=== PATIENT | male | born 1980 | race Caucasian/White ===

== ENCOUNTER 2021-03-09 10:32 | Inpatient (IN) | payer OTHER ==
[~2021-03-09] VITALS: Ht 182.9 cm; Wt 85.7 kg
[~2021-03-09 10:32] MED LIST changes: -ACET-2267 PO; -ACHD5005 PO; -AMOX-358 PO; -AMOXICILLIN PO; -ASPI-1238 PO; -ATOR40TA70 PO; -CEFT2VIA12 IV; -CHOLESTEROL PO; -DOXY100C5 PO; -DOXYCYCLINE PO; -LIRA0.6P3 SQ; -LISI10TA25 PO; -METF-478 PO; -METFORMIN ER PO; -METR-145 PO; -OMG1KC PO; -SENN1TAB76 PO
[2021-03-09] MEDS ORDERED: CHOLESTEROL PO (10:47)
[2021-03-09] MEDS ORDERED: LIRA0.6P3 SQ ×2 (10:47→14:51)
[2021-03-09] MEDS ORDERED: AMOXICILLIN PO (10:47)
[2021-03-09] MEDS ORDERED: METFORMIN ER PO (10:47)
[2021-03-09] MEDS ORDERED: DOXYCYCLINE PO (10:47)
--- NOTE | 2021-03-09 11:10 | ED Integumentary General ---
General Chief Complaint: Skin/Wound Problems Stated Complaint: R FOOT INFECTION Nursing Triage Note: PT REPORTS HE HAS HAD WOUND ON BOTTOM OF RIGHT FOOT FOR A FEW MONTHS. WAS SEEN AT WOUND CARE TODAY. DR ORNELAS SENT PT TO ER FOR ADMISSION. Source: patient Exam Limitations: no limitations (SHILA LENNON APRN) History of Present Illness Date Seen by Provider: Mar 09, 2021 Time Seen by Provider: 11:06 Initial Comments To ER from wound care where he presented for his first visit today he has had an ongoing wound to the plantar surface of the right foot for several months. He is a poorly controlled diabetic with a last hemoglobin A1c of about 14. He is on Metformin and Victoza. He was sent to ER by Dr. Ornelas to be admitted for IV antibiotics and surgical debridement of this wound. He states that he has had cellulitis that required admission to the hospital once before here and once before in [place]. He had an x-ray done at [facility] 2 days ago and MRI done at [facility] yesterday. He is currently on amoxicillin and doxycycline x4 days for this wound. Timing/Duration: constant Severity: moderate Possible Cause: no cause identified Associated Symptoms: denies symptoms (SHILA LENNON APRN) Allergies and Home Medications Allergies Coded Allergies: [place] Known Allergies (Verified Allergy, Unknown, 09/25/05) Patient Home Medication List Home Medication List Reviewed: Yes (SHILA LENNON APRN) Acetaminophen (Tylenol Extra Strength) 500 Mg Tablet, 1,000 MG PO Q8H PRN for PAIN-MILD (1-4), (Reported) Entered as Reported by: ABIDA BRUMFIELD on 03/09/211450 Last Action: Continued Amoxicillin/Potassium Clav (Augmentin 875-125 Tablet) 1 Each Tablet, 1 EACH PO BID, (Reported) Entered as Reported by: ABIDA BRUMFIELD on 03/09/211450 Last Action: Held Atorvastatin Calcium (Atorvastatin Calcium) 40 Mg Tablet, 40 MG PO HS, (Reported) Entered as Reported by: ABIDA BRUMFIELD on 03/09/211450 Last Action: Continued Doxycycline Hyclate (Doxycycline Hyclate) 100 Mg Capsule, 100 MG PO BID, (Reported) Entered as Reported by: ABIDA BRUMFIELD on 03/09/211450 Last Action: Held Liraglutide (Victoza 3-Yan) 0.6 Mg/0.1 Ml Pen.injctr, 0.6 MG SQ 1800, (Reported) Entered as Reported by: ABIDA BRUMFIELD on 03/09/211450 Last Action: Converted Metformin HCl (Metformin HCl ER) 500 Mg Tab.er.24, 500 MG PO 1800 W/ DINNER, (Reported) Entered as Reported by: ABIDA BRUMFIELD on 03/09/211450 Last Action: Continued Discontinued Medications Hydrocodone Bit/Acetaminophen (Hydrocodone-Apap 10-325 Tablet) 1 Each Tablet, 0.5-1 EACH PO Q 4 - 6 HRS PRN Discontinued Reason: No Longer Taking Prescribed by: AMPARO WHITMAN on 01/21/13 1210 Last Action: Discontinued Liraglutide (Victoza 3-Yan) 0.6 Mg/0.1 Ml Pen.injctr, 0.6 MG SQ DAILY, (Reported) Discontinued Reason: Duplicate Order Entered as Reported by: CHERIE PRADO on 03/09/211046 Last Action: Discontinued Metformin Hcl (Metformin 1000 Mg) 1,000 Mg Tablet, 1 EACH PO BID WITH MEALS, (Reported) Discontinued Reason: No Longer Taking Entered as Reported by: GERALD HARRIS on 01/21/13 115 Last Action: Discontinued Ranitidine Hcl (Zantac 150 Mg) 150 Mg Tablet, 1 TAB PO BID, (Reported) Discontinued Reason: No Longer Taking Entered as Reported by: GERALD HARRIS on 01/21/13 115 Last Action: Discontinued [Amoxicillin] , 1 TAB PO BID, (Reported) Discontinued Reason: Duplicate Order Entered as Reported by: CHERIE PRADO on 03/09/211046 Last Action: Discontinued [Cholesterol] , 1 TAB PO DAILY, (Reported) Discontinued Reason: Duplicate Order Entered as Reported by: CHERIE PRADO on 03/09/211046 Last Action: Discontinued [Doxycycline] , 1 TAB PO BID, (Reported) Discontinued Reason: Duplicate Order Entered as Reported by: CHERIE PRADO on 03/09/211046 Last Action: Discontinued [Metformin Er] , 1 TAB PO DINNER, (Reported) Discontinued Reason: Duplicate Order Entered as Reported by: CHERIE PRADO on 03/09/211046 Last Action: Discontinued Review of Systems Review of Systems Constitutional: see HPI, chills; No fever EENTM: see HPI Respiratory: no symptoms reported Cardiovascular: no symptoms reported Genitourinary: no symptoms reported Musculoskeletal: no symptoms reported Skin: no symptoms reported Psychiatric/Neurological: No Symptoms Reported Endocrine: No Symptoms Reported Hematologic/Lymphatic: No Symptoms Reported (SHILA LENNON APRN) Past Jnevbgg-Yaddow-Cfgpay Hx Past Medical History Diabetes, Non-Insulin dep Anxiety (SHILA LENNON APRN) Physical Exam Vital Signs Vital Signs - First Documented 03/09/21 10:38 Temp 37.0 Pulse 108 Resp 18 B/P (MAP) 134/83 (100) Pulse Ox 97 O2 Delivery Room Air (UCHE ALVARES MD) Vital Signs Capillary Refill : Less Than 3 Seconds (SHILA LENNON APRN) General Appearance: WD/WN, no apparent distress Neck: non-tender, full range of motion Respiratory: normal breath sounds, no respiratory distress, no accessory muscle use Gastrointestinal: normal bowel sounds, non tender Extremities: normal range of motion, non-tender Neurologic/Psychiatric: alert, normal mood/affect, oriented x 3 Skin: normal color, warm/dry Skin Problem Location: lower extremities Skin Problem Character: abscess, erythema, other (To the plantar surface of the right foot are 2 separate ulcers. One is surrounded by callus and the wound bed cannot be well visualized. The more posterior wound is surrounded by erythema, the ulcerative center has whitish-yellow necrotic material and there are some surrounding cellulitic changes of erythema and induration.) (SHILA LENNON APRN) Progress/Results/Core Measures Results/Orders Lab Results Laboratory Tests Test 03/09/21 11:00 03/09/21 11:09 Range/Units White Blood Count 14.9 H 4.3-11.0 10^3/uL Red Blood Count 4.60 4.30-5.52 10^6/uL Hemoglobin 13.1 L 13.3-17.7 g/dL Hematocrit 39 L 40-54 % Mean Corpuscular Volume 84 80-99 fL Mean Corpuscular Hemoglobin 29 25-34 pg Mean Corpuscular Hemoglobin Concent 34 32-36 g/dL Red Cell Distribution Width 11.1 10.0-14.5 % Platelet Count 373 130-400 10^3/uL Mean Platelet Volume 10.4 9.0-12.2 fL Immature Granulocyte % (Auto) 1 % Neutrophils (%) (Auto) 73 42-75 % Lymphocytes (%) (Auto) 18 12-44 % Monocytes (%) (Auto) 6 0-12 % Eosinophils (%) (Auto) 2 0-10 % Basophils (%) (Auto) 1 0-10 % Neutrophils # (Auto) 10.9 H 1.8-7.8 10^3/uL Lymphocytes # (Auto) 2.6 1.0-4.0 10^3/uL Monocytes # (Auto) 0.9 0.0-1.0 10^3/uL Eosinophils # (Auto) 0.2 0.0-0.3 10^3/uL Basophils # (Auto) 0.1 0.0-0.1 10^3/uL Immature Granulocyte # (Auto) 0.1 0.0-0.1 10^3/uL Neutrophils % (Manual) 70 % Lymphocytes % (Manual) 24 % Monocytes % (Manual) 4 % Eosinophils % (Manual) 1 % Basophils % (Manual) 1 % Band Neutrophils 0 % Blood Morphology Comment NORMAL Prothrombin Time 15.1 H 12.2-14.7 SEC INR Comment 1.1 0.8-1.4 Activated Partial Thromboplast Time 36 H 24-35 SEC Sodium Level 133 L 135-145 MMOL/L Potassium Level 3.8 3.6-5.0 MMOL/L Chloride Level 97 L 98-107 MMOL/L Carbon Dioxide Level 25 21-32 MMOL/L Anion Gap 11 5-14 MMOL/L Blood Urea Nitrogen 11 7-18 MG/DL Creatinine 1.01 0.60-1.30 MG/DL Estimat Glomerular Filtration Rate 81 BUN/Creatinine Ratio 11 Glucose Level 175 H 70-105 MG/DL Lactic Acid Level 1.12 0.50-2.00 MMOL/L Calcium Level 10.1 8.5-10.1 MG/DL Corrected Calcium 10.4 H 8.5-10.1 MG/DL Total Bilirubin 0.7 0.1-1.0 MG/DL Aspartate Amino Transf (AST/SGOT) 15 5-34 U/L Alanine Aminotransferase (ALT/SGPT) 12 0-55 U/L Alkaline Phosphatase 95 40-136 U/L Total Protein 7.5 6.4-8.2 GM/DL Albumin 3.6 3.2-4.5 GM/DL Urine Color YELLOW Urine Clarity CLEAR Urine pH 7.5 5-9 Urine Specific [place] 1.010 L 1.016-1.022 Urine Protein NEGATIVE NEGATIVE Urine Glucose (UA) NEGATIVE NEGATIVE Urine Ketones NEGATIVE NEGATIVE Urine Nitrite NEGATIVE NEGATIVE Urine Bilirubin NEGATIVE NEGATIVE Urine Urobilinogen 1.0 < = 1.0 MG/DL Urine Leukocyte Esterase NEGATIVE NEGATIVE Urine RBC (Auto) TRACE-I H NEGATIVE Urine RBC NONE /HPF Urine WBC NONE /HPF Urine Crystals NONE /LPF Urine Bacteria NEGATIVE /HPF Urine Casts NONE /LPF Urine Mucus NEGATIVE /LPF Urine Culture Indicated CULTURE PENDING (UCHE ALVARES MD) Micro Results Microbiology 03/09/21 Urine Culture - Final, Complete NO GROWTH 03/09/21 Gram Stain - Final, Resulted 03/09/21 Wound Culture, Resulted Pending 03/09/21 Blood Culture - Preliminary, Resulted No growth (UCHE ALVARES MD) Vital Signs/I&O 03/09/21 10:38 Temp 37.0 Pulse 108 Resp 18 B/P (MAP) 134/83 (100) Pulse Ox 97 O2 Delivery Room Air (UCHE ALVARES MD) Blood Pressure Mean: 100 Diagnostic Imaging Diagonstic Imaging: Xray Comments NAME: KELLIE MG MED REC#: [id number] PT STATUS: REG ER : 1980 PHYSICIAN: SHILA LENNON APRN ADMIT DATE: 03/09/21/ER Draft Date of Exam:03/09/21 CHEST 1 VIEW, AP/PA ONLY CLINICAL INDICATION: Patient with sepsis. EXAM: Portable chest x-ray upright view. COMPARISONS: None. FINDINGS: Lungs/pleura: Suspected bony prominence of the anterior aspects of both 1st ribs causing the increased density involving the medial bilateral upper lobes. Otherwise, lungs are clear. There is no pneumothorax. There is no pleural effusion. Mediastinum: Unremarkable. Pulmonary vasculature: Unremarkable. Heart: Unremarkable. Bones/extrathoracic soft tissue: Unremarkable. IMPRESSION: 1: Suspected bony prominence of the anterior aspects of both 1st ribs causing the increased density involving the medial bilateral upper lobes. Chest x-ray PA and lateral views is suggested to exclude underlying lung nodule. 2: Otherwise, there is no radiographic evidence of acute cardiopulmonary process. Dictated on workstation # [id number] Dict: 03/09/21 1205 Trans: 03/09/21 1216 [facility] [id number] Interpreted by: RADHA PERALTA MD Electronically signed by: (SHILA LENNON APRN) Departure Communication (Admissions) NAME: KELLIE MG [facility] REC#: [id number] PT STATUS: REG ER : 1980 PHYSICIAN: SHILA LENNON APRN ADMIT DATE: 03/09/21/ER Draft Date of Exam:03/09/21 FOOT, RIGHT, 3 VIEW CLINICAL INDICATION: Patient with a wound on bottom of right foot for a few months. EXAM: X-ray of the right foot, three views. COMPARISON: None. FINDINGS AND IMPRESSION: 1: There is a soft tissue defect involving the plantar aspect of the soft tissue near the MTP joint region, seen on lateral view, which likely correlates to patient's history of a foot wound. 2: There is appearance of air overlying the fourth MTP joint region on the AP view. The bony cortical margins involving the distal head of the fourth metatarsal bone are not well visualized. Osteomyelitis should be excluded. MRI of the right foot would better evaluate. 3: There is no acute fracture or dislocation. 4: There are degenerative spurs involving the mid foot and calcaneus. Dictated on workstation # [id number] Dict: 03/09/21 1237 Trans: 03/09/21 1243 [id number] Interpreted by: RADHA PERALTA MD Electronically signed by: I spoke with Dr. Biggs and Dr. Goldstein. Will admit on Zosyn and vancomycin he does meet sepsis protocol given the leukocytosis of 15,000 here in the tachycardia rate of 108. The official radiology report of the right foot x-ray is pending though to me it does look like there is erosion of the distal fourth metatarsal. Alternatively I suppose this could just be severe osteopenia but the official report is pending. Either way admitted for IV antibiotics and surgical consult. I did call [facility] to get the report for the MRI that was done there yesterday outpatient and it has not yet been transcribed so it is unavailable. (SHILA LENNON APRN) Impression Primary Impression: Diabetic ulcer of right foot Additional Impression: Sepsis Disposition: 09 ADMITTED INPATIENT Condition: Stable Admissions Decision to Admit Reason: Admit from ER (General) Decision to Admit/Date: Mar 09, 2021 Time/Decision to Admit Time: 12:45 (SHILA LENNON APRN) Departure-Patient Inst. Referrals: [facility] [place] (PCP/Family) Primary Care Physician ATTENDING PHYSICIAN NOTE: I was physically present as attending physician in the emergency department during the care of this patient, but I was not directly involved in the decision making or delivery of care for this patient. (UCHE ALVARES MD) SHILA LENNON APRN Mar 09, 2021 11:10 UCHE ALVARES MD Mar 11, 2021 06:25
[2021-03-09 11:13] LABS: BASOPHILS # (AUTO) 0.1 10^3/uL (0.0-0.1); BASOPHILS % (AUTO) 1 % (0-10); EOSINOPHILS # (AUTO) 0.2 10^3/uL (0.0-0.3); EOSINOPHILS % (AUTO) 2 % (0-10); HEMATOCRIT 39 % (40-54); HEMOGLOBIN 13.1 g/dL (13.3-17.7); LYMPHOCYTES # (AUTO) 2.6 10^3/uL (1.0-4.0); LYMPHOCYTES % (AUTO) 18 % (12-44); MEAN CORPUSCULAR HEMOGLOBIN 29 pg (25-34); MEAN CORPUSCULAR HGB CONC 34 g/dL (32-36); MEAN CORPUSCULAR VOLUME 84 fL (80-99); MEAN PLATELET VOLUME 10.4 fL (9.0-12.2); MONOCYTES # (AUTO) 0.9 10^3/uL (0.0-1.0); MONOCYTES % (AUTO) 6 % (0-12); NEUTROPHILS # (AUTO) 10.9 10^3/uL (1.8-7.8); NEUTROPHILS % (AUTO) 73 % (42-75); PLATELET COUNT 373 10^3/uL (130-400); WHITE BLOOD COUNT 14.9 10^3/uL (4.3-11.0)
[2021-03-09 11:14] LABS: BILIRUBIN,URINE NEGATIVE (NEGATIVE); CLARITY,URINE CLEAR; COLOR,URINE YELLOW; GLUCOSE, URINE (UA) NEGATIVE (NEGATIVE); KETONES,URINE NEGATIVE (NEGATIVE); LEUKOCYTE ESTERASE ,URINE NEGATIVE (NEGATIVE); NITRITE,URINE NEGATIVE (NEGATIVE); PH,URINE 7.5 (5-9); PROTEIN,URINE NEGATIVE (NEGATIVE)
[2021-03-09 11:24] LABS: BACTERIA,URINE NEGATIVE /HPF
[2021-03-09 11:25] LABS: ALBUMIN 3.6 GM/DL (3.2-4.5); POTASSIUM 3.8 MMOL/L (3.6-5.0)
[2021-03-09 11:26] LABS: CALCIUM 10.1 MG/DL (8.5-10.1)
[2021-03-09 11:27] LABS: TOTAL PROTEIN 7.5 GM/DL (6.4-8.2)
[2021-03-09 11:29] LABS: BILIRUBIN,TOTAL 0.7 MG/DL (0.1-1.0)
[2021-03-09 11:31] LABS: CREATININE SERUM 1.01 MG/DL (0.60-1.30)
[2021-03-09 11:32] LABS: BAND NEUTROPHILS 0 %; BASOPHILS % (MANUAL) 1 %; EOSINOPHILS % (MANUAL) 1 %; INR 1.1 (0.8-1.4); LYMPHOCYTES % (MANUAL) 24 %; MONOCYTES % (MANUAL) 4 %; NEUTROPHILS % (MANUAL) 70 %; PROTHROMBIN TIME PATIENT 15.1 SEC (12.2-14.7); RBC MORPH NORMAL
[2021-03-09] MEDS ORDERED: ONDANSETRON 4 MG/2 ML (SDV) Z0FRAN ONE (11:35)
[2021-03-09] MEDS ORDERED: ONDANSETRON 4 MG/2 ML (SDV) Z0FRAN IVP ONE (11:45)
--- NOTE | 2021-03-09 12:17 | Diagnostic Imaging Report ---
CLINICAL INDICATION: Patient with sepsis. EXAM: Portable chest x-ray upright view. COMPARISONS: None. FINDINGS: Lungs/pleura: Suspected bony prominence of the anterior aspects of both 1st ribs causing the increased density involving the medial bilateral upper lobes. Otherwise, lungs are clear. There is no pneumothorax. There is no pleural effusion. Mediastinum: Unremarkable. Pulmonary vasculature: Unremarkable. Heart: Unremarkable. Bones/extrathoracic soft tissue: Unremarkable. IMPRESSION: 1: Suspected bony prominence of the anterior aspects of both 1st ribs causing the increased density involving the medial bilateral upper lobes. Chest x-ray PA and lateral views is suggested to exclude underlying lung nodule. 2: Otherwise, there is no radiographic evidence of acute cardiopulmonary process. Dictated by: Dictated on workstation # [id number]
--- NOTE | 2021-03-09 12:43 | Diagnostic Imaging Report ---
CLINICAL INDICATION: Patient with a wound on bottom of right foot for a few months. EXAM: X-ray of the right foot, three views. COMPARISON: None. FINDINGS AND IMPRESSION: 1: There is a soft tissue defect involving the plantar aspect of the soft tissue near the MTP joint region, seen on lateral view, which likely correlates to patient's history of a foot wound. 2: There is appearance of air overlying the fourth MTP joint region on the AP view. The bony cortical margins involving the distal head of the fourth metatarsal bone are not well visualized. Osteomyelitis should be excluded. MRI of the right foot would better evaluate. 3: There is no acute fracture or dislocation. 4: There are degenerative spurs involving the mid foot and calcaneus. Dictated by: Dictated on workstation # [id number]
[2021-03-09 13:53] VITALS: BP 145/91
[2021-03-09] MEDS ORDERED: PIPERACILLIN/TAZO 4.5 GM/NS 100 ML IV NR ×2 (14:15)
[2021-03-09] MEDS ORDERED: ONDANSETRON 4 MG/2 ML (SDV) Z0FRAN IV PRN (14:15)
[2021-03-09] MEDS ORDERED: CATHETER FLUSH 10 ML SYR IV PRN (14:15)
--- NOTE | 2021-03-09 14:24 | Consultation - Surgery ---
BIRDIE KELLEY 03/09/21 1424: History of Present Illness History of Present Illness Patient Consulted On(edwin/time) 03/09/21 14:09 Date Seen by Provider: Mar 09, 2021 Time Seen by Provider: 13:36 Reason for Visit: Wound on foot History of Present Illness Previous HPI from ED - To ER from wound care where he presented for his first visit today he has had an ongoing wound to the plantar surface of the right foot for several months. He is a poorly controlled diabetic with a last hemoglobin A1c of about 14. He is on Metformin and Victoza. He was sent to ER by Dr. Ornelas to be admitted for IV antibiotics and surgical debridement of this wound. He states that he has had cellulitis that required admission to the hospital once before here and once before in [place]. He had an x-ray done at [facility] 2 days ago and MRI done at [place] yesterday. He is curr ently on amoxicillin and doxycycline x4 days for this wound. Surgery consulted for foot wound management. Pt was resting in bed when entering and does not appear to be in distress at this time. Pt reports 2 month hx of wound to the plantar surface of his right foot which he had been managing by keeping it clean. Last Saturday when driving his right foot began to hurt which prompted him to visit the [facility] clinic on Saturday where he received abx and a referral for MRI of the foot in [place]. The wound opened further upon cleaning which prompted the Pt to seek additional care from Dr. Ornelas at wound care who referred him to the ED. He has a painless, open purulent wound with 3 openings on the plantar surface of his right foot. There is surrounding erythema of 4X5cm. Diffusely swollen and warm to the touch. Sensation to touch intact and with good distal sensation to touch and good motor control. Dorsal pulse on right foot is present but difficult to palate due to swelling. Resting the foot makes the wound better and driving makes it worse, he has no pain but is concerned for to worsening nature of the wound. He states that he would prefer to keep his foot intact, but will consent to amputation if necessary. He is tachycardic with elevated WBCs and afebrile but also complains of chills since Saturday. Allergies and Home Medications Allergies Coded Allergies: [place] Known Allergies (Verified Allergy, Unknown, 09/25/05) Patient Home Medication List Acetaminophen (Tylenol Extra Strength) 500 Mg Tablet, 1,000 MG PO Q8H PRN for PAIN-MILD (1-4), (Reported) Entered as Reported by: ABIDA BRUMFIELD on 03/09/211450 Last Action: Reviewed Amoxicillin/Potassium Clav (Augmentin 875-125 Tablet) 1 Each Tablet, 1 EACH PO BID, (Reported) Entered as Reported by: ABIDA BRUMFIELD on 03/09/211450 Last Action: Reviewed Atorvastatin Calcium (Atorvastatin Calcium) 40 Mg Tablet, 40 MG PO HS, (Reported) Entered as Reported by: ABIDA BRUMFIELD on 03/09/211450 Last Action: Reviewed Doxycycline Hyclate (Doxycycline Hyclate) 100 Mg Capsule, 100 MG PO BID, (Reported) Entered as Reported by: ABIDA BRUMFIELD on 03/09/211450 Last Action: Reviewed Liraglutide (Victoza 3-Yan) 0.6 Mg/0.1 Ml Pen.injctr, 0.6 MG SQ 1800, (Reported) Entered as Reported by: ABIDA BRUMFIELD on 03/09/211450 Last Action: Reviewed Metformin HCl (Metformin HCl ER) 500 Mg Tab.er.24, 500 MG PO 1800 W/ DINNER, (Reported) Entered as Reported by: ABIDA BRUMFIELD on 03/09/211450 Last Action: Reviewed Discontinued Medications Hydrocodone Bit/Acetaminophen (Hydrocodone-Apap 10-325 Tablet) 1 Each Tablet, 0.5-1 EACH PO Q 4 - 6 HRS PRN Discontinued Reason: No Longer Taking Prescribed by: AMPARO WHITMAN on 01/21/13 1210 Last Action: Discontinued Liraglutide (Victoza 3-Yan) 0.6 Mg/0.1 Ml Pen.injctr, 0.6 MG SQ DAILY, (Reported) Discontinued Reason: Duplicate Order Entered as Reported by: CHERIE PRADO on 03/09/21 1047 Last Action: Discontinued Metformin Hcl (Metformin 1000 Mg) 1,000 Mg Tablet, 1 EACH PO BID WITH MEALS, (Reported) Discontinued Reason: No Longer Taking Entered as Reported by: GERALD HARRIS on 01/21/13 1153 Last Action: Discontinued Ranitidine Hcl (Zantac 150 Mg) 150 Mg Tablet, 1 TAB PO BID, (Reported) Discontinued Reason: No Longer Taking Entered as Reported by: GERALD HARRIS on 01/21/13 1153 Last Action: Discontinued [Amoxicillin] , 1 TAB PO BID, (Reported) Discontinued Reason: Duplicate Order Entered as Reported by: CHERIE PRADO on 03/09/211046 Last Action: Discontinued [Cholesterol] , 1 TAB PO DAILY, (Reported) Discontinued Reason: Duplicate Order Entered as Reported by: CHERIE PRADO on 03/09/211046 Last Action: Discontinued [Doxycycline] , 1 TAB PO BID, (Reported) Discontinued Reason: Duplicate Order Entered as Reported by: CHERIE PRADO on 03/09/211046 Last Action: Discontinued [Metformin Er] , 1 TAB PO DINNER, (Reported) Discontinued Reason: Duplicate Order Entered as Reported by: CHERIE PRADO on 03/09/211046 Last Action: Discontinued Past Blnnikw-Ybxhtg-Kbqnka Hx Patient Social History Smoking Status: Former Smoker Cigarettes Per Day: 20 Type Used: Cigarettes Alcohol Use?: Yes Have you traveled recently?: No Immunizations Up To Date Date of Influenza Vaccine: Mar 05, 2021 Seasonal Allergies Seasonal Allergies: No Surgeries History of Surgeries: Yes Respiratory History of Respiratory Disorde: No Cardiovascular History of Cardiac Disorders: No Neurological History of Neurological Disord: No Genitourinary History of Genitourinary Disor: No Gastrointestinal History of Gastrointestinal Di: No Musculoskeletal History of Musculoskeletal Dis: No Endocrine History of Endocrine Disorders: Yes Endocrine Disorders: Diabetes, Non-Insulin dep HEENT History of HEENT Disorders: No Loss of Vision: Denies Hearing Impairment: Denies Cancer History of Cancer: No Psychosocial History of Psychiatric Problem: Yes Behavioral Health Disorders: Anxiety Integumentary History of Skin or Integumenta: No Family Medical History Significant Family History: Cancer Other Mom had ovarian CA Review of Systems-General Constitutional: chills; No diaphoresis, No dizziness, No malaise, No weakness EENTM: No hearing loss, No ear pain, No blurred vision, No double vision, No vision loss, No hoarseness, No mouth pain, No nose pain, No throat pain Respiratory: No cough, No dyspnea on exertion, No hemoptysis, No orthopnea, No phlegm, No short of breath Cardiovascular: No chest pain, No edema, No Hx of Intervention, No palpitations Gastrointestinal: No abdominal pain, No constipation, No diarrhea, No hematemesis; nausea, vomiting Genitourinary: No dysuria, No frequency, No hematuria, No hesitancy Musculoskeletal: No back pain, No gout, No joint pain, No joint swelling, No muscle pain, No muscle stiffness, No muscle cramps, No muscle twitching, No muscle weakness Skin: No change in hair/nails, No dryness, No hx of skin cancer; other Psychiatric/Neurological: Anxiety; Denies Numbness, Denies Paresthesia, Denies Tingling, Denies Tremors Other Purulent open wound on plantar surface of foot Physical Exam-General Problems Physical Exam Vital Signs Vital Signs - First Documented 03/09/21 10:38 Temp 37.0 Pulse 108 Resp 18 B/P (MAP) 134/83 (100) Pulse Ox 97 O2 Delivery Room Air Capillary Refill : Less Than 3 Seconds General Appearance: WD/WN, no apparent distress Eyes: Bilateral Eye EOMI, Bilateral Eye Abnormal Pupil (Fixed pupils) HEENT: pharynx normal; No scleral icterus (R), No scleral icterus (L); other (copius cerumen covering both TMs) Neck: full range of motion, supple Respiratory: lungs clear, normal breath sounds, no respiratory distress, no accessory muscle use Cardiovascular: normal peripheral pulses, no edema, no gallop, no murmur, tachycardia Peripheral Pulses: 1+ Dorsalis Pedis (R); 2+ Left Dors-Pedis (L), 2+ Radial Pulses (R), 2+ Radial Pulses (L) Gastrointestinal: normal bowel sounds, non tender, soft, no organomegaly, no pulsatile mass Rectal: deferred Back: no CVA tenderness, no vertebral tenderness Extremities: non-tender, no pedal edema, no calf tenderness, normal capillary refill, other (right foot open purulent wound with 3 openings and surrounding errythema of 4X5cm. Diffusely swollen and warm to the touch. Non-painful and with good distal sensation to touch and good motor control.) Neurologic/Psychiatric: alert, normal mood/affect, oriented x 3 Reflexes: 1+ Bicep (R); 0 Bicep (L), 0 Knee (R); 1+ Knee (L) Skin: normal color, warm/dry, other (open purulent wounds on plantar surface of Rt foot) Lymphatic: no adenopathy (cervically and axillary) Data Review Labs Laboratory Tests 03/09/21 11:00: White Blood Count 14.9H, Red Blood Count 4.60, Hemoglobin 13.1L, Hematocrit 39L, Mean Corpuscular Volume 84, Mean Corpuscular Hemoglobin 29, Mean Corpuscular Hemoglobin Concent 34, Red Cell Distribution Width 11.1, Platelet Count 373, Mean Platelet Volume 10.4, Immature Granulocyte % (Auto) 1, Neutrophils (%) (Auto) 73, Lymphocytes (%) (Auto) 18, Monocytes (%) (Auto) 6, Eosinophils (%) (Auto) 2, Basophils (%) (Auto) 1, Neutrophils # (Auto) 10.9H, Lymphocytes # (Auto) 2.6, Monocytes # (Auto) 0.9, Eosinophils # (Auto) 0.2, Basophils # (Auto) 0.1, Immature Granulocyte # (Auto) 0.1, Neutrophils % (Manual) 70, Lymphocytes % (Manual) 24, Monocytes % (Manual) 4, Eosinophils % (Manual) 1, Basophils % (Manual) 1, Band Neutrophils 0, Blood Morphology Comment NORMAL, Prothrombin Time 15.1H, INR Comment 1.1, Activated Partial Thromboplast Time 36H, Sodium Level 133L, Potassium Level 3.8, Chloride Level 97L, Carbon Dioxide Level 25, Anion Gap 11, Blood Urea Nitrogen 11, Creatinine 1.01, Estimat Glomerular Filtration Rate 81, BUN/Creatinine Ratio 11, Glucose Level 175H, Lactic Acid Level 1.12, Calcium Level 10.1, Corrected Calcium 10.4H, Total Bilirubin 0.7, Aspartate Amino Transf (AST/SGOT) 15, Alanine Aminotransferase (ALT/SGPT) 12, Alkaline Phosphatase 95, Total Protein 7.5, Albumin 3.6 03/09/21 11:09: Urine Color YELLOW, Urine Clarity CLEAR, Urine pH 7.5, Urine Specific [place] 1.010L, Urine Protein NEGATIVE, Urine Glucose (UA) NEGATIVE, Urine Ketones NEGATIVE, Urine Nitrite NEGATIVE, Urine Bilirubin NEGATIVE, Urine Urobilinogen 1.0, Urine Leukocyte Esterase NEGATIVE, Urine RBC (Auto) TRACE-IH, Urine RBC NONE, Urine WBC NONE, Urine Crystals NONE, Urine Bacteria NEGATIVE, Urine Casts NONE, Urine Mucus NEGATIVE, Urine Culture Indicated CULTURE PENDING Assessment/Plan Assessment/Plan Assessment/Plan T2DM Dabetic foot ulcer Plan - Will review imaging for possible osteomyelitis. I&D with removal of necrotic tissue and possible BKA. Consult Medicine for possible medication change and management of his DM (A1C of 14). OLYA STRICKLAND DO 03/09/21 1843: History of Present Illness History of Present Illness Time Seen by Provider: 17:58 History of Present Illness Surgery asked to consult regarding right foot abscess. HPI: Pt states he has had this wound on the bottom of his foot for about 2 months, "it is not getting better". He has tried outpt ABX and was sent to wound care; wound care sent him straight to the ER today for debridement. Had an MRI done at [place]. Allergies and Home Medications Allergies Coded Allergies: Galileo Known Allergies (Verified Allergy, Unknown, 09/25/05) Patient Home Medication List Home Medication List Reviewed: Yes Acetaminophen (Tylenol Extra Strength) 500 Mg Tablet, 1,000 MG PO Q8H PRN for PAIN-MILD (1-4), (Reported) Entered as Reported by: ABIDA BRUMFIELD on 03/09/211450 Last Action: Reviewed Amoxicillin/Potassium Clav (Augmentin 875-125 Tablet) 1 Each Tablet, 1 EACH PO BID, (Reported) Entered as Reported by: ABIDA BRUMFIELD on 03/09/211450 Last Action: Reviewed Atorvastatin Calcium (Atorvastatin Calcium) 40 Mg Tablet, 40 MG PO HS, (Re ported) Entered as Reported by: ABIDA BRUMFIELD on 03/09/211450 Last Action: Reviewed Doxycycline Hyclate (Doxycycline Hyclate) 100 Mg Capsule, 100 MG PO BID, (Reported) Entered as Reported by: ABIDA BRUMFIELD on 03/09/211450 Last Action: Reviewed Liraglutide (Victoza 3-Yan) 0.6 Mg/0.1 Ml Pen.injctr, 0.6 MG SQ 1800, (Reported) Entered as Reported by: ABIDA BRUMFIELD on 03/09/211450 Last Action: Reviewed Metformin HCl (Metformin HCl ER) 500 Mg Tab.er.24, 500 MG PO 1800 W/ DINNER, (Reported) Entered as Reported by: ABIDA BRUMFIELD on 03/09/211450 Last Action: Reviewed Discontinued Medications Hydrocodone Bit/Acetaminophen (Hydrocodone-Apap 10-325 Tablet) 1 Each Tablet, 0.5-1 EACH PO Q 4 - 6 HRS PRN Discontinued Reason: No Longer Taking Prescribed by: AMPARO WHITMAN on 01/21/13 1210 Last Action: Discontinued Liraglutide (Victoza 3-Yan) 0.6 Mg/0.1 Ml Pen.injctr, 0.6 MG SQ DAILY, (Reported) Discontinued Reason: Duplicate Order Entered as Reported by: CHERIE PRADO on 03/09/211046 Last Action: Discontinued Metformin Hcl (Metformin 1000 Mg) 1,000 Mg Tablet, 1 EACH PO BID WITH MEALS, (Reported) Discontinued Reason: No Longer Taking Entered as Reported by: GERALD HARRIS on 01/21/13 115 Last Action: Discontinued Ranitidine Hcl (Zantac 150 Mg) 150 Mg Tablet, 1 TAB PO BID, (Reported) Discontinued Reason: No Longer Taking Entered as Reported by: GERALD HARRIS on 01/21/13 115 Last Action: Discontinued [Amoxicillin] , 1 TAB PO BID, (Reported) Discontinued Reason: Duplicate Order Entered as Reported by: CHERIE PRADO on 03/09/211046 Last Action: Discontinued [Cholesterol] , 1 TAB PO DAILY, (Reported) Discontinued Reason: Duplicate Order Entered as Reported by: CHERIE PRADO on 03/09/211046 Last Action: Discontinued [Doxycycline] , 1 TAB PO BID, (Reported) Discontinued Reason: Duplicate Order Entered as Reported by: CHERIE PRADO on 03/09/211046 Last Action: Discontinued [Metformin Er] , 1 TAB PO DINNER, (Reported) Discontinued Reason: Duplicate Order Entered as Reported by: CHERIE PRADO on 03/09/211046 Last Action: Discontinued Past Pnueucp-Dqpcng-Pmowkn Hx Patient Social History Smoking Status: Former Smoker Type Used: Cigarettes Seasonal Allergies Seasonal Allergies: No Surgeries History of Surgeries: Yes (wisdom teeth removal, urethral surgery) Respiratory History of Respiratory Disorde: No Cardiovascular History of Cardiac Disorders: No Neurological History of Neurological Disord: No Genitourinary History of Genitourinary Disor: Yes Genitourinary Disorders: Epi/Hypospadias Gastrointestinal History of Gastrointestinal Di: No Musculoskeletal History of Musculoskeletal Dis: No Endocrine History of Endocrine Disorders: Yes Endocrine Disorders: Diabetes, Non-Insulin dep HEENT History of HEENT Disorders: No Loss of Vision: Bilateral (wears glasses and thinks vision is getting worse) Hearing Impairment: Denies Cancer History of Cancer: No Integumentary History of Skin or Integumenta: No Family Medical History Significant Family History: Cancer (Mother had Ovarian Cancer) Review of Systems-General Constitutional: chills; No diaphoresis, No dizziness, No malaise, No weakness EENTM: blurred vision, vision loss; No hearing loss, No ear pain, No double vision, No hoarseness, No mouth pain, No nose pain, No throat pain Respiratory: No cough, No dyspnea on exertion, No hemoptysis, No orthopnea, No phlegm, No short of breath Cardiovascular: No chest pain, No edema, No Hx of Intervention, No palpitations Gastrointestinal: No abdominal pain, No constipation, No diarrhea, No hematemesis; nausea, vomiting Genitourinary: No dysuria, No frequency, No hematuria, No hesitancy Musculoskeletal: No back pain, No gout, No joint pain, No joint swelling, No muscle pain, No muscle stiffness, No muscle cramps, No muscle twitching, No muscle weakness Skin: No change in hair/nails, No dryness, No hx of skin cancer Psychiatric/Neurological: Anxiety, Numbness (neuropathy), Paresthesia; Denies Tingling, Denies Tremors Physical Exam-General Problems Physical Exam General Appearance: WD/WN, no apparent distress Eyes: Bilateral Eye PERRL (pupils are small and barely move with light), Bilateral Eye EOMI HEENT: pharynx normal; No scleral icterus (R), No scleral icterus (L); other (copius cerumen covering both TMs) Neck: full range of motion, supple Respiratory: lungs clear, normal breath sounds, no respiratory distress, no accessory muscle use Cardiovascular: normal peripheral pulses, no murmur, tachycardia Gastrointestinal: normal bowel sounds, non tender, soft, no organomegaly, no pulsatile mass Rectal: deferred Back: no CVA tenderness, no vertebral tenderness Extremities: non-tender, no pedal edema, no calf tenderness, normal capillary refill, other (right foot open purulent wound with 3 openings and surrounding errythema of 4X5cm. Diffusely swollen and warm to the touch. 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 EXAM: X-ray of the right foot, three views. COMPARISON: None. FINDINGS AND IMPRESSION: 1: There is a soft tissue defect involving the plantar aspect of the soft tissue near the MTP joint region, seen on lateral view, which likely correlates to patient's history of a foot wound. 2: There is appearance of air overlying the fourth MTP joint region on the AP view. The bony cortical margins involving the distal head of the fourth metatarsal bone are not well visualized. Osteomyelitis should be excluded. MRI of the right foot would better evaluate. 3: There is no acute fracture or dislocation. 4: There are degenerative spurs involving the mid foot and calcaneus. Dictated on workstation # [id number] Dict: 03/09/21 1237 Trans: 03/09/21 1243 [id number] Interpreted by: RADHA PERALTA MD Assessment/Plan Assessment/Plan Assessment/Plan Abscess/Cellulitis Right foot Osteomyelitis 4th Metatarsal head DM type II - uncontrolled I was able to review the MRI myself at [place] and also viewed the foot X-ray here. Radiology reading of MRI is positive for osteomyelitis. Pt will need I&D with possible debridement of right foot. I discussed pt's options, he has osteomyelitis and the first thing we have to do is get rid of the abscess so the ABX can work. Next he would like to try IV ABX for 6-8 weeks to see if that will treat the osteomyelitis. Because, if it doesn't he will need either a trans-metarsal (forefoot) amputatioin or he may need a BKA. He would like to avoid that if possible; we will have to monitor to make sure it is not getting worse. He will need a PICC line and then set up for IV ABX. Supervisory-Addendum Brief Verification & Attestation Participated in pt care: history, MDM, physical Personally performed: exam, history, MDM, supervision of care Care discussed with: Medical Student Procedures: n/a Verification and Attestation of Medical Student E/M Service A medical student performed and documented this service. I then reviewed and verified all information documented by the medical student and made modifications to such information, when appropriate. I personally performed a physical exam, medical decision making and then discussed any differences between the notes and made revisions as necessary to create one note. Olya Strickland , 03/09/21 , 18:58 BIRDIE KELLEY Mar 09, 2021 14:24 OLYA STRICKLAND DO Mar 09, 2021 18:43
[2021-03-09] MEDS: LACTATED RINGERS 1,000 ML IV SCH ×2 (14:26→22:00)
[2021-03-09] MEDS: ENOXAPARIN 40 MG/0.4 ML (LOVENOX) SYR SC SCH (14:26)
[2021-03-09] MEDS ORDERED: DOXY100C5 PO (14:51)
[2021-03-09] MEDS ORDERED: METF-478 PO (14:51)
[2021-03-09] MEDS ORDERED: ACET-2267 PO (14:51)
[2021-03-09] MEDS ORDERED: AMOX-358 PO (14:51)
[2021-03-09] MEDS ORDERED: ATOR40TA70 PO (14:51)
[2021-03-09] MEDS ORDERED: VANCOMYCIN 1,750 MG/NS 500 ML IVPB IV NR ×2 (15:00)
[2021-03-09 15:40] VITALS: BP 144/85
[2021-03-09] MEDS: inSUlin ASPART (NovoLOG) 1 UNIT/0.01 ML (CHARGE PER UNIT) SC SCH ×2 (15:47→20:38)
--- NOTE | 2021-03-09 16:57 | Diagnostic Imaging Report ---
INDICATION: Right foot wound. TECHNIQUE: Grayscale and color-flow imaging of the right lower extremity arteries is performed with spectral analysis. FINDINGS: There is diffuse atherosclerotic plaque present with normal arterial flow at the right common femoral artery. There is mild increased velocity in the proximal right superficial femoral artery reaching 2 m/s. There is also significant elevated flow velocity reaching 3.3 m/s at the right popliteal artery. There is also increased flow velocity within the proximal posterior tibial artery with collateralization seen distally at the anterior tibial artery. IMPRESSION: Atherosclerosis with probable significant stenoses of the right popliteal artery and posterior tibial artery. CTA or arteriography may be of value for characterization. Dictated by: Dictated on workstation # [id number]
[2021-03-09 20:12] VITALS: BP 157/81
[2021-03-09] MEDS: PIPERACILLIN/TAZO 4.5 GM/NS 100 ML IV SCH ×2 (20:39)
[2021-03-09 23:06] VITALS: BP 172/90
[2021-03-09] MEDS: fentaNYL INJ 100 MCG/2 ML AMP IV PRN (23:09)
[2021-03-10] VITALS (11 sets, daily range): BP systolic 102–163; BP diastolic 60–95
[2021-03-10] MEDS: VANCOMYCIN 1250 MG/NS 250 ML IVPB IV SCH ×4 (03:50→14:50)
[2021-03-10] MEDS: LACTATED RINGERS 1,000 ML IV SCH ×4 (04:04→21:25)
[2021-03-10 04:29] LABS: BASOPHILS # (AUTO) 0.1 10^3/uL (0.0-0.1); BASOPHILS % (AUTO) 1 % (0-10); EOSINOPHILS # (AUTO) 0.3 10^3/uL (0.0-0.3); EOSINOPHILS % (AUTO) 3 % (0-10); HEMATOCRIT 35 % (40-54); HEMOGLOBIN 11.7 g/dL (13.3-17.7); LYMPHOCYTES # (AUTO) 3.2 10^3/uL (1.0-4.0); LYMPHOCYTES % (AUTO) 27 % (12-44); MEAN CORPUSCULAR HEMOGLOBIN 28 pg (25-34); MEAN CORPUSCULAR HGB CONC 33 g/dL (32-36); MEAN CORPUSCULAR VOLUME 84 fL (80-99); MEAN PLATELET VOLUME 10.1 fL (9.0-12.2); MONOCYTES # (AUTO) 0.9 10^3/uL (0.0-1.0); MONOCYTES % (AUTO) 8 % (0-12); NEUTROPHILS # (AUTO) 7.6 10^3/uL (1.8-7.8); NEUTROPHILS % (AUTO) 62 % (42-75); PLATELET COUNT 324 10^3/uL (130-400); WHITE BLOOD COUNT 12.2 10^3/uL (4.3-11.0)
[2021-03-10 04:53] LABS: CALCIUM 9.7 MG/DL (8.5-10.1); CREATININE SERUM 1.01 MG/DL (0.60-1.30)
[2021-03-10] MEDS: inSUlin ASPART (NovoLOG) 1 UNIT/0.01 ML (CHARGE PER UNIT) SC SCH ×5 (05:08→21:24)
[2021-03-10] MEDS: PIPERACILLIN/TAZO 4.5 GM/NS 100 ML IV SCH ×6 (05:12→21:25)
[2021-03-10] MEDS: fentaNYL INJ 100 MCG/2 ML AMP IV PRN ×4 (05:30→21:31)
--- NOTE | 2021-03-10 08:23 | Progress Note - Surgery ---
BIRDIE KELLEY 03/10/21 0823: Subjective Date Seen by a Provider: Mar 10, 2021 Time Seen by a Provider: 07:16 Subjective/Events-last exam Pt was sleeping bed when I arrived. He reports no knew concerns from yesterday. He is NPO and expecting I&D of his right foot wound today. He is receiving IV ABX and fluids. He reports no issues or changes with urination or bowl habits. He reports no headache, nausea or vomiting over night. Review of Systems General: No Chills, No Night Sweats, No Fatigue, No Malaise HEENT: No Head Aches, No Eye Pain, No Ear Pain, No Dysphasia, No Sinus Congestion, No Post Nasal Drip, No Sore Throat Pulmonary: No Dyspnea, No Cough, No Pleuritic Chest Pain Cardiovascular: No: Chest Pain, Palpitations, Orthopnea, Paroxysmal Noc. Dyspnea, Edema, Lt Headedness Gastrointestinal: No: Nausea, Vomiting, Abdominal Pain, Diarrhea, Constipation, Melena, Hematochezia Genitourinary: No Dysuria, No Frequency, No Incontinence, No Hematuria, No Retention Musculoskeletal: No: neck pain, shoulder pain, arm pain, back pain, hand pain, leg pain, foot pain Neurological: No: Weakness, Numbness, Incoordination, Change in speech, Confusion, Seizures Focused Exam Lactate Level 03/09/21 11:00: Lactic Acid Level 1.12 03/09/21 14:28: Lactic Acid Level 0.87 Objective Exam Vital Signs Date Time Temp Pulse Resp B/P (MAP) Pulse Ox O2 Delivery O2 Flow Rate FiO2 03/10/21 03:51 36.8 80 18 158/86 (110) 95 Room Air 03/09/21 23:06 36.9 90 18 172/90 (117) 98 Room Air 03/09/21 20:12 36.8 90 18 157/81 (106) 96 Room Air 03/09/21 20:00 Room Air 03/09/21 15:40 36.2 96 16 144/85 (104) 97 Room Air 03/09/21 13:53 37.1 101 14 145/91 (109) 98 Room Air 03/09/21 13:50 Room Air 03/09/21 13:34 101 20 131/77 97 Room Air 03/09/21 10:38 37.0 108 18 134/83 (100) 97 Room Air I & O 03/10/21 07:00 Intake Total 837.5 ml Balance 837.5 ml Capillary Refill : Less Than 3 Seconds General Appearance: No Apparent Distress, WD/WN HEENT: PERRL/EOMI, Pharynx Normal, Moist Mucous Membranes Neck: Full Range of Motion, Normal Inspection, Non Tender, Supple Respiratory: Chest Non Tender, Lungs Clear, Normal Breath Sounds, No Accessory Muscle Use, No Respiratory Distress Cardiovascular: Regular Rate, Rhythm, No Edema, No Gallop, No Murmur, Normal Peripheral Pulses Peripheral Pulses: 1+ Dorsalis Pedis (R); 2+ Left Dors-Pedis (L), 2+ Radial Pulses (R), 2+ Radial Pulses (L) Gastrointestinal: normal bowel sounds, non tender, soft, no organomegaly, no pulsatile mass Extremity: Normal Capillary Refill, Normal Range of Motion, Non Tender, No Calf Tenderness, No Pedal Edema Neurologic/Psychiatric: Alert, Oriented x3, No Motor/Sensory Deficits, Normal Mood/Affect, 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 as Tested Skin: Normal Color, Warm/Dry Lymphatic: No Adenopathy (cervical and axillary) Results Lab Laboratory Tests 03/09/21 11:00: White Blood Count 14.9H, Red Blood Count 4.60, Hemoglobin 13.1L, Hematocrit 39L, Mean Corpuscular Volume 84, Mean Corpuscular Hemoglobin 29, Mean Corpuscular Hemoglobin Concent 34, Red Cell Distribution Width 11.1, Platelet Count 373, Mean Platelet Volume 10.4, Immature Granulocyte % (Auto) 1, Neutrophils (%) (Auto) 73, Lymphocytes (%) (Auto) 18, Monocytes (%) (Auto) 6, Eosinophils (%) (Auto) 2, Basophils (%) (Auto) 1, Neutrophils # (Auto) 10.9H, Lymphocytes # (Au to) 2.6, Monocytes # (Auto) 0.9, Eosinophils # (Auto) 0.2, Basophils # (Auto) 0.1, Immature Granulocyte # (Auto) 0.1, Neutrophils % (Manual) 70, Lymphocytes % (Manual) 24, Monocytes % (Manual) 4, Eosinophils % (Manual) 1, Basophils % (Manual) 1, Band Neutrophils 0, Blood Morphology Comment NORMAL, Prothrombin Time 15.1H, INR Comment 1.1, Activated Partial Thromboplast Time 36H, Sodium Level 133L, Potassium Level 3.8, Chloride Level 97L, Carbon Dioxide Level 25, Anion Gap 11, Blood Urea Nitrogen 11, Creatinine 1.01, Estimat Glomerular Filtration Rate 81, BUN/Creatinine Ratio 11, Glucose Level 175H, Lactic Acid Level 1.12, Calcium Level 10.1, Corrected Calcium 10.4H, Total Bilirubin 0.7, Aspartate Amino Transf (AST/SGOT) 15, Alanine Aminotransferase (ALT/SGPT) 12, Alkaline Phosphatase 95, Total Protein 7.5, Albumin 3.6 03/09/21 11:09: Urine Color YELLOW, Urine Clarity CLEAR, Urine pH 7.5, Urine Specific [place] 1.010L, Urine Protein NEGATIVE, Urine Glucose (UA) NEGATIVE, Urine Ketones NEGATIVE, Urine Nitrite NEGATIVE, Urine Bilirubin NEGATIVE, Urine Urobilinogen 1.0, Urine Leukocyte Esterase NEGATIVE, Urine RBC (Auto) TRACE-IH, Urine RBC NONE, Urine WBC NONE, Urine Crystals NONE, Urine Bacteria NEGATIVE, Urine Casts NONE, Urine Mucus NEGATIVE, Urine Culture Indicated CULTURE PENDING 03/09/21 14:28: Lactic Acid Level 0.87 03/09/21 15:43: Glucometer 199H 03/09/21 20:36: Glucometer 218H 03/10/21 04:20: White Blood Count 12.2H, Red Blood Count 4.19L, Hemoglobin 11.7L, Hematocrit 35L , Mean Corpuscular Volume 84, Mean Corpuscular Hemoglobin 28, Mean Corpuscular Hemoglobin Concent 33, Red Cell Distribution Width 11.1, Platelet Count 324, Mean Platelet Volume 10.1, Immature Granulocyte % (Auto) 0, Neutrophils (%) (Auto) 62, Lymphocytes (%) (Auto) 27, Monocytes (%) (Auto) 8, Eosinophils (%) (Auto) 3, Basophils (%) (Auto) 1, Neutrophils # (Auto) 7.6, Lymphocytes # (Auto) 3.2, Monocytes # (Auto) 0.9, Eosinophils # (Auto) 0.3, Basophils # (Auto) 0.1, Immature Granulocyte # (Auto) 0.1, Sodium Level 137, Potassium Level 4.0, Chloride Level 102, Carbon Dioxide Level 24, Anion Gap 11, Blood Urea Nitrogen 12, Creatinine 1.01, Estimat Glomerular Filtration Rate 81, BUN/Creatinine Ratio 12, Glucose Level 126H, Calcium Level 9.7 Assessment/Plan Assessment/Plan Assessment/Plan Abscess/Cellulitis Right foot Osteomyelitis 4th Metatarsal head DM type II - uncontrolled I&D with possible debridement of right foot, followed by wound care and IV ABX for 6-8 weeks to see if that will treat the osteomyelitis. If it doesn't he will need either a trans-metarsal (forefoot) amputatioin or he may need a BKA. He will need a PICC line and then set up for IV ABX. FAIZAN GOLDSTEIN DO 03/10/21 1001: Subjective Time Seen by a Provider: 09:54 Subjective/Events-last exam Pt seen and examined, npo for surgery today. No new complaints. Review of Systems General: No Chills, No Night Sweats Pulmonary: No Dyspnea, No Cough Cardiovascular: No: Chest Pain, Palpitations Gastrointestinal: No: Nausea, Vomiting, Abdominal Pain Objective Exam General Appearance: No Apparent Distress, WD/WN Respiratory: Chest Non Tender, Lungs Clear, Normal Breath Sounds, No Accessory Muscle Use, No Respiratory Distress Cardiovascular: Regular Rate, Rhythm, No Murmur Gastrointestinal: non tender, soft, no organomegaly Extremity: Other (abscess right foot, about same as yesterday) Assessment/Plan Assessment/Plan Assessment/Plan Abscess/Cellulitis Right foot Osteomyelitis 4th Metatarsal head DM type II - uncontrolled I&D with possible debridement of right foot, followed by wound care and IV ABX for 6-8 weeks to see if that will treat the osteomyelitis. If it doesn't he will need either a trans-metarsal (forefoot) amputatioin or he may need a BKA. He will need a PICC line and then set up for IV ABX. Supervisory-Addendum Brief Verification & Attestation Participated in pt care: history, MDM, physical Personally performed: exam, history, MDM, supervision of care Care discussed with: Medical Student Procedures: n/a Verification and Attestation of Medical Student E/M Service A medical student performed and documented this service. I then reviewed and verified all information documented by the medical student and made modifications to such information, when appropriate. I personally performed a physical exam, medical decision making and then discussed any differences between the notes and made revisions as necessary to create one note. Faizan Goldstein 03/10/21 , 10:01 BIRDIE KELLEY Mar 10, 2021 08:23 FAIZAN GOLDSTEIN DO Mar 10, 2021 10:01
--- NOTE | 2021-03-10 09:07 | History & Physical ---
ALLISON NOLASCO 03/10/21 0907: HPI History of Present Illness: Paulo is a 40 year old male who presents with a right foot wound. Months ago he picked at something on his right foot and a wound has slowly been progressing into the lesion he presents with today. The lesion is on the plantar surface of his foot proximal to his third and fourth toes. Throughout the past several months he has tried to keep the spot clean. He denies pain throughout its progression. Last Saturday he was driving approximately 2 hours round-trip and noticed worsening of the lesion; he thinks the pressure from driving caused this. He also reports he thinks a second wound developed near the initial lesion last Saturday due to the pressure of driving/his foot rubbing against the bottom of his shoe. He came to the hospital yesterday morning. He has been experiencing chills, and yesterday morning he was nauseated and vomited at 10:00. He has not had emesis since. He reports chills but denies fevers or aches. His right foot and ankle are not in pain at rest, but he states that it is painful when touching the site of the wound and palpating his foot and distal ankle. He reports he has cellulitis in his right foot about a year ago. Surgery has been following the patient and plans debridement of the wound later today. Source: patient Exam Limitations: no limitations Date seen by provider: Mar 10, 2021 Attending Physician Calvin Biggs MD PCP Center/[facility] Consult Date of Admission Mar 09, 2021 at 12:38 Home Medications Home Medications Reviewed patient Home Medication Reconciliation performed by pharmacy medication reconciliations radar technician and/or nursing. Patients Allergies have been reviewed. 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 GERD with esophagitis GERD without esophagitis Mood disorder Anxiety DM T2 with foot ulcer 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 Uncontrolled diabetes mellitis Osteomyelitis of right foot, unspecified type Cellulitis of right foot Family Medical History Significant Family History: Cancer (Mother had Ovarian Cancer) Review of Systems ([facility]) Constitutional: chills EENTM: No hearing loss, No vision loss Respiratory: no symptoms reported; No short of breath Cardiovascular: no symptoms reported; No chest pain, No palpitations Gastrointestinal: No abdominal pain, No diarrhea, No nausea (Last felt nauseated yesterday morning 03/09), No vomiting (Last vomited 03/09 in the morning) Genitourinary: no symptoms reported Musculoskeletal: other (Right foot pain) Skin: no symptoms reported, other (Wound of right foot ) Psychiatric/Neurological: No Symptoms Reported, Other (Patient has past medical history of anxiety ) All Other Systems Reviewed Negative Unless Noted: Yes Reviewed Test Results Reviewed Test Results Radiology Date of Exam:03/09/21 FOOT, RIGHT, 3 VIEW CLINICAL INDICATION: Patient with a wound on bottom of right foot for a few months. EXAM: X-ray of the right foot, three views. COMPARISON: None. FINDINGS AND IMPRESSION: 1: There is a soft tissue defect involving the plantar aspect of the soft tissue near the MTP joint region, seen on lateral view, which likely correlates to patient's history of a foot wound. 2: There is appearance of air overlying the fourth MTP joint region on the AP view. The bony cortical margins involving the distal head of the fourth metatarsal bone are not well visualized. Osteomyelitis should be excluded. MRI of the right foot would better evaluate. 3: There is no acute fracture or dislocation. 4: There are degenerative spurs involving the mid foot and calcaneus. Dictated on workstation # [id number] Dict: 03/09/21 1237 Trans: 03/09/21 1243 [id number] Interpreted by: RADHA PERALTA MD Physical Exam-([facility]) Physical Exam Vital Signs VS - Last 72 Hours, by Label 03/09/21 03/09/21 03/09/21 03/09/21 10:38 13:34 13:50 13:53 Temp 37.0 37.1 Pulse 108 101 101 Resp 18 20 14 B/P (MAP) 134/83 (100) 131/77 145/91 (109) Pulse Ox 97 97 98 O2 Delivery Room Air Room Air Room Air Room Air 03/09/21 03/09/21 03/09/21 03/09/21 15:40 20:00 20:12 23:06 Temp 36.2 36.8 36.9 Pulse 96 90 90 Resp 16 18 18 B/P (MAP) 144/85 (104) 157/81 (106) 172/90 (117) Pulse Ox 97 96 98 O2 Delivery Room Air Room Air Room Air Room Air 03/10/21 03/10/21 03/10/21 03/10/21 03:51 08:00 08:00 11:20 Temp 36.8 36.8 36.3 Pulse 80 81 Resp 18 16 12 B/P (MAP) 158/86 (110) 163/95 (117) 106/62 (77) Pulse Ox 95 97 97 O2 Delivery Room Air Room Air Room Air OxyMask O2 Flow Rate 6 03/10/21 03/10/21 03/10/21 03/10/21 11:20 11:30 11:30 11:40 Resp 18 18 B/P (MAP) 102/60 (74) 108/70 (83) Pulse Ox 97 99 O2 Delivery OxyMask OxyMask OxyMask OxyMask O2 Flow Rate 6 6 6 6 03/10/21 03/10/21 03/10/21 03/10/21 11:41 11:45 11:49 11:50 Resp 18 B/P (MAP) 128/82 (97) Pulse Ox 99 O2 Delivery OxyMask OxyMask OxyMask OxyMask O2 Flow Rate 6 6 3 3 03/10/21 03/10/21 03/10/21 03/10/21 11:53 12:00 12:01 12:10 Temp 36.4 Resp 18 18 B/P (MAP) 143/94 (110) 132/80 (97) Pulse Ox 95 94 O2 Delivery Room Air Room Air Room Air Room Air 03/10/21 03/10/21 12:10 12:20 Temp 36.4 Pulse 80 Resp 18 B/P (MAP) 140/89 (106) Pulse Ox 94 O2 Delivery Room Air Room Air Capillary Refill : Less Than 3 Seconds General Appearance: WD/WN, no apparent distress Respiratory: lungs clear, normal breath sounds, no respiratory distress, no accessory muscle use Cardiovascular: regular rate, rhythm, no edema, no gallop, no murmur Peripheral Pulses: 2+ Left Dors-Pedis (L) Gastrointestinal: normal bowel sounds, non tender, soft, no organomegaly, no pulsatile mass Extremities: no pedal edema (of left foot. Right foot was bandaged and unable to be examined), other (tenderness when palpating right ankle and dorsal surface of foot. Did not palpate plantar surface. ) Neurologic/Psychiatric: no motor/sensory deficits, alert, normal mood/affect Skin: normal color, warm/dry Assessment/Plan Assessment/Plan Admission Dx Infected wound of right foot Admission Status: Inpatient Order (span 2 midnights) Reason for Inpatient Admission: Infected wound of right foot (1) Hypertension Assessment & Plan: Begin lisinopril 10mg for blood pressure control. Monitor blood pressure. Follow-up with PCP in out-patient. (2) Diabetic ulcer of right foot Status: Acute Assessment & Plan: Surgical debridement of wound. Continue vancomycin and piperacillin/tazobactam for infection control. Monitor WBC counts. Monitor vital signs for fever, changes in heart rate and respiratory rate. Lortab 5mg and fentanyl for pain control, enoxaparin 40mg for DVT prophylaxis. (3) Diabetes mellitus, type 2 Status: Chronic Assessment & Plan: Continue insulin aspart, metformin 500mg at 1800 daily, and lisinopril 10mg. Follow-up with PCP in out-patient setting. (4) Osteomyelitis Status: Acute Assessment & Plan: Continue vancomycin and piperacillin/tazobactam for infection control. Monitor WBC counts. Monitor vital signs for fever, changes in heart rate and respiratory rate. Lortab 5mg and fentanyl for pain control, enoxaparin 40mg for DVT prophylaxis. (5) Hyperlipidemia Status: Chronic Assessment & Plan: Continue atorvastatin 40mg. Follow-up with PCP in out- patient setting. CALVIN BIGGS MD 03/10/21 1611: HPI History of Present Illness: Time Seen by Provider: 14:00 Home Medications Allergies Coded Allergies: NKANo Known Allergies (Verified Allergy, Unknown, 09/25/05) Physical Exam-([facility]) Physical Exam General Appearance: WD/WN, no apparent distress Respiratory: lungs clear, normal breath sounds Cardiovascular: regular rate, rhythm, no murmur Gastrointestinal: normal bowel sounds, non tender, soft Extremities: other (right foot in dressing with no drainage noted) Neurologic/Psychiatric: alert, normal mood/affect Supervisory-Addendum Brief Verification & Attestation Participated in pt care: history, MDM, physical Personally performed: exam, history, MDM Care discussed with: Medical Student Procedures: n/a Verification and Attestation of Medical Student E/M Service I saw patient this afternoon at about 1400, after surgery. He notes he had not been taking medication for diabetes for quite some time due to life stressors and just not taking care of things. He just resumed medications about a week ago, and notes labs were drawn to help differentiate whether he has type I or type II DM. He was diagnosed around age 22 and has been on insulin in past, but reports no history of DKA. Will start insulin given his recent A1c > 14. I reviewed and verified all information documented by the medical student and made modifications to such information, when appropriate. I personally performed the physical exam and medical decision making. Calvin Biggs, Mar 10, 2021,16:09 ALLISON NOLASCO Mar 10, 2021 09:07 CALVIN BIGGS MD Mar 10, 2021 16:11
[2021-03-10] MEDS ORDERED: LIDOCAINE PF 2% 5 ML (XYLOCAINE) VIAL ONE (09:30)
[2021-03-10] MEDS ORDERED: proPOfol 200 MG/20 ML (DIPRIVAN) VIAL IV ONE (09:30)
[2021-03-10] MEDS ORDERED: fentaNYL INJ 100 MCG/2 ML AMP ONE (09:30)
[2021-03-10] MEDS ORDERED: MIDAZOLAM 2 MG/2 ML (VERSED) VIAL ONE (09:31)
[2021-03-10] MEDS: LACTATED RINGERS 1,000 ML IV PRN ×2 (09:46→10:50)
[2021-03-10] MEDS ORDERED: SEVOFLURANE (ULTANE) 15 ML INHAL SOLN ONE (11:15)
[2021-03-10] MEDS ORDERED: ONDANSETRON 4 MG/2 ML (SDV) Z0FRAN ONE (11:19)
--- NOTE | 2021-03-10 11:20 | Progress Note-Post Operative ---
Post-Operative Progess Note Surgeon (s)/Radiology Orderly (s) Surgeon OLYA STRICKLAND DO Radiology Orderly: NEVIN Valdivia Pre-Operative Diagnosis Right foot abscess/cellulitis Post-Operative Diagnosis same Procedure & Operative Findings Date of Procedure 03/10/21 Procedure Performed/Findings I&D with debridement (MS, Fascia and skin) and washout Anesthesia Type LMA Estimated Blood Loss Estimated blood loss (mL): scant Specimens/Packing Specimens Removed wound culture portion of skin, fascia and muscle Packin OLYA STRICKLAND DO Mar 10, 2021 11:20
[2021-03-10] MEDS ORDERED: LACTATED RINGERS 1,000 ML IV PRN (12:15)
--- NOTE | 2021-03-10 13:06 | Anesthesia-General Post-Op ---
General Patient Condition Mental Status/LOC: Same as Preop Cardiovascular: Satisfactory Nausea/Vomiting: Absent Respiratory: Satisfactory Pain: Controlled Complications: Absent Post Op Complications Complications None Follow Up Care/Instructions Patient Instructions None needed. Anesthesia/Patient Condition Patient Condition Patient is doing well, no complaints, stable vital signs, no apparent adverse anesthesia problems. No complications reported per nursing. ATTILA HAYES CRNA Mar 10, 2021 13:06
[2021-03-10] MEDS: ENOXAPARIN 40 MG/0.4 ML (LOVENOX) SYR SC SCH (14:50)
[2021-03-10] MEDS: HYDROcodone/APAP 5 MG/325 MG (LORTAB) TAB PO PRN ×2 (14:50→18:28)
--- NOTE | 2021-03-10 15:09 | OPERATIVE REPORT ---
DATE OF SERVICE: 03/10/2021 PREOPERATIVE DIAGNOSES: Right foot abscess, cellulitis. POSTOPERATIVE DIAGNOSES: Right foot abscess, cellulitis. PROCEDURE: Incision and drainage with debridement of muscle, fascia, skin and washout. SURGEON: Faizan Goldstein DO FINISHING AREA OPERATOR: Tyrel Birtton, MS3. ANESTHESIA: LMA. SPECIMEN: Wound culture and portion of skin, fascia and muscle. BLOOD LOSS: Scant. FLUIDS: Per anesthesia. POSTOPERATIVE CONDITION: Stable. INDICATION FOR PROCEDURE: The patient is a 40-year-old male who had an abscess on the plantar aspect of his foot. He had 2 small openings. He had an MRI, which showed osteomyelitis, need to get this drained, some antibiotics worked. FINDINGS: The patient had purulent fluid as well as some necrotic tissue area. Debridement was done, washout performed. Culture was obtained. PROCEDURE NOTE: After informed consent was obtained, the patient was brought to the operating room. Site had been marked previously to going to the OR. Everyone agreed on this. This was the right foot. This was then sterilely prepped and draped in normal fashion. There was an opening that measured about a centimeter half and the middle portion of the plantar aspect and then another one closer to the toe, which measured about just over a centimeter. The one that there was some purulent fluid coming out of the lower one, cultured this and then cut off skin with a Bovie electrocautery, going down into this area, cut off some necrotic fascia as well as some muscle Less than 20 square cm in total of debridement was performed, opened the incision towards other smaller opening and then elected to power wash with 3 liters of normal saline to wash this out. I could see the bone, unable to get a good biopsy of it and so left this alone. Once this was washed out and packed by iodoform, placed an ABD and then wrapped with Kerlix and then Coban. The patient tolerated the procedure. Sponge, instrument and needle count correct at the end of the case. Job ID: [id number] DocumentID: [id number] Dictated Date: 03/10/2021 11:20:13 Pest Control Supervisor Date: 03/10/2021 15:08:41 Dictated By: FAIZAN GOLDSTEIN DO
[2021-03-10] MEDS: metFORMIN XR 500 MG (GLUCOPHAGE XR) TAB PO SCH (16:41)
[2021-03-10] MEDS ORDERED: NON-FORMULARY MEDICATION 1 EA EA (Liraglutide (Victoza 3-Pak) 0.6 MG) SQ SCH (18:00)
[2021-03-11] VITALS (7 sets, daily range): BP systolic 108–143; BP diastolic 60–88
[2021-03-11] MEDS: VANCOMYCIN 1250 MG/NS 250 ML IVPB IV SCH ×4 (02:35→15:09)
[2021-03-11] MEDS: HYDROcodone/APAP 5 MG/325 MG (LORTAB) TAB PO PRN ×2 (02:39→20:14)
[2021-03-11] MEDS: PIPERACILLIN/TAZO 4.5 GM/NS 100 ML IV SCH ×6 (04:55→20:07)
[2021-03-11] MEDS: LACTATED RINGERS 1,000 ML IV SCH ×3 (04:55→20:08)
[2021-03-11 05:14] LABS: BASOPHILS # (AUTO) 0.1 10^3/uL (0.0-0.1); BASOPHILS % (AUTO) 1 % (0-10); EOSINOPHILS # (AUTO) 0.3 10^3/uL (0.0-0.3); EOSINOPHILS % (AUTO) 3 % (0-10); HEMATOCRIT 35 % (40-54); HEMOGLOBIN 11.7 g/dL (13.3-17.7); LYMPHOCYTES # (AUTO) 2.5 10^3/uL (1.0-4.0); LYMPHOCYTES % (AUTO) 21 % (12-44); MEAN CORPUSCULAR HEMOGLOBIN 28 pg (25-34); MEAN CORPUSCULAR HGB CONC 33 g/dL (32-36); MEAN CORPUSCULAR VOLUME 85 fL (80-99); MEAN PLATELET VOLUME 10.2 fL (9.0-12.2); MONOCYTES # (AUTO) 0.8 10^3/uL (0.0-1.0); MONOCYTES % (AUTO) 7 % (0-12); NEUTROPHILS # (AUTO) 7.9 10^3/uL (1.8-7.8); NEUTROPHILS % (AUTO) 68 % (42-75); PLATELET COUNT 332 10^3/uL (130-400); WHITE BLOOD COUNT 11.7 10^3/uL (4.3-11.0)
[2021-03-11] MEDS: inSUlin ASPART (NovoLOG) 1 UNIT/0.01 ML (CHARGE PER UNIT) SC SCH ×7 (05:25→20:23)
[2021-03-11 05:30] LABS: POTASSIUM 3.7 MMOL/L (3.6-5.0)
[2021-03-11 05:31] LABS: CALCIUM 9.6 MG/DL (8.5-10.1)
[2021-03-11 05:32] LABS: TOTAL PROTEIN 6.3 GM/DL (6.4-8.2)
[2021-03-11 05:34] LABS: BILIRUBIN,TOTAL 0.5 MG/DL (0.1-1.0)
[2021-03-11 05:36] LABS: CREATININE SERUM 0.82 MG/DL (0.60-1.30)
[2021-03-11] MEDS: ACETAMINOPHEN 500 MG TAB (TYLENOL) PO PRN (08:33)
[2021-03-11] MEDS: lisINopril 10 MG (PRINIVIL) TABLET PO SCH (08:33)
--- NOTE | 2021-03-11 10:28 | Progress Note - Hospitalist ---
Subjective HPI/CC On Admission Date Seen by Provider: Mar 11, 2021 Time Seen by Provider: 12:30 Subjective/Events-last exam Patient sleeping No pain is reported Nurse has no concerns Review of Systems General: Fatigue Focused Exam Lactate Level 03/09/21 11:00: Lactic Acid Level 1.12 03/09/21 14:28: Lactic Acid Level 0.87 Objective Exam Vital Signs Vital Signs Date Time Temp Pulse Resp B/P (MAP) Pulse Ox O2 Delivery O2 Flow Rate FiO2 03/12/21 05:38 36.3 03/12/21 04:31 82 16 138/87 (104) 92 Room Air 03/10/21 11:50 3 Capillary Refill : Less Than 3 Seconds General Appearance: No Apparent Distress, WD/WN, Chronically ill Respiratory: Lungs Clear, Normal Breath Sounds Cardiovascular: Regular Rate, Rhythm Neurologic/Psychiatric: Alert, Oriented x3 Results/Procedures Lab Laboratory Tests 03/12/21 04:40 Patient resulted labs reviewed. Assessment/Plan Assessment and Plan Assess & Plan/Chief Complaint Assessment: (1) Hypertension Assessment & Plan: Begin lisinopril 10mg for blood pressure control. Monitor blood pressure. Follow-up with PCP in out-patient. (2) Diabetic ulcer of right foot Status: Acute Assessment & Plan: Surgical debridement of wound. Continue vancomycin and piperacillin/tazobactam for infection control. Monitor WBC counts. Monitor vital signs for fever, changes in heart rate and respiratory rate. Lortab 5mg and fentanyl for pain control, enoxaparin 40mg for DVT prophylaxis. (3) Diabetes mellitus, type 2 Status: Chronic Assessment & Plan: Continue insulin aspart, metformin 500mg at 1800 daily, and lisinopril 10mg. Follow-up with PCP in out-patient setting. (4) Osteomyelitis Status: Acute Assessment & Plan: Continue vancomycin and piperacillin/tazobactam for infection control. Monitor WBC counts. Monitor vital signs for fever, changes in heart rate and respiratory rate. Lortab 5mg and fentanyl for pain control, enoxaparin 40mg for DVT prophylaxis. (5) Hyperlipidemia Status: Chronic Assessment & Plan: Continue atorvastatin 40mg. Follow-up with PCP in out- patient setting. LOC AUGUST DO Mar 11, 2021 10:28
--- NOTE | 2021-03-11 11:06 | Progress Note ---
Subjective Date Seen by a Provider: Mar 11, 2021 Time Seen by a Provider: 10:20 Subjective/Events-last exam Patient seen with Dr. Arredondo. Patient reports doing ok. Denies any significant pain. No fever/chills. Tolerating diet. Focused Exam Lactate Level 03/09/21 11:00: Lactic Acid Level 1.12 03/09/21 14:28: Lactic Acid Level 0.87 Objective Exam Vital Signs Date Time Temp Pulse Resp B/P (MAP) Pulse Ox O2 Delivery O2 Flow Rate FiO2 03/11/21 08:36 Room Air 03/11/21 07:39 36.4 108 22 143/88 (106) 94 Room Air 03/11/21 04:00 36.5 88 18 138/80 (99) 97 Room Air 03/11/21 00:36 36.8 78 18 125/74 (91) 97 Room Air 03/10/21 20:59 Room Air 03/10/21 20:10 36.4 92 16 129/78 (95) 96 Room Air 03/10/21 15:33 36.8 86 20 162/82 (108) 97 Room Air 03/10/21 12:20 36.4 80 18 140/89 (106) 94 Room Air 03/10/21 12:10 Room Air 03/10/21 12:10 36.4 18 132/80 (97) 94 Room Air 03/10/21 12:01 Room Air 03/10/21 12:00 18 143/94 (110) 95 Room Air 03/10/21 11:53 Room Air 03/10/21 11:50 18 128/82 (97) 99 OxyMask 3 03/10/21 11:49 OxyMask 3 03/10/21 11:45 OxyMask 6 03/10/21 11:41 OxyMask 6 03/10/21 11:40 18 108/70 (83) 99 OxyMask 6 03/10/21 11:30 18 102/60 (74) 97 OxyMask 6 03/10/21 11:30 OxyMask 6 03/10/21 11:20 OxyMask 6 03/10/21 11:20 36.3 12 106/62 (77) 97 OxyMask 6 I & O 03/11/21 07:00 Intake Total 4562.5 ml Balance 4562.5 ml Capillary Refill : Less Than 3 Seconds General Appearance: No Apparent Distress, WD/WN Neck: Normal Inspection, Supple Respiratory: No Accessory Muscle Use, No Respiratory Distress Cardiovascular: Regular Rate, Rhythm, No Edema Gastrointestinal: normal bowel sounds, non tender, soft Extremity: Other (Right foot dressing in place, C/D/I No visible swelling of lower extremity or toes, no redness) Neurologic/Psychiatric: Alert, Oriented x3 Skin: Normal Color, Warm/Dry Results Lab Laboratory Tests 03/10/21 15:35: Glucometer 215H 03/10/21 20:28: Glucometer 247H 03/11/21 05:00: White Blood Count 11.7H, Red Blood Count 4.17L, Hemoglobin 11.7L, Hematocrit 35L , Mean Corpuscular Volume 85, Mean Corpuscular Hemoglobin 28, Mean Corpuscular Hemoglobin Concent 33, Red Cell Distribution Width 11.1, Platelet Count 332, Mean Platelet Volume 10.2, Immature Granulocyte % (Auto) 1, Neutrophils (%) (Auto) 68, Lymphocytes (%) (Auto) 21, Monocytes (%) (Auto) 7, Eosinophils (%) ( Auto) 3, Basophils (%) (Auto) 1, Neutrophils # (Auto) 7.9H, Lymphocytes # (Auto) 2.5, Monocytes # (Auto) 0.8, Eosinophils # (Auto) 0.3, Basophils # (Auto) 0.1, Immature Granulocyte # (Auto) 0.1, Sodium Level 137, Potassium Level 3.7, C hloride Level 101, Carbon Dioxide Level 25, Anion Gap 11, Blood Urea Nitrogen 11, Creatinine 0.82, Estimat Glomerular Filtration Rate 104, BUN/Creatinine Ratio 13, Glucose Level 155H, Calcium Level 9.6, Corrected Calcium 10.4H, Total Bilirubin 0.5, Aspartate Amino Transf (AST/SGOT) 16, Alanine Aminotransferase (ALT/SGPT) 18, Alkaline Phosphatase 81, Total Protein 6.3L, Albumin 3.0L 03/11/21 05:04: Glucometer 151H Microbiology 03/10/21 Gram Stain - Final, Resulted 03/10/21 Anaerobic Culture, Resulted Pending 03/10/21 Surgical Culture, Resulted Pending 03/09/21 Blood Culture - Preliminary, Resulted No growth 03/09/21 Urine Culture - Final, Complete NO GROWTH 03/09/21 MRSA Screen - Final, Complete MRSA not isolated Assessment/Plan Assessment/Plan Assess & Plan/Chief Complaint A 40 year old male with Abscess/Cellulitis Right foot Osteomyelitis 4th Metatarsal head DM type II - uncontrolled VSS WBC 11.7 Continue IV fluids, abx, pain and nausea meds Will wait until saturday before doing dressing change CBC & CMP in AM GABRIELA LANGFORD APRN Mar 11, 2021 11:06
[2021-03-11] MEDS: ENOXAPARIN 40 MG/0.4 ML (LOVENOX) SYR SC SCH (13:56)
[2021-03-11] MEDS: metFORMIN XR 500 MG (GLUCOPHAGE XR) TAB PO SCH (17:33)
[2021-03-12] MEDS: LACTATED RINGERS 1,000 ML IV SCH ×2 (02:28→06:36)
[2021-03-12] MEDS: VANCOMYCIN 1250 MG/NS 250 ML IVPB IV SCH ×2 (03:23)
[2021-03-12 04:31] VITALS: BP 138/87
[2021-03-12] MEDS: PIPERACILLIN/TAZO 4.5 GM/NS 100 ML IV SCH ×6 (04:39→19:32)
[2021-03-12 04:46] LABS: HEMATOCRIT 33 % (40-54); HEMOGLOBIN 10.8 g/dL (13.3-17.7); MEAN CORPUSCULAR HEMOGLOBIN 28 pg (25-34); MEAN CORPUSCULAR HGB CONC 33 g/dL (32-36); MEAN CORPUSCULAR VOLUME 86 fL (80-99); MEAN PLATELET VOLUME 10.2 fL (9.0-12.2); PLATELET COUNT 306 10^3/uL (130-400); WHITE BLOOD COUNT 11.2 10^3/uL (4.3-11.0)
[2021-03-12 05:01] LABS: ALBUMIN 2.9 GM/DL (3.2-4.5); POTASSIUM 4.1 MMOL/L (3.6-5.0)
[2021-03-12 05:02] LABS: CALCIUM 9.5 MG/DL (8.5-10.1)
[2021-03-12 05:03] LABS: TOTAL PROTEIN 5.9 GM/DL (6.4-8.2)
[2021-03-12 05:05] LABS: BILIRUBIN,TOTAL 0.4 MG/DL (0.1-1.0)
[2021-03-12 05:07] LABS: CREATININE SERUM 0.9 MG/DL (0.60-1.30)
[2021-03-12] MEDS: HYDROcodone/APAP 5 MG/325 MG (LORTAB) TAB PO PRN ×2 (05:10→23:05)
--- NOTE | 2021-03-12 06:34 | Progress Note - Hospitalist ---
Subjective HPI/CC On Admission Date Seen by Provider: Mar 12, 2021 Time Seen by Provider: 11:30 Subjective/Events-last exam Patient in a good mood Cousin and his are visiting We will consult cardiology for peripheral vascular procedure tomorrow Hep locking IV fluid Check meds and labs Review of Systems General: Fatigue, Malaise Musculoskeletal: leg pain Focused Exam Lactate Level Objective Exam Vital Signs Vital Signs Date Time Temp Pulse Resp B/P (MAP) Pulse Ox O2 Delivery O2 Flow Rate FiO2 03/13/21 00:11 36.8 80 18 173/83 (113) 97 Room Air 03/10/21 11:50 3 Capillary Refill : Less Than 3 Seconds General Appearance: No Apparent Distress, WD/WN, Chronically ill Respiratory: Chest Non Tender, Lungs Clear, Normal Breath Sounds, No Accessory Muscle Use, No Respiratory Distress Cardiovascular: Regular Rate, Rhythm, No Edema, No Gallop, No JVD, No Murmur, Normal Peripheral Pulses Neurologic/Psychiatric: Alert, Oriented x3, No Motor/Sensory Deficits, Normal Mood/Affect Results/Procedures Lab Patient resulted labs reviewed. Assessment/Plan Assessment and Plan Assess & Plan/Chief Complaint Assessment: (1) Hypertension Assessment & Plan: Begin lisinopril 10mg for blood pressure control. Monitor blood pressure. Follow-up with PCP in out-patient. (2) Diabetic ulcer of right foot Status: Acute Assessment & Plan: Surgical debridement of wound. Continue vancomycin and piperacillin/tazobactam for infection control. Monitor WBC counts. Monitor vital signs for fever, changes in heart rate and respiratory rate. Lortab 5mg and fentanyl for pain control, enoxaparin 40mg for DVT prophylaxis. (3) Diabetes mellitus, type 2 Status: Chronic Assessment & Plan: Continue insulin aspart, metformin 500mg at 1800 daily, and lisinopril 10mg. Follow-up with PCP in out-patient setting. (4) Osteomyelitis Status: Acute Assessment & Plan: Continue vancomycin and piperacillin/tazobactam for infection control. Monitor WBC counts. Monitor vital signs for fever, changes in heart rate and respiratory rate. Lortab 5mg and fentanyl for pain control, enoxaparin 40mg for DVT prophylaxis. (5) Hyperlipidemia Status: Chronic Assessment & Plan: Continue atorvastatin 40mg. Follow-up with PCP in out- patient setting. 7. PVD- consulting cardiology tomorrow LOC AUGUST DO Mar 12, 2021 06:34
[2021-03-12] MEDS: inSUlin ASPART (NovoLOG) 1 UNIT/0.01 ML (CHARGE PER UNIT) SC SCH ×7 (06:36→20:44)
[2021-03-12 07:30] VITALS: BP 138/87
[2021-03-12] MEDS: lisINopril 10 MG (PRINIVIL) TABLET PO SCH (08:23)
[2021-03-12 11:03] VITALS: BP 148/90
[2021-03-12] MEDS: ENOXAPARIN 40 MG/0.4 ML (LOVENOX) SYR SC SCH (15:12)
[2021-03-12 15:30] VITALS: BP 164/96
[2021-03-12] MEDS: metFORMIN XR 500 MG (GLUCOPHAGE XR) TAB PO SCH (17:01)
[2021-03-13 00:11] VITALS: BP 173/83
[2021-03-13] MEDS: PIPERACILLIN/TAZO 4.5 GM/NS 100 ML IV SCH ×2 (05:20)
[2021-03-13 05:32] LABS: BASOPHILS # (AUTO) 0.1 10^3/uL (0.0-0.1); BASOPHILS % (AUTO) 1 % (0-10); EOSINOPHILS # (AUTO) 0.3 10^3/uL (0.0-0.3); EOSINOPHILS % (AUTO) 3 % (0-10); HEMATOCRIT 34 % (40-54); HEMOGLOBIN 11.5 g/dL (13.3-17.7); LYMPHOCYTES # (AUTO) 3.3 10^3/uL (1.0-4.0); LYMPHOCYTES % (AUTO) 26 % (12-44); MEAN CORPUSCULAR HEMOGLOBIN 28 pg (25-34); MEAN CORPUSCULAR HGB CONC 33 g/dL (32-36); MEAN CORPUSCULAR VOLUME 85 fL (80-99); MEAN PLATELET VOLUME 10.3 fL (9.0-12.2); MONOCYTES # (AUTO) 0.9 10^3/uL (0.0-1.0); MONOCYTES % (AUTO) 7 % (0-12); NEUTROPHILS # (AUTO) 7.7 10^3/uL (1.8-7.8); NEUTROPHILS % (AUTO) 63 % (42-75); PLATELET COUNT 338 10^3/uL (130-400); WHITE BLOOD COUNT 12.3 10^3/uL (4.3-11.0)
[2021-03-13 05:44] LABS: ALBUMIN 3.2 GM/DL (3.2-4.5); POTASSIUM 4.1 MMOL/L (3.6-5.0)
[2021-03-13 05:45] LABS: CALCIUM 9.7 MG/DL (8.5-10.1)
[2021-03-13 05:47] LABS: TOTAL PROTEIN 6.7 GM/DL (6.4-8.2)
[2021-03-13 05:48] LABS: BILIRUBIN,TOTAL 0.4 MG/DL (0.1-1.0)
[2021-03-13 05:50] LABS: CREATININE SERUM 0.86 MG/DL (0.60-1.30)
[2021-03-13] MEDS: inSUlin ASPART (NovoLOG) 1 UNIT/0.01 ML (CHARGE PER UNIT) SC SCH ×7 (06:18→21:08)
--- NOTE | 2021-03-13 06:48 | Progress Note - Surgery ---
JOHNY BETTS 03/13/21 0648: Subjective Date Seen by a Provider: Mar 13, 2021 Time Seen by a Provider: 07:10 Subjective/Events-last exam PT is status post I&D with debridement (MS, Fascia and skin) and washout on 03/10. Patient reports "a little bit" of foot pain on the right foot and rates it as a 3/10. His last bowel movement was the day before yesterday. He does not have abdominal pain. No complaints with urination. Review of Systems General: Chills, Night Sweats HEENT: No Head Aches, No Visual Changes Pulmonary: No Dyspnea, No Cough Cardiovascular: No: Chest Pain, Palpitations Gastrointestinal: No: Nausea, Vomiting Genitourinary: No Dysuria, No Frequency, No Hematuria Musculoskeletal: No: neck pain, shoulder pain Neurological: No: Change in speech, Confusion Objective Exam Vital Signs Date Time Temp Pulse Resp B/P (MAP) Pulse Ox O2 Delivery O2 Flow Rate FiO2 03/13/21 00:11 36.8 80 18 173/83 (113) 97 Room Air 03/12/21 19:30 Room Air 03/12/21 15:30 36.6 78 16 164/96 (118) 97 Room Air 03/12/21 11:03 36.8 76 20 148/90 (109) 95 Room Air 03/12/21 08:30 Room Air 03/12/21 07:30 36.6 78 16 138/87 (104) 94 Room Air I & O 03/13/21 07:00 Intake Total 2534 ml Balance 2534 ml Capillary Refill : Less Than 3 Seconds General Appearance: No Apparent Distress, WD/WN, Chronically ill HEENT: PERRL/EOMI, Pharynx Normal, Moist Mucous Membranes Neck: Normal Inspection, Supple Respiratory: Chest Non Tender, Lungs Clear, Normal Breath Sounds, No Accessory Muscle Use, No Respiratory Distress Cardiovascular: Regular Rate, Rhythm, No Edema, Normal Peripheral Pulses Peripheral Pulses: 2+ Radial Pulses (R), 2+ Radial Pulses (L) Gastrointestinal: non tender, soft, no organomegaly, no pulsatile mass Extremity: Normal Capillary Refill, Normal Range of Motion, Calf Tenderness (right side ), Other (Right foot dressing in place, C/D/I No visible swelling of lower extremity or toes, no redness. So ascending erythema. ) Neurologic/Psychiatric: Alert, Oriented x3, No Motor/Sensory Deficits, Normal Mood/Affect Skin: Normal Color, Warm/Dry Lymphatic: No Adenopathy (cervical) Results Lab Laboratory Tests 03/12/21 11:02: Glucometer 183H 03/12/21 20:40: Glucometer 189H 03/13/21 05:26: White Blood Count 12.3H, Red Blood Count 4.06L, Hemoglobin 11.5L, Hematocrit 34L , Mean Corpuscular Volume 85, Mean Corpuscular Hemoglobin 28, Mean Corpuscular Hemoglobin Concent 33, Red Cell Distribution Width 11.0, Platelet Count 338, Mean Platelet Volume 10.3, Immature Granulocyte % (Auto) 1, Neutrophils (%) (Auto) 63, Lymphocytes (%) (Auto) 26, Monocytes (%) (Auto) 7, Eosinophils (%) (Auto) 3, Basophils (%) (Auto) 1, Neutrophils # (Auto) 7.7, Lymphocytes # (Auto) 3.3, Monocytes # (Auto) 0.9, Eosinophils # (Auto) 0.3, Basophils # (Auto) 0.1, Immature Granulocyte # (Auto) 0.1, Sodium Level 134L, Potassium Level 4.1, Chloride Level 99, Carbon Dioxide Level 24, Anion Gap 11, Blood Urea Nitrogen 11, Creatinine 0.86, Estimat Glomerular Filtration Rate 98, BUN/Creatinine Ratio 13, Glucose Level 182H, Calcium Level 9.7, Corrected Calcium 10.3H, Total Bilirubin 0.4, Aspartate Amino Transf (AST/SGOT) 23, Alanine Aminotransferase (ALT/SGPT) 27, Alkaline Phosphatase 88, Total Protein 6.7, Albumin 3.2 03/13/21 05:34: Glucometer 187H Microbiology 03/10/21 Gram Stain - Final, Resulted 03/10/21 Anaerobic Culture, Resulted Pending 03/10/21 Surgical Culture - Preliminary, Resulted Proteus vulgaris 03/09/21 Blood Culture - Preliminary, Resulted No growth 03/09/21 Urine Culture - Final, Complete NO GROWTH 03/09/21 MRSA Screen - Final, Complete MRSA not isolated Assessment/Plan Assessment/Plan Assessment/Plan A 40 year old male with Abscess/Cellulitis Right foot Osteomyelitis 4th Metatarsal head DM type II - uncontrolled VSS WBC 11.7 Continue IV fluids, abx, pain and nausea meds Dressing change today. All questions answered. FAIZAN GOLDSTEIN DO 03/13/21 1104: Subjective Time Seen by a Provider: 09:42 Subjective/Events-last exam Pt seen and examined, no new complaints. Review of Systems General: Chills, Night Sweats HEENT: No Head Aches, No Visual Changes Pulmonary: No Dyspnea, No Cough Cardiovascular: No: Chest Pain, Palpitations Gastrointestinal: No: Nausea, Vomiting Objective Exam General Appearance: No Apparent Distress, Chronically ill HEENT: Moist Mucous Membranes Respiratory: Lungs Clear, Normal Breath Sounds, No Accessory Muscle Use, No Respiratory Distress Cardiovascular: Regular Rate, Rhythm, Normal Peripheral Pulses Gastrointestinal: non tender, soft, no organomegaly Extremity: Calf Tenderness (right side ), Other (Right foot dressing removed, no necrotic areas seen, bottom of foot has some changes from foot being wet) Assessment/Plan Assessment/Plan Assessment/Plan Abscess/Cellulitis Right foot with Osteomyelitis 4th Metatarsal head DM type II - uncontrolled Continue IV fluids, abx, pain and nausea meds; Dressing change today. Will need IV ABX for 6-8 weeks, medicine planning on asking Cardiology to check arterial flow in leg. Supervisory-Addendum Brief Verification & Attestation Participated in pt care: history, MDM, physical Personally performed: exam, history, MDM, supervision of care Care discussed with: Medical Student Procedures: n/a Verification and Attestation of Medical Student E/M Service A medical student performed and documented this service. I then reviewed and verified all information documented by the medical student and made modifications to such information, when appropriate. I personally performed a physical exam, medical decision making and then discussed any differences between the notes and made revisions as necessary to create one note. Faizan Goldstein , 03/13/21 , 11:04 JOHNY BETTS Mar 13, 2021 06:48 FAIZAN GOLDSTEIN DO Mar 13, 2021 11:04
[2021-03-13 08:00] VITALS: BP 147/91
--- NOTE | 2021-03-13 08:20 | Physician Query Clarification ---
PQ-Uncertain Diagnosis Admission/Discharge Admission Date: Mar 09, 2021 at 12:38 Discharge Date: Dr. Gates, The medical record reflects the following clinical scenario: History/Risk Factors: 2 ulcers plantar Rt foot, DM OOC, Cellulits Rt foot, Osteomyelitis 4th metatarsal head Rt foot Clinical Findings: T 36.2, P 101, R 20, WBC 14.9, Lactic acid 1.12 Treatment: IV Piperacillin Question: Is sepsis a clinically valid diagnosis? Sepsis was documented in the ER record with no further documentation in the medical record. Please document a response in Progress Note or Discharge Summary. 1. Yes, clinically valid, condition resolved. 2. No, condition ruled out. 3. Other, with explanation of clinical findings. 4. Undetermined, no explanation for clinical findings. PHYSICIAN RESPONSE Diagnosis clinically valid: No, conditon ruled out Please remember a lack of response to the above will prompt a phone page by CDI/Coding staff. In responding to this query, please exercise your independent professional judgment. The purpose of this communication is to more accurately reflect the complexity of your patients condition. The fact that a question is asked does not imply that any particular answer is desired or expected. Thank you for your timely response to this clarification. Requestors name: Romina THIS PHYSICIAN QUERY FORM IS A PERMANENT PART OF THE MEDICAL RECORD ROMINA BURDICK Mar 13, 2021 08:20 LOC GATES DO Mar 13, 2021 09:03
[2021-03-13] MEDS: lisINopril 10 MG (PRINIVIL) TABLET PO SCH (08:36)
[2021-03-13] MEDS: SENNA W/DOCUSATE (SENOKOT S) TABLET PO SCH ×2 (10:21→21:07)
[2021-03-13] MEDS: DOCUSATE SODIUM 100 MG (COLACE) CAP PO SCH ×2 (10:21→21:08)
[2021-03-13] MEDS: cefTRIAXone 2,000 MG/SWFI 20 ML IV PUSH IV SCH ×2 (10:21)
[2021-03-13] MEDS: fentaNYL INJ 100 MCG/2 ML AMP IV PRN ×2 (10:22→21:18)
[2021-03-13 11:41] LABS: CHOLESTEROL 107 MG/DL (< 200); HDL CHOLESTEROL 21 MG/DL (40-60); TRIGLYCERIDES 244 MG/DL (<150); VLDL CHOLESTEROL 49 MG/DL (5-40)
[2021-03-13] MEDS ORDERED: ASPIRIN E.C. 81 MG (ECOTRIN) TAB PO NR (11:44)
--- NOTE | 2021-03-13 13:03 | Progress Note - Hospitalist ---
SLICKWILY 03/13/21 1303: Subjective HPI/CC On Admission Date Seen by Provider: Mar 13, 2021 Time Seen by Provider: 08:50 R diabetic foot wound, sepsis Subjective/Events-last exam Today, Kellie appears withdrawn and lethargic Still cooperative and conversational Admits to pain in right leg Has appetite Has not had a bowel movement today Colace and Senna BID started Wound is healing well on R foot s/p I&D on 03/10 Culture of foot wound is positive for proteus and strep anginosus Continue on pip/tazo Lovenox 40 mg for stroke prophylaxis X-ray of R foot did not visualize structures very well Osteomyelitis of 4th metatarsal head suspected => continue antibiotics for 6-8 weeks via PICC per surgery Significant stenosis of R popliteal and posterior tibial artery To be consulted by cardiology for vascular procedure Review of Systems General: Fatigue, Malaise Musculoskeletal: leg pain Focused Exam Sepsis Stage: Sepsis (WBC > 05699, Documented infection) Respiratory: Chest Non Tender, Lungs Clear, Normal Breath Sounds, No Accessory Muscle Use, No Respiratory Distress Cardiovascular: Regular Rate, Rhythm Skin: normal color, warm/dry, rash, ulcerations Objective Exam Vital Signs Vital Signs Date Time Temp Pulse Resp B/P (MAP) Pulse Ox O2 Delivery O2 Flow Rate FiO2 03/13/21 08:08 Room Air 03/13/21 08:00 36.8 77 18 147/91 (109) 94 03/10/21 11:50 3 Capillary Refill : Less Than 3 Seconds General Appearance: WD/WN, Chronically ill, Mild Distress HEENT: PERRL/EOMI Respiratory: Chest Non Tender, Lungs Clear, Normal Breath Sounds, No Accessory Muscle Use, No Respiratory Distress Cardiovascular: Regular Rate, Rhythm Gastrointestinal: Normal Bowel Sounds Results/Procedures Lab Laboratory Tests 03/13/21 05:26 Patient resulted labs reviewed. Laboratory Tests 03/13/21 05:26: White Blood Count 12.3H, Red Blood Count 4.06L, Hemoglobin 11.5L, Hematocrit 34L , Mean Corpuscular Volume 85, Mean Corpuscular Hemoglobin 28, Mean Corpuscular Hemoglobin Concent 33, Red Cell Distribution Width 11.0, Platelet Count 338, Mean Platelet Volume 10.3, Immature Granulocyte % (Auto) 1, Neutrophils (%) (Auto) 63, Lymphocytes (%) (Auto) 26, Monocytes (%) (Auto) 7, Eosinophils (%) (Auto) 3, Basophils (%) (Auto) 1, Neutrophils # (Auto) 7.7, Lymphocytes # (Auto) 3.3, Monocytes # (Auto) 0.9, Eosinophils # (Auto) 0.3, Basophils # (Auto) 0.1, Immature Granulocyte # (Auto) 0.1, Sodium Level 134L, Potassium Level 4.1, Chloride Level 99, Carbon Dioxide Level 24, Anion Gap 11, Blood Urea Nitrogen 11, Creatinine 0.86, Estimat Glomerular Filtration Rate 98, BUN/Creatinine Ratio 13, Glucose Level 182H, Calcium Level 9.7, Corrected Calcium 10.3H, Total Bhaskar irubin 0.4, Aspartate Amino Transf (AST/SGOT) 23, Alanine Aminotransferase (ALT/SGPT) 27, Alkaline Phosphatase 88, Total Protein 6.7, Albumin 3.2 03/13/21 05:34: Glucometer 187H 03/13/21 05:36: Triglycerides Level 244H, Cholesterol Level 107, LDL Cholesterol Direct 47, VLDL Cholesterol 49H, HDL Cholesterol 21L 03/13/21 11:00: Glucometer 215H Imaging: Reviewed Imaging Films Radiology NAME: KELLIE MG [facility] REC#: [id number] PT STATUS: ADM IN : 1980 PHYSICIAN: CALVIN ACOSTA MD ADMIT DATE: 03/09/21/[facility] Signed Date of Exam:03/09/21 RIGHT LOW EXT [id number] INDICATION: Right foot wound. TECHNIQUE: Grayscale and color-flow imaging of the right lower extremity arteries is performed with spectral analysis. FINDINGS: There is diffuse atherosclerotic plaque present with normal arterial flow at the right common femoral artery. There is mild increased velocity in the proximal right superficial femoral artery reaching 2 m/s. There is also significant elevated flow velocity reaching 3.3 m/s at the right popliteal artery. There is also increased flow velocity within the proximal posterior tibial artery with collateralization seen distally at the anterior tibial artery. IMPRESSION: Atherosclerosis with probable significant stenoses of the right popliteal artery and posterior tibial artery. CTA or arteriography may be of value for characterization. Dictated by: Dictated on workstation # [id number] Dict: 03/09/21 1643 Trans: 03/09/211699 [id number] Interpreted by: BOLA GREWAL MD Electronically signed by: BOLA GREWAL MD 03/09/211699 [facility], [place] NAME: KELLIE MG [facility] REC#: [id number] PT STATUS: ADM IN : 1980 PHYSICIAN: SHILA LENNON APRN ADMIT DATE: 03/09/21/ Signed Date of Exam:03/09/21 FOOT, RIGHT, 3 VIEW CLINICAL INDICATION: Patient with a wound on bottom of right foot for a few months. EXAM: X-ray of the right foot, three views. COMPARISON: None. FINDINGS AND IMPRESSION: 1: There is a soft tissue defect involving the plantar aspect of the soft tissue near the MTP joint region, seen on lateral view, which likely correlates to patient's history of a foot wound. 2: There is appearance of air overlying the fourth MTP joint region on the AP view. The bony cortical margins involving the distal head of the fourth metatarsal bone are not well visualized. Osteomyelitis should be excluded. MRI of the right foot would better evaluate. 3: There is no acute fracture or dislocation. 4: There are degenerative spurs involving the mid foot and calcaneus. Dictated by: Dictated on workstation # [id number] Dict: 03/09/21 1237 Trans: 03/09/212337 [id number] Interpreted by: RADHA PERALTA MD Electronically signed by: RADHA PERALTA MD 03/09/212337 [facility], [place] NAME: KELLIE MG [facility] REC#: [id number] PT STATUS: ADM IN : 1980 PHYSICIAN: SHILA LENNON APRN ADMIT DATE: 03/09/21CSD Signed Date of Exam:03/09/21 CHEST 1 VIEW, AP/PA ONLY CLINICAL INDICATION: Patient with sepsis. EXAM: Portable chest x-ray upright view. COMPARISONS: None. FINDINGS: Lungs/pleura: Suspected bony prominence of the anterior aspects of both 1st ribs causing the increased density involving the medial bilateral upper lobes. Otherwise, lungs are clear. There is no pneumothorax. There is no pleural effusion. Mediastinum: Unremarkable. Pulmonary vasculature: Unremarkable. Heart: Unremarkable. Bones/extrathoracic soft tissue: Unremarkable. IMPRESSION: 1: Suspected bony prominence of the anterior aspects of both 1st ribs causing the increased density involving the medial bilateral upper lobes. Chest x-ray PA and lateral views is suggested to exclude underlying lung nodule. 2: Otherwise, there is no radiographic evidence of acute cardiopulmonary process. Dictated by: Dictated on workstation # [id number] Dict: 03/09/21 1205 Trans: 03/09/21 2332 [facility] [id number] Interpreted by: RADHA PERALTA MD Electronically signed by: RADHA PERALTA MD 03/09/21 2332 Meds Item Value Date Time Aspirin 81 mg 03/14/21 0900 (Ecotrin Tablet) DAILY/PO Aspirin 81 mg 03/13/21 1144 (Ecotrin Tablet) 1144/PO 03/13/21 1232 Ceftriaxone 20 ml @ 240 mls/hr 03/13/21 1100 Sodium 2000 mg/ Q24H/IV 03/13/21 1021 Sterile Water Senna 1 ea 03/13/21 0945 (Senokot S BID/PO 03/13/21 1021 Tablet) Docusate Sodium 100 mg 03/13/21 0945 (Colace Capsule) BID/PO 03/13/21 1021 Lisinopril 10 mg 03/11/21 0900 (Zestril Tablet) DAILY/PO 03/13/21 0836 Insulin Detemir 10 unit 03/10/21 2100 (LeveMIR (PER HS/SQ 03/12/21 2044 UNIT)) Atorvastatin 40 mg 03/10/21 2100 Calcium HS/PO 03/12/21 1932 (Lipitor Tablet) Metformin HCl 500 mg 03/10/21 1800 (Glucophage Xr DAILY@1800/PO 03/12/21 1701 Tablet) Insulin Aspart 5 unit 03/10/21 1700 (NovoLOG (CHARGE AC/SC 03/13/21 1119 PER UNIT)) Acetaminophen/ 1 ea 03/10/21 1400 Hydrocodone Bitart Q4H PRN/PO 03/12/21 2305 (Lortab 5 Mg Tablet) Acetaminophen 1,000 mg 03/10/21 1400 (Tylenol Tablet) Q8H PRN/PO 03/11/21 0833 Lactated Ringer's 1,000 ml @ 0 mls/hr 03/10/21 1215 Piperacillin Sod/ 120 ml @ 30 mls/hr 03/09/21 2100 Tazobactam Sod Q8H/IV 03/13/21 0520 4.5 gm/Sodium Chloride Lactated Ringer's 1,000 ml @ 0 mls/hr 03/10/21 0945 Insulin Aspart SLIDING SCALE B BLOO... 03/09/21 1600 (NovoLOG (CHARGE ACHS/SC 03/13/21 1118 PER UNIT)) Enoxaparin Sodium 40 mg 03/09/21 1430 (Lovenox Q24H/SC 03/12/21 1512 Injection) Sodium Chloride 10-40 ML 03/09/21 1415 (Catheter Flush NEEDED PRN/IV Syringe) Fentanyl Citrate 50 mcg 03/09/21 1415 (Sublimaze Q2H PRN/IV 03/13/21 1022 Injection) Ondansetron HCl 8 mg 03/09/21 1415 (Zofran Q6H PRN/IV Injection (Sdv)) Assessment/Plan Assessment and Plan Assess & Plan/Chief Complaint 1. Diabetic ulcer of right foot 2. Osteomyelitis of R 4th metatarsal head Incision and drainage and debridement of R foot wound on 03/10/21 Per surgery, patient is to remain on antibiotics for 6-8 weeks to control infection =>If unresponsive to IV antiobiotics, consider forefoot amputation or BKA Continue vancomycin and pip/tazo for infection control Monitor WBC counts Monitor for development of fever Monitor changes in HR and RR Lortab 5mg and fentanyl to manage pain Lovenox 40 mg for DVT prophylaxis 3. Peripheral vascular disease, with significant stenosis of R popliteal artery and R posterior tibial artery Consult with cardiology today (03/13) 4. Hypertension Continue lisinopril 10mg for blood pressure control. Monitor blood pressure. Follow-up with PCP in out-patient. 5. Type 2 diabetes mellitus, poorly controlled Continue insulin aspart, metformin 500mg (1800 mg daily) Follow up with PCP in out-patient setting 6. Hyperlipidemia Continue Atorvastatin 40 mg Follow-up with PCP Critical Care: Critically Ill Patient JAZZY UAGUST DO 03/14/21 0551: Subjective Subjective/Events-last exam Patient doing well Cardiology will evaluate the vascular supply of the right leg DC planned Review of Systems Gastrointestinal: Constipation Musculoskeletal: leg pain Objective Exam General Appearance: No Apparent Distress, WD/WN Respiratory: Lungs Clear Cardiovascular: Regular Rate, Rhythm Neurologic/Psychiatric: Alert, Oriented x3, No Motor/Sensory Deficits, Normal Mood/Affect Assessment/Plan Assessment and Plan Assess & Plan/Chief Complaint DC planning Cardiology to evaluate the abnl arterial usg Supervisory-Addendum Brief Verification & Attestation Participated in pt care: history, MDM, physical Personally performed: exam, history, MDM, supervision of care Care discussed with: Medical Student Procedures: n/a Results interpretation: Verified all documentation Verification and Attestation of Medical Student E/M Service A medical student performed and documented this service in my presence. I re viewed and verified all information documented by the medical student and made modifications to such information, when appropriate. I personally performed the physical exam and medical decision making. Jazzy August, Mar 14, 2021,05:50 WILY KRUGER Mar 13, 2021 13:03 JAZZY AUGUST DO Mar 14, 2021 05:51
[2021-03-13] MEDS ORDERED: CEFT2VIA12 IV (14:13)
[2021-03-13 15:49] VITALS: BP 139/85
[2021-03-13] MEDS: ENOXAPARIN 40 MG/0.4 ML (LOVENOX) SYR SC SCH (16:41)
[2021-03-13] MEDS: HYDROcodone/APAP 5 MG/325 MG (LORTAB) TAB PO PRN ×2 (16:41→22:25)
[2021-03-13] MEDS: metFORMIN XR 500 MG (GLUCOPHAGE XR) TAB PO SCH (18:36)
--- NOTE | 2021-03-13 18:44 | Consultation-Cardiology ---
HPI-Cardiology Cardiology Consultation: Date of Consultation 03/13/2021 Date of Admission 03/09/2021 Attending Physician Jazzy August DO Admitting Physician [place] Consulting Physician BIRDIE MCCALL JR, MD HPI: Time Seen by a Provider: 18:39 Chief Complaint: Reason for consultation: Peripheral arterial disease. I had the pleasure of seeing Paulo in the medical/surgical unit at [facility] in [place], [place] this evening. He developed a wound on his right foot. He is not exactly sure how this happened. The wound would not heal and then he started having chills. He became concerned and came to the hospital for further evaluation. Earlier today he underwent debridement of the wound on his foot. He also underwent an ultrasound of the right lower extremity during his evaluation which shows severe peripheral vascular disease below the knee. Because of the peripheral vascular disease, a cardiology consultation was requested. He denies any chest discomfort, dyspnea, paroxysmal nocturnal dyspnea, orthopnea, or palpitations. He does get some occasional lightheaded spells but denies any syncope. He denies any lower extremity edema. He has not ever had this sort of problem in the past. He does not smoke cigarettes. He works in the [employer] industry. Certain portions of this document may have been dictated utilizing voice recognition technology. Inherent to this technology, typographical and grammatical errors may exist. As much as I am diligent to identify and correct these mistakes, some errors may remain in the document. Review of Systems-Cardiology Review of Systems Other comments Review of 10 organ systems is as per the history of present illness, otherwise negative. All Other Systems Reviewed Negative Unless Noted: Yes WST-Surpsr-Idyxku Hx Patient Social History Employed/Student: employed Smoking Status: Former Smoker Cigaretts per day: 20 Have you traveled recently?: No Alcohol Use?: Yes (1-2 drinks per week) Pt feels they are or have been: Yes Tobacco type used: Cigarettes Immunizations Up To Date Date of Influenza Vaccine: Mar 05, 2021 Past Medical History PMH As described under Assessment. Family Medical History Family Medical History: The patient does not know of any family history of premature coronary artery disease in first-degree relatives. He does have an aunt on his mother side who had 4 heart attacks. Allergies and Home Medications Allergies Coded Allergies: NKANo Known Allergies (Verified Allergy, Unknown, 09/25/05) Patient Home Medication List Home Medication List Reviewed: Yes Acetaminophen (Tylenol Extra Strength) 500 Mg Tablet, 1,000 MG PO Q8H PRN for PAIN-MILD (1-4), (Reported) Entered as Reported by: ABIDA BRUMFIELD on 03/09/211450 Last Action: Continued Amoxicillin/Potassium Clav (Augmentin 875-125 Tablet) 1 Each Tablet, 1 EACH PO BID, (Reported) Entered as Reported by: ABIDA BRUMFIELD on 03/09/211450 Last Action: Held Atorvastatin Calcium (Atorvastatin Calcium) 40 Mg Tablet, 40 MG PO HS, (Reported) Entered as Reported by: ABIDA BRUMFIELD on 03/09/211450 Last Action: Continued Ceftriaxone Sodium (Ceftriaxone) 2 Gm/Vial Soln, 2 GM IV DAILY Prescribed by: JAZZY AUGUST on 03/13/21 1413 Doxycycline Hyclate (Doxycycline Hyclate) 100 Mg Capsule, 100 MG PO BID, (Reported) Entered as Reported by: ABIDA BRUMFIELD on 03/09/211450 Last Action: Held Liraglutide (Victoza 3-Yan) 0.6 Mg/0.1 Ml Pen.injctr, 0.6 MG SQ 1800, (Reported) Entered as Reported by: ABIDA BRUMFIELD on 03/09/211450 Last Action: Converted Metformin HCl (Metformin HCl ER) 500 Mg Tab.er.24, 500 MG PO 1800 W/ DINNER, (Re ported) Entered as Reported by: ABIDA BRUMFIELD on 03/09/211450 Last Action: Continued Discontinued Medications Hydrocodone Bit/Acetaminophen (Hydrocodone-Apap 10-325 Tablet) 1 Each Tablet, 0.5-1 EACH PO Q 4 - 6 HRS PRN Discontinued Reason: No Longer Taking Prescribed by: AMPARO WHITMAN on 01/21/13 1210 Last Action: Discontinued Liraglutide (Victoza 3-Yan) 0.6 Mg/0.1 Ml Pen.injctr, 0.6 MG SQ DAILY, (Reported) Discontinued Reason: Duplicate Order Entered as Reported by: CHERIE PRADO on 03/09/21 1047 Last Action: Discontinued Metformin Hcl (Metformin 1000 Mg) 1,000 Mg Tablet, 1 EACH PO BID WITH MEALS, (Reported) Discontinued Reason: No Longer Taking Entered as Reported by: GERALD HARRIS on 01/21/131152 Last Action: Discontinued Ranitidine Hcl (Zantac 150 Mg) 150 Mg Tablet, 1 TAB PO BID, (Reported) Discontinued Reason: No Longer Taking Entered as Reported by: GERALD HERMOSILLORE on 01/21/131152 Last Action: Discontinued [Amoxicillin] , 1 TAB PO BID, (Reported) Discontinued Reason: Duplicate Order Entered as Reported by: CHERIE PRADO on 03/09/211046 Last Action: Discontinued [Cholesterol] , 1 TAB PO DAILY, (Reported) Discontinued Reason: Duplicate Order Entered as Reported by: CHERIE PRADO on 03/09/211046 Last Action: Discontinued [Doxycycline] , 1 TAB PO BID, (Reported) Discontinued Reason: Duplicate Order Entered as Reported by: CHERIE PRADO on 03/09/211046 Last Action: Discontinued [Metformin Er] , 1 TAB PO DINNER, (Reported) Discontinued Reason: Duplicate Order Entered as Reported by: CHERIE PRADO on 03/09/211046 Last Action: Discontinued Exam Vital Signs Vital Signs Date Time Temp Pulse Resp B/P (MAP) Pulse Ox O2 Delivery O2 Flow Rate FiO2 03/13/21 15:49 36.4 76 18 139/85 (103) 97 Room Air 03/10/21 11:50 3 Physical Exam General: Alert. No acute distress. Well nourished and appears stated age. Eye: Extraocular movements are intact. Conjunctivae are clear. There are no xanthelasma. HENT: Normocephalic. Atraumatic. Carotid pulsations 2/2 without bruits. Neck: Jugular venous pressure does not appear elevated. No thyromegaly appreciated. Respiratory: Lungs are clear to auscultation. Respirations are non-labored. Breath sounds are equal. Symmetrical chest wall expansion. Cardiovascular: Normal rate. Regular rhythm. No murmur. No gallop. Point of maximal impulse is not appear displaced. Both feet are warm but with diminished pulses. No edema. Gastrointestinal: Soft. Normal bowel sounds. Skin: Skin turgor is normal. There is no pallor. Musculoskeletal: No kyphosis or scoliosis appreciated. Neurologic: Alert and oriented to person, place, time. Cranial nerves 3-12 appear grossly intact. The patient has good motor tone strength in the upper and lower extremities bilaterally. Psychiatric: Cooperative. Appropriate mood & affect. Labs Laboratory Tests Test 03/12/21 20:40 03/13/21 05:26 03/13/21 05:34 03/13/21 05:36 Range/Units Glucometer 189 H 187 H 70-110 MG/DL White Blood Count 12.3 H 4.3-11.0 10^3/uL Red Blood Count 4.06 L 4.30-5.52 10^6/uL Hemoglobin 11.5 L 13.3-17.7 g/dL Hematocrit 34 L 40-54 % Mean Corpuscular Volume 85 80-99 fL Mean Corpuscular Hemoglobin 28 25-34 pg Mean Corpuscular Hemoglobin Concent 33 32-36 g/dL Red Cell Distribution Width 11.0 10.0-14.5 % Platelet Count 338 130-400 10^3/uL Mean Platelet Volume 10.3 9.0-12.2 fL Immature Granulocyte % (Auto) 1 % Neutrophils (%) (Auto) 63 42-75 % Lymphocytes (%) (Auto) 26 12-44 % Monocytes (%) (Auto) 7 0-12 % Eosinophils (%) (Auto) 3 0-10 % Basophils (%) (Auto) 1 0-10 % Neutrophils # (Auto) 7.7 1.8-7.8 10^3/uL Lymphocytes # (Auto) 3.3 1.0-4.0 10^3/uL Monocytes # (Auto) 0.9 0.0-1.0 10^3/uL Eosinophils # (Auto) 0.3 0.0-0.3 10^3/uL Basophils # (Auto) 0.1 0.0-0.1 10^3/uL Immature Granulocyte # (Auto) 0.1 0.0-0.1 10^3/uL Sodium Level 134 L 135-145 MMOL/L Potassium Level 4.1 3.6-5.0 MMOL/L Chloride Level 99 98-107 MMOL/L Carbon Dioxide Level 24 21-32 MMOL/L Anion Gap 11 5-14 MMOL/L Blood Urea Nitrogen 11 7-18 MG/DL Creatinine 0.86 0.60-1.30 MG/DL Estimat Glomerular Filtration Rate 98 BUN/Creatinine Ratio 13 Glucose Level 182 H 70-105 MG/DL Calcium Level 9.7 8.5-10.1 MG/DL Corrected Calcium 10.3 H 8.5-10.1 MG/DL Total Bilirubin 0.4 0.1-1.0 MG/DL Aspartate Amino Transf (AST/SGOT) 23 5-34 U/L Alanine Aminotransferase (ALT/SGPT) 27 0-55 U/L Alkaline Phosphatase 88 40-136 U/L Total Protein 6.7 6.4-8.2 GM/DL Albumin 3.2 3.2-4.5 GM/DL Triglycerides Level 244 H <150 MG/DL Cholesterol Level 107 < 200 MG/DL LDL Cholesterol Direct 47 1-129 MG/DL VLDL Cholesterol 49 H 5-40 MG/DL HDL Cholesterol 21 L 40-60 MG/DL Test 03/13/21 11:00 03/13/21 15:39 Range/Units Glucometer 215 H 225 H 70-110 MG/DL ECG Impression ECG Comment Electrocardiogram obtained this evening shows sinus rhythm and is a normal tracing Diagnosis/Problems Diagnosis/Problems (1) Peripheral arterial disease Assessment & Plan: His right lower extremity ultrasound shows evidence of potentially severe distal disease. He did not have an ultrasound of the left lower extremity but does not have any wounds on that leg. He will ultimately need a peripheral angiogram. He underwent successful debridement of the wound on his right foot. His foot is warm and does not appear to be a threatened limb at this time. He may be discharged home tomorrow. I can check with one of my partners who will return to the hospital on Saturday and see if he would have time and is scheduled to do an angiogram Saturday. If not, the patient could be discharged home tomorrow and we can arrange for an outpatient peripheral angiogram. I have started him on aspirin. He should continue on statin medication. (2) Primary hypertension Assessment & Plan: Blood pressures had been elevated earlier in the admission but are starting to improve. If his blood pressures continue to be elevated after discharge, he may need additional adjustment to his medication. (3) Mixed hyperlipidemia Assessment & Plan: He is on atorvastatin at home. His LDL level is well controlled. However, his triglycerides are elevated. I will start him on fish oil. (4) Type 2 diabetes mellitus with complication Assessment & Plan: He needs to keep his diabetes under good control to help prevent further progression of his peripheral arterial disease. BIRDIE MCCALL JR, MD Mar 13, 2021 18:44
[2021-03-13 23:55] VITALS: BP 155/91
[2021-03-14 03:25] LABS: BASOPHILS # (AUTO) 0.1 10^3/uL (0.0-0.1); BASOPHILS % (AUTO) 1 % (0-10); EOSINOPHILS # (AUTO) 0.3 10^3/uL (0.0-0.3); EOSINOPHILS % (AUTO) 3 % (0-10); HEMATOCRIT 37 % (40-54); LYMPHOCYTES # (AUTO) 3.9 10^3/uL (1.0-4.0); LYMPHOCYTES % (AUTO) 33 % (12-44); MEAN CORPUSCULAR HEMOGLOBIN 28 pg (25-34); MEAN CORPUSCULAR HGB CONC 33 g/dL (32-36); MEAN CORPUSCULAR VOLUME 85 fL (80-99); MEAN PLATELET VOLUME 10.1 fL (9.0-12.2); MONOCYTES # (AUTO) 0.8 10^3/uL (0.0-1.0); MONOCYTES % (AUTO) 7 % (0-12); NEUTROPHILS # (AUTO) 6.7 10^3/uL (1.8-7.8); NEUTROPHILS % (AUTO) 56 % (42-75); PLATELET COUNT 349 10^3/uL (130-400); WHITE BLOOD COUNT 11.9 10^3/uL (4.3-11.0)
[2021-03-14 03:35] LABS: ALBUMIN 3.4 GM/DL (3.2-4.5); POTASSIUM 4.3 MMOL/L (3.6-5.0)
[2021-03-14 03:39] LABS: BILIRUBIN,TOTAL 0.4 MG/DL (0.1-1.0)
[2021-03-14 03:41] LABS: CREATININE SERUM 0.91 MG/DL (0.60-1.30)
[2021-03-14] MEDS: inSUlin ASPART (NovoLOG) 1 UNIT/0.01 ML (CHARGE PER UNIT) SC SCH ×7 (03:46→20:05)
--- NOTE | 2021-03-14 07:59 | Progress Note - Surgery ---
JOHNY BETTS 03/14/21 0759: Subjective Date Seen by a Provider: Mar 14, 2021 Time Seen by a Provider: 07:45 Subjective/Events-last exam PT is status post I&D with debridement (MS, Fascia and skin) and washout on 03/10. Patient reports pain in the left foot at 5/10 on a pain scale. He reports that his last BM was yesterday. He has no complaints with urination. Review of Systems General: No Chills, No Night Sweats HEENT: No Head Aches, No Visual Changes Pulmonary: No Dyspnea, No Cough Cardiovascular: No: Chest Pain, Palpitations Gastrointestinal: No: Nausea, Vomiting Genitourinary: No Dysuria, No Hematuria Musculoskeletal: No: neck pain, leg pain Neurological: Weakness ("no more than usual" ), Numbness ("no more than usual" ) Objective Exam Vital Signs Date Time Temp Pulse Resp B/P (MAP) Pulse Ox O2 Delivery O2 Flow Rate FiO2 03/13/21 23:55 37.0 72 18 155/91 (112) 93 Room Air 03/13/21 20:00 Room Air 03/13/21 15:49 36.4 76 18 139/85 (103) 97 Room Air 03/13/21 08:08 Room Air 03/13/21 08:00 36.8 77 18 147/91 (109) 94 Room Air I & O 03/14/21 07:00 Intake Total 4769 ml Balance 4769 ml Capillary Refill : Less Than 3 Seconds General Appearance: No Apparent Distress, WD/WN HEENT: PERRL/EOMI, Moist Mucous Membranes Neck: Full Range of Motion, Normal Inspection, Non Tender, Supple Respiratory: Chest Non Tender, Lungs Clear, Normal Breath Sounds, No Accessory Muscle Use, No Respiratory Distress, Wheezing (minor wheeze heard on left lower, all other posts normal) Cardiovascular: Regular Rate, Rhythm, Normal Peripheral Pulses Peripheral Pulses: 2+ Radial Pulses (R), 2+ Radial Pulses (L) Gastrointestinal: non tender, soft, no organomegaly Extremity: Normal Inspection, Normal Range of Motion, Non Tender, No Calf Tenderness, Other (Right foot dressing in place, no erythema seen surrounding the dressing) Neurologic/Psychiatric: Alert, Oriented x3, No Motor/Sensory Deficits, Normal Mood/Affect Skin: Normal Color, Warm/Dry Lymphatic: No Adenopathy (cervical) Results Lab Laboratory Tests 03/13/21 11:00: Glucometer 215H 03/13/21 15:39: Glucometer 225H 03/13/21 19:59: Glucometer 248H 03/14/21 03:22: White Blood Count 11.9H, Red Blood Count 4.30, Hemoglobin 12.0L, Hematocrit 37L, Mean Corpuscular Volume 85, Mean Corpuscular Hemoglobin 28, Mean Corpuscular Hemoglobin Concent 33, Red Cell Distribution Width 11.1, Platelet Count 349, Mean Platelet Volume 10.1, Immature Granulocyte % (Auto) 1, Neutrophils (%) (Auto) 56, Lymphocytes (%) (Auto) 33, Monocytes (%) (Auto) 7, Eosinophils (%) (Auto) 3, Basophils (%) (Auto) 1, Neutrophils # (Auto) 6.7, Lymphocytes # (Auto) 3.9, Monocytes # (Auto) 0.8, Eosinophils # (Auto) 0.3, Basophils # (Auto) 0.1, Immature Granulocyte # (Auto) 0.1, Sodium Level 136, Potassium Level 4.3, Chloride Level 100, Carbon Dioxide Level 24, Anion Gap 12, Blood Urea Nitrogen 12, Creatinine 0.91, Estimat Glomerular Filtration Rate 92, BUN/Creatinine Ratio 13, Glucose Level 145H, Calcium Level 10.0, Corrected Calcium 10.5H, Total Bilirubin 0.4, Aspartate Amino Transf (AST/SGOT) 33, Alanine Aminotransferase (ALT/SGPT) 38, Alkaline Phosphatase 93, Total Protein 7.0, Albumin 3.4 03/14/21 05:11: Glucometer 139H Microbiology 03/10/21 Gram Stain - Final, Resulted 03/10/21 Anaerobic Culture, Resulted Pending 03/10/21 Surgical Culture - Preliminary, Resulted Proteus vulgaris 03/09/21 Blood Culture - Preliminary, Resulted No growth 03/09/21 Urine Culture - Final, Complete NO GROWTH 03/09/21 MRSA Screen - Final, Complete MRSA not isolated Assessment/Plan Assessment/Plan Assessment/Plan Abscess/Cellulitis Right foot with Osteomyelitis 4th Metatarsal head DM type II - uncontrolled The patient will continue IV fluids, pain meds and nausea meds. He will be on IV ceftriaxone for 6-8 weeks for ABX therapy dt his osteomyelitis. Last dressing change on 03/13/21. FAIZAN GOLDSTEIN DO 03/14/21 0943: Subjective Time Seen by a Provider: 08:49 Subjective/Events-last exam Pt seen and examined, no new complaints. Review of Systems General: No Chills, No Night Sweats Pulmonary: No Dyspnea, No Cough Cardiovascular: No: Chest Pain, Palpitations Gastrointestinal: No: Nausea, Vomiting Musculoskeletal: foot pain (very minimal) Objective Exam General Appearance: No Apparent Distress, WD/WN Respiratory: Lungs Clear, Normal Breath Sounds, No Accessory Muscle Use, No Respiratory Distress Cardiovascular: Regular Rate, Rhythm, Normal Peripheral Pulses Gastrointestinal: non tender, soft, no organomegaly Extremity: Other (Right foot dressing in place, no erythema seen surrounding the dressing. Nurse changed it twice yesterday stated it looks good) Assessment/Plan Assessment/Plan Assessment/Plan S/P I&D with debridement of Abscess/Cellulitis Right foot with Osteomyelitis 4th Metatarsal head DM type II - uncontrolled The patient will continue dressing changed, IV fluids, pain meds and nausea meds. He will be on IV ceftriaxone for 6-8 weeks for ABX therapy dt his osteomyelitis. He is scheduled to have an angiogram tomorrow. Supervisory-Addendum Brief Verification & Attestation Participated in pt care: history, MDM, physical Personally performed: exam, history, MDM, supervision of care Care discussed with: Medical Student Procedures: n/a Verification and Attestation of Medical Student E/M Service A medical student performed and documented this service. I then reviewed and verified all information documented by the medical student and made modifications to such information, when appropriate. I personally performed a physical exam, medical decision making and then discussed any differences between the notes and made revisions as necessary to create one note. Faizan Goldstein , 03/14/21 , 09:42 JOHNY BETTS Mar 14, 2021 07:59 FAIZAN GOLDSTEIN DO Mar 14, 2021 09:43
[2021-03-14 08:21] VITALS: BP 134/78
[2021-03-14] MEDS: DOCUSATE SODIUM 100 MG (COLACE) CAP PO SCH ×2 (08:22→20:26)
[2021-03-14] MEDS: SENNA W/DOCUSATE (SENOKOT S) TABLET PO SCH ×2 (08:22→20:25)
[2021-03-14] MEDS: lisINopril 10 MG (PRINIVIL) TABLET PO SCH (08:22)
[2021-03-14] MEDS: ASPIRIN E.C. 81 MG (ECOTRIN) TAB PO SCH (08:22)
[2021-03-14] MEDS: OMEGA 3 (FISH OIL) 1000 MG CAP PO SCH ×2 (08:22→17:37)
--- NOTE | 2021-03-14 09:05 | Cardiology Progress Note ---
Progress Note-Cardiology Events since last exam Date Seen by Provider: Mar 14, 2021 Time Seen by Provider: 09:03 Events since last exam I am seeing him for peripheral arterial disease. He has a fair amount of pain in the right foot from the debridement. He denies chest pain, dyspnea, palpitations, syncope, or ankle edema. He would prefer to stay in the hospital and have an angiogram tomorrow as opposed to going home and scheduling this as an outpatient. Certain portions of this document may have been dictated utilizing voice recognition technology. Inherent to this technology, typographical and grammati sohail errors may exist. As much as I am diligent to identify and correct these mistakes, some errors may remain in the document. Vitals Last set of Vitals Signs Vital Signs 03/10/21 03/14/21 11:50 08: Temp 36.1 Pulse 81 Resp 18 B/P (MAP) 134/78 (96) Pulse Ox 96 O2 Delivery Room Air O2 Flow Rate 3 Labs Labs Laboratory Tests 03/14/21 03:22 Exam Vital Signs Vital Signs Date Time Temp Pulse Resp B/P (MAP) Pulse Ox O2 Delivery O2 Flow Rate FiO2 03/14/21 08:21 36.1 81 18 134/78 (96) 96 Room Air 03/10/21 11:50 3 Physical Exam General: Alert. No acute distress. Eye: No xanthelasma. HENT: Normocephalic. Neck: Jugular venous pressure does not appear elevated. Respiratory: Lungs are clear to auscultation. Respirations are non-labored. Breath sounds are equal. Symmetrical chest wall expansion. Cardiovascular: Normal rate. Regular rhythm. No murmur. No gallop. No edema. Gastrointestinal: Soft. Normal bowel sounds. Skin: Warm. Dry. Right foot is bandaged. The foot is warm. Neurologic: Alert and oriented to person, place, time. Cranial nerves 3-11 grossly intact. Psychiatric: Cooperative. Appropriate mood & affect. Labs Laboratory Tests Test 03/13/21 11:00 03/13/21 15:39 03/13/21 19:59 03/14/21 03:22 Range/Units Glucometer 215 H 225 H 248 H 70-110 MG/DL White Blood Count 11.9 H 4.3-11.0 10^3/uL Red Blood Count 4.30 4.30-5.52 10^6/uL Hemoglobin 12.0 L 13.3-17.7 g/dL Hematocrit 37 L 40-54 % Mean Corpuscular Volume 85 80-99 fL Mean Corpuscular Hemoglobin 28 25-34 pg Mean Corpuscular Hemoglobin Concent 33 32-36 g/dL Red Cell Distribution Width 11.1 10.0-14.5 % Platelet Count 349 130-400 10^3/uL Mean Platelet Volume 10.1 9.0-12.2 fL Immature Granulocyte % (Auto) 1 % Neutrophils (%) (Auto) 56 42-75 % Lymphocytes (%) (Auto) 33 12-44 % Monocytes (%) (Auto) 7 0-12 % Eosinophils (%) (Auto) 3 0-10 % Basophils (%) (Auto) 1 0-10 % Neutrophils # (Auto) 6.7 1.8-7.8 10^3/uL Lymphocytes # (Auto) 3.9 1.0-4.0 10^3/uL Monocytes # (Auto) 0.8 0.0-1.0 10^3/uL Eosinophils # (Auto) 0.3 0.0-0.3 10^3/uL Basophils # (Auto) 0.1 0.0-0.1 10^3/uL Immature Granulocyte # (Auto) 0.1 0.0-0.1 10^3/uL Sodium Level 136 135-145 MMOL/L Potassium Level 4.3 3.6-5.0 MMOL/L Chloride Level 100 98-107 MMOL/L Carbon Dioxide Level 24 21-32 MMOL/L Anion Gap 12 5-14 MMOL/L Blood Urea Nitrogen 12 7-18 MG/DL Creatinine 0.91 0.60-1.30 MG/DL Estimat Glomerular Filtration Rate 92 BUN/Creatinine Ratio 13 Glucose Level 145 H 70-105 MG/DL Calcium Level 10.0 8.5-10.1 MG/DL Corrected Calcium 10.5 H 8.5-10.1 MG/DL Total Bilirubin 0.4 0.1-1.0 MG/DL Aspartate Amino Transf (AST/SGOT) 33 5-34 U/L Alanine Aminotransferase (ALT/SGPT) 38 0-55 U/L Alkaline Phosphatase 93 40-136 U/L Total Protein 7.0 6.4-8.2 GM/DL Albumin 3.4 3.2-4.5 GM/DL Test 10/19/21 05:11 Range/Units Glucometer 139 H 70-110 MG/DL Diagnosis/Problems Diagnosis/Problems (1) Peripheral arterial disease Assessment & Plan: His right lower extremity ultrasound shows evidence of potentially severe distal disease. He did not have an ultrasound of the left lower extremity but does not have any wounds on that leg. He underwent successful debridement of the wound on his right foot on 03/13. His foot is warm and does not appear to be a threatened limb at this time. I will get him scheduled for peripheral angiogram tomorrow with Dr. Bolaños. I have started him on aspirin. He should continue on statin medication. (2) Primary hypertension Assessment & Plan: Blood pressures had been elevated earlier in the admission but are starting to improve. Continue present medication. (3) Mixed hyperlipidemia Assessment & Plan: He is on atorvastatin at home. His LDL level is well controlled. However, his triglycerides are elevated. I started him on fish oil. (4) Type 2 diabetes mellitus with complication Assessment & Plan: He needs to keep his diabetes under good control to help prevent further progression of his peripheral arterial disease. BIRDIE MCCALL JR, MD Mar 14, 2021 09:05
[2021-03-14] MEDS: HYDROcodone/APAP 5 MG/325 MG (LORTAB) TAB PO PRN ×2 (09:54→20:28)
[2021-03-14] MEDS: fentaNYL INJ 100 MCG/2 ML AMP IV PRN (09:55)
[2021-03-14] MEDS: cefTRIAXone 2,000 MG/SWFI 20 ML IV PUSH IV SCH ×2 (11:11)
--- NOTE | 2021-03-14 12:26 | Progress Note - Hospitalist ---
SLICKWILY 03/14/21 1225: Subjective HPI/CC On Admission Date Seen by Provider: Mar 14, 2021 Time Seen by Provider: 08:51 R diabetic foot wound, sepsis Subjective/Events-last exam Today, Kellie is similarly despondent and withdrawn, possibly due to sedation from pain medication Has some pain, unchanged from yesterday (03/13/2021) Has an appetite Had a bowel movement yesterday (03/13/2021) EKG on 03/13/2021 showed sinus rhythm Wound on L foot is is healing well Peripheral angiogram is planned for tomorrow with Dr. Bolaños Started on Aspirin 81 mg, 1po qd Review of Systems Musculoskeletal: leg pain, foot pain Focused Exam Sepsis Stage: Ruled Out Reason for ruling out sepsis: No SIRS criteria met Respiratory: Chest Non Tender, Lungs Clear, Normal Breath Sounds Cardiovascular: Regular Rate, Rhythm, No Edema, No Gallop Skin: normal color, warm/dry, rash, ulcerations Objective Exam Vital Signs Vital Signs Date Time Temp Pulse Resp B/P (MAP) Pulse Ox O2 Delivery O2 Flow Rate FiO2 03/14/21 08:21 36.1 81 18 134/78 (96) 96 Room Air 03/10/21 11:50 3 Capillary Refill : Less Than 3 Seconds General Appearance: No Apparent Distress HEENT: PERRL/EOMI Respiratory: Chest Non Tender, Lungs Clear, Normal Breath Sounds, No Accessory Muscle Use, No Respiratory Distress Cardiovascular: Regular Rate, Rhythm, No Edema, No Gallop, No JVD Rectal: Deferred Skin: Normal Color, Warm/Dry, Rash Results/Procedures Lab Laboratory Tests 03/14/21 03:22 Patient resulted labs reviewed. Laboratory Tests 03/13/21 15:39: Glucometer 225H 03/13/21 19:59: Glucometer 248H 03/14/21 03:22: White Blood Count 11.9H, Red Blood Count 4.30, Hemoglobin 12.0L, Hematocrit 37L, Mean Corpuscular Volume 85, Mean Corpuscular Hemoglobin 28, Mean Corpuscular Hemoglobin Concent 33, Red Cell Distribution Width 11.1, Platelet Count 349, Mean Platelet Volume 10.1, Immature Granulocyte % (Auto) 1, Neutrophils (%) (Auto) 56, Lymphocytes (%) (Auto) 33, Monocytes (%) (Auto) 7, Eosinophils (%) (Auto) 3, Basophils (%) (Auto) 1, Neutrophils # (Auto) 6.7, Lymphocytes # (Auto) 3.9, Monocytes # (Auto) 0.8, Eosinophils # (Auto) 0.3, Basophils # (Auto) 0.1, Immature Granulocyte # (Auto) 0.1, Sodium Level 136, Potassium Level 4.3, Chloride Level 100, Carbon Dioxide Level 24, Anion Gap 12, Blood Urea Nitrogen 12, Creatinine 0.91, Estimat Glomerular Filtration Rate 92, BUN/Creatinine Ratio 13, Glucose Level 145H, Calcium Level 10.0, Corrected Calcium 10.5H, Total Bilirubin 0.4, Aspartate Amino Transf (AST/SGOT) 33, Alanine Aminotransferase (ALT/SGPT) 38, Alkaline Phosphatase 93, Total Protein 7.0, Albumin 3.4 03/14/21 05:11: Glucometer 139H 03/14/21 10:18: Glucometer 228H Microbiology 03/10/21 Gram Stain - Final, Resulted 03/10/21 Anaerobic Culture - Final, Resulted Bacteroides fragilis See Comments 03/10/21 Surgical Culture - Preliminary, Resulted Proteus vulgaris 03/09/21 Blood Culture - Preliminary, Resulted No growth 03/09/21 Urine Culture - Final, Complete NO GROWTH 03/09/21 MRSA Screen - Final, Complete MRSA not isolated Imaging: Reviewed Imaging Films Radiology NAME: KELLIE MG [facility] REC#: [id number] PT STATUS: ADM IN : 1980 PHYSICIAN: CALVIN ACOSTA MD ADMIT DATE: 03/09/21/[facility] Signed Date of Exam:03/09/21 RIGHT LOW EXT [id number] INDICATION: Right foot wound. TECHNIQUE: Grayscale and color-flow imaging of the right lower extremity arteries is performed with spectral analysis. FINDINGS: There is diffuse atherosclerotic plaque present with normal arterial flow at the right common femoral artery. There is mild increased velocity in the proximal right superficial femoral artery reaching 2 m/s. There is also significant elevated flow velocity reaching 3.3 m/s at the right popliteal artery. There is also increased flow velocity within the proximal posterior tibial artery with collateralization seen distally at the anterior tibial artery. IMPRESSION: Atherosclerosis with probable significant stenoses of the right popliteal artery and posterior tibial artery. CTA or arteriography may be of value for characterization. Dictated by: Dictated on workstation # [id number] Dict: 03/09/21 1643 Trans: 03/09/21 170 [id number] Interpreted by: BOLA GREWAL MD Electronically signed by: BOLA GREWAL MD 03/09/211699 [facility] [place] NAME: KELLIE MG [facility] REC#: [id number] PT STATUS: ADM IN : 1980 PHYSICIAN: SHILA LENNON APRN ADMIT DATE: 03/09/21/[facility] Signed Date of Exam:03/09/21 FOOT, RIGHT, 3 VIEW CLINICAL INDICATION: Patient with a wound on bottom of right foot for a few months. EXAM: X-ray of the right foot, three views. COMPARISON: None. FINDINGS AND IMPRESSION: 1: There is a soft tissue defect involving the plantar aspect of the soft tissue near the MTP joint region, seen on lateral view, which likely correlates to patient's history of a foot wound. 2: There is appearance of air overlying the fourth MTP joint region on the AP view. The bony cortical margins involving the distal head of the fourth metatarsal bone are not well visualized. Osteomyelitis should be excluded. MRI of the right foot would better evaluate. 3: There is no acute fracture or dislocation. 4: There are degenerative spurs involving the mid foot and calcaneus. Dictated by: Dictated on workstation # [id number] Dict: 03/09/21 1237 Trans: 03/09/212337 [id number] Interpreted by: RADHA PERALTA MD Electronically signed by: RADHA PERALTA MD 03/09/21 2338 [facility] [place] NAME: KELLIE MG [facility] REC#: [id number] PT STATUS: ADM IN : 1980 PHYSICIAN: SHILA LENNON APRN ADMIT DATE: 03/09/21/[facility] Signed Date of Exam:03/09/21 CHEST 1 VIEW, AP/PA ONLY CLINICAL INDICATION: Patient with sepsis. EXAM: Portable chest x-ray upright view. COMPARISONS: None. FINDINGS: Lungs/pleura: Suspected bony prominence of the anterior aspects of both 1st ribs causing the increased density involving the medial bilateral upper lobes. Otherwise, lungs are clear. There is no pneumothorax. There is no pleural effusion. Mediastinum: Unremarkable. Pulmonary vasculature: Unremarkable. Heart: Unremarkable. Bones/extrathoracic soft tissue: Unremarkable. IMPRESSION: 1: Suspected bony prominence of the anterior aspects of both 1st ribs causing the increased density involving the medial bilateral upper lobes. Chest x-ray PA and lateral views is suggested to exclude underlying lung nodule. 2: Otherwise, there is no radiographic evidence of acute cardiopulmonary process. Dictated by: Dictated on workstation # [id number] Dict: 03/09/21 1205 Trans: 03/09/21 2332 [facility] [id number] Interpreted by: RADHA PERALTA MD Electronically signed by: RADHA PERALTA MD 03/09/21 2333 Meds Item Value Date Time Aspirin 81 mg 03/14/21 0900 (Ecotrin Tablet) DAILY/PO 03/14/21 0822 Fish Oil 1,000 mg 03/14/21 0800 (Fish Oil BID WITH MEALS/PO 03/14/21 0822 Capsule) Ceftriaxone 20 ml @ 240 mls/hr 03/13/21 1100 Sodium 2000 mg/ Q24H/IV 03/14/21 1111 Sterile Water Senna 1 ea 03/13/21 0945 (Senokot S BID/PO 03/14/21 0822 Tablet) Docusate Sodium 100 mg 03/13/21 0945 (Colace Capsule) BID/PO 03/14/21 0822 Lisinopril 10 mg 03/11/21 0900 (Zestril Tablet) DAILY/PO 03/14/21 0822 Insulin Detemir 10 unit 03/10/21 2100 (LeveMIR (PER HS/SQ 03/13/21 2109 UNIT)) Atorvastatin 40 mg 03/10/21 2100 Calcium HS/PO 03/13/21 2107 (Lipitor Tablet) Metformin HCl 500 mg 03/10/21 1800 (Glucophage Xr DAILY@1800/PO 03/13/21 1836 Tablet) Insulin Aspart 5 unit 03/10/21 1700 (NovoLOG (CHARGE AC/SC 03/14/21 1111 PER UNIT)) Acetaminophen/ 1 ea 03/10/21 1400 Hydrocodone Bitart Q4H PRN/PO 03/14/21 0954 (Lortab 5 Mg Tablet) Acetaminophen 1,000 mg 03/10/21 1400 (Tylenol Tablet) Q8H PRN/PO 03/11/21 0833 Lactated Ringer's 1,000 ml @ 0 mls/hr 03/10/21 1215 Lactated Ringer's 1,000 ml @ 0 mls/hr 03/10/21 0945 Insulin Aspart SLIDING SCALE B BLOO... 03/09/21 1600 (NovoLOG (CHARGE ACHS/SC 03/14/21 1111 PER UNIT)) Enoxaparin Sodium 40 mg 03/09/21 1430 (Lovenox Q24H/SC 03/13/21 1641 Injection) Sodium Chloride 10-40 ML 03/09/21 1415 (Catheter Flush NEEDED PRN/IV Syringe) Fentanyl Citrate 50 mcg 03/09/21 1415 (Sublimaze Q2H PRN/IV 03/14/21 0955 Injection) Ondansetron HCl 8 mg 03/09/21 1415 (Zofran Q6H PRN/IV Injection (Sdv)) Assessment/Plan Assessment and Plan Assess & Plan/Chief Complaint 1. Diabetic ulcer of right foot 2. Osteomyelitis of R 4th metatarsal head Incision and drainage and debridement of R foot wound on 03/10/21 Per surgery, patient is to remain on antibiotics for 6-8 weeks to control infection =>If unresponsive to IV antiobiotics, consider forefoot amputation or BKA Continue IV Ceftriaxone 2 grams for infection control Monitor WBC counts Monitor for development of fever Monitor changes in HR and RR Lortab 5mg and fentanyl to manage pain Lovenox 40 mg for DVT prophylaxis 3. Peripheral vascular disease, with significant stenosis of R popliteal artery and R posterior tibial artery Consult with cardiology today (03/13) Peripheral Angiogram is scheduled for 03/15/[address] Bolaños 4. Hypertension Continue lisinopril 10mg for blood pressure control. Monitor blood pressure. Follow-up with PCP in out-patient. 5. Type 2 diabetes mellitus, poorly controlled Continue insulin aspart, metformin 500mg (1800 mg daily) Follow up with PCP in out-patient setting 6. Hyperlipidemia Continue Atorvastatin 40 mg Follow-up with PCP JAZZY AUGUST DO 03/15/21 0552: Subjective Subjective/Events-last exam No pain reported Dressing changed while I was at bedside Wound down to tendons Review of Systems Musculoskeletal: leg pain, foot pain Objective Exam General Appearance: No Apparent Distress, WD/WN, Chronically ill Respiratory: Lungs Clear Cardiovascular: Regular Rate, Rhythm Assessment/Plan Assessment and Plan Assess & Plan/Chief Complaint Angiogram tomorrow Supervisory-Addendum Brief Verification & Attestation Participated in pt care: history, MDM, physical Personally performed: exam, history, MDM, supervision of care Care discussed with: Medical Student Procedures: n/a Results interpretation: Verified all documentation Verification and Attestation of Medical Student E/M Service A medical student performed and documented this service in my presence. I reviewed and verified all information documented by the medical student and made modifications to such information, when appropriate. I personally performed the physical exam and medical decision making. Jazzy August Mar 15, 2021,05:51 WILY KRUGER Mar 14, 2021 12:25 JAZZY AUGUST DO Mar 15, 2021 05:52
[2021-03-14 16:01] VITALS: BP 145/80
[2021-03-14] MEDS: ENOXAPARIN 40 MG/0.4 ML (LOVENOX) SYR SC SCH (16:17)
[2021-03-14] MEDS: ACETAMINOPHEN 500 MG TAB (TYLENOL) PO PRN (16:18)
[2021-03-14] MEDS: metFORMIN XR 500 MG (GLUCOPHAGE XR) TAB PO SCH (17:37)
[2021-03-14 23:30] VITALS: BP 150/89
[2021-03-15] MEDS: fentaNYL INJ 100 MCG/2 ML AMP IV PRN ×2 (05:35→15:25)
[2021-03-15] MEDS: inSUlin ASPART (NovoLOG) 1 UNIT/0.01 ML (CHARGE PER UNIT) SC SCH ×7 (05:53→20:51)
[2021-03-15] MEDS: HYDROcodone/APAP 5 MG/325 MG (LORTAB) TAB PO PRN ×4 (05:54→21:07)
[2021-03-15 06:03] LABS: BASOPHILS # (AUTO) 0.1 10^3/uL (0.0-0.1); BASOPHILS % (AUTO) 1 % (0-10); EOSINOPHILS # (AUTO) 0.4 10^3/uL (0.0-0.3); EOSINOPHILS % (AUTO) 3 % (0-10); HEMATOCRIT 41 % (40-54); HEMOGLOBIN 13.4 g/dL (13.3-17.7); LYMPHOCYTES # (AUTO) 4.1 10^3/uL (1.0-4.0); LYMPHOCYTES % (AUTO) 32 % (12-44); MEAN CORPUSCULAR HEMOGLOBIN 28 pg (25-34); MEAN CORPUSCULAR HGB CONC 33 g/dL (32-36); MEAN CORPUSCULAR VOLUME 86 fL (80-99); MEAN PLATELET VOLUME 10.3 fL (9.0-12.2); MONOCYTES # (AUTO) 0.9 10^3/uL (0.0-1.0); MONOCYTES % (AUTO) 7 % (0-12); NEUTROPHILS # (AUTO) 7.4 10^3/uL (1.8-7.8); NEUTROPHILS % (AUTO) 57 % (42-75); PLATELET COUNT 385 10^3/uL (130-400)
[2021-03-15 06:14] LABS: ALBUMIN 3.8 GM/DL (3.2-4.5)
[2021-03-15 06:15] LABS: POTASSIUM 4.7 MMOL/L (3.6-5.0)
[2021-03-15 06:16] LABS: CALCIUM 10.7 MG/DL (8.5-10.1)
[2021-03-15 06:17] LABS: TOTAL PROTEIN 7.7 GM/DL (6.4-8.2)
[2021-03-15 06:19] LABS: BILIRUBIN,TOTAL 0.4 MG/DL (0.1-1.0)
[2021-03-15 06:21] LABS: CREATININE SERUM 1.11 MG/DL (0.60-1.30)
--- NOTE | 2021-03-15 06:29 | Progress Note - Surgery ---
JOHNY BETTS 03/15/21 0629: Subjective Date Seen by a Provider: Mar 15, 2021 Time Seen by a Provider: 07:00 Subjective/Events-last exam PT is status post I&D with debridement (MS, Fascia and skin) and washout on 03/10. Patient reports pain in the right foot at 4/10 on a pain scale. Dressing remains in place. Last dressing change at 0600 this morning per nursing. He reports that his last BM was yesterday. He has no complaints with urination. Review of Systems General: Chills (had some chills this morning around mid night ), Night Sweats (last night ) HEENT: Head Aches, Visual Changes (reports some vision changes while watching TV, specifically that he notices flickering) Pulmonary: No Dyspnea, No Cough Cardiovascular: No: Chest Pain, Palpitations Gastrointestinal: No: Nausea, Vomiting Genitourinary: No Dysuria, No Frequency Musculoskeletal: leg pain (mild on right side ), foot pain (4/10 on R side); No: neck pain Neurological: Weakness (no more than usual ), Numbness (no more than usual) Objective Exam Vital Signs Date Time Temp Pulse Resp B/P (MAP) Pulse Ox O2 Delivery O2 Flow Rate FiO2 03/14/21 23:30 36.0 80 18 150/89 (109) 98 Room Air 03/14/21 20:14 Room Air 03/14/21 16:01 36.3 73 18 145/80 (101) 93 Room Air 03/14/21 08:21 36.1 81 18 134/78 (96) 96 Room Air 03/14/21 08:00 Room Air I & O 03/15/21 07:00 Intake Total 3040 ml Balance 3040 ml Capillary Refill : Less Than 3 Seconds General Appearance: No Apparent Distress, Chronically ill HEENT: PERRL/EOMI, Moist Mucous Membranes Neck: Full Range of Motion, Normal Inspection, Non Tender, Supple Respiratory: Chest Non Tender, Lungs Clear, Normal Breath Sounds, No Accessory Muscle Use, No Respiratory Distress Cardiovascular: Regular Rate, Rhythm, No Edema, Normal Peripheral Pulses Peripheral Pulses: 2+ Radial Pulses (R), 2+ Radial Pulses (L) Gastrointestinal: non tender, soft, no organomegaly, no pulsatile mass Extremity: Normal Capillary Refill, Normal Range of Motion, Calf Tenderness (minimal on R side ), Other (Right foot dressing in place, no erythema seen surrounding the dressing. ) Neurologic/Psychiatric: Alert, Oriented x3, No Motor/Sensory Deficits, Normal Mood/Affect Skin: Normal Color, Warm/Dry, Rash Lymphatic: No Adenopathy (cervical) Results Lab Laboratory Tests 03/14/21 10:18: Glucometer 228H 03/14/21 15:33: Glucometer 185H 03/14/21 20:01: Glucometer 178H 03/15/21 05:30: Glucometer 169H 03/15/21 06:00: White Blood Count 13.0H, Red Blood Count 4.73, Hemoglobin 13.4, Hematocrit 41, Mean Corpuscular Volume 86, Mean Corpuscular Hemoglobin 28, Mean Corpuscular Hemoglobin Concent 33, Red Cell Distribution Width 11.1, Platelet Count 385, Mean Platelet Volume 10.3, Immature Granulocyte % (Auto) 1, Neutrophils (%) (Auto) 57, Lymphocytes (%) (Auto) 32, Monocytes (%) (Auto) 7, Eosinophils (%) (Auto) 3, Basophils (%) (Auto) 1, Neutrophils # (Auto) 7.4, Lymphocytes # (Auto) 4.1H, Monocytes # (Auto) 0.9, Eosinophils # (Auto) 0.4H, Basophils # (Auto) 0.1, Immature Granulocyte # (Auto) 0.2H, Sodium Level 136, Potassium Level 4.7, Chloride Level 99, Carbon Dioxide Level 25, Anion Gap 12, Blood Urea Nitrogen 17, Creatinine 1.11, Estimat Glomerular Filtration Rate 73, BUN/Creatinine Ratio 15, Glucose Level 175H, Calcium Level 10.7H, Corrected Calcium 10.9H, Total Bilirubin 0.4, Aspartate Amino Transf (AST/SGOT) 32, Alanine Aminotransferase (ALT/SGPT) 44, Alkaline Phosphatase 108, Total Protein 7.7, Albumin 3.8 Microbiology 03/10/21 Gram Stain - Final, Complete 03/10/21 Anaerobic Culture - Final, Complete Bacteroides fragilis See Comments 03/10/21 Surgical Culture - Final, Complete Proteus vulgaris Mixed Bacterial Azucena 03/09/21 Blood Culture - Preliminary, Resulted No growth 03/09/21 Urine Culture - Final, Complete NO GROWTH 03/09/21 MRSA Screen - Final, Complete MRSA not isolated Assessment/Plan Assessment/Plan Assessment/Plan S/P I&D with debridement of Abscess/Cellulitis Right foot with Osteomyelitis 4th Metatarsal head DM type II - uncontrolled The patient will continue having his dressing changed, IV fluids, pain meds and nausea meds. The patient will be on IV ceftriaxone for 6-8 weeks for ABX therapy dt his osteomyelitis. He is scheduled to have an angiogram today. FAIZAN GOLDSTEIN DO 03/15/21 1553: Subjective Time Seen by a Provider: 11:22 Subjective/Events-last exam Pt seen and examined, no new complaints. States he is not having Angiogram until Saturday....because he took Metformin last night, could cause renal failure. Review of Systems General: Chills (had some chills this morning around mid night ), Night Sweats (last night ) HEENT: Head Aches Pulmonary: No Dyspnea, No Cough Cardiovascular: No: Chest Pain, Palpitations Gastrointestinal: No: Nausea, Vomiting Musculoskeletal: leg pain (mild on right side ), foot pain (4/10 on R side) Objective Exam General Appearance: No Apparent Distress, Thin HEENT: PERRL/EOMI Respiratory: Lungs Clear, Normal Breath Sounds, No Accessory Muscle Use Cardiovascular: Regular Rate, Rhythm, Normal Peripheral Pulses Gastrointestinal: non tender, soft Extremity: Calf Tenderness (minimal on R side ), Other (Right foot dressing in place, no erythema seen surrounding the dressing. ) Assessment/Plan Assessment/Plan Assessment/Plan S/P I&D with debridement of Abscess/Cellulitis Right foot with Osteomyelitis 4th Metatarsal head DM type II - uncontrolled The patient will continue having his dressing changed, IV fluids, pain meds and nausea meds. The patient will be on IV ceftriaxone for 6-8 weeks for ABX therapy due to his osteomyelitis. He is scheduled to have an angiogram Saturday. Supervisory-Addendum Brief Verification & Attestation Participated in pt care: history, MDM, physical Personally performed: exam, history, MDM, supervision of care Care discussed with: Medical Student Procedures: n/a Verification and Attestation of Medical Student E/M Service A medical student performed and documented this service. I then reviewed and verified all information documented by the medical student and made modifications to such information, when appropriate. I personally performed a physical exam, medical decision making and then discussed any differences between the notes and made revisions as necessary to create one note. Faizan Goldstein , 03/15/21 , 15:53 JOHNY BETTS Mar 15, 2021 06:29 FAIZAN GOLDSTEIN DO Mar 15, 2021 15:53
[2021-03-15 08:00] VITALS: BP 119/81
[2021-03-15] MEDS: OMEGA 3 (FISH OIL) 1000 MG CAP PO SCH ×3 (08:35→17:10)
[2021-03-15] MEDS: DOCUSATE SODIUM 100 MG (COLACE) CAP PO SCH ×3 (08:36→21:00)
[2021-03-15] MEDS: SENNA W/DOCUSATE (SENOKOT S) TABLET PO SCH ×3 (08:36→21:00)
[2021-03-15] MEDS: lisINopril 10 MG (PRINIVIL) TABLET PO SCH ×2 (08:42→09:13)
[2021-03-15] MEDS: ASPIRIN E.C. 81 MG (ECOTRIN) TAB PO SCH ×2 (08:42→09:12)
[2021-03-15] MEDS: metroNIDAZOLE 500 MG (FLAGYL) TAB PO SCH ×4 (08:43→21:00)
--- NOTE | 2021-03-15 08:45 | Cardiology Progress Note ---
Subjective Date Seen by Provider: Mar 15, 2021 Time Seen by Provider: 08:20 Subjective/Events-last exam Patient in bed, no new complaints. Denies any chest pain or dyspnea. Review of Systems General: No Chills, No Night Sweats, No Fatigue, No Malaise, No Appetite, No Other HEENT: No Head Aches, No Visual Changes, No Eye Pain, No Ear Pain, No Dysphasia, No Sinus Congestion, No Post Nasal Drip, No Sore Throat, No Other Pulmonary: No Dyspnea, No Cough, No Pleuritic Chest Pain, No Other Cardiovascular: No: Chest Pain, Palpitations, Orthopnea, Paroxysmal Noc. Dyspnea, Edema, Lt Headedness, Other Objective-Cardiology Exam Last Set of Vital Signs Vital Signs 03/10/21 03/15/21 11:50 15:28 Temp 36.4 Pulse 74 Resp 18 B/P (MAP) 120/78 (92) Pulse Ox 93 O2 Delivery Room Air O2 Flow Rate 3 I&O Intake and Output 03/15/21 00:00 Intake Total 3999 ml Balance 3999 ml Intake Oral 3999 ml # Voids 7 General: Alert, Oriented X3, Cooperative HEENT: Atraumatic, PERRLA Neck: Supple, No JVD, No Thyromegaly Lungs: Clear to Auscultation, Normal Air Movement Heart: Regular Rate, Normal S1 Abdomen: Normal Bowel Sounds, Soft Extremities: No Edema, Other (C/D/I dressing) Skin: No Rashes, No Significant Lesion Neuro: Normal Speech Psych/Mental Status: Mental Status NL, Mood NL Results Lab Laboratory Tests 03/15/21 06:00 A/P-Cardiology Admission Diagnosis PAD HTN HLP DM Assessment/Plan Peripheral arterial disease, right lower extremity ultrasound shows evidence of potentially severe distal disease. He did not have an ultrasound of the left lower extremity but does not have any wounds on that leg. He underwent successful debridement of the wound on his right foot on 03/13. His foot is warm and does not appear to be a threatened limb at this time. Planning for peripheral angiogram, will need to hold Metformin for 48 hours prior to procedure. Will plan for angiogram on Saturday, can be done as outpatient. HTN, controlled, continue to monitor Mixed hyperlipidemia, He is on atorvastatin at home. His LDL level is well controlled. However, his triglycerides are elevated, started on fish oil DM, mangagement per PCP. He needs to keep his diabetes under good control to help prevent further progression of his peripheral arterial disease. Supervisory-Addendum Brief Supervisory Addendum Participated in pt care: history, MDM, physical Personally performed: exam, history, MDM Care discussed with: ANNEMARIE Results interpretation: Verified all documentation Notes: Patient was seen and evaluated with Chantal, examination performed, management plan was discussed, agree with the current scribed note, I made few changes to the note using Italic font Patient was seen at bedside laying down comfortably, the right foot is wrapped. He has some scratches on his left foot Reporting mild cramps in his legs with exertion usually after walking relieving by rest. Discussed the management plan and recommended peripheral angiogram, we will start IV fluid, continue to monitor closely, planning to proceed with the angiogram after holding Metformin for 48 hours I discussed the management plan with Dr. Bennett who agreed on the current plan I discussed the management plan with Dr. Gates and she agrees with the current plan CHANTAL ENGLISH Mar 15, 2021 08:44 NICOLASA RESENDEZ MD Mar 15, 2021 16:06
[2021-03-15] MEDS: cefTRIAXone 2,000 MG/SWFI 20 ML IV PUSH IV SCH ×2 (13:02)
--- NOTE | 2021-03-15 14:25 | Progress Note - Hospitalist ---
SLICKWILY 03/15/21 1425: Subjective HPI/CC On Admission Date Seen by Provider: Mar 15, 2021 Time Seen by Provider: 09:00 R diabetic foot wound, sepsis Subjective/Events-last exam Today, Paulo continues to experience pain in his LE, unchanged from yesterday Has not had any bowel movements today, but appetite remains okay Angiogram was initially planned for today, however, these plans were put on hold d/t Paulo receiving Metformin the night before Dr. Bolaños will perform angiogram on 03/17/2021, Metformin will be held until this is complete Paulo is to stay inpatient until the procedure on Saturday, as his wound necessitates frequent and involved dressing changes Bacteroides was isolated on wound culture => Metronidazole 500mg TID was initiated, as well as cefepime Paulo appears despondent upon finding out he will not be discharged today, but is understanding. Review of Systems General: Fatigue, Malaise Musculoskeletal: leg pain, foot pain Focused Exam Sepsis Stage: Ruled Out Reason for ruling out sepsis: No SIRS criteria Respiratory: Chest Non Tender, Lungs Clear, Normal Breath Sounds, No Accessory Muscle Use, No Respiratory Distress Cardiovascular: Regular Rate, Rhythm, No Edema, No Gallop, No JVD, No Murmur, Normal Peripheral Pulses Skin: normal color, warm/dry, rash, ulcerations Objective Exam Vital Signs Vital Signs Date Time Temp Pulse Resp B/P (MAP) Pulse Ox O2 Delivery O2 Flow Rate FiO2 03/15/21 08:00 36.0 76 16 119/81 (94) 96 Room Air 03/10/21 11:50 3 Capillary Refill : Less Than 3 Seconds General Appearance: No Apparent Distress, WD/WN, Chronically ill HEENT: PERRL/EOMI Respiratory: Chest Non Tender, Lungs Clear, Normal Breath Sounds, No Accessory Muscle Use, No Respiratory Distress Cardiovascular: Regular Rate, Rhythm, No Edema, No Gallop, No JVD, No Murmur Gastrointestinal: Normal Bowel Sounds Extremity: Normal Capillary Refill Neurologic/Psychiatric: Alert, Oriented x3, No Motor/Sensory Deficits, 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 Laboratory Tests 03/14/21 15:33: Glucometer 185H 03/14/21 20:01: Glucometer 178H 03/15/21 05:30: Glucometer 169H 03/15/21 06:00: White Blood Count 13.0H, Red Blood Count 4.73, Hemoglobin 13.4, Hematocrit 41, Mean Corpuscular Volume 86, Mean Corpuscular Hemoglobin 28, Mean Corpuscular Hem oglobin Concent 33, Red Cell Distribution Width 11.1, Platelet Count 385, Mean Platelet Volume 10.3, Immature Granulocyte % (Auto) 1, Neutrophils (%) (Auto) 57, Lymphocytes (%) (Auto) 32, Monocytes (%) (Auto) 7, Eosinophils (%) (Auto) 3, Basophils (%) (Auto) 1, Neutrophils # (Auto) 7.4, Lymphocytes # (Auto) 4.1H, Monocytes # (Auto) 0.9, Eosinophils # (Auto) 0.4H, Basophils # (Auto) 0.1, Immature Granulocyte # (Auto) 0.2H, Sodium Level 136, Potassium Level 4.7, Chloride Level 99, Carbon Dioxide Level 25, Anion Gap 12, Blood Urea Nitrogen 17, Creatinine 1.11, Estimat Glomerular Filtration Rate 73, BUN/Creatinine Ratio 15, Glucose Level 175H, Calcium Level 10.7H, Corrected Calcium 10.9H, Total Bilirubin 0.4, Aspartate Amino Transf (AST/SGOT) 32, Alanine Aminotransferase (ALT/SGPT) 44, Alkaline Phosphatase 108, Total Protein 7.7, Albumin 3.8 03/15/21 11:33: Glucometer 198H Microbiology 03/10/21 Gram Stain - Final, Complete 03/10/21 Anaerobic Culture - Final, Complete Bacteroides fragilis See Comments 03/10/21 Surgical Culture - Final, Complete Proteus vulgaris Mixed Bacterial Azucena 03/09/21 Blood Culture - Final, Complete No growth 03/09/21 Urine Culture - Final, Complete NO GROWTH 03/09/21 MRSA Screen - Final, Complete MRSA not isolated Imaging: Reviewed Imaging Films Meds Item Value Date Time Metronidazole 500 mg 03/15/21 0900 (Flagyl Tablet) TID/PO 03/15/21 1302 Aspirin 81 mg 03/14/21 0900 (Ecotrin Tablet) DAILY/PO 03/15/21 0912 Fish Oil 1,000 mg 03/14/21 0800 (Fish Oil BID WITH MEALS/PO 03/15/21 0912 Capsule) Ceftriaxone 20 ml @ 240 mls/hr 03/13/21 1100 Sodium 2000 mg/ Q24H/IV 03/15/21 1302 Sterile Water Senna 1 ea 03/13/21 0945 (Senokot S BID/PO 03/15/21 0913 Tablet) Docusate Sodium 100 mg 03/13/21 0945 (Colace Capsule) BID/PO 03/15/21 0912 Lisinopril 10 mg 03/11/21 0900 (Zestril Tablet) DAILY/PO 03/15/21 0913 Insulin Detemir 10 unit 03/10/21 2100 (LeveMIR (PER HS/SQ 03/14/212025 UNIT)) Atorvastatin 40 mg 03/10/21 2100 Calcium HS/PO 03/14/212024 (Lipitor Tablet) Insulin Aspart 5 unit 03/10/21 1700 (NovoLOG (CHARGE AC/SC 03/15/21 1149 PER UNIT)) Acetaminophen/ 1 ea 03/10/21 1400 Hydrocodone Bitart Q4H PRN/PO 03/15/21 1148 (Lortab 5 Mg Tablet) Acetaminophen 1,000 mg 03/10/21 1400 (Tylenol Tablet) Q8H PRN/PO 03/14/21 1618 Lactated Ringer's 1,000 ml @ 0 mls/hr 03/10/21 1215 Lactated Ringer's 1,000 ml @ 0 mls/hr 03/10/21 0945 Insulin Aspart SLIDING SCALE B BLOO... 03/09/21 1600 (NovoLOG (CHARGE ACHS/SC 03/15/21 1148 PER UNIT)) Enoxaparin Sodium 40 mg 03/09/21 1430 (Lovenox Q24H/SC 03/14/21 1617 Injection) Sodium Chloride 10-40 ML 03/09/21 1415 (Catheter Flush NEEDED PRN/IV Syringe) Fentanyl Citrate 50 mcg 03/09/21 1415 (Sublimaze Q2H PRN/IV 03/15/21 0535 Injection) Ondansetron HCl 8 mg 03/09/21 1415 (Zofran Q6H PRN/IV Injection (Sdv)) Assessment/Plan Assessment and Plan Assess & Plan/Chief Complaint 1. Diabetic ulcer of right foot 2. Osteomyelitis of R 4th metatarsal head Incision and drainage and debridement of R foot wound on 03/10/21 Per surgery, patient is to remain on antibiotics for 6-8 weeks to control infection =>If unresponsive to IV antiobiotics, consider forefoot amputation or BKA Continue IV Ceftriaxone 2 grams for infection control Monitor WBC counts Monitor for development of fever Monitor changes in HR and RR Lortab 5mg and fentanyl to manage pain Lovenox 40 mg for DVT prophylaxis 3. Peripheral vascular disease, with significant stenosis of R popliteal artery and R posterior tibial artery Consult with cardiology today (03/13) Peripheral Angiogram is scheduled for 03/17/[address] Bolaños =>Metformin is on hold 4. Hypertension Continue lisinopril 10mg for blood pressure control. Monitor blood pressure. Follow-up with PCP in out-patient. 5. Type 2 diabetes mellitus, poorly controlled Continue insulin aspart, metformin 500mg (1800 mg daily) Follow up with PCP in out-patient setting 6. Hyperlipidemia Continue Atorvastatin 40 mg Follow-up with PCP Critical Care: Critically Ill Patient JAZZY AUGUST DO 03/16/21 0541: Subjective Subjective/Events-last exam Angiogram to be completed Saturday Supportive care Dressing changes IV antibiotics Review of Systems Musculoskeletal: leg pain, foot pain Objective Exam General Appearance: No Apparent Distress, WD/WN, Chronically ill Respiratory: Lungs Clear Cardiovascular: Regular Rate, Rhythm Assessment/Plan Assessment and Plan Assess & Plan/Chief Complaint Dressing changes IV antibiotics Supervisory-Addendum Brief Verification & Attestation Participated in pt care: history, MDM, physical Personally performed: exam, history, MDM, supervision of care Care discussed with: Medical Student Procedures: n/a Results interpretation: Verified all documentation Verification and Attestation of Medical Student E/M Service A medical student performed and documented this service in my presence. I reviewed and verified all information documented by the medical student and made modifications to such information, when appropriate. I personally performed the physical exam and medical decision making. Jazzy August, Mar 16, 2021,05:41 WILY KRUGER Mar 15, 2021 14:25 JAZZY AUGUST DO Mar 16, 2021 05:41
[2021-03-15 15:28] VITALS: BP 120/78
[2021-03-15] MEDS: ENOXAPARIN 40 MG/0.4 ML (LOVENOX) SYR SC SCH (15:38)
[2021-03-15] MEDS: NS IV 1000 ML 1,000 ML IV SCH (17:10)
[2021-03-15 23:32] VITALS: BP 152/93
[2021-03-16] MEDS: NS IV 1000 ML 1,000 ML IV SCH ×3 (02:50→22:20)
[2021-03-16] MEDS: inSUlin ASPART (NovoLOG) 1 UNIT/0.01 ML (CHARGE PER UNIT) SC SCH ×7 (05:34→22:19)
[2021-03-16 05:54] LABS: BASOPHILS # (AUTO) 0.1 10^3/uL (0.0-0.1); BASOPHILS % (AUTO) 1 % (0-10); EOSINOPHILS # (AUTO) 0.3 10^3/uL (0.0-0.3); EOSINOPHILS % (AUTO) 3 % (0-10); HEMATOCRIT 40 % (40-54); LYMPHOCYTES # (AUTO) 3.7 10^3/uL (1.0-4.0); LYMPHOCYTES % (AUTO) 28 % (12-44); MEAN CORPUSCULAR HEMOGLOBIN 28 pg (25-34); MEAN CORPUSCULAR HGB CONC 33 g/dL (32-36); MEAN CORPUSCULAR VOLUME 85 fL (80-99); MEAN PLATELET VOLUME 10.5 fL (9.0-12.2); MONOCYTES # (AUTO) 0.8 10^3/uL (0.0-1.0); MONOCYTES % (AUTO) 6 % (0-12); NEUTROPHILS % (AUTO) 62 % (42-75); PLATELET COUNT 368 10^3/uL (130-400); WHITE BLOOD COUNT 13.1 10^3/uL (4.3-11.0)
[2021-03-16 06:14] LABS: ALBUMIN 3.6 GM/DL (3.2-4.5); POTASSIUM 4.8 MMOL/L (3.6-5.0)
[2021-03-16 06:16] LABS: CALCIUM 9.9 MG/DL (8.5-10.1)
[2021-03-16 06:17] LABS: TOTAL PROTEIN 7.2 GM/DL (6.4-8.2)
[2021-03-16 06:19] LABS: BILIRUBIN,TOTAL 0.4 MG/DL (0.1-1.0)
[2021-03-16 06:20] LABS: CREATININE SERUM 0.95 MG/DL (0.60-1.30)
--- NOTE | 2021-03-16 07:11 | Progress Note - Surgery ---
JOHNY BETTS 03/16/21 0711: Subjective Date Seen by a Provider: Mar 16, 2021 Time Seen by a Provider: 06:55 Subjective/Events-last exam PT is status post I&D with debridement (MS, Fascia and skin) and washout on 03/10. The patient reports some increase in his right foot pain around [id number] yesterday morning, and describes the pain as burning and sometimes stabbing. His current right foot pain was reported at 4/10 this morning. He reports it has been up to 7/10 since the increase in pain yesterday morning. Dressing on R foot remains in place. He reports pain felt into the calves, which is worse on the right side. His last BM was yesterday. He has no complaints with urination. Review of Systems General: No Chills, No Night Sweats HEENT: No Head Aches, No Visual Changes Pulmonary: No Dyspnea, No Cough Cardiovascular: No: Chest Pain, Palpitations Gastrointestinal: No: Nausea, Vomiting Genitourinary: No Dysuria, No Hematuria Musculoskeletal: leg pain (Right calf pain, some left calve pain. Worse on R. ), foot pain (R foot ); No: neck pain, arm pain Neurological: Weakness (no more than his normal), Numbness (no more than his normal) Objective Exam Vital Signs Date Time Temp Pulse Resp B/P (MAP) Pulse Ox O2 Delivery O2 Flow Rate FiO2 03/15/21 23:32 36.4 76 18 152/93 (112) 93 Room Air 03/15/21 21:37 36.4 03/15/21 20:00 Room Air 03/15/21 15:28 36.4 74 18 120/78 (92) 93 Room Air 03/15/21 08:00 36.0 76 16 119/81 (94) 96 Room Air 03/15/21 08:00 Room Air I & O 03/16/21 07:00 Intake Total 2105 ml Balance 2105 ml Capillary Refill : Less Than 3 Seconds General Appearance: No Apparent Distress, Chronically ill HEENT: PERRL/EOMI, Moist Mucous Membranes Neck: Full Range of Motion, Normal Inspection, Non Tender, Supple Respiratory: Chest Non Tender, Lungs Clear, Normal Breath Sounds, No Accessory Muscle Use, No Respiratory Distress Cardiovascular: Regular Rate, Rhythm, No Edema, Normal Peripheral Pulses Peripheral Pulses: 2+ Radial Pulses (R), 2+ Radial Pulses (L) Gastrointestinal: non tender, soft, no organomegaly, no pulsatile mass Extremity: Calf Tenderness (minimal on R side and L side, worse on R. ), Other (Right foot dressing in place, no erythema seen surrounding the dressing. Sensation intact of R toes and R heel) Neurologic/Psychiatric: Alert, Oriented x3, No Motor/Sensory Deficits, Normal Mood/Affect Skin: Normal Color, Warm/Dry Lymphatic: No Adenopathy (cervical) Results Lab Laboratory Tests 03/15/21 11:33: Glucometer 198H 03/15/21 15:19: Glucometer 181H 03/15/21 20:05: Glucometer 158H 03/16/21 05:22: Glucometer 200H 03/16/21 05:42: White Blood Count 13.1H, Red Blood Count 4.65, Hemoglobin 13.0L, Hematocrit 40, Mean Corpuscular Volume 85, Mean Corpuscular Hemoglobin 28, Mean Corpuscular Hemoglobin Concent 33, Red Cell Distribution Width 11.1, Platelet Count 368, Mean Platelet Volume 10.5, Immature Granulocyte % (Auto) 1, Neutrophils (%) (Auto) 62, Lymphocytes (%) (Auto) 28, Monocytes (%) (Auto) 6, Eosinophils (%) (Auto) 3, Basophils (%) (Auto) 1, Neutrophils # (Auto) 8.0H, Lymphocytes # (Auto) 3.7, Monocytes # (Auto) 0.8, Eosinophils # (Auto) 0.3, Basophils # (Auto) 0.1, Immature Granulocyte # (Auto) 0.2H, Sodium Level 135, Potassium Level 4.8, Chloride Level 101, Carbon Dioxide Level 22, Anion Gap 12, Blood Urea Nitrogen 19H, Creatinine 0.95, Estimat Glomerular Filtration Rate 87, BUN/Creatinine Ratio 20, Glucose Level 204H, Calcium Level 9.9, Corrected Calcium 10.2H, Total Bilirubin 0.4, Aspartate Amino Transf (AST/SGOT) 29, Alanine Aminotransferase (ALT/SGPT) 43, Alkaline Phosphatase 91, Total Protein 7.2, Albumin 3.6 Microbiology 03/10/21 Gram Stain - Final, Complete 03/10/21 Anaerobic Culture - Final, Complete Bacteroides fragilis See Comments 03/10/21 Surgical Culture - Final, Complete Proteus vulgaris Mixed Bacterial Azucena 03/09/21 Blood Culture - Final, Complete No growth 03/09/21 Urine Culture - Final, Complete NO GROWTH 03/09/21 MRSA Screen - Final, Complete MRSA not isolated Assessment/Plan Assessment/Plan Assessment/Plan S/P I&D with debridement of Abscess/Cellulitis Right foot with Osteomyelitis 4th Metatarsal head DM type II - uncontrolled PT will continue having dressing regularly changed, IV fluids, pain meds and nausea meds. The patient will be on IV ceftriaxone for 6-8 weeks for ABX therapy due to his osteomyelitis. He is scheduled to have an angiogram Saturday. All questions answered at this time. FAIZAN GOLDSTEIN DO 03/16/21 1153: Subjective Time Seen by a Provider: : Subjective/Events-last exam Pt seen and examined, he had just gotten pain meds and was so "out of it"; he could barely answer questions. Review of Systems General: No Chills, No Night Sweats HEENT: No Head Aches, No Visual Changes Pulmonary: No Dyspnea, No Cough Cardiovascular: No: Chest Pain, Palpitations Gastrointestinal: No: Nausea, Vomiting Musculoskeletal: leg pain (Right calf pain, some left calve pain. Worse on R. ), foot pain (R foot ) Objective Exam General Appearance: No Apparent Distress Respiratory: Lungs Clear, Normal Breath Sounds, No Accessory Muscle Use, No Respiratory Distress Cardiovascular: Regular Rate, Rhythm, No Murmur Gastrointestinal: non tender, soft Extremity: Other (Right foot dressing in place, no erythema seen surrounding the dressing. Sensation intact of R toes and R heel. Nurse who changed dressing stated good pink granulation) Assessment/Plan Assessment/Plan Assessment/Plan S/P I&D with debridement of Abscess/Cellulitis Right foot with Osteomyelitis 4th Metatarsal head DM type II - uncontrolled PT will continue having dressing regularly changed, IV fluids, pain meds and nausea meds. The patient will be on IV ceftriaxone for 6-8 weeks for ABX therapy due to his osteomyelitis. He is scheduled to have an angiogram Saturday. Supervisory-Addendum Brief Verification & Attestation Participated in pt care: history, MDM, physical Personally performed: exam, history, MDM, supervision of care Care discussed with: Medical Student Procedures: n/a Verification and Attestation of Medical Student E/M Service A medical student performed and documented this service. I then reviewed and verified all information documented by the medical student and made modifications to such information, when appropriate. I personally performed a physical exam, medical decision making and then discussed any differences between the notes and made revisions as necessary to create one note. Faizan Goldstein , 03/16/21 , 11:53 JOHNY BETTS Mar 16, 2021 07:11 FAIZAN GOLDSTEIN DO Mar 16, 2021 11:53
[2021-03-16] MEDS: OMEGA 3 (FISH OIL) 1000 MG CAP PO SCH ×2 (07:31→17:03)
[2021-03-16 07:37] VITALS: BP 126/79
[2021-03-16] MEDS: ASPIRIN E.C. 81 MG (ECOTRIN) TAB PO SCH (08:18)
[2021-03-16] MEDS: SENNA W/DOCUSATE (SENOKOT S) TABLET PO SCH ×2 (08:18→22:19)
[2021-03-16] MEDS: metroNIDAZOLE 500 MG (FLAGYL) TAB PO SCH ×3 (08:19→22:20)
[2021-03-16] MEDS: DOCUSATE SODIUM 100 MG (COLACE) CAP PO SCH ×2 (08:19→22:20)
[2021-03-16] MEDS: HYDROcodone/APAP 5 MG/325 MG (LORTAB) TAB PO PRN ×3 (08:19→22:20)
[2021-03-16] MEDS: lisINopril 10 MG (PRINIVIL) TABLET PO SCH (08:19)
[2021-03-16] MEDS: fentaNYL INJ 100 MCG/2 ML AMP IV PRN (09:45)
[2021-03-16] MEDS ORDERED: ACHD5005 PO (11:42)
[2021-03-16] MEDS ORDERED: LISI10TA25 PO (11:42)
[2021-03-16] MEDS ORDERED: METR-145 PO (11:42)
[2021-03-16] MEDS ORDERED: OMG1KC PO (11:42)
[2021-03-16] MEDS ORDERED: SENN1TAB76 PO (11:42)
[2021-03-16] MEDS ORDERED: ASPI-1238 PO (11:42)
--- NOTE | 2021-03-16 11:47 | Cardiology Progress Note ---
Progress Note-Cardiology Events since last exam Date Seen by Provider: Mar 16, 2021 Time Seen by Provider: 11:46 Events since last exam We are following him for peripheral arterial disease. He has decided to stay in the hospital to have a peripheral angiogram tomorrow. There was a delay because the patient received Metformin on 03/14. This is now on hold. He denies chest pain, dyspnea at rest, palpitations, syncope, or ankle edema. Certain portions of this document may have been dictated utilizing voice recognition technology. Inherent to this technology, typographical and grammatical errors may exist. As much as I am diligent to identify and correct these mistakes, some errors may remain in the document. Vitals Last set of Vitals Signs Vital Signs 03/10/21 03/16/21 03/16/21 11:50 07:37 08:00 Temp 36.1 Pulse 85 Resp 14 B/P (MAP) 126/79 (95) Pulse Ox 97 O2 Delivery Room Air O2 Flow Rate 3 Labs Labs Laboratory Tests 03/16/21 05:42 Exam Vital Signs Vital Signs Date Time Temp Pulse Resp B/P (MAP) Pulse Ox O2 Delivery O2 Flow Rate FiO2 03/16/21 08:00 Room Air 03/16/21 07:37 36.1 85 14 126/79 (95) 97 03/10/21 11:50 3 Physical Exam General: Alert. No acute distress. Eye: No xanthelasma. HENT: Normocephalic. Neck: Jugular venous pressure does not appear elevated. Respiratory: Lungs are clear to auscultation. Respirations are non-labored. Breath sounds are equal. Symmetrical chest wall expansion. Cardiovascular: Normal rate. Regular rhythm. No murmur. No gallop. No edema. Right foot is warm. Gastrointestinal: Soft. Normal bowel sounds. Skin: Warm. Dry. Right foot is bandaged which is clean and dry. Neurologic: Alert and oriented to person, place, time. Cranial nerves 3-11 grossly intact. Psychiatric: Cooperative. Appropriate mood & affect. Labs Laboratory Tests Test 03/15/21 15:19 03/15/21 20:05 03/16/21 05:22 03/16/21 05:42 Range/Units Glucometer 181 H 158 H 200 H 70-110 MG/DL White Blood Count 13.1 H 4.3-11.0 10^3/uL Red Blood Count 4.65 4.30-5.52 10^6/uL Hemoglobin 13.0 L 13.3-17.7 g/dL Hematocrit 40 40-54 % Mean Corpuscular Volume 85 80-99 fL Mean Corpuscular Hemoglobin 28 25-34 pg Mean Corpuscular Hemoglobin Concent 33 32-36 g/dL Red Cell Distribution Width 11.1 10.0-14.5 % Platelet Count 368 130-400 10^3/uL Mean Platelet Volume 10.5 9.0-12.2 fL Immature Granulocyte % (Auto) 1 % Neutrophils (%) (Auto) 62 42-75 % Lymphocytes (%) (Auto) 28 12-44 % Monocytes (%) (Auto) 6 0-12 % Eosinophils (%) (Auto) 3 0-10 % Basophils (%) (Auto) 1 0-10 % Neutrophils # (Auto) 8.0 H 1.8-7.8 10^3/uL Lymphocytes # (Auto) 3.7 1.0-4.0 10^3/uL Monocytes # (Auto) 0.8 0.0-1.0 10^3/uL Eosinophils # (Auto) 0.3 0.0-0.3 10^3/uL Basophils # (Auto) 0.1 0.0-0.1 10^3/uL Immature Granulocyte # (Auto) 0.2 H 0.0-0.1 10^3/uL Sodium Level 135 135-145 MMOL/L Potassium Level 4.8 3.6-5.0 MMOL/L Chloride Level 101 98-107 MMOL/L Carbon Dioxide Level 22 21-32 MMOL/L Anion Gap 12 5-14 MMOL/L Blood Urea Nitrogen 19 H 7-18 MG/DL Creatinine 0.95 0.60-1.30 MG/DL Estimat Glomerular Filtration Rate 87 BUN/Creatinine Ratio 20 Glucose Level 204 H 70-105 MG/DL Calcium Level 9.9 8.5-10.1 MG/DL Corrected Calcium 10.2 H 8.5-10.1 MG/DL Total Bilirubin 0.4 0.1-1.0 MG/DL Aspartate Amino Transf (AST/SGOT) 29 5-34 U/L Alanine Aminotransferase (ALT/SGPT) 43 0-55 U/L Alkaline Phosphatase 91 40-136 U/L Total Protein 7.2 6.4-8.2 GM/DL Albumin 3.6 3.2-4.5 GM/DL Test 03/16/21 12:06 Range/Units Glucometer 213 H 70-110 MG/DL Diagnosis/Problems Diagnosis/Problems (1) Peripheral arterial disease Assessment & Plan: His right lower extremity ultrasound shows evidence of potentially severe distal disease. He did not have an ultrasound of the left lower extremity but does not have any wounds on that leg. He underwent successful debridement of the wound on his right foot on 03/13. His foot is warm and does not appear to be a threatened limb at this time. I will get him scheduled for peripheral angiogram tomorrow with Dr. Bolaños. They were planning to do this yesterday but he received his Metformin and we had to reschedule the procedure. His Metformin is now on hold. I have started him on aspirin. He should continue on statin medication. (2) Primary hypertension Assessment & Plan: Blood pressures had been elevated earlier in the admission but for the most part have improved on the present medication. (3) Mixed hyperlipidemia Assessment & Plan: He is on atorvastatin at home. His LDL level is well controlled. However, his triglycerides are elevated. I started him on fish oil. (4) Type 2 diabetes mellitus with complication Assessment & Plan: He needs to keep his diabetes under good control to help prevent further progression of his peripheral arterial disease. As above, Metformin is on hold for the peripheral angiogram. This can be resumed 48 hours following the procedure. BIRDIE MCCALL JR, MD Mar 16, 2021 11:47
[2021-03-16] MEDS: cefTRIAXone 2,000 MG/SWFI 20 ML IV PUSH IV SCH ×2 (12:30)
--- NOTE | 2021-03-16 13:35 | Progress Note - Hospitalist ---
SLICKWILY 03/16/21 1335: Subjective HPI/CC On Admission Date Seen by Provider: Mar 16, 2021 Time Seen by Provider: 09:00 R diabetic foot wound, sepsis Subjective/Events-last exam Paulo states his past day has been "rough" => pain is worse in his foot (4-5/10 pain scale) States his wound dressing was not complete the night before (03/15/2021) Appears more despondent and withdrawn, possibly due to pain medication Had a bowel movement last night (03/15/21) COntinues to have an appetite Dr. Bolaños will perform an angiogram tomorrow after 48hrs off of metformin EKG demonstrated sinus rhythm (03/16/21) Review of Systems General: Malaise Musculoskeletal: leg pain, foot pain Focused Exam Sepsis Stage: Ruled Out Reason for ruling out sepsis: WBC >12k, with documented infection, but no other SIRS criteria met Respiratory: Chest Non Tender, Lungs Clear, Normal Breath Sounds, No Accessory Muscle Use, No Respiratory Distress Cardiovascular: Regular Rate, Rhythm, No Edema, No Gallop, No JVD, No Murmur Skin: normal color, warm/dry, rash, tattoos/piercings, ulcerations Objective Exam Vital Signs Vital Signs Date Time Temp Pulse Resp B/P (MAP) Pulse Ox O2 Delivery O2 Flow Rate FiO2 03/16/21 08:00 Room Air 03/16/21 07:37 36.1 85 14 126/79 (95) 97 03/10/21 11:50 3 Capillary Refill : Less Than 3 Seconds General Appearance: WD/WN, Chronically ill, Mild Distress HEENT: PERRL/EOMI Respiratory: Chest Non Tender, Lungs Clear, Normal Breath Sounds, No Accessory Muscle Use, No Respiratory Distress Cardiovascular: Regular Rate, Rhythm, No Edema, No Gallop, No JVD, No Murmur Gastrointestinal: Normal Bowel Sounds Extremity: Slow Capillary Refill Neurologic/Psychiatric: Alert, Oriented x3, Depressed Affect Skin: Normal Color, Warm/Dry, Tattoos/Piercings Results/Procedures Lab Laboratory Tests 03/16/21 05:42 Patient resulted labs reviewed. Laboratory Tests 03/16/21 05:22: Glucometer 200H 03/16/21 05:42: White Blood Count 13.1H, Red Blood Count 4.65, Hemoglobin 13.0L, Hematocrit 40, Mean Corpuscular Volume 85, Mean Corpuscular Hemoglobin 28, Mean Corpuscular Hemoglobin Concent 33, Red Cell Distribution Width 11.1, Platelet Count 368, Mean Platelet Volume 10.5, Immature Granulocyte % (Auto) 1, Neutrophils (%) (Auto) 62, Lymphocytes (%) (Auto) 28, Monocytes (%) (Auto) 6, Eosinophils (%) (Auto) 3, Basophils (%) (Auto) 1, Neutrophils # (Auto) 8.0H, Lymphocytes # (Auto) 3.7, Monocytes # (Auto) 0.8, Eosinophils # (Auto) 0.3, Basophils # (Auto) 0.1, Immature Granulocyte # (Auto) 0.2H, Sodium Level 135, Potassium Level 4.8, Chloride Level 101, Carbon Dioxide Level 22, Anion Gap 12, Blood Urea Nitrogen 19H, Creatinine 0.95, Estimat Glomerular Filtration Rate 87, BUN/Creatinine Ratio 20, Glucose Level 204H, Calcium Level 9.9, Corrected Calcium 10.2H, Total Bilirubin 0.4, Aspartate Amino Transf (AST/SGOT) 29, Alanine Aminotransferase (ALT/SGPT) 43, Alkaline Phosphatase 91, Total Protein 7.2, Albumin 3.6 03/16/21 12:06: Glucometer 213H Imaging: Reviewed Imaging Films Meds Item Value Date Time Sodium Chloride 1,000 ml @ 100 mls/hr 03/15/21 1615 Metronidazole 500 mg 03/15/21 0900 (Flagyl Tablet) TID/PO 03/16/21 1228 Aspirin 81 mg 03/14/21 0900 (Ecotrin Tablet) DAILY/PO 03/16/21 0818 Fish Oil 1,000 mg 03/14/21 0800 (Fish Oil BID WITH MEALS/PO 03/16/21 0731 Capsule) Ceftriaxone 20 ml @ 240 mls/hr 03/13/21 1100 Sodium 2000 mg/ Q24H/IV 03/16/21 1230 Sterile Water Senna 1 ea 03/13/21 0945 (Senokot S BID/PO 03/16/21 0818 Tablet) Docusate Sodium 100 mg 03/13/21 0945 (Colace Capsule) BID/PO 03/16/21 0819 Lisinopril 10 mg 03/11/21 0900 (Zestril Tablet) DAILY/PO 03/16/21 0819 Insulin Detemir 10 unit 03/10/21 2100 (LeveMIR (PER HS/SQ 03/15/21 2100 UNIT)) Atorvastatin 40 mg 03/10/21 2100 Calcium HS/PO 03/15/21 2100 (Lipitor Tablet) Insulin Aspart 5 unit 03/10/21 1700 (NovoLOG (CHARGE AC/SC 03/16/21 1228 PER UNIT)) Acetaminophen/ 1 ea 03/10/21 1400 Hydrocodone Bitart Q4H PRN/PO 03/16/21 0819 (Lortab 5 Mg Tablet) Acetaminophen 1,000 mg 03/10/21 1400 (Tylenol Tablet) Q8H PRN/PO 03/14/21 1618 Lactated Ringer's 1,000 ml @ 0 mls/hr 03/10/21 1215 Lactated Ringer's 1,000 ml @ 0 mls/hr 03/10/21 0945 Insulin Aspart SLIDING SCALE B BLOO... 03/09/21 1600 (NovoLOG (CHARGE ACHS/SC 03/16/21 1227 PER UNIT)) Enoxaparin Sodium 40 mg 03/09/21 1430 (Lovenox Q24H/SC 03/15/21 1538 Injection) Sodium Chloride 10-40 ML 03/09/21 1415 (Catheter Flush NEEDED PRN/IV Syringe) Fentanyl Citrate 50 mcg 03/09/21 1415 (Sublimaze Q2H PRN/IV 03/16/21 0945 Injection) Ondansetron HCl 8 mg 03/09/21 1415 (Zofran Q6H PRN/IV Injection (Sdv)) Assessment/Plan Assessment and Plan Assess & Plan/Chief Complaint 1. Diabetic ulcer of right foot 2. Osteomyelitis of R 4th metatarsal head Incision and drainage and debridement of R foot wound on 03/10/21 Per surgery, patient is to remain on antibiotics for 6-8 weeks to control infection =>If unresponsive to IV antiobiotics, consider forefoot amputation or BKA Continue IV Ceftriaxone 2 grams for infection control Monitor WBC counts Monitor for development of fever Monitor changes in HR and RR Lortab 5mg and fentanyl to manage pain Lovenox 40 mg for DVT prophylaxis 3. Peripheral vascular disease, with significant stenosis of R popliteal artery and R posterior tibial artery Consult with cardiology today (03/13) Peripheral Angiogram is scheduled for 03/17/[address] Bolaños =>Metformin is on hold 4. Hypertension Continue lisinopril 10mg for blood pressure control. Monitor blood pressure. Follow-up with PCP in out-patient. 5. Type 2 diabetes mellitus, poorly controlled Continue insulin aspart, metformin 500mg (1800 mg daily) Follow up with PCP in out-patient setting 6. Hyperlipidemia Continue Atorvastatin 40 mg Follow-up with PCP Critical Care: Critically Ill Patient JAZZY AUGUST DO 03/16/212027: Subjective Subjective/Events-last exam Patient about the same Took pain medication Discharge planning for tomorrow after angiogram Review of Systems Musculoskeletal: leg pain, foot pain Objective Exam General Appearance: No Apparent Distress, WD/WN Respiratory: Lungs Clear Cardiovascular: Regular Rate, Rhythm Assessment/Plan Assessment and Plan Assess & Plan/Chief Complaint Discharge planned after angiogram tomorrow Monitor closely Supervisory-Addendum Brief Verification & Attestation Participated in pt care: history, MDM, physical Personally performed: exam, history, MDM, supervision of care Care discussed with: Medical Student Procedures: n/a Results interpretation: Verified all documentation Verification and Attestation of Medical Student E/M Service A medical student performed and documented this service in my presence. I reviewed and verified all information documented by the medical student and made modifications to such information, when appropriate. I personally performed the physical exam and medical decision making. Jazzy August, Mar 16, 2021,20:27 WILY KRUGER Mar 16, 2021 13:35 JAZZY AUGUST DO Mar 16, 2021 20:28
--- NOTE | 2021-03-16 14:14 | D/C HH Face to Face Order ---
D/C Face to Face Orders Reconcile Patient Problems Problems Reviewed?: Yes Instructions for Patient Via [facility], Patient Instructions/FollowUp: PCP [facility] 1 week Physician to follow Patient: [facility] Discharge Diet for Home: No Restrictions Patient Problems: Right foot ulcer Patient Data-Allergies,Ht & Wt Patient Allergies: Coded Allergies: NKANo Known Allergies (Verified Allergy, Unknown, 09/25/05) Weight (Pounds): 208 Home Health Need/Face to Face Date of Face to Face: Mar 16, 2021 Clinical Findings: Generalized weakness and fatigue, Instability, Muscle weakness, Unsteady gait I have seen Pt [id number]: Yes Discharged To: Home Diagnosis/Conditions: Right foot ulcer Patient is Homebound due to: Ana Cristina fall risk due to instabilty, Shortness of breath/distress Homebound Status Due to the above stated illness, injury or surgical procedure (medical condition or diagnosis) and associated clinical findings, the patient is homebound because of his/her inability to leave home except with aid of a supportive device and/or person AND leaving the home requires a considerable and taxing effort or is medically contraindicated. Pt req the following assistanc: [facility] Nursing Orders Home Health Services Order: Nursing Services (dressing changes) Home Health Infusion Therapy Line Start Date: Mar 10, 2021 Certify Stmt I certify that this patient is under my care and that I, a nurse practitioner or a physician; a assistant brand manager working with me, had a face to face encounter that - meets the physician face to face encounter requirements with this patient as dated. LOC AUGUST DO Mar 16, 2021 14:14
[2021-03-16] MEDS: ENOXAPARIN 40 MG/0.4 ML (LOVENOX) SYR SC SCH (14:40)
[2021-03-16 15:22] VITALS: BP 123/59
[2021-03-16 23:30] VITALS: BP 150/82
[2021-03-17 05:05] LABS: BASOPHILS # (AUTO) 0.1 10^3/uL (0.0-0.1); BASOPHILS % (AUTO) 0 % (0-10); EOSINOPHILS # (AUTO) 0.3 10^3/uL (0.0-0.3); EOSINOPHILS % (AUTO) 2 % (0-10); HEMATOCRIT 39 % (40-54); HEMOGLOBIN 12.9 g/dL (13.3-17.7); LYMPHOCYTES # (AUTO) 3.6 10^3/uL (1.0-4.0); LYMPHOCYTES % (AUTO) 27 % (12-44); MEAN CORPUSCULAR HEMOGLOBIN 28 pg (25-34); MEAN CORPUSCULAR HGB CONC 33 g/dL (32-36); MEAN CORPUSCULAR VOLUME 85 fL (80-99); MEAN PLATELET VOLUME 10.3 fL (9.0-12.2); MONOCYTES # (AUTO) 0.7 10^3/uL (0.0-1.0); MONOCYTES % (AUTO) 5 % (0-12); NEUTROPHILS # (AUTO) 8.6 10^3/uL (1.8-7.8); NEUTROPHILS % (AUTO) 64 % (42-75); PLATELET COUNT 360 10^3/uL (130-400); WHITE BLOOD COUNT 13.4 10^3/uL (4.3-11.0)
[2021-03-17 05:19] LABS: ALBUMIN 3.6 GM/DL (3.2-4.5); POTASSIUM 4.3 MMOL/L (3.6-5.0)
[2021-03-17 05:20] LABS: CALCIUM 9.7 MG/DL (8.5-10.1)
[2021-03-17 05:22] LABS: TOTAL PROTEIN 7.2 GM/DL (6.4-8.2)
[2021-03-17 05:23] LABS: BILIRUBIN,TOTAL 0.4 MG/DL (0.1-1.0)
[2021-03-17 05:25] LABS: CREATININE SERUM 0.98 MG/DL (0.60-1.30)
[2021-03-17] MEDS: inSUlin ASPART (NovoLOG) 1 UNIT/0.01 ML (CHARGE PER UNIT) SC SCH ×7 (05:50→21:15)
--- NOTE | 2021-03-17 05:57 | Discharge Summary ---
Discharge Summary Hospital Course Was the Problem List Reviewed?: Yes Problems/Dx: (1) Peripheral arterial disease (2) Primary hypertension (3) Mixed hyperlipidemia (4) Type 2 diabetes mellitus with complication Hospital Course Date of Admission: Mar 09, 2021 at 12:38 Admission Diagnosis : [facility] Date of Discharge: 03/17/21 Discharge Diagnosis: foot ulcer, PVD Hospital Course: Hospital course: Pt had a lengthy hospital course for nine days after admitted fro right plantar foot wound- s/p incision and drainage by Dr. Goldstein. Arterial ultrasound of the leg showed and obstruction arterially so he was brought to mechanical laboratory technician by Dr. Bolaños and performed procedure with included intervention. Pt was deemed stable for discharge on IV antibiotics of Rocephin 2g IV through his picc line with home health along with dressing changes. Labs and Pending Lab Test: Laboratory Tests 03/16/21 12:06: Glucometer 213H 03/16/21 15:08: Glucometer 237H 03/16/21 20:01: Glucometer 222H 03/17/21 04:52: White Blood Count 13.4H, Red Blood Count 4.57, Hemoglobin 12.9L, Hematocrit 39L, Mean Corpuscular Volume 85, Mean Corpuscular Hemoglobin 28, Mean Corpuscular Hemoglobin Concent 33, Red Cell Distribution Width 11.1, Platelet Count 360, Mean Platelet Volume 10.3, Immature Granulocyte % (Auto) 1, Neutrophils (%) (Auto) 64, Lymphocytes (%) (Auto) 27, Monocytes (%) (Auto) 5, Eosinophils (%) (Auto) 2, Basophils (%) (Auto) 0, Neutrophils # (Auto) 8.6H, Lymphocytes # (Auto) 3.6, Monocytes # (Auto) 0.7, Eosinophils # (Auto) 0.3, Basophils # (Auto) 0.1, Immature Granulocyte # (Auto) 0.1, Sodium Level 136, Potassium Level 4.3, Chloride Level 102, Carbon Dioxide Level 23, Anion Gap 11, Blood Urea Nitrogen 16, Creatinine 0.98, Estimat Glomerular Filtration Rate 84, BUN/Creatinine Ratio 16, Glucose Level 204H, Calcium Level 9.7, Corrected Calcium 10.0, Total Bilirubin 0.4, Aspartate Amino Transf (AST/SGOT) 27, Alanine Aminotransferase (ALT/SGPT) 43, Alkaline Phosphatase 107, Total Protein 7.2, Albumin 3.6 Microbiology 03/14/21 MRSA Screen - Final, Complete MRSA not isolated 03/10/21 Gram Stain - Final, Complete 03/10/21 Anaerobic Culture - Final, Complete Bacteroides fragilis See Comments 03/10/21 Surgical Culture - Final, Complete Proteus vulgaris Mixed Bacterial Azucena 03/09/21 Blood Culture - Final, Complete No growth 03/09/21 Urine Culture - Final, Complete NO GROWTH Home Meds Active Stool Softener-Laxative Tablet (Sennosides/Docusate Sodium) 1 Each Tablet 1 Ea P O BID HYDROcodone/APAP 5 MG/325 MG TAB (Acetaminophen/Hydrocodone Bitart) 1 Tab Tab 1 Ea PO Q4H PRN Aspirin EC (Aspirin) 81 Mg Tablet.dr 81 Mg PO DAILY Lisinopril 10 Mg Tablet 10 Mg PO DAILY Fish Oil 1,000 mg Capsule ([place] 3 Polyunsat Fatty Acids) 1,000 Mg Cap 1,000 Mg PO BID WITH MEALS Metronidazole 500 Mg Tablet 500 Mg PO TID Ceftriaxone (Ceftriaxone Sodium) 2 Gm/Vial Soln 2 Gm IV DAILY 42 Days Reported Tylenol Extra Strength (Acetaminophen) 500 Mg Tablet 1,000 Mg PO Q8H PRN Victoza 3-Yan (Liraglutide) 0.6 Mg/0.1 Ml Pen.injctr 0.6 Mg SQ 1800 Metformin HCl ER (Metformin HCl) 500 Mg Tab.er.24 500 Mg PO 1800 W/ DINNER Atorvastatin Calcium 40 Mg Tablet 40 Mg PO HS Doxycycline Hyclate 100 Mg Capsule 100 Mg PO BID FILLED 03-05-2021 #20/10 DAY SUPPLY Augmentin 875-125 Tablet (Amoxicillin/Potassium Clav) 1 Each Tablet 1 Each PO BID FILLED 03-05-2021 #20/10 DAY SUPPLY Assessment/Pt Instructions PCP 1 week Discharge Planning: <30 minutes discharge planning Discharge Instructions Discharge Diet: No Restrictions Discharge Physical Examination Vital Signs Vital Signs Date Time Temp Pulse Resp B/P (MAP) Pulse Ox O2 Delivery O2 Flow Rate FiO2 03/16/21 23:30 36.5 82 18 150/82 (104) 95 Room Air General Appearance: No Apparent Distress, WD/WN Allergies: Coded Allergies: NKANo Known Allergies (Verified Allergy, Unknown, 09/25/05) Discharge Summary Date of Admission Mar 09, 2021 at 12:38 Date of Discharge Discharge Date: Mar 17, 2021 Discharge Diagnosis Discharge planned after angiogram tomorrow Monitor closely (1) Peripheral arterial disease Assessment & Plan: His right lower extremity ultrasound shows evidence of potentially severe distal disease. He did not have an ultrasound of the left lower extremity but does not have any wounds on that leg. He underwent successful debridement of the wound on his right foot on 03/13. His foot is warm and does not appear to be a threatened limb at this time. I will get him scheduled for peripheral angiogram tomorrow with Dr. Bolaños. They were planning to do this yesterday but he received his Metformin and we had to reschedule the procedure. His Metformin is now on hold. I have started him on aspirin. He should continue on statin medication. (2) Primary hypertension Assessment & Plan: Blood pressures had been elevated earlier in the admission but for the most part have improved on the present medication. (3) Mixed hyperlipidemia Assessment & Plan: He is on atorvastatin at home. His LDL level is well controlled. However, his triglycerides are elevated. I started him on fish oil. (4) Type 2 diabetes mellitus with complication Assessment & Plan: He needs to keep his diabetes under good control to help prevent further progression of his peripheral arterial disease. As above, Metformin is on hold for the peripheral angiogram. This can be resumed 48 hours following the procedure. LOC AUGUST DO Mar 17, 2021 05:57
[2021-03-17] MEDS: HYDROcodone/APAP 5 MG/325 MG (LORTAB) TAB PO PRN ×2 (06:45→19:27)
[2021-03-17] MEDS: fentaNYL INJ 100 MCG/2 ML AMP IV PRN ×3 (06:46→21:58)
[2021-03-17 08:00] VITALS: BP 146/79
--- NOTE | 2021-03-17 08:16 | Progress Note - Surgery ---
JOHNY BETTS 03/17/21 0816: Subjective Date Seen by a Provider: Mar 17, 2021 Time Seen by a Provider: 07:45 Subjective/Events-last exam PT is status post I&D with debridement (MS, Fascia and skin) and washout on 03/10. His current right foot pain was reported at 5/10 this morning. He mentioned feeling pain in his 3rd and 4th toes. Dressing on R foot remains in place. He reports his last BM was the day before yesterday. He has no complaints with urination. Review of Systems General: No Chills, No Night Sweats HEENT: Head Aches; No Visual Changes Pulmonary: No Dyspnea, No Cough Cardiovascular: No: Chest Pain, Palpitations Gastrointestinal: No: Nausea, Vomiting Genitourinary: No Dysuria, No Hematuria Musculoskeletal: leg pain (R calf ); No: neck pain, arm pain Neurological: Weakness (no more than usual ), Numbness (no more than usual ) Objective Exam Vital Signs Date Time Temp Pulse Resp B/P (MAP) Pulse Ox O2 Delivery O2 Flow Rate FiO2 03/16/21 23:30 36.5 82 18 150/82 (104) 95 Room Air 03/16/21 20:00 Room Air 03/16/21 15:22 36.2 76 18 123/59 (80) 96 Room Air I & O 03/17/21 07:00 Intake Total 1050 ml Balance 1050 ml Capillary Refill : Less Than 3 Seconds General Appearance: No Apparent Distress, Chronically ill HEENT: PERRL/EOMI, Moist Mucous Membranes Neck: Full Range of Motion, Normal Inspection, Non Tender, Supple Respiratory: Chest Non Tender, Lungs Clear, Normal Breath Sounds, No Accessory Muscle Use, No Respiratory Distress Cardiovascular: Regular Rate, Rhythm, No Edema, Normal Peripheral Pulses Peripheral Pulses: 2+ Radial Pulses (R), 2+ Radial Pulses (L) Gastrointestinal: non tender, soft, no organomegaly, no pulsatile mass Extremity: Normal Range of Motion, No Pedal Edema, Calf Tenderness (some calf tenderness on R side ) Neurologic/Psychiatric: Alert, Oriented x3, No Motor/Sensory Deficits, Depressed Affect (patient was in some emotional distress when entering the room, because he felt like he " does not know what is going on" with his care and his dressing was not changed recently (last change before this morning was yesterday) ) Skin: Normal Color, Warm/Dry, Tattoos/Piercings Lymphatic: No Adenopathy (cervical) Results Lab Laboratory Tests 03/16/21 12:06: Glucometer 213H 03/16/21 15:08: Glucometer 237H 03/16/21 20:01: Glucometer 222H 03/17/21 04:52: White Blood Count 13.4H, Red Blood Count 4.57, Hemoglobin 12.9L, Hematocrit 39L, Mean Corpuscular Volume 85, Mean Corpuscular Hemoglobin 28, Mean Corpuscular Hemoglobin Concent 33, Red Cell Distribution Width 11.1, Platelet Count 360, Mean Platelet Volume 10.3, Immature Granulocyte % (Auto) 1, Neutrophils (%) (Auto) 64, Lymphocytes (%) (Auto) 27, Monocytes (%) (Auto) 5, Eosinophils (%) (Auto) 2, Basophils (%) (Auto) 0, Neutrophils # (Auto) 8.6H, Lymphocytes # (Auto) 3.6, Monocytes # (Auto) 0.7, Eosinophils # (Auto) 0.3, Basophils # (Auto) 0.1, Immature Granulocyte # (Auto) 0.1, Sodium Level 136, Potassium Level 4.3, Chloride Level 102, Carbon Dioxide Level 23, Anion Gap 11, Blood Urea Nitrogen 16, Creatinine 0.98, Estimat Glomerular Filtration Rate 84, BUN/Creatinine Ratio 16, Glucose Level 204H, Calcium Level 9.7, Corrected Calcium 10.0, Total Bilirubin 0.4, Aspartate Amino Transf (AST/SGOT) 27, Alanine Aminotransferase (ALT/SGPT) 43, Alkaline Phosphatase 107, Total Protein 7.2, Albumin 3.6 Microbiology 03/14/21 MRSA Screen - Final, Complete MRSA not isolated 03/10/21 Gram Stain - Final, Complete 03/10/21 Anaerobic Culture - Final, Complete Bacteroides fragilis See Comments 03/10/21 Surgical Culture - Final, Complete Proteus vulgaris Mixed Bacterial Azucena 03/09/21 Blood Culture - Final, Complete No growth 03/09/21 Urine Culture - Final, Complete NO GROWTH Assessment/Plan Assessment/Plan Assessment/Plan S/P I&D with debridement of Abscess/Cellulitis Right foot with Osteomyelitis 4th Metatarsal head DM type II - uncontrolled PT is scheduled for angiongram today. He will be DC today. The patient will continue on IV ceftriaxone for 6-8 weeks for ABX therapy due to his osteomyelitis. FAIZAN GOLDSTEIN DO 03/17/21 1019: Subjective Time Seen by a Provider: 09:51 Subjective/Events-last exam Pt seen and examined, no new changes. States foot is slightly better than yesterday, he complained that "they aren't changing my dressing like they are supposed to..." Review of Systems General: No Chills, No Night Sweats Pulmonary: No Dyspnea, No Cough Cardiovascular: No: Chest Pain, Palpitations Musculoskeletal: leg pain (R calf ), foot pain Objective Exam General Appearance: No Apparent Distress, Thin HEENT: PERRL/EOMI, Moist Mucous Membranes Respiratory: Lungs Clear, Normal Breath Sounds, No Accessory Muscle Use, No Respiratory Distress Cardiovascular: Regular Rate, Rhythm, No Murmur Gastrointestinal: non tender, soft, no organomegaly Extremity: Calf Tenderness (some calf tenderness on R side ), Other (foot appears the same, no expanding erythema, no foul odor) Assessment/Plan Assessment/Plan Assessment/Plan S/P I&D with debridement of Abscess/Cellulitis Right foot with Osteomyelitis 4th Metatarsal head DM type II - uncontrolled PT is scheduled for angiongram today. The patient will continue on IV ceftriaxone for 6-8 weeks for ABX therapy due to his osteomyelitis. Supervisory-Addendum Brief Verification & Attestation Participated in pt care: history, MDM, physical Personally performed: exam, history, MDM, supervision of care Care discussed with: Medical Student Procedures: n/a Verification and Attestation of Medical Student E/M Service A medical student performed and documented this service. I then reviewed and verified all information documented by the medical student and made modifications to such information, when appropriate. I personally performed a physical exam, medical decision making and then discussed any differences between the notes and made revisions as necessary to create one note. Faizan Goldstein , 03/17/21 , 10:19 JOHNY BETTS Mar 17, 2021 08:16 FAIZAN GOLDSTEIN DO Mar 17, 2021 10:19
[2021-03-17] MEDS: ASPIRIN E.C. 81 MG (ECOTRIN) TAB PO SCH (08:59)
[2021-03-17] MEDS: OMEGA 3 (FISH OIL) 1000 MG CAP PO SCH ×2 (08:59→18:31)
[2021-03-17] MEDS: DOCUSATE SODIUM 100 MG (COLACE) CAP PO SCH ×2 (08:59→21:57)
[2021-03-17] MEDS: SENNA W/DOCUSATE (SENOKOT S) TABLET PO SCH ×2 (09:00→21:57)
[2021-03-17] MEDS: lisINopril 10 MG (PRINIVIL) TABLET PO SCH (09:00)
[2021-03-17] MEDS: metroNIDAZOLE 500 MG (FLAGYL) TAB PO SCH ×3 (09:00→21:57)
[2021-03-17] MEDS: NS IV 1000 ML 1,000 ML IV SCH ×3 (09:14→18:31)
--- NOTE | 2021-03-17 10:55 | Progress Note - Hospitalist ---
SHANNONWILY VIDAL 03/17/21 1055: Subjective HPI/CC On Admission Date Seen by Provider: Mar 17, 2021 Time Seen by Provider: 09:00 R diabetic foot wound, sepsis Subjective/Events-last exam Paulo continues to appear fatigued and withdrawn, however, I suspect this is d/t depression I asked him about how he feels about everything, and states he has been dealing with a lot of personal issues and is saddened at the prospect of losing his foot if it is unable to heal He accepts the possible outcomes for his foot He states it's his girlfriend's birthday today, and that he was able to buy her a gift and cake He further states that he misses being home with his cats and partner He noticeably perked up after initiating conversation Very pleasant to speak with Continues to have significant pain, which is worsened in his toes He states that he is supposed to have his wound dressings changed morning and at night, but that the past two nights it has not been changed Continues to have an appetite, and had a bowel movement last night Paulo is to have peripheral angiogram today with Dr. Mami Salazar note, hospital course Paulo Ybarra is a 40 yo male with a history of T2DM (poorly controlled), PAD, depression, HLD, HTN, who presented on 03/09/21 for evaluation and management of worsening diabetic wound on the plantar surface of the right foot. The wound had been developing over the course of several months 2/2 poor adherence to medication. Paulo attempted outpatient wound care and antibiotics; however, the wound failed to heal. Upon subsequent presentation to wound care, Dr. Ornelas sent him to the ER for evaluation and debridement. On initial presentation, he was septic, 2/2 to cellulitis, and necessitated urgent surgical intervention. Dr. Goldstein performed a successful I&D; PICC was placed, and IV antibiotics were initiated. Wound cultures additionally isolated bacteroides fragilis on 03/10/21, which prompted initiation of metronidazole 500mg TID. X- ray of right foot noted osteomyelitis in the 4th metatarsal head. Additionally, US studies revealed significant stenoses of the right popliteal artery and posterior tibial artery. These results prompt the need for peripheral angiogram. This was originally scheduled for 03/15/21; however, the appointment was delayed 48hrs to03/17 due to Paulo receiving a dose of metformin the night prior. He is to continue on antibiotics outpatient via PICC for 6-8 weeks along with continued, regular wound cleaning after angiogram is complete. Paulo is to resume metformin 48hours after his procedure today (03/17/21). These interventions will give his foot the best chance to heal on its own, though depending on the outcome, a forefoot amputation or BKA may be required; Paulo verbalized understanding of this. Laboratory Tests 03/14/21 15:33: Glucometer 185H 03/14/21 20:01: Glucometer 178H 03/15/21 05:30: Glucometer 169H 03/15/21 06:00: White Blood Count 13.0H, Red Blood Count 4.73, Hemoglobin 13.4, Hematocrit 41, Mean Corpuscular Volume 86, Mean Corpuscular Hemoglobin 28, Mean Corpuscular Hemoglobin Concent 33, Red Cell Distribution Width 11.1, Platelet Count 385, Mean Platelet Volume 10.3, Immature Granulocyte % (Auto) 1, Neutrophils (%) (Auto) 57, Lymphocytes (%) (Auto) 32, Monocytes (%) (Auto) 7, Eosinophils (%) (Auto) 3, Basophils (%) (Auto) 1, Neutrophils # (Auto) 7.4, Lymphocytes # (Auto) 4.1H, Monocytes # (Auto) 0.9, Eosinophils # (Auto) 0.4H, Basophils # (Auto) 0.1, Immature Granulocyte # (Auto) 0.2H, Sodium Level 136, Potassium Level 4.7, Chloride Level 99, Carbon Dioxide Level 25, Anion Gap 12, Blood Urea Nitrogen 17, Creatinine 1.11, Estimat Glomerular Filtration Rate 73, BUN/Creatinine Ratio 15, Glucose Level 175H, Calcium Level 10.7H, Corrected Calcium 10.9H, Total Bi lirubin 0.4, Aspartate Amino Transf (AST/SGOT) 32, Alanine Aminotransferase (ALT/SGPT) 44, Alkaline Phosphatase 108, Total Protein 7.7, Albumin 3.8 03/15/21 11:33: Glucometer 198H 03/15/21 15:19: Glucometer 181H 03/15/21 20:05: Glucometer 158H 03/16/21 05:22: Glucometer 200H 03/16/21 05:42: White Blood Count 13.1H, Red Blood Count 4.65, Hemoglobin 13.0L, Hematocrit 40, Mean Corpuscular Volume 85, Mean Corpuscular Hemoglobin 28, Mean Corpuscular Hemoglobin Concent 33, Red Cell Distribution Width 11.1, Platelet Count 368, Mean Platelet Volume 10.5, Immature Granulocyte % (Auto) 1, Neutrophils (%) (Auto) 62, Lymphocytes (%) (Auto) 28, Monocytes (%) (Auto) 6, Eosinophils (%) (Auto) 3, Basophils (%) (Auto) 1, Neutrophils # (Auto) 8.0H, Lymphocytes # (Auto) 3.7, Monocytes # (Auto) 0.8, Eosinophils # (Auto) 0.3, Basophils # (Auto) 0.1, Immature Granulocyte # (Auto) 0.2H, Sodium Level 135, Potassium Level 4.8, Chloride Level 101, Carbon Dioxide Level 22, Anion Gap 12, Blood Urea Nitrogen 19H, Creatinine 0.95, Estimat Glomerular Filtration Rate 87, BUN/Creatinine Ratio 20, Glucose Level 204H, Calcium Level 9.9, Corrected Calcium 10.2H, Total Bilirubin 0.4, Aspartate Amino Transf (AST/SGOT) 29, Alanine Aminotransferase (ALT/SGPT) 43, Alkaline Phosphatase 91, Total Protein 7.2, Albumin 3.6 03/16/21 12:06: Glucometer 213H 03/16/21 15:08: Glucometer 237H 03/16/21 20:01: Glucometer 222H 03/17/21 04:52: White Blood Count 13.4H, Red Blood Count 4.57, Hemoglobin 12.9L, Hematocrit 39L, Mean Corpuscular Volume 85, Mean Corpuscular Hemoglobin 28, Mean Corpuscular Hemoglobin Concent 33, Red Cell Distribution Width 11.1, Platelet Count 360, Mean Platelet Volume 10.3, Immature Granulocyte % (Auto) 1, Neutrophils (%) (Auto) 64, Lymphocytes (%) (Auto) 27, Monocytes (%) (Auto) 5, Eosinophils (%) (Auto) 2, Basophils (%) (Auto) 0, Neutrophils # (Auto) 8.6H, Lymphocytes # (Auto) 3.6, Monocytes # (Auto) 0.7, Eosinophils # (Auto) 0.3, Basophils # (Auto) 0.1, Immature Granulocyte # (Auto) 0.1, Sodium Level 136, Potassium Level 4.3, Chloride Level 102, Carbon Dioxide Level 23, Anion Gap 11, Blood Urea Nitrogen 16, Creatinine 0.98, Estimat Glomerular Filtration Rate 84, BUN/Creatinine Ratio 16, Glucose Level 204H, Calcium Level 9.7, Corrected Calcium 10.0, Total Bilirubin 0.4, Aspartate Amino Transf (AST/SGOT) 27, Alanine Aminotransferase (ALT/SGPT) 43, Alkaline Phosphatase 107, Total Protein 7.2, Albumin 3.6 03/17/21 11:24: Glucometer 122H Microbiology 03/14/21 MRSA Screen - Final, Complete MRSA not isolated 03/10/21 Gram Stain - Final, Complete 03/10/21 Anaerobic Culture - Final, Complete Bacteroides fragilis See Comments 03/10/21 Surgical Culture - Final, Complete Proteus vulgaris Mixed Bacterial Azucena 03/09/21 Blood Culture - Final, Complete No growth 03/09/21 Urine Culture - Final, Complete NO GROWTH Home Meds Active Stool Softener-Laxative Tablet (Sennosides/Docusate Sodium) 1 Each Tablet 1 Ea PO BID HYDROcodone/APAP 5 MG/325 MG TAB (Acetaminophen/Hydrocodone Bitart) 1 Tab Tab 1 Ea PO Q4H PRN Aspirin EC (Aspirin) 81 Mg Tablet.dr 81 Mg PO DAILY Lisinopril 10 Mg Tablet 10 Mg PO DAILY Fish Oil 1,000 mg Capsule ([place] 3 Polyunsat Fatty Acids) 1,000 Mg Cap 1,000 Mg PO BID WITH MEALS Metronidazole 500 Mg Tablet 500 Mg PO TID Ceftriaxone (Ceftriaxone Sodium) 2 Gm/Vial Soln 2 Gm IV DAILY 42 Days Reported Tylenol Extra Strength (Acetaminophen) 500 Mg Tablet 1,000 Mg PO Q8H PRN Victoza 3-Yan (Liraglutide) 0.6 Mg/0.1 Ml Pen.injctr 0.6 Mg SQ 1800 Metformin HCl ER (Metformin HCl) 500 Mg Tab.er.24 500 Mg PO 1800 W/ DINNER Atorvastatin Calcium 40 Mg Tablet 40 Mg PO HS Doxycycline Hyclate 100 Mg Capsule 100 Mg PO BID FILLED 03-05-2021 #20/10 DAY SUPPLY Augmentin 875-125 Tablet (Amoxicillin/Potassium Clav) 1 Each Tablet 1 Each PO BID FILLED 03-05-2021 #20/ DAY SUPPLY Review of Systems General: Fatigue, Malaise Musculoskeletal: foot pain Focused Exam Sepsis Stage: Sepsis Possible Source: Bone/Joint Respiratory: Chest Non Tender, Lungs Clear, Normal Breath Sounds, No Accessory Muscle Use, No Respiratory Distress Cardiovascular: Regular Rate, Rhythm, No Gallop, No JVD, No Murmur Skin: normal color, warm/dry, rash, ulcerations Objective Exam Vital Signs Vital Signs Date Time Temp Pulse Resp B/P (MAP) Pulse Ox O2 Delivery O2 Flow Rate FiO2 03/17/21 08:00 Room Air 03/17/21 08:00 36.7 100 18 146/79 (101) 97 Capillary Refill : Less Than 3 Seconds General Appearance: WD/WN, Chronically ill, Mild Distress HEENT: PERRL/EOMI Respiratory: Chest Non Tender, Lungs Clear, Normal Breath Sounds, No Accessory Muscle Use, No Respiratory Distress Cardiovascular: Regular Rate, Rhythm, No Gallop, No JVD, No Murmur Neurologic/Psychiatric: Alert, Oriented x3, surety bond agent II-XII Norm as Tested, Depressed Affect Skin: Normal Color, Warm/Dry, Tattoos/Piercings Results/Procedures Lab Laboratory Tests 03/17/21 04:52 Patient resulted labs reviewed. Laboratory Tests 03/17/21 04:52: White Blood Count 13.4H, Red Blood Count 4.57, Hemoglobin 12.9L, Hematocrit 39L, Mean Corpuscular Volume 85, Mean Corpuscular Hemoglobin 28, Mean Corpuscular Hemoglobin Concent 33, Red Cell Distribution Width 11.1, Platelet Count 360, Mean Platelet Volume 10.3, Immature Granulocyte % (Auto) 1, Neutrophils (%) (Auto) 64, Lymphocytes (%) (Auto) 27, Monocytes (%) (Auto) 5, Eosinophils (%) (Auto) 2, Basophils (%) (Auto) 0, Neutrophils # (Auto) 8.6H, Lymphocytes # (Auto) 3.6, Monocytes # (Auto) 0.7, Eosinophils # (Auto) 0.3, Basophils # (Auto) 0.1, Immature Granulocyte # (Auto) 0.1, Sodium Level 136, Potassium Level 4.3, Chloride Level 102, Carbon Dioxide Level 23, Anion Gap 11, Blood Urea Nitrogen 16, Creatinine 0.98, Estimat Glomerular Filtration Rate 84, BUN/Creatinine Ratio 16, Glucose Level 204H, Calcium Level 9.7, Corrected Calcium 10.0, Total Bilirubin 0.4, Aspartate Amino Transf (AST/SGOT) 27, Alanine Aminotransferase (ALT/SGPT) 43, Alkaline Phosphatase 107, Total Protein 7.2, Albumin 3.6 03/17/21 11:24: Glucometer 122H Imaging: Reviewed Imaging Films Meds Item Value Date Time Sodium Chloride 1,000 ml @ 100 mls/hr 03/15/21 1615 Metronidazole 500 mg 03/15/21 0900 (Flagyl Tablet) TID/PO Aspirin 81 mg 03/14/21 0900 (Ecotrin Tablet) DAILY/PO Fish Oil 1,000 mg 03/14/21 0800 (Fish Oil BID WITH MEALS/PO Capsule) Ceftriaxone 20 ml @ 240 mls/hr 03/13/21 1100 Sodium 2000 mg/ Q24H/IV 03/17/21 1217 Sterile Water Senna 1 ea 03/13/21 0945 (Senokot S BID/PO Tablet) Docusate Sodium 100 mg 03/13/21 0945 (Colace Capsule) BID/PO Lisinopril 10 mg 03/11/21 0900 (Zestril Tablet) DAILY/PO Insulin Detemir 10 unit 03/10/21 2100 (LeveMIR (PER HS/SQ 03/16/21 2219 UNIT)) Atorvastatin 40 mg 03/10/21 2100 Calcium HS/PO 03/16/21 2219 (Lipitor Tablet) Insulin Aspart 5 unit 03/10/21 1700 (NovoLOG (CHARGE AC/SC PER UNIT)) Acetaminophen/ 1 ea 03/10/21 1400 Hydrocodone Bitart Q4H PRN/PO 03/17/21 0645 (Lortab 5 Mg Tablet) Acetaminophen 1,000 mg 03/10/21 1400 (Tylenol Tablet) Q8H PRN/PO 03/14/21 1618 Lactated Ringer's 1,000 ml @ 0 mls/hr 03/10/21 1215 Lactated Ringer's 1,000 ml @ 0 mls/hr 03/10/21 0945 Insulin Aspart SLIDING SCALE B BLOO... 03/09/21 1600 (NovoLOG (CHARGE ACHS/SC PER UNIT)) Enoxaparin Sodium 40 mg 03/09/21 1430 (Lovenox Q24H/SC 03/16/21 1440 Injection) Sodium Chloride 10-40 ML 03/09/21 1415 (Catheter Flush NEEDED PRN/IV Syringe) Fentanyl Citrate 50 mcg 10/14/21 1415 (Sublimaze Q2H PRN/IV 03/17/21 0857 Injection) Ondansetron HCl 8 mg 03/09/21 1415 (Zofran Q6H PRN/IV Injection (Sdv)) Assessment/Plan Assessment and Plan Assess & Plan/Chief Complaint 1. Diabetic ulcer of right foot 2. Osteomyelitis of R 4th metatarsal head Incision and drainage and debridement of R foot wound on 03/10/21 Per surgery, patient is to remain on antibiotics for 6-8 weeks to control infection =>If unresponsive to IV antiobiotics, consider forefoot amputation or BKA Continue IV Ceftriaxone 2 grams for infection control Monitor WBC counts Monitor for development of fever Monitor changes in HR and RR Tylenol and Lortab 5mg to manage mild-moderate pain Lovenox 40 mg for DVT prophylaxis 3. Peripheral vascular disease, with significant stenosis of R popliteal artery and R posterior tibial artery Consult with cardiology today (03/13) Peripheral Angiogram is scheduled for 03/17/[address] Bolaños =>Metformin is on hold Possible discharge today (03/17/21) after angiogram 4. Hypertension Continue lisinopril 10mg for blood pressure control. Monitor blood pressure. Follow-up with PCP in out-patient. 5. Type 2 diabetes mellitus, poorly controlled Continue insulin aspart, metformin 500mg (1800 mg daily) Follow up with PCP in out-patient setting 6. Hyperlipidemia Continue Atorvastatin 40 mg Follow-up with PCP Critical Care: Critically Ill Patient JAZZY AUGUST DO 03/17/212119: Subjective Subjective/Events-last exam Hospital course: Pt had a lengthy hospital course for nine days after admitted fro right plantar foot wound- s/p incision and drainage by Dr. Goldstein. Arterial ultrasound of the leg showed and obstruction arterially so he was brought to cardiac cath lab technologist by Dr. Bolaños and performed procedure. Pt was deemed stable for discharge on IV antibiotics of Rocephin 2g IV through his picc line with home health along with dressing changes. Supervisory-Addendum Brief Verification & Attestation Participated in pt care: history, MDM, physical Personally performed: exam, history, MDM, supervision of care Care discussed with: Medical Student Procedures: n/a Results interpretation: Verified all documentation Verification and Attestation of Medical Student E/M Service A medical student performed and documented this service in my presence. I reviewed and verified all information documented by the medical student and made modifications to such information, when appropriate. I personally performed the physical exam and medical decision making. Jzazy August, Mar 17, 2021,21:20 WILY KRUGER Mar 17, 2021 10:55 JAZZY AUGUST DO Mar 17, 2021 21:20
[2021-03-17] MEDS ORDERED: LIDOCAINE 1% INJ 20 ML 20 ML VIAL ONE (12:08)
[2021-03-17] MEDS ORDERED: HEParin (CATH LAB) 2,000 ML IV ONE (12:08)
[2021-03-17] MEDS: cefTRIAXone 2,000 MG/SWFI 20 ML IV PUSH IV SCH ×2 (12:17)
[2021-03-17] MEDS ORDERED: MIDAZOLAM 5 MG/5 ML (VERSED) VIAL ONE (13:24)
[2021-03-17] MEDS ORDERED: fentaNYL INJ 100 MCG/2 ML AMP ONE (13:24)
[2021-03-17] MEDS ORDERED: HEParin 1000 UNIT/ML (10ML VIAL) FOR BOLUS ONE (14:26)
[2021-03-17] MEDS ORDERED: NITRO DRIP 25000 MCG/D5W 250 ML IV ONE (14:27)
[2021-03-17] MEDS ORDERED: ASPIRIN 325 MG (5 GR) TABLET ONE (15:13)
[2021-03-17] MEDS ORDERED: CLOPIDOGREL 300 MG (PLAVIX) TABLET PO ONE (15:13)
--- NOTE | 2021-03-17 15:21 | Conscious Sedation/ASA ---
Conscious Sedation Pre-Proced Time 12:00 ASA Score 3 For ASA 3 and 4: Consider anesthesia and medical clearance. Also, for patients with a history of failed moderate sedation consider anesthesia. Airway Lungs Heart ASA score ASA 1: a normal healthy patient ASA 2: a patient with a mild systemic disease (mid diabetes, controlled hypertension, obesity x ASA 3: a patient with a severe systemic disease that limits activity (angina, COPD, prior Myocardial infarction) ASA 4: a patient with an incapacitating disease that is a constant threat to life (CHF, renal failure) ASA 5: a moribund patient not expected to survive 24 hrs. (ruptured aneurysm) ASA 6: a declared brain- patient whose organs are being harvested. For emergent operations, add the letter E after the classification Mallampati Classification Grade 3 Sedation Plan Analgesia, Amnesia, Plan communicated to team members, Discussed options with patient/fam, Discussed risks with patient/fam The patient is an appropriate candidate to undergo the planned procedure, sedation, and anesthesia. The patient immediately re-assessed prior to indication. NICOLASA RESENDEZ MD Mar 17, 2021 15:21
--- NOTE | 2021-03-17 15:28 | Peripheral Report ---
Peripheral Report Physician (s)/Final Dressing Cutter (s) Physician NICOLASA RESENDEZ MD Pre-Procedure Diagnosis Pre-Procedure Diagnosis: Foot ulcer, peripheral arterial disease Post-Procedure Note Procedure Start Date: Mar 17, 2021 Name of Procedure: Bilateral lower extremity runoff Additional imaging Third order Balloon angioplasty to the anterior tibial artery on the right Findings/Procedure Note PROCEDURE NOTE: 40-year-old gentleman with nonhealing ulcer in his right leg. Referred for peripheral angiogram After explaining the procedure to the patient, all pros and cons were explained, all questions were answered. The patient signed the consent and then he was placed on the cardiac catheterization laboratory. The patient was placed on the cardiac catheterization laboratory. Groin was prepped SL fashion local anesthesia was used. Sheath placed in the left femoral artery, runoff to the left leg was done, additional DSA imaging was done below the knee to evaluate the trifurcation. Using a rim catheter I crossed over and advanced a straight catheter and did runoff to the right leg then advanced a straight catheter down to the trifurcation and did additional imaging with DSA imaging. At that point I decided to proceed with percutaneous intervention. 6000 units of heparin were given then sheath was exchanged using long 6 [place] sheath then command 14 wire was advanced over straight catheter down in the anterior tibial artery that was totally occluded down to the foot and balloon angioplasty using [place] 2 x [address] down to the ankle and repeat balloon angioplasty at the proximal anterior tibial artery and mid anterior tibial artery was done using [place] 3 x 120, angiogram was done post intervention showing excellent results then another runoff was done from the common femoral artery then the sheath exchange to a short 6 [place] sheath then closure device deployed FINDINGS: Left lower extremity, runoff showed moderate disease in the left SFA, good flow below the trifurcation. Nonobstructive disease Right lower extremity, moderate stenosis in the mid right SFA, mild disease in the posterior tibial artery and peroneal artery, severe stenosis/subtotal occlusion in the anterior tibial artery successful balloon angioplasty using [place] 2 x 200 then 3 x 120 with excellent results. No complication noted CONCLUSIONS: 1. Severe stenosis/subtotal occlusion in the right anterior tibial artery, balloon angioplasty to the whole artery down to the foot with excellent results and reestablishment of good flow 2. Moderate disease in the mid right SFA 3. Mild to moderate disease in the left SFA DISCUSSION AND RECOMMENDATIONS: Continue to maximize medical therapy. Anesthesia Type: Conscious Sedation Estimated blood loss (mL): 25 ml Contrast Amount: 50 ml Total Radiation Dose: 76 mGy Post-Procedure Diagnosis Post-operative diagnosis: Nonhealing foot ulcer Peripheral arterial disease Hypertension Hyperlipidemia NICOLASA RESENDEZ MD Mar 17, 2021 15:28
[2021-03-17] MEDS ORDERED: PATIENT MAY USE OWN MEDS, ALL PO SCH (15:30)
[2021-03-17 16:59] VITALS: BP 93/70
[2021-03-17 19:48] VITALS: BP 138/86
[2021-03-18] VITALS: BP 131/87
[2021-03-18] MEDS: HYDROcodone/APAP 5 MG/325 MG (LORTAB) TAB PO PRN ×2 (03:36→06:47)
[2021-03-18 04:00] VITALS: BP 147/83
[2021-03-18] MEDS: NS IV 1000 ML 1,000 ML IV SCH ×3 (05:04→11:50)
[2021-03-18 05:26] LABS: HEMATOCRIT 34 % (40-54); HEMOGLOBIN 11.3 g/dL (13.3-17.7); MEAN CORPUSCULAR HEMOGLOBIN 28 pg (25-34); MEAN CORPUSCULAR HGB CONC 33 g/dL (32-36); MEAN CORPUSCULAR VOLUME 86 fL (80-99); MEAN PLATELET VOLUME 10.6 fL (9.0-12.2); PLATELET COUNT 329 10^3/uL (130-400); WHITE BLOOD COUNT 11.2 10^3/uL (4.3-11.0)
[2021-03-18 05:37] LABS: POTASSIUM 4.2 MMOL/L (3.6-5.0)
[2021-03-18 05:39] LABS: CALCIUM 9.1 MG/DL (8.5-10.1)
[2021-03-18 05:43] LABS: CREATININE SERUM 0.9 MG/DL (0.60-1.30)
[2021-03-18] MEDS: inSUlin ASPART (NovoLOG) 1 UNIT/0.01 ML (CHARGE PER UNIT) SC SCH ×4 (06:47→11:50)
[2021-03-18 08:04] VITALS: BP 159/92
--- NOTE | 2021-03-18 08:09 | Progress Note - Surgery ---
WARRENBIRDIE 03/18/21 0809: Subjective Date Seen by a Provider: Mar 18, 2021 Time Seen by a Provider: 07:46 Subjective/Events-last exam PT is S/P I&D and washout to plantar surface of Rt foot on 03/10. S/P RT anterior tibial artery angioplasty 03/17 His states his right foot pain is improved. Dressing on R foot remains in place with good skin color at extremities and good sensation and movement. No issues with BM or urination. Review of Systems General: No Chills, No Night Sweats, No Fatigue, No Malaise; Appetite HEENT: Head Aches; No Visual Changes, No Eye Pain, No Ear Pain, No Dysphasia Pulmonary: Dyspnea; No Cough, No Pleuritic Chest Pain Cardiovascular: No: Chest Pain, Palpitations, Orthopnea, Paroxysmal Noc. Dyspnea Gastrointestinal: No: Nausea, Vomiting, Abdominal Pain, Diarrhea, Constipation Genitourinary: No Dysuria, No Frequency, No Incontinence, No Hematuria Musculoskeletal: foot pain; No: neck pain, shoulder pain, arm pain, back pain, hand pain Neurological: No: Weakness, Numbness, Incoordination, Change in speech right foot pain Objective Exam Vital Signs Date Time Temp Pulse Resp B/P (MAP) Pulse Ox O2 Delivery O2 Flow Rate FiO2 03/18/21 07:00 76 03/18/21 04:00 81 147/83 (104) 98 Room Air 03/18/21 01:00 81 03/18/21 00:00 80 131/87 (102) 96 Room Air 03/17/21 20:00 Room Air 03/17/21 19:48 36.3 81 14 138/86 (103) 98 Room Air 03/17/21 19:00 82 03/17/21 16:59 36.5 75 13 93/70 (78) 94 Room Air 03/17/21 15:51 79 I & O 03/18/21 07:00 Intake Total 900 ml Balance 900 ml Capillary Refill : Less Than 3 Seconds General Appearance: No Apparent Distress, WD/WN HEENT: PERRL/EOMI, Pharynx Normal, Moist Mucous Membranes Neck: Full Range of Motion, Normal Inspection, Non Tender, Supple Respiratory: Chest Non Tender, Lungs Clear, Normal Breath Sounds, No Accessory Muscle Use, No Respiratory Distress Cardiovascular: Regular Rate, Rhythm, No Gallop, No Murmur, Normal Peripheral Pulses Peripheral Pulses: 2+ Radial Pulses (R), 2+ Radial Pulses (L) Gastrointestinal: non tender, soft, no organomegaly Extremity: Normal Capillary Refill, Normal Range of Motion, No Calf Tenderness, Other (Rt foot in clean bandage, no expanding erythema, no foul odor) Neurologic/Psychiatric: Alert, Oriented x3, rackman II-XII Norm as Tested, Depressed Affect Skin: Normal Color, Warm/Dry Lymphatic: No Adenopathy (cervical) Results Lab Laboratory Tests 03/17/21 11:24: Glucometer 122H 03/17/21 16:57: Glucometer 145H 03/17/21 21:07: Glucometer 177H 03/18/21 05:16: White Blood Count 11.2H, Red Blood Count 4.02L, Hemoglobin 11.3L, Hematocrit 34L , Mean Corpuscular Volume 86, Mean Corpuscular Hemoglobin 28, Mean Corpuscular Hemoglobin Concent 33, Red Cell Distribution Width 11.2, Platelet Count 329, Mean Platelet Volume 10.6, Sodium Level 134L, Potassium Level 4.2, Chloride Level 103, Carbon Dioxide Level 22, Anion Gap 9, Blood Urea Nitrogen 15, Creatinine 0.90, Estimat Glomerular Filtration Rate 93, BUN/Creatinine Ratio 17, Glucose Level 273H, Calcium Level 9.1 Microbiology 03/14/21 MRSA Screen - Final, Complete MRSA not isolated 03/10/21 Gram Stain - Final, Complete 03/10/21 Anaerobic Culture - Final, Complete Bacteroides fragilis See Comments 03/10/21 Surgical Culture - Final, Complete Proteus vulgaris Mixed Bacterial Azucena 03/09/21 Blood Culture - Final, Complete No growth 03/09/21 Urine Culture - Final, Complete NO GROWTH Assessment/Plan Assessment/Plan Assessment/Plan S/P I&D with debridement of Abscess/Cellulitis Right foot with Osteomyelitis 4th Metatarsal head DM type II - uncontrolled s/p Rt anterior tibial angioplasty The patient will continue on IV ceftriaxone for 6-8 weeks for ABX therapy due to his osteomyelitis. TREVA SIMS DO 03/18/21 6196: Subjective Subjective/Events-last exam Patient right foot patient states is looking better. Has better color. He states before was very dusky. He has no significant pain or discomfort. Patient with no complaints at this time. Denies any nausea vomiting fever sweats chills shortness of breath or chest pain. Objective Exam General Appearance: No Apparent Distress, WD/WN HEENT: PERRL/EOMI, Normal ENT Inspection, Moist Mucous Membranes Neck: Non Tender, Supple Respiratory: Chest Non Tender, No Accessory Muscle Use, No Respiratory Distress Cardiovascular: Regular Rate, Rhythm, No JVD Gastrointestinal: non tender, soft Extremity: Normal Capillary Refill, Normal Range of Motion, Other (Open wound right plantar surface of foot no signs of necrotic tissue, no signs of infection) Neurologic/Psychiatric: Alert, Oriented x3, Normal Mood/Affect Skin: Normal Color, Warm/Dry Lymphatic: No Adenopathy (cervical) Assessment/Plan Assessment/Plan Assessment/Plan S/P I&D with debridement of Abscess/Cellulitis Right foot with Osteomyelitis 4th Metatarsal head DM type II - uncontrolled s/p Rt anterior tibial angioplasty The patient will continue on IV ceftriaxone for 6-8 weeks for ABX therapy due to his osteomyelitis. Dressing changed to right foot. Supervisory-Addendum Brief Verification & Attestation Participated in pt care: history, MDM, physical Personally performed: exam, history, MDM, supervision of care Care discussed with: Medical Student Procedures: n/a Results interpretation: Verified all documentation Verification and Attestation of Medical Student E/M Service A medical student performed and documented this service in my presence. I reviewed and verified all information documented by the medical student and made modifications to such information, when appropriate. I personally performed the physical exam and medical decision making. Treva Sims, Mar 18, 2021,11:36 BIRDIE KELLEY Mar 18, 2021 08:09 TREVA SIMS DO Mar 18, 2021 16:37
[2021-03-18 08:25] VITALS: BP 159/92
[2021-03-18] MEDS ORDERED: CLOPIDOGREL 75 MG (PLAVIX) TABLET PO SCH (09:00)
[2021-03-18] MEDS ORDERED: ASPIRIN E.C. 81 MG (ECOTRIN) TAB PO SCH (09:00)
[2021-03-18] MEDS ORDERED: polyethylene glycoL POWDER 17 GM (MIRALAX) PACK PO ONE (09:15)
[2021-03-18] MEDS: lisINopril 10 MG (PRINIVIL) TABLET PO SCH (09:26)
[2021-03-18] MEDS: ASPIRIN E.C. 81 MG (ECOTRIN) TAB PO SCH (09:26)
[2021-03-18] MEDS: SENNA W/DOCUSATE (SENOKOT S) TABLET PO SCH (09:26)
[2021-03-18] MEDS: metroNIDAZOLE 500 MG (FLAGYL) TAB PO SCH ×2 (09:26→13:00)
[2021-03-18] MEDS: OMEGA 3 (FISH OIL) 1000 MG CAP PO SCH (09:26)
[2021-03-18] MEDS: DOCUSATE SODIUM 100 MG (COLACE) CAP PO SCH (09:26)
--- NOTE | 2021-03-18 09:44 | Cardiology Progress Note ---
Subjective Date Seen by Provider: Mar 18, 2021 Time Seen by Provider: 09:41 Subjective/Events-last exam Patient is laying down in bed, complaining of constipation, procedure site is healing well Review of Systems General: No Chills, No Night Sweats, No Fatigue, No Malaise, No Appetite, No Other HEENT: No Head Aches, No Visual Changes, No Eye Pain, No Ear Pain, No Dy sphasia, No Sinus Congestion, No Post Nasal Drip, No Sore Throat, No Other Pulmonary: No Dyspnea, No Cough, No Pleuritic Chest Pain, No Other Cardiovascular: No: Chest Pain, Palpitations, Orthopnea, Paroxysmal Noc. Dyspnea, Edema, Lt Headedness, Other Objective-Cardiology Exam Last Set of Vital Signs Vital Signs 03/18/21 08:25 Temp 36.6 Pulse 85 Resp 14 B/P (MAP) 159/92 (114) Pulse Ox 97 O2 Delivery Room Air I&O Intake and Output 03/18/21 00:00 Intake Total 700 ml Balance 700 ml Intake Oral 700 ml # Voids 5 # Bowel Movements 1 General: Alert, Oriented X3, Cooperative HEENT: Atraumatic, PERRLA Neck: Supple, No JVD, No Thyromegaly Lungs: Clear to Auscultation, Normal Air Movement Heart: Regular Rate, Normal S1 Abdomen: Normal Bowel Sounds, Soft Extremities: No Edema, Other (C/D/I dressing) Skin: No Rashes, No Significant Lesion Neuro: Normal Speech Psych/Mental Status: Mental Status NL, Mood NL Results Lab Laboratory Tests 03/18/21 05:16 A/P-Cardiology Admission Diagnosis PAD HTN HLP DM Assessment/Plan Peripheral arterial disease, He underwent successful debridement of the wound on his right foot on 03/13. His foot is warm and does not appear to be a threatened limb at this time. Underwent peripheral angiogram with balloon angioplasty of the anterior tibial artery with excellent results. We will continue on aspirin and Plavix. Procedure report: 1. Severe stenosis/subtotal occlusion in the right anterior tibial artery, balloon angioplasty to the whole artery down to the foot with excellent results and reestablishment of good flow 2. Moderate disease in the mid right SFA 3. Mild to moderate disease in the left SFA HTN, controlled, continue to monitor Mixed hyperlipidemia, He is on atorvastatin at home. His LDL level is well controlled. However, his triglycerides are elevated, started on fish oil DM, mangagement per PCP. He needs to keep his diabetes under good control to help prevent further progression of his peripheral arterial disease. Hold Metformin for 48 hours after the procedure Okay for discharge and follow-up with Dr. Bennett as an outpatient NICOLASA RESENDEZ MD Mar 18, 2021 09:44
[2021-03-18] MEDS ORDERED: METF-478 PO (11:06)
[2021-03-18] MEDS: cefTRIAXone 2,000 MG/SWFI 20 ML IV PUSH IV SCH ×2 (11:49)
[2021-03-18 12:27] VITALS: BP 141/96
== END 2021-03-18 13:45 | disposition home health service (06) | DRG 253 ==
LOC: EDUNIT# 10:32 → ER 10:34 → CSD 12:38 → 4TH 03-10 05:21 → CSD 03-17 15:50
PROVIDERS: ADMIT Family Medicine; ATTEND Internal Medicine
PROC: 0KBV0ZZ Excision of Right Foot Muscle, Open Approach (ICD-10-PCS; principal; 2021-03-10 10:45)
PROC: 047P3ZZ Dilation of Right Anterior Tibial Artery, Percutaneous Approach (ICD-10-PCS; 2021-03-17)
DX: E11.51 Type 2 diabetes mellitus with diabetic peripheral angiopathy without gangrene (principal); L97.416 Non-pressure chronic ulcer of right heel and midfoot with bone involvement without evidence of necrosis; L03.115 Cellulitis of right lower limb; M86.171 Other acute osteomyelitis, right ankle and foot; L02.611 Cutaneous abscess of right foot; E11.621 Type 2 diabetes mellitus with foot ulcer; E11.69 Type 2 diabetes mellitus with other specified complication; E11.65 Type 2 diabetes mellitus with hyperglycemia; Z79.84 Long term (current) use of oral hypoglycemic drugs; I70.234 Atherosclerosis of native arteries of right leg with ulceration of heel and midfoot; Z79.899 Other long term (current) drug therapy; Z79.2 Long term (current) use of antibiotics; F41.9 Anxiety disorder, unspecified; Z87.891 Personal history of nicotine dependence; K21.9 Gastro-esophageal reflux disease without esophagitis; I10 Essential (primary) hypertension; E78.2 Mixed hyperlipidemia; F32.9 Major depressive disorder, single episode, unspecified
CPT/HCPCS: 36248; 36415; 36569; 71045; 73630; 75716; 76937; 80048; 80053; 80061; 81000; 82947; 83605; 85007; 85025; 85027; 85610; 85730; 87040; 87070; 87075; 87076; 87077; 87081; 87088; 87185; 87186; 87205; 93005; 93306; 93926; 96374

== ENCOUNTER → 2021-03-09 | Outpatient (CLI) | payer BC, OTHER ==
[~2021-03-09] MED LIST: ACET-2267 PO; ACHD5005 PO; AMOX-358 PO; AMOXICILLIN PO; ASPI-1238 PO; ATOR40TA70 PO; CEFT2VIA12 IV; CHOLESTEROL PO; DOXY100C5 PO; DOXYCYCLINE PO; HYDR-3720 PO; LIRA0.6P3 SQ; LISI10TA25 PO; METF-380 PO; METF-478 PO; METFORMIN ER PO; METR-145 PO; OMG1KC PO; RNT150T PO; SENN1TAB76 PO
== END ==
LOC: WOUNDCARE 08:57
PROVIDERS: ATTEND Surgery
DX: M65.071 Abscess of tendon sheath, right ankle and foot (principal); E11.621 Type 2 diabetes mellitus with foot ulcer; E11.42 Type 2 diabetes mellitus with diabetic polyneuropathy; L97.413 Non-pressure chronic ulcer of right heel and midfoot with necrosis of muscle; E11.65 Type 2 diabetes mellitus with hyperglycemia
CPT/HCPCS: 99214

== ENCOUNTER → 2021-03-23 | Outpatient (CLI) | payer OTHER ==
[~2021-03-23] MED LIST changes: +ACET-2267 PO; +ACHD5005 PO; +AMOX-358 PO; +AMOXICILLIN PO; +ASPI-1238 PO; +ATOR40TA70 PO; +CEFT2VIA12 IV; +CHOLESTEROL PO; +DOXY100C5 PO; +DOXYCYCLINE PO; +LIRA0.6P3 SQ; +LISI10TA25 PO; +METF-478 PO; +METFORMIN ER PO; +METR-145 PO; +OMG1KC PO; +SENN1TAB76 PO
== END ==
LOC: WOUNDCARE 11:00
PROVIDERS: ATTEND Family Medicine
DX: E11.621 Type 2 diabetes mellitus with foot ulcer (principal); E11.42 Type 2 diabetes mellitus with diabetic polyneuropathy; E11.52 Type 2 diabetes mellitus with diabetic peripheral angiopathy with gangrene; L97.412 Non-pressure chronic ulcer of right heel and midfoot with fat layer exposed; E11.65 Type 2 diabetes mellitus with hyperglycemia; M86.071 Acute hematogenous osteomyelitis, right ankle and foot; I70.235 Atherosclerosis of native arteries of right leg with ulceration of other part of foot; M65.071 Abscess of tendon sheath, right ankle and foot
CPT/HCPCS: A6260; G0463; 99213

== ENCOUNTER → 2021-03-28 | Outpatient (CLI) | payer OTHER | LOC: WOUNDCARE 08:30 | PROVIDERS: ATTEND Family Medicine | DX: M65.071 Abscess of tendon sheath, right ankle and foot (principal); E11.621 Type 2 diabetes mellitus with foot ulcer; E11.42 Type 2 diabetes mellitus with diabetic polyneuropathy; E11.52 Type 2 diabetes mellitus with diabetic peripheral angiopathy with gangrene; L97.413 Non-pressure chronic ulcer of right heel and midfoot with necrosis of muscle; E11.65 Type 2 diabetes mellitus with hyperglycemia; M86.071 Acute hematogenous osteomyelitis, right ankle and foot; I70.235 Atherosclerosis of native arteries of right leg with ulceration of other part of foot; R11.11 Vomiting without nausea | CPT/HCPCS: 99213 ==

== ENCOUNTER → 2021-04-05 | Outpatient (CLI) | payer OTHER | LOC: WOUNDCARE 10:21 | PROVIDERS: ATTEND Family Medicine | DX: M65.071 Abscess of tendon sheath, right ankle and foot (principal); E11.621 Type 2 diabetes mellitus with foot ulcer; E11.42 Type 2 diabetes mellitus with diabetic polyneuropathy; E11.52 Type 2 diabetes mellitus with diabetic peripheral angiopathy with gangrene; L97.413 Non-pressure chronic ulcer of right heel and midfoot with necrosis of muscle; E11.65 Type 2 diabetes mellitus with hyperglycemia; M86.071 Acute hematogenous osteomyelitis, right ankle and foot; I70.235 Atherosclerosis of native arteries of right leg with ulceration of other part of foot; R11.11 Vomiting without nausea | CPT/HCPCS: 11043; G0463 ==

== ENCOUNTER → 2021-04-12 | Outpatient (CLI) | payer OTHER | LOC: WOUNDCARE 10:42 | PROVIDERS: ATTEND Family Medicine | DX: M65.071 Abscess of tendon sheath, right ankle and foot (principal); E11.621 Type 2 diabetes mellitus with foot ulcer; E11.42 Type 2 diabetes mellitus with diabetic polyneuropathy; L97.413 Non-pressure chronic ulcer of right heel and midfoot with necrosis of muscle; E11.65 Type 2 diabetes mellitus with hyperglycemia; M86.071 Acute hematogenous osteomyelitis, right ankle and foot; I70.235 Atherosclerosis of native arteries of right leg with ulceration of other part of foot; E11.52 Type 2 diabetes mellitus with diabetic peripheral angiopathy with gangrene; R11.11 Vomiting without nausea | CPT/HCPCS: 11042; G0463 ==

== ENCOUNTER → 2021-04-19 | Outpatient (CLI) | payer OTHER | LOC: WOUNDCARE 09:26 | PROVIDERS: ATTEND Family Medicine | DX: E11.52 Type 2 diabetes mellitus with diabetic peripheral angiopathy with gangrene (principal); E11.621 Type 2 diabetes mellitus with foot ulcer; E11.42 Type 2 diabetes mellitus with diabetic polyneuropathy; E11.65 Type 2 diabetes mellitus with hyperglycemia; I70.262 Atherosclerosis of native arteries of extremities with gangrene, left leg; M86.071 Acute hematogenous osteomyelitis, right ankle and foot; L97.413 Non-pressure chronic ulcer of right heel and midfoot with necrosis of muscle; M65.071 Abscess of tendon sheath, right ankle and foot | CPT/HCPCS: 11043; G0463 ==

== ENCOUNTER → 2021-04-26 | Outpatient (CLI) | payer OTHER | LOC: WOUNDCARE 08:32 | PROVIDERS: ATTEND Family Medicine | DX: M65.071 Abscess of tendon sheath, right ankle and foot (principal); E11.621 Type 2 diabetes mellitus with foot ulcer; E11.42 Type 2 diabetes mellitus with diabetic polyneuropathy; L97.413 Non-pressure chronic ulcer of right heel and midfoot with necrosis of muscle; E11.65 Type 2 diabetes mellitus with hyperglycemia; M86.071 Acute hematogenous osteomyelitis, right ankle and foot; I70.235 Atherosclerosis of native arteries of right leg with ulceration of other part of foot; E11.52 Type 2 diabetes mellitus with diabetic peripheral angiopathy with gangrene | CPT/HCPCS: 11042; G0463 ==

== ENCOUNTER → 2021-05-03 | Outpatient (CLI) | payer OTHER ==
[2021-05-03 10:01] LABS: POTASSIUM 4.4 MMOL/L (3.6-5.0)
[2021-05-03 10:07] LABS: CREATININE SERUM 1.24 MG/DL (0.60-1.30)
== END ==
LOC: LAB 09:22
PROVIDERS: ATTEND Internal Medicine Cardiovascular Disease
DX: I10 Essential (primary) hypertension (principal)
CPT/HCPCS: 36415; 80048

== ENCOUNTER → 2021-05-03 | Outpatient (CLI) | payer OTHER | LOC: WOUNDCARE 08:29 | PROVIDERS: ATTEND Family Medicine | DX: E11.621 Type 2 diabetes mellitus with foot ulcer (principal); E11.42 Type 2 diabetes mellitus with diabetic polyneuropathy; L97.413 Non-pressure chronic ulcer of right heel and midfoot with necrosis of muscle; E11.65 Type 2 diabetes mellitus with hyperglycemia; M86.071 Acute hematogenous osteomyelitis, right ankle and foot; I70.235 Atherosclerosis of native arteries of right leg with ulceration of other part of foot; E11.52 Type 2 diabetes mellitus with diabetic peripheral angiopathy with gangrene | CPT/HCPCS: 11042; G0463 ==

== ENCOUNTER → 2021-05-03 | Outpatient (CLI) | payer OTHER ==
[~2021-05-03] VITALS: Ht 178 cm; Wt 85.7 kg
[2021-05-03 10:20] VITALS: BP 90/65
== END ==
LOC: SDC 10:00
PROVIDERS: ATTEND Pediatrics
DX: Z45.2 Encounter for adjustment and management of vascular access device (principal)

== ENCOUNTER → 2021-05-10 | Outpatient (CLI) | payer OTHER ==
[2021-05-10 10:13] LABS: CALCIUM 9.8 MG/DL (8.5-10.1); CREATININE SERUM 1.14 MG/DL (0.60-1.30); POTASSIUM 4.3 MMOL/L (3.6-5.0)
== END ==
LOC: LAB 09:30
PROVIDERS: ATTEND Internal Medicine Cardiovascular Disease
DX: I10 Essential (primary) hypertension (principal)
CPT/HCPCS: 36415; 80048

== ENCOUNTER → 2021-05-10 | Outpatient (CLI) | payer OTHER | LOC: WOUNDCARE 08:28 | PROVIDERS: ATTEND Family Medicine | DX: E11.621 Type 2 diabetes mellitus with foot ulcer (principal); E11.42 Type 2 diabetes mellitus with diabetic polyneuropathy; L97.413 Non-pressure chronic ulcer of right heel and midfoot with necrosis of muscle; E11.65 Type 2 diabetes mellitus with hyperglycemia; M86.071 Acute hematogenous osteomyelitis, right ankle and foot; I70.235 Atherosclerosis of native arteries of right leg with ulceration of other part of foot; M14.671 Charcot's joint, right ankle and foot; E11.52 Type 2 diabetes mellitus with diabetic peripheral angiopathy with gangrene | CPT/HCPCS: 11042; G0463 ==

== ENCOUNTER → 2021-05-17 | Outpatient (CLI) | payer OTHER | LOC: WOUNDCARE 08:29 | PROVIDERS: ATTEND Family Medicine | DX: E11.621 Type 2 diabetes mellitus with foot ulcer (principal); E11.52 Type 2 diabetes mellitus with diabetic peripheral angiopathy with gangrene; E11.42 Type 2 diabetes mellitus with diabetic polyneuropathy; L97.413 Non-pressure chronic ulcer of right heel and midfoot with necrosis of muscle; E11.65 Type 2 diabetes mellitus with hyperglycemia; M86.071 Acute hematogenous osteomyelitis, right ankle and foot; I70.235 Atherosclerosis of native arteries of right leg with ulceration of other part of foot; M14.671 Charcot's joint, right ankle and foot | CPT/HCPCS: 11042; G0463 ==

== ENCOUNTER → 2021-05-24 | Outpatient (CLI) | payer OTHER | LOC: WOUNDCARE 08:36 | PROVIDERS: ATTEND Family Medicine | DX: E11.621 Type 2 diabetes mellitus with foot ulcer (principal); E11.42 Type 2 diabetes mellitus with diabetic polyneuropathy; E11.52 Type 2 diabetes mellitus with diabetic peripheral angiopathy with gangrene; L97.413 Non-pressure chronic ulcer of right heel and midfoot with necrosis of muscle; E11.65 Type 2 diabetes mellitus with hyperglycemia; M86.071 Acute hematogenous osteomyelitis, right ankle and foot; I70.235 Atherosclerosis of native arteries of right leg with ulceration of other part of foot; M14.671 Charcot's joint, right ankle and foot | CPT/HCPCS: 11042; G0463 ==

== ENCOUNTER → 2021-05-31 | Outpatient (CLI) | payer OTHER | LOC: WOUNDCARE 08:28 | PROVIDERS: ATTEND Family Medicine | DX: E11.621 Type 2 diabetes mellitus with foot ulcer (principal); E11.42 Type 2 diabetes mellitus with diabetic polyneuropathy; L97.413 Non-pressure chronic ulcer of right heel and midfoot with necrosis of muscle; E11.65 Type 2 diabetes mellitus with hyperglycemia; M86.071 Acute hematogenous osteomyelitis, right ankle and foot; I70.235 Atherosclerosis of native arteries of right leg with ulceration of other part of foot; M14.671 Charcot's joint, right ankle and foot; E11.52 Type 2 diabetes mellitus with diabetic peripheral angiopathy with gangrene | CPT/HCPCS: 11042; G0463 ==

== ENCOUNTER → 2021-06-07 | Outpatient (CLI) | payer OTHER | LOC: WOUNDCARE 08:23 | PROVIDERS: ATTEND Family Medicine | DX: E11.621 Type 2 diabetes mellitus with foot ulcer (principal); E11.42 Type 2 diabetes mellitus with diabetic polyneuropathy; L97.413 Non-pressure chronic ulcer of right heel and midfoot with necrosis of muscle; E11.65 Type 2 diabetes mellitus with hyperglycemia; M86.071 Acute hematogenous osteomyelitis, right ankle and foot | CPT/HCPCS: 99212 ==

== ENCOUNTER → 2021-08-11 | Outpatient (CLI) | payer OTHER | LOC: WOUNDCARE 09:39 | PROVIDERS: ATTEND Family Medicine | DX: E11.621 Type 2 diabetes mellitus with foot ulcer (principal); L97.522 Non-pressure chronic ulcer of other part of left foot with fat layer exposed; E11.65 Type 2 diabetes mellitus with hyperglycemia; E11.40 Type 2 diabetes mellitus with diabetic neuropathy, unspecified | CPT/HCPCS: 11042; A6197; G0463 ==

== ENCOUNTER → 2021-08-17 | Outpatient (CLI) | payer OTHER | LOC: WOUNDCARE 08:16 | PROVIDERS: ATTEND Family Medicine | DX: E11.621 Type 2 diabetes mellitus with foot ulcer (principal); L97.522 Non-pressure chronic ulcer of other part of left foot with fat layer exposed; E11.65 Type 2 diabetes mellitus with hyperglycemia; E11.40 Type 2 diabetes mellitus with diabetic neuropathy, unspecified; E11.52 Type 2 diabetes mellitus with diabetic peripheral angiopathy with gangrene | CPT/HCPCS: 11042; G0463 ==

== ENCOUNTER → 2021-08-28 | Outpatient (CLI) | payer OTHER | LOC: WOUNDCARE 08:26 | PROVIDERS: ATTEND Family Medicine | DX: E11.621 Type 2 diabetes mellitus with foot ulcer (principal); L97.522 Non-pressure chronic ulcer of other part of left foot with fat layer exposed; E11.65 Type 2 diabetes mellitus with hyperglycemia; E11.40 Type 2 diabetes mellitus with diabetic neuropathy, unspecified; E11.52 Type 2 diabetes mellitus with diabetic peripheral angiopathy with gangrene | CPT/HCPCS: 11042; G0463 ==

== ENCOUNTER → 2021-09-04 | Outpatient (CLI) | payer OTHER | LOC: WOUNDCARE 08:25 | PROVIDERS: ATTEND Family Medicine | DX: E11.621 Type 2 diabetes mellitus with foot ulcer (principal); L97.522 Non-pressure chronic ulcer of other part of left foot with fat layer exposed; E11.65 Type 2 diabetes mellitus with hyperglycemia; E11.40 Type 2 diabetes mellitus with diabetic neuropathy, unspecified; M14.672 Charcot's joint, left ankle and foot; E11.52 Type 2 diabetes mellitus with diabetic peripheral angiopathy with gangrene | CPT/HCPCS: 11042; G0463 ==

== ENCOUNTER → 2021-09-11 | Outpatient (CLI) | payer OTHER | LOC: WOUNDCARE 08:22 | PROVIDERS: ATTEND Family Medicine | DX: E11.621 Type 2 diabetes mellitus with foot ulcer (principal); L97.522 Non-pressure chronic ulcer of other part of left foot with fat layer exposed; E11.65 Type 2 diabetes mellitus with hyperglycemia; E11.40 Type 2 diabetes mellitus with diabetic neuropathy, unspecified; M14.672 Charcot's joint, left ankle and foot | CPT/HCPCS: 11042; G0463 ==

== ENCOUNTER → 2021-09-18 | Outpatient (CLI) | payer OTHER ==
--- NOTE | 2021-09-18 09:49 | Diagnostic Imaging Report ---
INDICATION: Nonhealing ulcer left foot. FINDINGS: 3 views. There are no fractures or dislocation. No destructive bony changes are seen. There is a gauze wrapped over the toes. IMPRESSION: No radiographic findings are seen to suggest osteomyelitis. Dictated by: Dictated on workstation # [id number]
== END ==
LOC: LAB 08:47
PROVIDERS: ATTEND Family Medicine
DX: E11.621 Type 2 diabetes mellitus with foot ulcer (principal); L97.529 Non-pressure chronic ulcer of other part of left foot with unspecified severity
CPT/HCPCS: 36415; 73630; 85652; 86141

== ENCOUNTER → 2021-09-18 | Outpatient (CLI) | payer OTHER | LOC: WOUNDCARE 08:09 | PROVIDERS: ATTEND Family Medicine | DX: E11.621 Type 2 diabetes mellitus with foot ulcer (principal); L97.522 Non-pressure chronic ulcer of other part of left foot with fat layer exposed; E11.52 Type 2 diabetes mellitus with diabetic peripheral angiopathy with gangrene; E11.610 Type 2 diabetes mellitus with diabetic neuropathic arthropathy | CPT/HCPCS: 11042; G0463 ==

== ENCOUNTER → 2021-10-02 | Outpatient (CLI) | payer OTHER ==
[~2021-10-02] MED LIST changes: +ASPI-999 PO; +ATOR80TA76 PO; +CANA300T PO; +GBPN600T PO; +LISI2.5T13 PO; +POLY17PO6 PO; +SENN-234 PO; +SIME80TA16 PO
== END ==
LOC: WOUNDCARE 08:37
PROVIDERS: ATTEND Family Medicine
DX: E11.621 Type 2 diabetes mellitus with foot ulcer (principal); L97.522 Non-pressure chronic ulcer of other part of left foot with fat layer exposed; E11.65 Type 2 diabetes mellitus with hyperglycemia; E11.40 Type 2 diabetes mellitus with diabetic neuropathy, unspecified; E11.610 Type 2 diabetes mellitus with diabetic neuropathic arthropathy
CPT/HCPCS: 99212

== ENCOUNTER 2021-10-03 16:44 | Observation (INO) | payer OTHER ==
[~2021-10-03] VITALS: Ht 187 cm; Wt 83.3 kg
[~2021-10-03 16:44] MED LIST changes: -ASPI-999 PO; -ATOR80TA76 PO; -CANA300T PO; -GBPN600T PO; -LISI2.5T13 PO; -POLY17PO6 PO; -SENN-234 PO; -SIME80TA16 PO
[2021-10-03] MEDS ORDERED: PANTOPRAZOLE 40 MG (PROTONIX) VIAL IV ONE (17:30)
[2021-10-03] MEDS ORDERED: cefTRIAXone 1 GM PRE-MIX 50 ML IV ONE (17:30)
[2021-10-03] MEDS ORDERED: NS IV 1000 ML 1,000 ML IV SCH ×2 (17:30)
[2021-10-03 17:33] LABS: BASOPHILS # (AUTO) 0.1 10^3/uL (0.0-0.1); BASOPHILS % (AUTO) 1 % (0-10); EOSINOPHILS # (AUTO) 0.1 10^3/uL (0.0-0.3); EOSINOPHILS % (AUTO) 0 % (0-10); HEMATOCRIT 45 % (40-54); LYMPHOCYTES # (AUTO) 3.3 10^3/uL (1.0-4.0); LYMPHOCYTES % (AUTO) 18 % (12-44); MEAN CORPUSCULAR HEMOGLOBIN 29 pg (25-34); MEAN CORPUSCULAR HGB CONC 33 g/dL (32-36); MEAN CORPUSCULAR VOLUME 85 fL (80-99); MEAN PLATELET VOLUME 11.4 fL (9.0-12.2); MONOCYTES # (AUTO) 0.8 10^3/uL (0.0-1.0); MONOCYTES % (AUTO) 4 % (0-12); NEUTROPHILS # (AUTO) 14.4 10^3/uL (1.8-7.8); NEUTROPHILS % (AUTO) 77 % (42-75); PLATELET COUNT 299 10^3/uL (130-400); WHITE BLOOD COUNT 18.8 10^3/uL (4.3-11.0)
[2021-10-03 17:37] LABS: CLARITY,URINE CLEAR; COLOR,URINE YELLOW; GLUCOSE, URINE (UA) 3+ (NEGATIVE); KETONES,URINE 1+ (NEGATIVE); LEUKOCYTE ESTERASE ,URINE NEGATIVE (NEGATIVE); NITRITE,URINE NEGATIVE (NEGATIVE); PROTEIN,URINE 2+ (NEGATIVE)
--- NOTE | 2021-10-03 17:47 | Diagnostic Imaging Report ---
EXAMINATION: Chest radiograph, portable AP view. DATE: 10/03/2021 5:41 PM INDICATION: 41-year-old male, sepsis. COMPARISON: March 09, 2021. FINDINGS: Heart size and mediastinal contours are unchanged. Lung volumes are somewhat low. There is no identified pneumothorax. There is no large pleural effusion. There is no identified focal airspace consolidation. There are right upper quadrant surgical clips. IMPRESSION: 1. Somewhat low lung volumes without identified acute cardiopulmonary abnormality. Dictated by: Dictated on workstation # [id number]
[2021-10-03 17:55] LABS: BACTERIA,URINE TRACE /HPF; BILIRUBIN,URINE 1+ (NEGATIVE); SQUAMOUS EPITHELIAL CELL,UR RARE /HPF
[2021-10-03 17:56] LABS: PROTHROMBIN TIME PATIENT 13.3 SEC (12.2-14.7)
[2021-10-03 17:56] LABS: WHITE BLOOD CELL CASTS, URINE RARE /LPF
--- NOTE | 2021-10-03 17:56 | ED General ---
General Chief Complaint: Abdominal/GI Problems Stated Complaint: VOMITING,HEART BURN, NOT EATING Nursing Triage Note: PT TO ED FOR VOMITING SINCE 09/29/21. PT REPORTS HE HAD GALLBLADDER REMOVED 09/22. PT C/O RECENTELY NOTICING COLD CHILLS WELL. PT AMB. TO TRIAGE WITHOUT DIFFICULTY. Source of Information: Patient Exam Limitations: No Limitations (NELLY HURST) History of Present Illness Date Seen by Provider: October 03, 2021 Time Seen by Provider: 17:00 Initial Comments Patient to the ER by private conveyance chief complaint for the past couple days been some nausea and vomiting. No diarrhea. He had a stool yesterday which was normal. He just had his gallbladder out over [address] Charles at [place], [place]. He has not reached out to him yet but did go see Dr. Hernandez his PCP who recommended he get some labs and come to the ER to be examined. He is having some mild allover abdominal discomfort. He does not have anything at home for nausea. He said no fever but has had some chills. No sick contacts. No other abdominal surgeries. He has a diabetic for the past 20 years and has had right foot forefoot amputation for ulcer and has an ulcer is being treated for on his left forefoot. (NELLY HURST) Initial Comments Agree with H & P. (MARY GUEVARA MD) Allergies and Home Medications Allergies Coded Allergies: NKANo Known Allergies (Verified Allergy, Unknown, 09/25/05) venlafaxine (Verified Adverse Reaction, Unknown, aggrevated gastroparesis, 10/04/21) Patient Home Medication List Home Medication List Reviewed: Yes (NELLY HURST) Home Medication List Reviewed: Yes (MARY GUEVARA MD) Aspirin (Aspirin) 81 Mg Tab.chew, 81 MG PO HS, (Reported) Entered as Reported by: ABIDA BRUMFIELD on 10/04/21 1023 Last Action: Reviewed Atorvastatin Calcium (Atorvastatin Calcium) 80 Mg Tablet, 80 MG PO HS, (Repo rted) Entered as Reported by: ABIDA BRUMFIELD on 10/04/21 1023 Last Action: Reviewed Canagliflozin (Invokana) 300 Mg Tablet, 300 MG PO DAILY, (Reported) Entered as Reported by: ABIDA BRUMFIELD on 5/11/22 1023 Last Action: Reviewed Gabapentin (Gabapentin) 600 Mg Tablet, 600 MG PO TID, (Reported) Entered as Reported by: ABIDA BRUMFIELD on 10/04/211022 Last Action: Reviewed Liraglutide (Victoza 3-Yan) 0.6 Mg/0.1 Ml (18 Mg/3 Ml) Pen.injctr, 3 MG SQ HS, (Reported) Entered as Reported by: ABIDA BRUMFIELD on 10/04/211022 Last Action: Reviewed Lisinopril (Lisinopril) 2.5 Mg Tablet, 2.5 MG PO HS, (Reported) Entered as Reported by: ABIDA BRUMFIELD on 10/04/211022 Last Action: Reviewed Metformin HCl (Metformin HCl ER) 500 Mg Tab.er.24, 500 MG PO HS, (Reported) Entered as Reported by: ABIDA BRUMFIELD on 10/04/211022 Last Action: Reviewed Polyethylene Glycol 3350 (Miralax) 17 Gram Powd.pack, 17 GM PO BID PRN for CONSTIPATION-2ND LINE, (Reported) Entered as Reported by: ABIDA BRUMFIELD on 10/04/211022 Last Action: Reviewed Sennosides (Senna) 8.6 Mg Tablet, 8.6-17.2 MG PO BID PRN for CONSTIPATION-5TH LINE, (Reported) Entered as Reported by: ABIDA BRUMFIELD on 10/04/211022 Last Action: Reviewed Simethicone (Simethicone) 80 Mg Tab.chew, 80 MG PO PCHS PRN for GAS, (Reported) Entered as Reported by: ABIDA BRUMFIELD on 10/04/21 102 Last Action: Reviewed Discontinued Medications Acetaminophen (Tylenol Extra Strength) 500 Mg Tablet, 1,000 MG PO Q8H PRN for PAIN-MILD (1-4), (Reported) Discontinued Reason: No Longer Taking Entered as Reported by: ABIDA BRUMFIELD on 03/09/21 1451 Last Action: Discontinued Aspirin (Aspirin EC) 81 Mg Tablet.dr, 81 MG PO DAILY Discontinued Reason: No Longer Taking Prescribed by: LOC AUGUST on 03/16/21 1142 Last Action: Discontinued Atorvastatin Calcium (Atorvastatin Calcium) 40 Mg Tablet, 40 MG PO HS, (Reported) Discontinued Reason: No Longer Taking Entered as Reported by: ABIDA BRUMFIELD on 03/09/21 1451 Last Action: Discontinued Ceftriaxone Sodium (Ceftriaxone) 2 Gm/Vial Soln, 2 GM IV DAILY Discontinued Reason: No Longer Taking Prescribed by: LOC AUGUST on 03/13/21 1413 Last Action: Discontinued Hydrocodone Bit/Acetaminophen (HYDROcodone/APAP 5 MG/325 MG TAB) 1 Tab Tab, 1 EA PO Q4H PRN for PAIN-MODERATE (5-7) Discontinued Reason: No Longer Taking Prescribed by: LOC AUGUST on 03/16/21 114 Last Action: Discontinued Liraglutide (Victoza 3-Yan) 0.6 Mg/0.1 Ml Pen.injctr, 0.6 MG SQ 1800, (Reported) Discontinued Reason: No Longer Taking Entered as Reported by: ABIDA BRUMFIELD on 03/09/21 145 Last Action: Discontinued Lisinopril (Lisinopril) 10 Mg Tablet, 10 MG PO DAILY Discontinued Reason: No Longer Taking Prescribed by: LOC AUGUST on 03/16/21 114 Last Action: Discontinued Metformin HCl (Metformin HCl ER) 500 Mg Tab.er.24, 500 MG PO 1800 W/ DINNER Discontinued Reason: No Longer Taking Prescribed by: STEPHANIE ALMONTE on 03/18/21 1106 Last Action: Discontinued Metronidazole (Metronidazole) 500 Mg Tablet, 500 MG PO TID Discontinued Reason: No Longer Taking Prescribed by: LOC AUGUST on 03/16/21 114 Last Action: Discontinued [place] 3 Polyunsat Fatty Acids (Fish Oil 1,000 mg Capsule) 1,000 Mg Cap, 1,000 MG PO BID WITH MEALS Discontinued Reason: No Longer Taking Prescribed by: LOC AUGUST on 03/16/21 114 Last Action: Discontinued Sennosides/Docusate Sodium (Stool Softener-Laxative Tablet) 1 Each Tablet, 1 EA PO BID Discontinued Reason: No Longer Taking Prescribed by: LOC AUGUST on 03/16/21 114 Last Action: Discontinued Review of Systems Review of Systems Constitutional: no symptoms reported Gastrointestinal: abdominal pain, loss of appetite, nausea, vomiting (MARY GUEVARA MD) Past Cpprhru-Mjyqzj-Hkxhyn Hx Patient Social History Tobacco Use?: No Substance use?: No Alcohol Use?: No Pt feels they are or have been: No (NELLY HURST) Immunizations Up To Date First/Initial COVID19 Vaccinat: 08/17/20 Second COVID19 Vaccination Solomon: 09/15/20 COVID19 Vaccine First Press Operator: MAITE (NELLY HURST) Seasonal Allergies Seasonal Allergies: No (NELLY HURST) Past Medical History Surgery/Hospitalization HX: PMH;DM 2, GASTROPORISIS. SURGERY;GALLBLADDER REMOVAL 09/22/21. ANGIOPLASTY BEHIND RT KNEE 02/2021. Surgeries: Yes (wisdom teeth removal, urethral surgery) Respiratory: No Cardiac: No Neurological: No Genitourinary: Yes Epi/Hypospadias Gastrointestinal: No Musculoskeletal: No Endocrine: Yes Diabetes, Non-Insulin dep HEENT: No Loss of Vision: Bilateral Hearing Impairment: Denies Cancer: No Psychosocial: Yes Anxiety Integumentary: No (NELLY HURST) Family Medical History Cancer (NELLY HURST) Physical Exam-Suspected Sepsis Physical Exam Vital Signs Vital Signs - First Documented 10/03/21 17:00 Temp 36.2 Pulse 119 Resp 18 B/P (MAP) 86/65 (72) O2 Delivery Room Air (MARY GUEVARA MD) Vital Signs Capillary Refill : Less Than 3 Seconds (NELLY HURST) Blood Pressure Mean: 72 Height, Weight, BMI Height: '" Weight: 208lbs. oz. [id number]; 23.00 BMI Method: (NELLY HURST) General Appearance: Mild Distress HEENT: PERRL/EOMI Neck: Full Range of Motion Respiratory: Chest Non Tender, Lungs Clear, Normal Breath Sounds Cardiovascular: Tachycardia Gastrointestinal: Normal Bowel Sounds, No Organomegaly, Soft, Tenderness Back: Normal Inspection Extremity: Normal Range of Motion, Other (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, and ulcer of left foot) Neurologic/Psychiatric: Alert, Oriented x3, Other (appears a little slow in intellectual ability) Skin: ulcerations on exposed areas (MARY GUEVARA MD) Focused Exam Lactate Level 10/03/21 17:19: Lactic Acid Level 1.88 (MARY GUEVARA MD) Lactic Acid Level Laboratory Tests Test 10/03/21 17:19 Lactic Acid Level 1.88 MMOL/L (0.50-2.00) (MARY GUEVARA MD) Progress/Results/Core Measures Suspected Sepsis SIRS Temperature: Pulse: 119 Respiratory Rate: 18 Laboratory Tests 10/03/21 17:19: White Blood Count 18.8H 10/04/21 05:05: White Blood Count 13.2H Blood Pressure 86 /65 Mean: 72 10/03/21 17:19: Lactic Acid Level 1.88 10/04/21 05:05: Lactic Acid Level 0.67 Laboratory Tests 10/03/21 17:19: Creatinine 1.22, INR Comment 1.0, Platelet Count 299, Total Bilirubin 2.7H 10/04/21 05:05: Creatinine 0.91, Platelet Count 228 (NELLY HURST) Results/Orders Lab Results Laboratory Tests Test 10/03/21 17:19 10/03/21 17:30 Range/Units White Blood Count 18.8 H 4.3-11.0 10^3/uL Red Blood Count 5.27 4.30-5.52 10^6/uL Hemoglobin 15.0 13.3-17.7 g/dL Hematocrit 45 40-54 % Mean Corpuscular Volume 85 80-99 fL Mean Corpuscular Hemoglobin 29 25-34 pg Mean Corpuscular Hemoglobin Concent 33 32-36 g/dL Red Cell Distribution Width 12.0 10.0-14.5 % Platelet Count 299 130-400 10^3/uL Mean Platelet Volume 11.4 9.0-12.2 fL Immature Granulocyte % (Auto) 0 % Neutrophils (%) (Auto) 77 H 42-75 % Lymphocytes (%) (Auto) 18 12-44 % Monocytes (%) (Auto) 4 0-12 % Eosinophils (%) (Auto) 0 0-10 % Basophils (%) (Auto) 1 0-10 % Neutrophils # (Auto) 14.4 H 1.8-7.8 10^3/uL Lymphocytes # (Auto) 3.3 1.0-4.0 10^3/uL Monocytes # (Auto) 0.8 0.0-1.0 10^3/uL Eosinophils # (Auto) 0.1 0.0-0.3 10^3/uL Basophils # (Auto) 0.1 0.0-0.1 10^3/uL Immature Granulocyte # (Auto) 0.1 0.0-0.1 10^3/uL Neutrophils % (Manual) 65 % Lymphocytes % (Manual) 22 % Monocytes % (Manual) 6 % Eosinophils % (Manual) 1 % Basophils % (Manual) 1 % Blood Morphology Comment NORMAL Prothrombin Time 13.3 12.2-14.7 SEC INR Comment 1.0 0.8-1.4 Activated Partial Thromboplast Time 30 24-35 SEC Sodium Level 138 135-145 MMOL/L Potassium Level 4.1 3.6-5.0 MMOL/L Chloride Level 97 L 98-107 MMOL/L Carbon Dioxide Level 27 21-32 MMOL/L Anion Gap 14 5-14 MMOL/L Blood Urea Nitrogen 18 7-18 MG/DL Creatinine 1.22 0.60-1.30 MG/DL Estimat Glomerular Filtration Rate 76 BUN/Creatinine Ratio 15 Glucose Level 149 H 70-105 MG/DL Lactic Acid Level 1.88 0.50-2.00 MMOL/L Calcium Level 10.0 8.5-10.1 MG/DL Corrected Calcium 9.7 8.5-10.1 MG/DL Total Bilirubin 2.7 H 0.1-1.0 MG/DL Aspartate Amino Transf (AST/SGOT) 21 5-34 U/L Alanine Aminotransferase (ALT/SGPT) 33 0-55 U/L Alkaline Phosphatase 127 40-136 U/L Total Protein 7.9 6.4-8.2 GM/DL Albumin 4.4 3.2-4.5 GM/DL Urine Color YELLOW Urine Clarity CLEAR Urine pH 6.0 5-9 Urine Specific [place] 1.020 1.016-1.022 Urine Protein 2+ H NEGATIVE Urine Glucose (UA) 3+ H NEGATIVE Urine Ketones 1+ H NEGATIVE Urine Nitrite NEGATIVE NEGATIVE Urine Bilirubin 1+ H NEGATIVE Urine Urobilinogen 2.0 < = 1.0 MG/DL Urine Leukocyte Esterase NEGATIVE NEGATIVE Urine RBC (Auto) TRACE-I H NEGATIVE Urine RBC NONE /HPF Urine WBC 10-25 H /HPF Urine Squamous Epithelial Cells RARE /HPF Urine Crystals NONE /LPF Urine Bacteria TRACE /HPF Urine Casts PRESENT /LPF Urine Hyaline Casts 10-25 H /LPF Urine White Blood Cell Casts RARE H /LPF Urine Mucus SMALL H /LPF Urine Culture Indicated YES Urine Opiates Screen NEGATIVE NEGATIVE Urine Oxycodone Screen NEGATIVE NEGATIVE Urine Methadone Screen NEGATIVE NEGATIVE Urine Propoxyphene Screen NEGATIVE NEGATIVE Urine Barbiturates Screen NEGATIVE NEGATIVE Ur Tricyclic Antidepressants Screen NEGATIVE NEGATIVE Urine Phencyclidine Screen NEGATIVE NEGATIVE Urine Amphetamines Screen NEGATIVE NEGATIVE Urine Methamphetamines Screen NEGATIVE NEGATIVE Urine Benzodiazepines Screen NEGATIVE NEGATIVE Urine Cocaine Screen NEGATIVE NEGATIVE Urine Cannabinoids Screen NEGATIVE NEGATIVE (MARY GUEVARA MD) My Orders Orders - MARY GUEVARA MD Drug Screen Stat (Urine) (10/03/21 18:18) Ct Abdomen/Pelvis W (10/03/21 18:20) Iohexol Injection (Omnipaque 350 Mg/Ml 1 (10/03/21 18:30) Ns (Ivpb) (Sodium Chloride 0.9% Ivpb Bag (10/03/21 18:30) Famotidine Injection (Pepcid Injection) (10/03/21 20:00) Antacid Suspension (Mylanta Suspension (10/03/21 20:00) (MARY GUEVARA MD) Medications Given in ED Current Medications Medications Dose Ordered Sig/Taya Route Start Time Stop Time Status Last Admin Dose Admin Al Hydrox/Mg Hydrox/Simethicone 30 ml ONCE ONCE PO 10/03/21 20:00 10/03/21 20:01 DC 10/03/21 20:05 30 ML Ceftriaxone Sodium/Dextrose 50 ml @ 100 mls/hr ONCE ONCE IV 10/03/21 17:30 10/03/21 17:59 DC 10/03/21 17:48 100 MLS/HR Famotidine 20 mg ONCE ONCE IVP 10/03/21 20:00 10/03/21 20:01 DC 10/03/21 20:04 20 MG Iohexol 100 ml ONCE ONCE IV 10/03/21 18:30 10/03/21 18:31 DC 10/03/21 18:54 100 ML Pantoprazole 40 mg ONCE ONCE IV 10/03/21 17:30 10/03/21 17:31 DC 10/03/21 17:40 40 MG Sodium Chloride 100 ml ONCE ONCE IV 10/03/21 18:30 10/03/21 18:31 DC 10/03/21 18:54 80 ML (MARY GUEVARA MD) Vital Signs/I&O 10/03/21 17:00 Temp 36.2 Pulse 119 Resp 18 B/P (MAP) 86/65 (72) O2 Delivery Room Air (MARY GUEVARA MD) Vital Signs/I&O Capillary Refill : Less Than 3 Seconds (NELLY HURST) Blood Pressure Mean: 72 Progress Note : Time: 17:55 Progress Note Tachycardic with soft blood pressure in the 80s when he arrived. Patient states he has labile blood pressure and it can go very low or very high and is not unusual for him. He does not have fever but has had chills so we will initiate a septic work-up with 20mL/kg fluid bolus of 2 L. We will start with some Rocephin for the possibility of UTI or got infection. Viral infection of the abdomen is very possible as well. We will get a CT of his abdomen and pelvis given his recent surgery looking for abscess etc. (NELLY HURST) Progress Note : Progress Note 1. POST-OP ( post-cholecysteectomy on September 22) ABDOMINAL PAIN & VOMITING: - CT ABD : shows diverticulosis without diverticulitis, and gastritis and right renal cyst - UDS is negative - UA is negative for LE and nitrites, but has positive ketone, glucose, and protein. serum glucose is 149 2. DIVERTICULOSIS WITHOUT DIVERTICULITIS/ GASTRITIS: - Seen on CT - Zofran, Pepcid, Protonix - Received 2L of IVF in ER - Ceftriaxone 1gm iv STAT -Will admit and get surgery consult in the a.m. 3. Discussed with Dr. Campbell accepted for admission to observation unit and MedSurg. (MARY GUEVARA MD) Diagnostic Imaging Reviewed: Reviewed by Me Diagonstic Imaging: CT Plain Films/CT/US/NM/MRI: abdomen, pelvis Comments [facility] [place] NAME: KELLIE MG [facility] REC#: [id number] PT STATUS: ADM Marta : 1980 PHYSICIAN: MARY GUEVARA MD ADMIT DATE: 10/03/21 Signed Date of Exam:10/03/21 CT ABDOMEN/PELVIS W CLINICAL INDICATIONS: Patient with vomiting x4 days. Recent gallbladder removal on 09/22/2021. EXAM: Axial CT scan of the abdomen and pelvis performed with 100 mL of Omnipaque 350 IV contrast. Sagittal and coronal reformatted images are created. Auto Exposure Controls were utilized during the CT exam to meet ALARA standards for radiation dose reduction. COMPARISON: None. FINDINGS: Visualized lung bases are clear. There are degenerative spurs involving the visualized lower thoracic spine and lumbar spine. There is diffuse wall thickening involving the distal esophagus concerning for esophagitis. There is no measurable mass. There is wall thickening involving the stomach and the stomach is moderately fluid filled. This may be related to gastritis or contraction. There is also wall thickening of the antrum which may be related to antritis or contraction. Remainder of the intestines are unremarkable. Appendix is unremarkable. There is diverticulosis involving the sigmoid colon and descending colon but no CT evidence of diverticulitis. There is no intra-abdominal free air or free fluid. The gallbladder is surgically absent. There is a small amount of fluid in the gallbladder fossa region measuring roughly 1.8 cm x 4.0 cm in greatest axial dimension. There is no definite evidence of abscess. There is small amount of fat stranding adjacent to the gallbladder fossa region, likely from postop changes. There is no intrahepatic or extrahepatic ductal dilation. The liver, spleen, pancreas, and adrenal glands are unremarkable. There are multiple bilateral circumscribed low-density areas involving both kidneys likely representing cysts. The largest one measures 8 mm involving the upper portion of the right kidney. Both kidneys are otherwise unremarkable with no hydronephrosis or stone. There is a small amount of fluid in the bladder. There is diffuse bladder wall thickening with no measurable mass. Prostate gland is unremarkable. There is a small defect involving the midline upper abdominal region which may represent a laparoscopy port. There is also mild fat stranding along the left lower abdominal region and right upper abdominal region, suspected to represent laparoscopy port changes. The extra-abdominal and extrapelvic soft tissue structures are unremarkable. There is no significant lymphadenopathy. IMPRESSION: 1: There is diffuse wall thickening involving the distal esophagus concerning for esophagitis. There is no measurable mass. There is also wall thickening involving the stomach and gastric antrum which may be related to gastritis/antritis or incomplete distention. Nonemergent esophagram with upper gastrointestinal series would better evaluate. 2: There are postop changes consistent with cholecystectomy. There is a small amount of fluid and minimal fat stranding adjacent to the gallbladder fossa region. These are suspected to be postoperative changes. There is no evidence of abscess. There are no dilated ducts. 3: Likely multiple bilateral renal cysts. Dictated by: Dictated on workstation # [id number] Dict: 10/03/21 1856 Trans: 10/03/21 6204 [facility] [id number] Interpreted by: RADHA PERALTA MD Electronically signed by: RADHA PERALTA MD 10/03/212354 Reviewed: Reviewed by Me (NELLY HURST) Diagonstic Imaging: Xray Plain Films/CT/US/NM/MRI: chest Comments [facility] [place] NAME: KELLIE MG [facility] REC#: [id number] PT STATUS: REG ER : 1980 PHYSICIAN: NELLY HURST MD ADMIT DATE: 10/03/21/ER Signed Date of Exam:10/03/21 CHEST 1 VIEW, AP/PA ONLY EXAMINATION: Chest radiograph, portable AP view. DATE: 10/03/2021 5:41 PM INDICATION: 41-year-old male, sepsis. COMPARISON: March 09, 2021. FINDINGS: Heart size and mediastinal contours are unchanged. Lung volumes are somewhat low. There is no identified pneumothorax. There is no large pleural effusion. There is no identified focal airspace consolidation. There are right upper quadrant surgical clips. IMPRESSION: 1. Somewhat low lung volumes without identified acute cardiopulmonary abnormality. Dictated by: Dictated on workstation # [id number] Dict: 10/03/21 1741 Trans: 10/03/211807 [facility] [id number] Interpreted by: NAOMY FRANCO MD Electronically signed by: NAOMY FRANCO MD 10/03/211807 (MARY GUEVARA MD) Departure Communication (Admissions) Time/Spoke to Admitting Phy: 20:[address] Ortiz and accepted to observation/MedSurg. (MARY GUEVARA MD) Impression Primary Impression: Post-op pain Additional Impressions: Gastritis Qualified Codes: K29.70 - Gastritis, unspecified, without bleeding Diverticulosis of colon without diverticulitis Post-operative nausea and vomiting UTI (urinary tract infection) Qualified Codes: N30.00 - Acute cystitis without hematuria Disposition: ADMITTED INPATIENT Condition: Stable Admissions Decision to Admit Reason: Admit from ER (General) Decision to Admit/Date: October 03, 2021 Time/Decision to Admit Time: 19:25 (MARY GUEVARA MD) Departure-Patient Inst. Referrals: [facility] (PCP/Family) Primary Care Physician NELLY HURST October 03, 2021 17:56 MARY GUEVARA MD October 03, 2021 18:19
[2021-10-03 18:07] LABS: ALBUMIN 4.4 GM/DL (3.2-4.5); POTASSIUM 4.1 MMOL/L (3.6-5.0)
[2021-10-03 18:09] LABS: TOTAL PROTEIN 7.9 GM/DL (6.4-8.2)
[2021-10-03 18:11] LABS: BILIRUBIN,TOTAL 2.7 MG/DL (0.1-1.0)
[2021-10-03 18:13] LABS: CREATININE SERUM 1.22 MG/DL (0.60-1.30)
[2021-10-03] MEDS ORDERED: IOHEXOL 350 MG/ML 100 ML (OMNIPAQUE 350) VIAL IV ONE (18:30)
[2021-10-03] MEDS ORDERED: NS 100 ML (IVPB) BAG IV ONE (18:30)
[2021-10-03 18:33] LABS: BASOPHILS % (MANUAL) 1 %; EOSINOPHILS % (MANUAL) 1 %; LYMPHOCYTES % (MANUAL) 22 %; MONOCYTES % (MANUAL) 6 %; NEUTROPHILS % (MANUAL) 65 %; RBC MORPH NORMAL
[2021-10-03 18:34] LABS: AMPHETAMINE SCREEN, URINE NEGATIVE (NEGATIVE); BARBITURATE SCREEN URINE NEGATIVE (NEGATIVE); BENZODIAZEPINES SCREEN URINE NEGATIVE (NEGATIVE); CANNABINOID SCREEN, URINE NEGATIVE (NEGATIVE); COCAINE SCREEN URINE NEGATIVE (NEGATIVE); METHADONE STAT NEGATIVE (NEGATIVE); OPIATE SCREEN URINE NEGATIVE (NEGATIVE); OXYCODONE STAT NEGATIVE (NEGATIVE); PROPOXYPHENE STAT NEGATIVE (NEGATIVE); TRICYCLIC ANTIDEPRESSANTS SCRE NEGATIVE (NEGATIVE)
--- NOTE | 2021-10-03 19:13 | Diagnostic Imaging Report ---
CLINICAL INDICATIONS: Patient with vomiting x4 days. Recent gallbladder removal on 09/22/2021. EXAM: Axial CT scan of the abdomen and pelvis performed with 100 mL of Omnipaque 350 IV contrast. Sagittal and coronal reformatted images are created. Auto Exposure Controls were utilized during the CT exam to meet ALARA standards for radiation dose reduction. COMPARISON: None. FINDINGS: Visualized lung bases are clear. There are degenerative spurs involving the visualized lower thoracic spine and lumbar spine. There is diffuse wall thickening involving the distal esophagus concerning for esophagitis. There is no measurable mass. There is wall thickening involving the stomach and the stomach is moderately fluid filled. This may be related to gastritis or contraction. There is also wall thickening of the antrum which may be related to antritis or contraction. Remainder of the intestines are unremarkable. Appendix is unremarkable. There is diverticulosis involving the sigmoid colon and descending colon but no CT evidence of diverticulitis. There is no intra-abdominal free air or free fluid. The gallbladder is surgically absent. There is a small amount of fluid in the gallbladder fossa region measuring roughly 1.8 cm x 4.0 cm in greatest axial dimension. There is no definite evidence of abscess. There is small amount of fat stranding adjacent to the gallbladder fossa region, likely from postop changes. There is no intrahepatic or extrahepatic ductal dilation. The liver, spleen, pancreas, and adrenal glands are unremarkable. There are multiple bilateral circumscribed low-density areas involving both kidneys likely representing cysts. The largest one measures 8 mm involving the upper portion of the right kidney. Both kidneys are otherwise unremarkable with no hydronephrosis or stone. There is a small amount of fluid in the bladder. There is diffuse bladder wall thickening with no measurable mass. Prostate gland is unremarkable. There is a small defect involving the midline upper abdominal region which may represent a laparoscopy port. There is also mild fat stranding along the left lower abdominal region and right upper abdominal region, suspected to represent laparoscopy port changes. The extra-abdominal and extrapelvic soft tissue structures are unremarkable. There is no significant lymphadenopathy. IMPRESSION: 1: There is diffuse wall thickening involving the distal esophagus concerning for esophagitis. There is no measurable mass. There is also wall thickening involving the stomach and gastric antrum which may be related to gastritis/antritis or incomplete distention. Nonemergent esophagram with upper gastrointestinal series would better evaluate. 2: There are postop changes consistent with cholecystectomy. There is a small amount of fluid and minimal fat stranding adjacent to the gallbladder fossa region. These are suspected to be postoperative changes. There is no evidence of abscess. There are no dilated ducts. 3: Likely multiple bilateral renal cysts. Dictated by: Dictated on workstation # [id number]
[2021-10-03] MEDS ORDERED: FAMOTIDINE 20MG/2ML IV (PEPCID) IVP ONE (20:00)
[2021-10-03] MEDS ORDERED: ANTACID SUSP 30 ML UDC (MYLANTA) PO ONE (20:00)
[2021-10-03 21:20] VITALS: BP 136/81
[2021-10-03] MEDS ORDERED: NS IV 1000 ML 1,000 ML ONE (21:37)
[2021-10-03] MEDS: metroNIDAZOLE 500 MG/100 ML IVPB (PRE-MIX) IV SCH (23:34)
[2021-10-03] MEDS: ONDANSETRON 4 MG/2 ML (SDV) Z0FRAN IV PRN (23:34)
[2021-10-03] MEDS: NS IV 1000 ML 1,000 ML IV SCH (23:35)
[2021-10-03 23:39] VITALS: BP 141/85
[2021-10-03 23:50] VITALS: BP 141/85
[2021-10-04] MEDS ORDERED: RT-ALBUTEROL/IPRATROPIUM 3 ML (DUONEB) VIAL INH PRN
[2021-10-04 04:17] VITALS: BP 156/95
[2021-10-04 05:12] LABS: BASOPHILS # (AUTO) 0.1 10^3/uL (0.0-0.1); BASOPHILS % (AUTO) 1 % (0-10); EOSINOPHILS # (AUTO) 0.2 10^3/uL (0.0-0.3); EOSINOPHILS % (AUTO) 1 % (0-10); HEMATOCRIT 37 % (40-54); HEMOGLOBIN 12.2 g/dL (13.3-17.7); LYMPHOCYTES # (AUTO) 2.5 10^3/uL (1.0-4.0); LYMPHOCYTES % (AUTO) 19 % (12-44); MEAN CORPUSCULAR HEMOGLOBIN 28 pg (25-34); MEAN CORPUSCULAR HGB CONC 33 g/dL (32-36); MEAN CORPUSCULAR VOLUME 85 fL (80-99); MEAN PLATELET VOLUME 10.8 fL (9.0-12.2); MONOCYTES # (AUTO) 0.8 10^3/uL (0.0-1.0); MONOCYTES % (AUTO) 6 % (0-12); NEUTROPHILS # (AUTO) 9.6 10^3/uL (1.8-7.8); NEUTROPHILS % (AUTO) 73 % (42-75); PLATELET COUNT 228 10^3/uL (130-400); WHITE BLOOD COUNT 13.2 10^3/uL (4.3-11.0)
[2021-10-04 05:23] LABS: POTASSIUM 3.9 MMOL/L (3.6-5.0)
[2021-10-04 05:24] LABS: CALCIUM 8.3 MG/DL (8.5-10.1)
[2021-10-04 05:28] LABS: CREATININE SERUM 0.91 MG/DL (0.60-1.30)
[2021-10-04] MEDS: ONDANSETRON 4 MG/2 ML (SDV) Z0FRAN IV PRN (05:51)
[2021-10-04] MEDS: NS IV 1000 ML 1,000 ML IV SCH ×3 (05:52→19:46)
[2021-10-04] MEDS: metroNIDAZOLE 500 MG/100 ML IVPB (PRE-MIX) IV SCH ×3 (05:54→22:56)
[2021-10-04 07:35] VITALS: BP 148/91
[2021-10-04] MEDS: FAMOTIDINE 20MG/2ML IV (PEPCID) IVP SCH ×2 (08:49→21:01)
--- NOTE | 2021-10-04 10:09 | Consultation - Surgery ---
History of Present Illness History of Present Illness Patient Consulted On(edwin/time) 10/04/21 10:06 Date Seen by Provider: October 04, 2021 Time Seen by Provider: 08:50 History of Present Illness Consult requested by Dr. Ortiz for postoperative nausea and vomiting. Patient is a 41-year-old male who underwent laparoscopic cholecystectomy on September [address] Lancaster at [facility]. Patient states that since about September 29 he had been having nausea and vomiting symptoms. He continues to have some slight abdominal pain more on the right side he states but also sometimes generalized. Patient states nothing really seems to make things better. Nothing was seems to make things worse that he knows of. He denies any fever. He has had some chills he feels. He was found to have an elevated bilirubin and had a CT scan that demonstrates a fluid in the gallbladder fossa with some inflammation around this area also some thickening of the distal esophagus. Allergies and Home Medications Allergies Coded Allergies: [place] Known Allergies (Verified Allergy, Unknown, 09/25/05) Patient Home Medication List Home Medication List Reviewed: Yes Acetaminophen (Tylenol Extra Strength) 500 Mg Tablet, 1,000 MG PO Q8H PRN for PAIN-MILD (1-4), (Reported) Entered as Reported by: ABIDA BRUMFIELD on 03/09/21 1451 Aspirin (Aspirin EC) 81 Mg Tablet.dr, 81 MG PO DAILY Prescribed by: LOC AUGUST on 03/16/21 1142 Atorvastatin Calcium (Atorvastatin Calcium) 40 Mg Tablet, 40 MG PO HS, (Reported) Entered as Reported by: ABIDA BRUMFIELD on 03/09/21 1451 Ceftriaxone Sodium (Ceftriaxone) 2 Gm/Vial Soln, 2 GM IV DAILY Prescribed by: LOC AUGUST on 03/13/21 1413 Hydrocodone Bit/Acetaminophen (HYDROcodone/APAP 5 MG/325 MG TAB) 1 Tab Tab, 1 EA PO Q4H PRN for PAIN-MODERATE (5-7) Prescribed by: LOC AUGUST on 03/16/21 1143 Liraglutide (Victoza 3-Yan) 0.6 Mg/0.1 Ml Pen.injctr, 0.6 MG SQ 1800, (Reported) Entered as Reported by: ABIDA BRUMFIELD on 03/09/21 1451 Lisinopril (Lisinopril) 10 Mg Tablet, 10 MG PO DAILY Prescribed by: LOC AUGUST on 03/16/21 1142 Metformin HCl (Metformin HCl ER) 500 Mg Tab.er.24, 500 MG PO 1800 W/ DINNER Prescribed by: STEPHANIE ALMONTE on 03/18/21 1106 Metronidazole (Metronidazole) 500 Mg Tablet, 500 MG PO TID Prescribed by: LOC AUGUST on 03/16/21 1142 [place] 3 Polyunsat Fatty Acids (Fish Oil 1,000 mg Capsule) 1,000 Mg Cap, 1,000 MG PO BID WITH MEALS Prescribed by: LOC AUGUST on 03/16/21 114 Sennosides/Docusate Sodium (Stool Softener-Laxative Tablet) 1 Each Tablet, 1 EA PO BID Prescribed by: LOC AUGUST on 03/16/21 1142 Past [id number]-Vfwwum Hx Patient Social History Type Used: Cigarettes Alcohol Use?: No Have you traveled recently?: No Immunizations Up To Date Date of Influenza Vaccine: Mar 05, 2021 Seasonal Allergies Seasonal Allergies: No Surgeries History of Surgeries: Yes (wisdom teeth removal, urethral surgery) Surgeries: Gallbladder Respiratory History of Respiratory Disorde: No Cardiovascular History of Cardiac Disorders: No Neurological History of Neurological Disord: No Genitourinary History of Genitourinary Disor: Yes Genitourinary Disorders: Epi/Hypospadias Gastrointestinal History of Gastrointestinal Di: No Musculoskeletal History of Musculoskeletal Dis: No Endocrine History of Endocrine Disorders: Yes Endocrine Disorders: Diabetes, Non-Insulin dep HEENT History of HEENT Disorders: No Loss of Vision: Bilateral Hearing Impairment: Denies Cancer History of Cancer: No Psychosocial History of Psychiatric Problem: Yes Behavioral Health Disorders: Anxiety Integumentary History of Skin or Integumenta: No Reviewed Nursing Assessment Reviewed/Agree w Nursing PMH: Yes Family Medical History Significant Family History: Cancer Review of Systems-General Constitutional: chills; No weakness EENTM: No blurred vision, No double vision Respiratory: No dyspnea on exertion, No short of breath Cardiovascular: No chest pain, No palpitations Gastrointestinal: abdominal pain (right side), nausea, vomiting Genitourinary: No decreased output, No discharge Musculoskeletal: No back pain, No joint pain Skin: change in color Psychiatric/Neurological: Denies Anxiety, Denies Depressed, Denies Emotional Problems All Other Systems Reviewed Negative Unless Noted: Yes (Negative excepted noted.) Physical Exam-General Problems Physical Exam Vital Signs Vital Signs - First Documented 10/03/21 10/03/21 10/04/21 17:00 20:59 07:13 Temp 36.2 Pulse 119 Resp 18 B/P (MAP) 86/65 (72) Pulse Ox 98 O2 Delivery Room Air O2 Flow Rate 0.00 Capillary Refill : Less Than 3 Seconds General Appearance: WD/WN, no apparent distress (laying in bed) HEENT: PERRL/EOMI, normal ENT inspection, other (icteric) Neck: non-tender, supple Respiratory: chest non-tender, no respiratory distress, no accessory muscle use Cardiovascular: regular rate, rhythm, no JVD Gastrointestinal: soft, tenderness (more right side abdomen, incisions c/d/i) Rectal: deferred Back: normal inspection, no vertebral tenderness Extremities: non-tender, normal inspection Neurologic/Psychiatric: alert, normal mood/affect, oriented x 3 Skin: warm/dry, jaundice (minimal) Lymphatic: no adenopathy Data Review Labs Laboratory Tests 10/03/21 17:19: White Blood Count 18.8H, Red Blood Count 5.27, Hemoglobin 15.0, Hematocrit 45, Mean Corpuscular Volume 85, Mean Corpuscular Hemoglobin 29, Mean Corpuscular Hemoglobin Concent 33, Red Cell Distribution Width 12.0, Platelet Count 299, Mean Platelet Volume 11.4, Immature Granulocyte % (Auto) 0, Neutrophils (%) (Auto) 77H, Lymphocytes (%) (Auto) 18, Monocytes (%) (Auto) 4, Eosinophils (%) (Auto) 0, Basophils (%) (Auto) 1, Neutrophils # (Auto) 14.4H, Lymphocytes # (Auto) 3.3, Monocytes # (Auto) 0.8, Eosinophils # (Auto) 0.1, Basophils # (Auto) 0.1, Immature Granulocyte # (Auto) 0.1, Neutrophils % (Manual) 65, Lymphocytes % (Manual) 22, Monocytes % (Manual) 6, Eosinophils % (Manual) 1, Basophils % (Manual) 1, Blood Morphology Comment NORMAL, Prothrombin Time 13.3, INR Comment 1.0, Activated Partial Thromboplast Time 30, Sodium Level 138, Potassium Level 4.1, Chloride Level 97L, Carbon Dioxide Level 27, Anion Gap 14, Blood Urea Nitrogen 18, Creatinine 1.22, Estimat Glomerular Filtration Rate 76, BUN/Creatinine Ratio 15, Glucose Level 149H, Lactic Acid Level 1.88, Calcium Level 10.0, Corrected Calcium 9.7, Total Bilirubin 2.7H, Aspartate Amino Transf (AST/SGOT) 21, Alanine Aminotransferase (ALT/SGPT) 33, Alkaline Phosphatase 127, Total Protein 7.9, Albumin 4.4 10/03/21 17:30: Urine Color YELLOW, Urine Clarity CLEAR, Urine pH 6.0, Urine Specific [place] 1.020, Urine Protein 2+H, Urine Glucose (UA) 3+H, Urine Ketones 1+H, Urine Nitrite NEGATIVE, Urine Bilirubin 1+H, Urine Urobilinogen 2.0, Urine Leukocyte Esterase NEGATIVE, Urine RBC (Auto) TRACE-IH, Urine RBC NONE, Urine WBC 10-25H, Urine Squamous Epithelial Cells RARE, Urine Crystals NONE, Urine Bacteria TRACE, Urine Casts PRESENT, Urine Hyaline Casts 10-25H, Urine White Blood Cell Casts RAREH, Urine Mucus SMALLH, Urine Culture Indicated YES, Urine Opiates Screen NEGATIVE, Urine Oxycodone Screen NEGATIVE, Urine Methadone Screen NEGATIVE, Urine Propoxyphene Screen NEGATIVE, Urine Barbiturates Screen NEGATIVE, Ur Tricyclic Antidepressants Screen NEGATIVE, Urine Phencyclidine Screen NEGATIVE, Urine Amphetamines Screen NEGATIVE, Urine Methamphetamines Screen NEGATIVE, Urine Benzodiazepines Screen NEGATIVE, Urine Cocaine Screen NEGATIVE, Urine Cannabinoids Screen NEGATIVE 10/04/21 05:05: White Blood Count 13.2H, Red Blood Count 4.32, Hemoglobin 12.2L, Hematocrit 37L, Mean Corpuscular Volume 85, Mean Corpuscular Hemoglobin 28, Mean Corpuscular Hemoglobin Concent 33, Red Cell Distribution Width 11.9, Platelet Count 228, Mean Platelet Volume 10.8, Immature Granulocyte % (Auto) 0, Neutrophils (%) (Auto) 73, Lymphocytes (%) (Auto) 19, Monocytes (%) (Auto) 6, Eosinophils (%) (Auto) 1, Basophils (%) (Auto) 1, Neutrophils # (Auto) 9.6H, Lymphocytes # (Auto) 2.5, Monocytes # (Auto) 0.8, Eosinophils # (Auto) 0.2, Basophils # (Auto) 0.1, Immature Granulocyte # (Auto) 0.0, Sodium Level 138, Potassium Level 3.9, Chloride Level 105, Carbon Dioxide Level 22, Anion Gap 11, Blood Urea Nitrogen 16, Creatinine 0.91, Estimat Glomerular Filtration Rate 108, BUN/Creatinine Ratio 18, Glucose Level 102, Lactic Acid Level 0.67, Calcium Level 8.3L Assessment/Plan Assessment/Plan Assessment/Plan Nausea vomiting s/p cholecystectomy at outside facility Fluid around gallbladder fossa, abnormal ct hyperbilirubinemia right sided abdominal pain iv fluids antiemetics pain control will get hida without ef scan to evaluate for leak or CBD obstruction TREVA CLAYTON DO October 04, 2021 10:09
[2021-10-04] MEDS ORDERED: ATOR80TA76 PO (10:23)
[2021-10-04] MEDS ORDERED: LIRA0.6P3 SQ (10:23)
[2021-10-04] MEDS ORDERED: METF-478 PO (10:23)
[2021-10-04] MEDS ORDERED: CANA300T PO (10:23)
[2021-10-04] MEDS ORDERED: POLY17PO6 PO (10:23)
[2021-10-04] MEDS ORDERED: ASPI-999 PO (10:23)
[2021-10-04] MEDS ORDERED: GBPN600T PO (10:23)
[2021-10-04] MEDS ORDERED: LISI2.5T13 PO (10:23)
[2021-10-04] MEDS ORDERED: SENN-234 PO (10:23)
[2021-10-04] MEDS ORDERED: SIME80TA16 PO (10:27)
[2021-10-04 11:11] VITALS: BP 163/98
--- NOTE | 2021-10-04 15:43 | Diagnostic Imaging Report ---
RADIOPHARMACEUTICAL: 5.47 mCi Tc-99m Choletec IV INDICATION: Vomiting, postsurgical fluid collection. TECHNIQUE: Anterior dynamic imaging for 1 hour. FINDINGS: There is homogeneous uptake throughout the liver. The gallbladder is not visualized, consistent with prior cholecystectomy. No focal activity is seen overlying the right upper quadrant. The small bowel is identified within the first 10 minutes of imaging with activity progressing through the small bowel during the examination. No free activity suggested within the peritoneal cavity. IMPRESSION: Cholecystectomy without common duct obstruction or focal active bile collection. Dictated by: Dictated on workstation # [id number]
[2021-10-04 15:54] VITALS: BP 168/95
[2021-10-04] MEDS: cefTRIAXone 1 GM/50 ML (PRE-MIX) IV SCH (17:29)
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
[2021-10-04 19:57] VITALS: BP 160/87
[2021-10-04] MEDS: GABAPENTIN 600 MG (NEURONTIN) TAB PO SCH (21:01)
[2021-10-04] MEDS: ASPIRIN 81 MG CHEW (CHILDREN'S ASA) PO SCH (21:01)
[2021-10-04 23:06] VITALS: BP 150/86
[2021-10-05 03:37] VITALS: BP 157/88
[2021-10-05] MEDS: NS IV 1000 ML 1,000 ML IV SCH ×4 (03:39→20:50)
[2021-10-05 06:04] LABS: BASOPHILS # (AUTO) 0.1 10^3/uL (0.0-0.1); BASOPHILS % (AUTO) 1 % (0-10); EOSINOPHILS # (AUTO) 0.3 10^3/uL (0.0-0.3); EOSINOPHILS % (AUTO) 3 % (0-10); HEMATOCRIT 36 % (40-54); HEMOGLOBIN 12.1 g/dL (13.3-17.7); LYMPHOCYTES # (AUTO) 1.7 10^3/uL (1.0-4.0); LYMPHOCYTES % (AUTO) 17 % (12-44); MEAN CORPUSCULAR HEMOGLOBIN 29 pg (25-34); MEAN CORPUSCULAR HGB CONC 34 g/dL (32-36); MEAN CORPUSCULAR VOLUME 84 fL (80-99); MEAN PLATELET VOLUME 11.3 fL (9.0-12.2); MONOCYTES # (AUTO) 0.6 10^3/uL (0.0-1.0); MONOCYTES % (AUTO) 6 % (0-12); NEUTROPHILS # (AUTO) 7.6 10^3/uL (1.8-7.8); NEUTROPHILS % (AUTO) 74 % (42-75); PLATELET COUNT 206 10^3/uL (130-400); WHITE BLOOD COUNT 10.2 10^3/uL (4.3-11.0)
[2021-10-05 06:27] LABS: ALBUMIN 3.4 GM/DL (3.2-4.5); POTASSIUM 3.5 MMOL/L (3.6-5.0)
[2021-10-05 06:28] LABS: CALCIUM 8.2 MG/DL (8.5-10.1)
[2021-10-05 06:31] LABS: BILIRUBIN,TOTAL 1.5 MG/DL (0.1-1.0)
[2021-10-05 06:33] LABS: CREATININE SERUM 0.82 MG/DL (0.60-1.30)
[2021-10-05] MEDS: metroNIDAZOLE 500 MG/100 ML IVPB (PRE-MIX) IV SCH ×3 (06:37→22:30)
[2021-10-05 07:32] VITALS: BP 155/85
[2021-10-05] MEDS: GABAPENTIN 600 MG (NEURONTIN) TAB PO SCH ×3 (08:32→20:50)
[2021-10-05] MEDS: FAMOTIDINE 20MG/2ML IV (PEPCID) IVP SCH ×2 (08:38→20:49)
[2021-10-05 11:10] VITALS: BP 149/79
--- NOTE | 2021-10-05 14:31 | Progress Note - Surgery ---
Subjective Date Seen by a Provider: October 05, 2021 Time Seen by a Provider: 13:46 Subjective/Events-last exam Patient feeling better a little bit today. He still having nausea. Not having any emesis. He is tolerating clears but still having significant reflux in the sternal area. Patient states his right side abdominal pain is slightly improved but still present. Denies fever sweats chills shortness of breath or chest pain. Patient HIDA scan did not demonstrate any relief. Labs improving. Focused Exam Lactate Level 10/03/21 17:19: Lactic Acid Level 1.88 10/04/21 05:05: Lactic Acid Level 0.67 Objective Exam Vital Signs Date Time Temp Pulse Resp B/P (MAP) Pulse Ox O2 Delivery O2 Flow Rate FiO2 10/05/21 13:00 83 10/05/21 11:10 36.8 76 18 149/79 (102) 97 Room Air 10/05/21 08:00 Room Air 10/05/21 07:32 37.0 78 18 155/85 (108) 97 Room Air 10/05/21 07:00 84 10/05/21 03:37 36.5 95 18 157/88 (111) 97 Room Air 10/05/21 01:00 88 10/04/21 23:06 36.4 94 18 150/86 (107) 95 Room Air 10/04/21 20:59 Room Air 10/04/21 19:57 37.1 84 17 160/87 (111) 97 Room Air 10/04/21 19:00 124 10/04/21 15:54 36.4 93 17 168/95 (119) 96 Room Air I & O 10/05/21 07:00 Intake Total 0 ml Output Total 1103 ml Balance -1103 ml Capillary Refill : Less Than 3 Seconds General Appearance: No Apparent Distress, Anxious HEENT: PERRL/EOMI, Normal ENT Inspection Neck: Full Range of Motion, Non Tender Respiratory: Chest Non Tender, No Accessory Muscle Use, No Respiratory Distress Cardiovascular: Regular Rate, Rhythm, No JVD Gastrointestinal: soft, tenderness (epigastric ttp, no rebound or guarding, incisions no signs of infection) Extremity: Normal Range of Motion, Other (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, and ulcer of left foot) Neurologic/Psychiatric: Alert, Oriented x3, Other (appears a little slow in intellectual ability) Skin: Normal Color, Warm/Dry Lymphatic: No Adenopathy Results Lab Laboratory Tests 10/04/21 15:22: Glucometer 90 10/05/21 05:53: White Blood Count 10.2, Red Blood Count 4.25L, Hemoglobin 12.1L, Hematocrit 36L, Mean Corpuscular Volume 84, Mean Corpuscular Hemoglobin 29, Mean Corpuscular Hemoglobin Concent 34, Red Cell Distribution Width 11.9, Platelet Count 206, Mean Platelet Volume 11.3, Immature Granulocyte % (Auto) 0, Neutrophils (%) (Auto) 74, Lymphocytes (%) (Auto) 17, Monocytes (%) (Auto) 6, Eosinophils (%) (Auto) 3, Basophils (%) (Auto) 1, Neutrophils # (Auto) 7.6, Lymphocytes # (Auto) 1.7, Monocytes # (Auto) 0.6, Eosinophils # (Auto) 0.3, Basophils # (Auto) 0.1, Immature Granulocyte # (Auto) 0.0, Sodium Level 138, Potassium Level 3.5L, Chloride Level 106, Carbon Dioxide Level 21, Anion Gap 11, Blood Urea Nitrogen 13, Creatinine 0.82, Estimat Glomerular Filtration Rate 112, BUN/Creatinine Ratio 16, Glucose Level 73, Calcium Level 8.2L, Corrected Calcium 8.7, Total Bilirubin 1.5H, Aspartate Amino Transf (AST/SGOT) 17, Alanine Aminotransferase (ALT/SGPT) 21, Alkaline Phosphatase 94, Total Protein 6.0L, Albumin 3.4 Microbiology 10/03/21 Blood Culture - Preliminary, Resulted No growth 10/03/21 Urine Culture - Final, Complete 3 or more isolates Assessment/Plan Assessment/Plan Assessment/Plan Nausea vomiting s/p cholecystectomy at outside facility Fluid around gallbladder fossa, abnormal ct hyperbilirubinemia right sided abdominal pain iv fluids antiemetics pain control will get hida without ef scan to evaluate for leak or CBD obstruction Added Protonix and Carafate. Clear liquids TREVA CLAYTON DO October 05, 2021 14:31
--- NOTE | 2021-10-05 15:13 | Progress Note ---
Subjective Subjective/Events-last exam Patient states that he is still having pain. Interested in trying CLD. Tolerating ambulation. Review of Systems General: Malaise Pulmonary: No Dyspnea, No Cough Gastrointestinal: Nausea, Abdominal Pain; No: Vomiting Focused Exam Lactate Level 10/03/21 17:19: Lactic Acid Level 1.88 10/04/21 05:05: Lactic Acid Level 0.67 Objective Exam Last Set of Vital Signs Vital Signs Date Time Temp Pulse Resp B/P (MAP) Pulse Ox O2 Delivery O2 Flow Rate FiO2 10/05/21 13:00 83 10/05/21 11:10 36.8 18 149/79 (102) 97 Room Air 10/04/21 07:13 0.00 Capillary Refill : Less Than 3 Seconds I&O Intake and Output 10/04/21 23:59 Intake Total 1200 ml Output Total 828 ml Balance 372 ml Intake Oral 0 ml IV Total 1200 ml Output Urine Total 828 ml General: Alert, Oriented X3, Cooperative, No Acute Distress Lungs: Clear to Auscultation, Normal Air Movement Heart: Regular Rate, No Murmurs Abdomen: Soft, Other (mild ttp RUQ, no rebound or guarding) Neuro: Normal Speech Results/Procedures Lab Laboratory Tests 10/04/21 15:22: Glucometer 90 10/05/21 05:53: White Blood Count 10.2, Red Blood Count 4.25L, Hemoglobin 12.1L, Hematocrit 36L, Mean Corpuscular Volume 84, Mean Corpuscular Hemoglobin 29, Mean Corpuscular Hemoglobin Concent 34, Red Cell Distribution Width 11.9, Platelet Count 206, Mean Platelet Volume 11.3, Immature Granulocyte % (Auto) 0, Neutrophils (%) (Auto) 74, Lymphocytes (%) (Auto) 17, Monocytes (%) (Auto) 6, Eosinophils (%) (Auto) 3, Basophils (%) (Auto) 1, Neutrophils # (Auto) 7.6, Lymphocytes # (Auto) 1.7, Monocytes # (Auto) 0.6, Eosinophils # (Auto) 0.3, Basophils # (Auto) 0.1, Immature Granulocyte # (Auto) 0.0, Sodium Level 138, Potassium Level 3.5L, Chloride Level 106, Carbon Dioxide Level 21, Anion Gap 11, Blood Urea Nitrogen 13, Creatinine 0.82, Estimat Glomerular Filtration Rate 112, BUN/Creatinine Ratio 16, Glucose Level 73, Calcium Level 8.2L, Corrected Calcium 8.7, Total Bilirubin 1.5H, Aspartate Amino Transf (AST/SGOT) 17, Alanine Aminotransferase (ALT/SGPT) 21, Alkaline Phosphatase 94, Total Protein 6.0L, Albumin 3.4 Microbiology 10/03/21 Blood Culture - Preliminary, Resulted No growth 10/03/21 Urine Culture - Final, Complete 3 or more isolates Assessment/Plan Assessment/Plan (1) Post-op pain Status: Acute Assessment & Plan: - Dr Sims consulted, appreciate recommendations, HIDA scan today normal, Will advance diet as tolerated 10/08: Normal HIDA, will advance diet to CLD (2) Post-operative nausea and vomiting Status: Acute (3) Diabetes mellitus, type 2 Status: Chronic Assessment & Plan: - Continue home meds, holding metformin (4) Hypertension Status: Chronic Assessment & Plan: 10/05: Blood pressure continues to be elevated, will start lisinopril daily CARLTON BAEZA MD October 05, 2021 15:13
[2021-10-05] MEDS: lisINopril 10 MG (PRINIVIL) TABLET PO SCH (15:40)
[2021-10-05] MEDS: SUCRALFATE 1 GM (CARAFATE) TAB PO SCH ×2 (15:41→20:50)
[2021-10-05 15:52] VITALS: BP 164/90
[2021-10-05] MEDS: cefTRIAXone 1 GM/50 ML (PRE-MIX) IV SCH (18:36)
[2021-10-05 19:42] VITALS: BP 142/84
[2021-10-05] MEDS: ASPIRIN 81 MG CHEW (CHILDREN'S ASA) PO SCH (20:50)
[2021-10-05] MEDS: PANTOPRAZOLE 40 MG (PROTONIX) VIAL IV SCH (20:50)
[2021-10-06] VITALS (7 sets, daily range): BP systolic 127–174; BP diastolic 76–94
[2021-10-06] MEDS: NS IV 1000 ML 1,000 ML IV SCH ×3 (02:35→17:45)
[2021-10-06] MEDS: metroNIDAZOLE 500 MG/100 ML IVPB (PRE-MIX) IV SCH ×3 (05:49→23:05)
[2021-10-06] MEDS: SUCRALFATE 1 GM (CARAFATE) TAB PO SCH ×4 (05:49→19:49)
--- NOTE | 2021-10-06 05:50 | Progress Note - Hospitalist ---
Subjective HPI/CC On Admission Date Seen by Provider: October 06, 2021 Time Seen by Provider: 08:30 Subjective/Events-last exam Pt is doing a lot better Tolerating clear liquid diet May be able to advance diet today Feels good otherwise Review of Systems General: Fatigue, Malaise Focused Exam Lactate Level 10/04/21 05:05: Lactic Acid Level 0.67 Objective Exam Vital Signs Vital Signs Date Time Temp Pulse Resp B/P (MAP) Pulse Ox O2 Delivery O2 Flow Rate FiO2 10/06/21 16:08 36.5 83 16 127/77 (94) 98 Room Air 10/06/21 07:55 0.00 Capillary Refill : Less Than 3 Seconds General Appearance: No Apparent Distress, WD/WN, Chronically ill Respiratory: Lungs Clear Cardiovascular: Regular Rate, Rhythm Neurologic/Psychiatric: Alert, Oriented x3, No Motor/Sensory Deficits, Normal Mood/Affect Results/Procedures Lab Laboratory Tests 10/06/21 05:40 Patient resulted labs reviewed. Assessment/Plan Assessment and Plan Assess & Plan/Chief Complaint Assessment: Intractable nausea and vomiting Postop cholecystectomy Plan: Supportive care Hep-Lock IV fluid Advance diet LOC AUGUST DO October 06, 2021 05:50
[2021-10-06 06:13] LABS: BASOPHILS # (AUTO) 0.1 10^3/uL (0.0-0.1); BASOPHILS % (AUTO) 1 % (0-10); EOSINOPHILS # (AUTO) 0.3 10^3/uL (0.0-0.3); EOSINOPHILS % (AUTO) 4 % (0-10); HEMATOCRIT 36 % (40-54); LYMPHOCYTES # (AUTO) 1.8 10^3/uL (1.0-4.0); LYMPHOCYTES % (AUTO) 22 % (12-44); MEAN CORPUSCULAR HEMOGLOBIN 29 pg (25-34); MEAN CORPUSCULAR HGB CONC 34 g/dL (32-36); MEAN CORPUSCULAR VOLUME 85 fL (80-99); MEAN PLATELET VOLUME 11.5 fL (9.0-12.2); MONOCYTES # (AUTO) 0.7 10^3/uL (0.0-1.0); MONOCYTES % (AUTO) 8 % (0-12); NEUTROPHILS # (AUTO) 5.4 10^3/uL (1.8-7.8); NEUTROPHILS % (AUTO) 66 % (42-75); PLATELET COUNT 209 10^3/uL (130-400); WHITE BLOOD COUNT 8.2 10^3/uL (4.3-11.0)
[2021-10-06 06:23] LABS: ALBUMIN 3.3 GM/DL (3.2-4.5)
[2021-10-06 06:24] LABS: POTASSIUM 3.6 MMOL/L (3.6-5.0)
[2021-10-06 06:25] LABS: CALCIUM 8.2 MG/DL (8.5-10.1)
[2021-10-06 06:26] LABS: TOTAL PROTEIN 5.8 GM/DL (6.4-8.2)
[2021-10-06 06:30] LABS: CREATININE SERUM 0.98 MG/DL (0.60-1.30)
[2021-10-06] MEDS: PANTOPRAZOLE 40 MG (PROTONIX) VIAL IV SCH (08:31)
[2021-10-06] MEDS: FAMOTIDINE 20MG/2ML IV (PEPCID) IVP SCH (08:31)
[2021-10-06] MEDS: GABAPENTIN 600 MG (NEURONTIN) TAB PO SCH ×3 (08:31→19:49)
[2021-10-06] MEDS: lisINopril 10 MG (PRINIVIL) TABLET PO SCH (08:31)
--- NOTE | 2021-10-06 17:28 | Progress Note - Surgery ---
Subjective Date Seen by a Provider: October 06, 2021 Time Seen by a Provider: 15:05 Subjective/Events-last exam Patient stated that he started to feel better. Is not having the reflux as he was since we made some adjustments to his medications. He is not having the right-sided abdominal pain. Patient is tolerating clear liquids. He has not had any further emesis. He denies having nausea vomiting fever sweats chills shortness of breath or chest pain at this time. Focused Exam Lactate Level 10/04/21 05:05: Lactic Acid Level 0.67 Objective Exam Vital Signs Date Time Temp Pulse Resp B/P (MAP) Pulse Ox O2 Delivery O2 Flow Rate FiO2 10/06/21 16:08 36.5 83 16 127/77 (94) 98 Room Air 10/06/21 12:53 84 10/06/21 11:17 36.7 74 18 154/90 (111) 97 Room Air 10/06/21 08:00 Room Air 10/06/21 07:55 98 Room Air 0.00 10/06/21 07:35 36.4 80 17 154/85 (108) 98 Room Air 10/06/21 07:19 96 Room Air 0.00 10/06/21 07:00 75 10/06/21 04:00 36.5 67 16 136/86 (103) 97 Room Air 10/06/21 01:00 76 10/06/21 00:23 37.0 79 18 132/76 (94) 97 Room Air 10/05/21 20:00 Room Air 10/05/21 19:42 37.0 89 18 142/84 (103) 97 Room Air 10/05/21 19:00 87 I & O 10/06/21 06:59 Intake Total 3980 ml Output Total 1350 ml Balance 2630 ml Capillary Refill : Less Than 3 Seconds General Appearance: No Apparent Distress, Anxious HEENT: PERRL/EOMI, Normal ENT Inspection Neck: Full Range of Motion, Non Tender Respiratory: Chest Non Tender, No Accessory Muscle Use, No Respiratory Distress Cardiovascular: Regular Rate, Rhythm, No JVD Gastrointestinal: non tender (Incision is clean dry intact no signs of infection), soft Extremity: Normal Range of Motion, Other (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, and ulcer of left foot) Neurologic/Psychiatric: Alert, Oriented x3, Other (appears a little slow in intellectual ability) Skin: Normal Color, Warm/Dry Lymphatic: No Adenopathy Results Lab Laboratory Tests 10/06/21 05:40: White Blood Count 8.2, Red Blood Count 4.21L, Hemoglobin 12.0L, Hematocrit 36L, Mean Corpuscular Volume 85, Mean Corpuscular Hemoglobin 29, Mean Corpuscular Hemoglobin Concent 34, Red Cell Distribution Width 12.0, Platelet Count 209, Mean Platelet Volume 11.5, Immature Granulocyte % (Auto) 0, Neutrophils (%) (Auto) 66, Lymphocytes (%) (Auto) 22, Monocytes (%) (Auto) 8, Eosinophils (%) (Auto) 4, Basophils (%) (Auto) 1, Neutrophils # (Auto) 5.4, Lymphocytes # (Auto) 1.8, Monocytes # (Auto) 0.7, Eosinophils # (Auto) 0.3, Basophils # (Auto) 0.1, Immature Granulocyte # (Auto) 0.0, Sodium Level 138, Potassium Level 3.6, Chloride Level 106, Carbon Dioxide Level 22, Anion Gap 10, Blood Urea Nitrogen 9, Creatinine 0.98, Estimat Glomerular Filtration Rate 99, BUN/Creatinine Ratio 9, Glucose Level 164H, Calcium Level 8.2L, Corrected Calcium 8.8, Total Bilirubin 1.0, Aspartate Amino Transf (AST/SGOT) 18, Alanine Aminotransferase (ALT/SGPT) 19, Alkaline Phosphatase 92, Total Protein 5.8L, Albumin 3.3 Microbiology 10/03/21 Blood Culture - Preliminary, Resulted No growth 10/03/21 Urine Culture - Final, Complete 3 or more isolates Assessment/Plan Assessment/Plan Assessment/Plan Nausea vomiting s/p cholecystectomy at outside facility GERD esophagitis Fluid around gallbladder fossa, abnormal ct hyperbilirubinemia right sided abdominal pain iv fluids antiemetics pain control Feeling better we will advance diet Protonix and Carafate. TREVA CLAYTON DO October 06, 2021 17:28
[2021-10-06] MEDS: cefTRIAXone 1 GM/50 ML (PRE-MIX) IV SCH (18:28)
[2021-10-06] MEDS: ASPIRIN 81 MG CHEW (CHILDREN'S ASA) PO SCH (19:49)
[2021-10-06] MEDS: PANTOPRAZOLE 40 MG (PROTONIX) TAB PO SCH (19:49)
[2021-10-06] MEDS: FAMOTIDINE 20 MG (PEPCID) TABLET PO SCH (19:49)
[2021-10-07 04:03] VITALS: BP 139/83
[2021-10-07] MEDS ORDERED: LISI10TA25 PO (05:53)
[2021-10-07] MEDS ORDERED: PANT40TA52 PO (05:53)
[2021-10-07] MEDS ORDERED: SUCR1TAB PO (05:53)
[2021-10-07] MEDS ORDERED: FAMO20TA5 PO (05:53)
--- NOTE | 2021-10-07 05:53 | Discharge Summary ---
Discharge Summary Hospital Course Was the Problem List Reviewed?: Yes Problems/Dx: (1) Post-operative nausea and vomiting Status: Acute Hospital Course Date of Admission: October 03, 2021 at 20:30 Admission Diagnosis : Family Physician/Provider: [facility] Date of Discharge: 10/07/21 Discharge Diagnosis: refractory N/V, post op choly by Dr Florian, DM, HTN Hospital Course: Pt had an uneventful hospital course for 5 days after he was admitted for refractory nausea and vomiting after a Cholecystectomy by Dr. Charles. Overall, he did very well. He was able to eat a regular diet and was discharged in improved condition. Labs and Pending Lab Test: Microbiology 10/03/21 Blood Culture - Preliminary, Resulted No growth 10/03/21 Urine Culture - Final, Complete 3 or more isolates Home Meds Active Lisinopril 10 Mg Tablet 10 Mg PO DAILY Pantoprazole Sodium 40 Mg Tablet.dr 40 Mg PO BID Famotidine 20 Mg Tablet 20 Mg PO BID Reported Simethicone 80 Mg Tab.chew 80 Mg PO PCHS PRN Miralax (Polyethylene Glycol 3350) 17 Gram Powd.pack 17 Gm PO BID PRN Senna (Sennosides) 8.6 Mg Tablet 8.6-17.2 Mg PO BID PRN Victoza 3-Yan (Liraglutide) 0.6 Mg/0.1 Ml (18 Mg/3 Ml) Pen.injctr 3 Mg SQ HS Atorvastatin Calcium 80 Mg Tablet 80 Mg PO HS Metformin HCl ER (Metformin HCl) 500 Mg Tab.er.24 500 Mg PO HS Lisinopril 2.5 Mg Tablet 2.5 Mg PO HS Invokana (Canagliflozin) 300 Mg Tablet 300 Mg PO DAILY Gabapentin 600 Mg Tablet 600 Mg PO TID Aspirin 81 Mg Tab.chew 81 Mg PO HS Assessment/Pt Instructions PCP 1 week Discharge Planning: <30 minutes discharge planning Discharge Instructions Discharge Diet: No Restrictions Activity as Tolerated: Yes Discharge Physical Examination Vital Signs Vital Signs Date Time Temp Pulse Resp B/P (MAP) Pulse Ox O2 Delivery O2 Flow Rate FiO2 10/07/21 04:03 36.6 78 18 139/83 (101) 95 Room Air 10/06/21 07:55 0.00 General Appearance: No Apparent Distress, WD/WN Respiratory: Lungs Clear, Normal Breath Sounds Cardiovascular: Regular Rate, Rhythm Neurologic/Psychiatric: Alert, Oriented x3 Allergies: Coded Allergies: NKANo Known Allergies (Verified Allergy, Unknown, 09/25/05) venlafaxine (Verified Adverse Reaction, Unknown, aggrevated gastroparesis, 10/04/21) Discharge Summary Date of Admission October 03, 2021 at 20:30 Date of Discharge Discharge Date: October 07, 2021 Discharge Diagnosis Assessment: Intractable nausea and vomiting Postop cholecystectomy Plan: Supportive care Hep-Lock IV fluid Advance diet LOC AUGUST DO October 07, 2021 05:53
[2021-10-07] MEDS: SUCRALFATE 1 GM (CARAFATE) TAB PO SCH ×2 (06:05→11:55)
[2021-10-07] MEDS: metroNIDAZOLE 500 MG/100 ML IVPB (PRE-MIX) IV SCH (06:05)
[2021-10-07 06:42] LABS: BASOPHILS # (AUTO) 0.1 10^3/uL (0.0-0.1); BASOPHILS % (AUTO) 1 % (0-10); EOSINOPHILS # (AUTO) 0.3 10^3/uL (0.0-0.3); EOSINOPHILS % (AUTO) 4 % (0-10); HEMATOCRIT 38 % (40-54); HEMOGLOBIN 12.7 g/dL (13.3-17.7); LYMPHOCYTES # (AUTO) 1.8 10^3/uL (1.0-4.0); LYMPHOCYTES % (AUTO) 23 % (12-44); MEAN CORPUSCULAR HEMOGLOBIN 29 pg (25-34); MEAN CORPUSCULAR HGB CONC 33 g/dL (32-36); MEAN CORPUSCULAR VOLUME 86 fL (80-99); MEAN PLATELET VOLUME 11.9 fL (9.0-12.2); MONOCYTES # (AUTO) 0.5 10^3/uL (0.0-1.0); MONOCYTES % (AUTO) 6 % (0-12); NEUTROPHILS # (AUTO) 5.2 10^3/uL (1.8-7.8); NEUTROPHILS % (AUTO) 66 % (42-75); PLATELET COUNT 248 10^3/uL (130-400); WHITE BLOOD COUNT 7.9 10^3/uL (4.3-11.0)
[2021-10-07 06:53] LABS: ALBUMIN 3.7 GM/DL (3.2-4.5)
[2021-10-07 06:54] LABS: POTASSIUM 3.4 MMOL/L (3.6-5.0)
[2021-10-07 06:55] LABS: CALCIUM 8.7 MG/DL (8.5-10.1)
[2021-10-07 06:56] LABS: TOTAL PROTEIN 6.6 GM/DL (6.4-8.2)
[2021-10-07 06:58] LABS: BILIRUBIN,TOTAL 0.9 MG/DL (0.1-1.0)
[2021-10-07 07:49] VITALS: BP 172/98
[2021-10-07] MEDS: lisINopril 10 MG (PRINIVIL) TABLET PO SCH (08:38)
[2021-10-07] MEDS: FAMOTIDINE 20 MG (PEPCID) TABLET PO SCH (08:38)
[2021-10-07] MEDS: PANTOPRAZOLE 40 MG (PROTONIX) TAB PO SCH (08:38)
[2021-10-07] MEDS: GABAPENTIN 600 MG (NEURONTIN) TAB PO SCH ×2 (08:38→11:55)
[2021-10-07 11:56] VITALS: BP 173/96
--- NOTE | 2021-10-07 13:29 | Progress Note - Surgery ---
Subjective Date Seen by a Provider: October 07, 2021 Time Seen by a Provider: 12:09 Subjective/Events-last exam Patient feeling better. No reflux symptoms. He is tolerating diet. Not having nausea or vomiting. Denies any fever sweats chills shortness of breath or chest pain at this time. Objective Exam Vital Signs Date Time Temp Pulse Resp B/P (MAP) Pulse Ox O2 Delivery O2 Flow Rate FiO2 10/07/21 11:56 36.2 77 17 173/96 (121) 98 Room Air 10/07/21 08:00 Room Air 10/07/21 07:49 36.5 86 18 172/98 (122) 98 Room Air 10/07/21 07:18 Room Air 10/07/21 04:03 36.6 78 18 139/83 (101) 95 Room Air 10/07/21 01:00 79 10/06/21 23:56 36.6 73 16 168/93 (118) 98 Room Air 10/06/21 20:02 Room Air 10/06/21 19:54 36.6 69 16 174/94 (120) 94 Room Air 10/06/21 19:00 80 10/06/21 16:08 36.5 83 16 127/77 (94) 98 Room Air I & O 10/07/21 07:00 Intake Total 2800 ml Balance 2800 ml Capillary Refill : Less Than 3 Seconds General Appearance: No Apparent Distress, WD/WN, Chronically ill HEENT: PERRL/EOMI, Normal ENT Inspection Neck: Full Range of Motion, Non Tender Respiratory: Lungs Clear Cardiovascular: Regular Rate, Rhythm Gastrointestinal: non tender (Incision is clean dry intact no signs of infection), soft Extremity: Normal Range of Motion, Other (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, and ulcer of left foot) Neurologic/Psychiatric: Alert, Oriented x3, No Motor/Sensory Deficits, Normal Mood/Affect Skin: Normal Color, Warm/Dry Lymphatic: No Adenopathy Results Lab Laboratory Tests 10/07/21 05:50: White Blood Count 7.9, Red Blood Count 4.44, Hemoglobin 12.7L, Hematocrit 38L, Mean Corpuscular Volume 86, Mean Corpuscular Hemoglobin 29, Mean Corpuscular Hemoglobin Concent 33, Red Cell Distribution Width 12.1, Platelet Count 248, Mean Platelet Volume 11.9, Immature Granulocyte % (Auto) 0, Neutrophils (%) (Auto) 66, Lymphocytes (%) (Auto) 23, Monocytes (%) (Auto) 6, Eosinophils (%) (Auto) 4, Basophils (%) (Auto) 1, Neutrophils # (Auto) 5.2, Lymphocytes # (Auto) 1.8, Monocytes # (Auto) 0.5, Eosinophils # (Auto) 0.3, Basophils # (Auto) 0.1, Immature Granulocyte # (Auto) 0.0, Sodium Level 143, Potassium Level 3.4L, Chloride Level 106, Carbon Dioxide Level 24, Anion Gap 13, Blood Urea Nitrogen 9, Creatinine 1.00, Estimat Glomerular Filtration Rate 96, BUN/Creatinine Ratio 9, Glucose Level 195H, Calcium Level 8.7, Corrected Calcium 8.9, Total Bilirubin 0.9, Aspartate Amino Transf (AST/SGOT) 21, Alanine Aminotransferase (ALT/SGPT) 23, Alkaline Phosphatase 110, Total Protein 6.6, Albumin 3.7 Microbiology 10/03/21 Blood Culture - Preliminary, Resulted No growth 10/03/21 Urine Culture - Final, Complete 3 or more isolates Assessment/Plan Assessment/Plan Assessment/Plan Nausea vomiting-resolved s/p cholecystectomy at outside facility GERD esophagitis Fluid around gallbladder fossa, abnormal ct hyperbilirubinemia right sided abdominal pain l Tolerating advancement of diet. Protonix and Carafate. Okay for DC home. 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 Likely need EGD for further evaluation. TREVA CLYATON DO October 07, 2021 13:29
[2021-10-07 13:41] VITALS: BP 173/96
== END 2021-10-07 13:30 | disposition home or self-care (01) ==
LOC: EDUNIT# 16:44 → ER 16:49 → 4TH 20:30
PROVIDERS: ADMIT Family Medicine; ATTEND Internal Medicine
DX: K91.0 Vomiting following gastrointestinal surgery (principal); E11.9 Type 2 diabetes mellitus without complications; I10 Essential (primary) hypertension
CPT/HCPCS: 71045; 74177; 78226; 80048; 80053 ×4; 80306; 81000; 82947; 83605 ×2; 85007; 85025 ×4; 85027; 85610; 85730; 87040; 87088; 94760 ×2; 96361; 96365; 96375; 99284; A9537; G0378; 36415; 96376

== ENCOUNTER 2021-10-31 20:13 | Emergency (ER) | payer OTHER ==
[~2021-10-31] VITALS: Ht 188 cm; Wt 84.0 kg
[~2021-10-31 20:13] MED LIST changes: +ASPI-999 PO; +ATOR80TA76 PO; +CANA300T PO; +FAMO20TA5 PO; +GBPN600T PO; +LISI2.5T13 PO; +PANT40TA52 PO; +POLY17PO6 PO; +SENN-234 PO; +SIME80TA16 PO; +SUCR1TAB PO
--- NOTE | 2021-10-31 20:39 | ED Integumentary General ---
General Chief Complaint: Lower Extremity Stated Complaint: RIGHT FOOT PAIN Source: patient Exam Limitations: no limitations History of Present Illness Date Seen by Provider: Oct 31, 2021 Time Seen by Provider: 20:30 Initial Comments Patient is a 41-year-old diabetic who presents to the emergency department with a chief complaint of right foot pain. He states that he has had previous "bone infection" in the bones of his foot back in February 2021. He states it was debrided. He was on antibiotics. He has subsequently developed a callus at the distalmost aspect of the scar on the plantar surface of his foot. He states in the last couple of days its been draining a little bit. This morning he woke up and noticed it was a little red and swollen. He denies any fevers, chills, nausea vomiting or diarrhea. He states his blood sugar runs in the "120s". He does not smoke. He does complain of pain when he walks. All other review of systems reviewed and negative except as stated. Timing/Duration: other (2-3 days) Severity: moderate Location: feet Possible Cause: no cause identified Associated Symptoms: edema, numbness, rash Allergies and Home Medications Allergies Coded Allergies: NKANo Known Allergies (Verified Allergy, Unknown, 09/25/05) venlafaxine (Verified Adverse Reaction, Unknown, aggrevated gastroparesis, 10/04/21) Patient Home Medication List Home Medication List Reviewed: Yes Aspirin (Aspirin) 81 Mg Tab.chew, 81 MG PO HS, (Reported) Entered as Reported by: ABIDA BRUMFIELD on 10/04/21 1023 Atorvastatin Calcium (Atorvastatin Calcium) 80 Mg Tablet, 80 MG PO HS, (Reported) Entered as Reported by: ABIDA BRUMFIELD on 10/04/21 1023 Canagliflozin (Invokana) 300 Mg Tablet, 300 MG PO DAILY, (Reported) Entered as Reported by: ABIDA BRUMFIELD on 10/04/21 1023 Famotidine (Famotidine) 20 Mg Tablet, 20 MG PO BID Prescribed by: LOC AUGUST on 10/07/21 0553 Gabapentin (Gabapentin) 600 Mg Tablet, 600 MG PO TID, (Reported) Entered as Reported by: ABIDA BRUMFIELD on 10/04/21 1023 Liraglutide (Victoza 3-Yan) 0.6 Mg/0.1 Ml (18 Mg/3 Ml) Pen.injctr, 3 MG SQ HS, (Reported) Entered as Reported by: ABIDA BRUMFIELD on 10/04/21 1023 Lisinopril (Lisinopril) 10 Mg Tablet, 10 MG PO DAILY Prescribed by: LOC AUGUST on 10/07/21 05 Metformin HCl (Metformin HCl ER) 500 Mg Tab.er.24, 500 MG PO HS, (Reported) Entered as Reported by: ABIDA BRUMFIELD on 10/04/21 1023 Pantoprazole Sodium (Pantoprazole Sodium) 40 Mg Tablet.dr, 40 MG PO BID Prescribed by: LOC AUGUST on 10/07/21552 Polyethylene Glycol 3350 (Miralax) 17 Gram Powd.pack, 17 GM PO BID PRN for CONSTIPATION-2ND LINE, (Reported) Entered as Reported by: ABIDA BRUMFIELD on 10/04/21 1023 Sennosides (Senna) 8.6 Mg Tablet, 8.6-17.2 MG PO BID PRN for CONSTIPATION-5TH LINE, (Reported) Entered as Reported by: ABIDA BRUMFIELD on 10/04/21 1023 Simethicone (Simethicone) 80 Mg Tab.chew, 80 MG PO PCHS PRN for GAS, (Reported) Entered as Reported by: ABIDA BRUMFIELD on 10/04/21 1027 Sucralfate (Sucralfate) 1 Gram Tablet, 1 GM PO ACHS Prescribed by: LOC AUGUST on 10/07/21552 Review of Systems Review of Systems Constitutional: see HPI EENTM: no symptoms reported Respiratory: no symptoms reported Cardiovascular: palpitations ("I have mild POTS") Gastrointestinal: no symptoms reported Genitourinary: no symptoms reported Musculoskeletal: no symptoms reported Skin: other (callus/sore right foot) Psychiatric/Neurological: No Symptoms Reported All Other Systems Reviewed Negative Unless Noted: Yes Past Eylbktg-Cgbiwb-Hrnfem Hx Immunizations Up To Date First/Initial COVID19 Vaccinat: 08/17/20 Second COVID19 Vaccination Solomon: 09/15/20 Third COVID19 Vaccination Date: 05/12/21 Seasonal Allergies Seasonal Allergies: No Past Medical History Surgery/Hospitalization HX: PMH;DM 2, GASTROPORISIS. SURGERY;GALLBLADDER REMOVAL 09/22/21. ANGIOPLASTY BEHIND RT KNEE 02/2021. Surgeries: Yes (wisdom teeth removal, urethral surgery) Gallbladder Respiratory: No Cardiac: No Neurological: No Genitourinary: Yes Epi/Hypospadias Gastrointestinal: No Musculoskeletal: No Endocrine: Yes Diabetes, Non-Insulin dep HEENT: No Loss of Vision: Bilateral Hearing Impairment: Denies Cancer: No Psychosocial: Yes Anxiety Integumentary: No Family Medical History Cancer Physical Exam Vital Signs Vital Signs - First Documented 10/31/21 20:25 Temp 36.7 Pulse 116 Resp 18 B/P (MAP) 110/69 (83) Pulse Ox 97 O2 Delivery Room Air Capillary Refill : General Appearance: WD/WN, no apparent distress HEENT: PERRL/EOMI Cardiovascular: regular rate, rhythm, tachycardia (113 bpm) Respiratory: lungs clear, normal breath sounds, no respiratory distress, no accessory muscle use Extremities: normal range of motion, no pedal edema Neurologic/Psychiatric: alert, normal mood/affect Skin: normal color, warm/dry, other (patient has a dime sized callus plantar surface of right foot, just prox to 4th MT head. no fluctuance or drainage. it is tender to palpation. There is mild swelling and some surrounding erythema.) Progress/Results/Core Measures Results/Orders Lab Results Laboratory Tests Test 10/31/21 20:40 Range/Units White Blood Count 10.5 4.3-11.0 10^3/uL Red Blood Count 4.97 4.30-5.52 10^6/uL Hemoglobin 14.4 13.3-17.7 g/dL Hematocrit 42 40-54 % Mean Corpuscular Volume 85 80-99 fL Mean Corpuscular Hemoglobin 29 25-34 pg Mean Corpuscular Hemoglobin Concent 34 32-36 g/dL Red Cell Distribution Width 11.9 10.0-14.5 % Platelet Count 201 130-400 10^3/uL Mean Platelet Volume 11.9 9.0-12.2 fL Immature Granulocyte % (Auto) 0 % Neutrophils (%) (Auto) 63 42-75 % Lymphocytes (%) (Auto) 25 12-44 % Monocytes (%) (Auto) 4 0-12 % Eosinophils (%) (Auto) 6 0-10 % Basophils (%) (Auto) 1 0-10 % Neutrophils # (Auto) 6.7 1.8-7.8 10^3/uL Lymphocytes # (Auto) 2.6 1.0-4.0 10^3/uL Monocytes # (Auto) 0.4 0.0-1.0 10^3/uL Eosinophils # (Auto) 0.7 H 0.0-0.3 10^3/uL Basophils # (Auto) 0.1 0.0-0.1 10^3/uL Immature Granulocyte # (Auto) 0.0 0.0-0.1 10^3/uL Erythrocyte Sedimentation Rate 11 0-15 MM/HR Sodium Level 135 135-145 MMOL/L Potassium Level 4.0 3.6-5.0 MMOL/L Chloride Level 97 L 98-107 MMOL/L Carbon Dioxide Level 24 21-32 MMOL/L Anion Gap 14 5-14 MMOL/L Blood Urea Nitrogen 15 7-18 MG/DL Creatinine 1.39 H 0.60-1.30 MG/DL Estimat Glomerular Filtration Rate 65 BUN/Creatinine Ratio 11 Glucose Level 464 *H 70-105 MG/DL Calcium Level 9.5 8.5-10.1 MG/DL C-Reactive Protein High Sensitivity 0.05 0.00-0.50 MG/DL My Orders Orders - ODILON LAN MD Cbc With Automated Diff (10/31/21 20:34) Basic Metabolic Panel (10/31/21 20:34) Hs C Reactive Protein (10/31/21 20:34) Erythrocyte Sedimentation Rate (10/31/21 20:34) Hydrocodone/Apap 5/325 Tablet (Lortab 5 (10/31/21 20:45) Insulin (Regular) Human (Novolin R (Per (10/31/21 21:45) Cephalexin Capsule (Keflex Capsule) (10/31/21 21:32) Medications Given in ED Current Medications Medications Dose Ordered Sig/Taya Route Start Time Stop Time Status Last Admin Dose Admin Acetaminophen/ Hydrocodone Bitart 1 ea ONCE ONCE PO 10/31/21 20:45 10/31/21 20:46 DC 10/31/21 20:50 1 EA Vital Signs/I&O 10/31/21 20:25 Temp 36.7 Pulse 116 Resp 18 B/P (MAP) 110/69 (83) Pulse Ox 97 O2 Delivery Room Air Progress Progress Note : Time: 21:58 Progress Note Patient reassessed after labs returned, blood sugars 458. Gave him his oral Keflex as well as 10 units of subcu insulin. Rest of his labs are unremarkable. We will start him on 10 days of Keflex and have him follow-up with [facility] and wound clinic. Patient is comfortable with plan of care. All questions are sought and answered. Departure Impression Primary Impression: Cellulitis Qualified Codes: L03.115 - Cellulitis of right lower limb Additional Impression: Hyperglycemia due to diabetes mellitus Disposition: HOME, SELF-CARE Condition: Stable Departure-Patient Inst. Decision time for Depature: 21:59 Referrals: [facility] (PCP/Family) Primary Care Physician Patient Instructions: Cellulitis (Skin Infection), Adult ED Add. Discharge Instructions: Be sure and keep a close eye on the wound on your right foot. If after 1 to 2 days of antibiotics it is still getting more red and more swollen or if you are running a fever please come back to the emergency room for reevaluation. Take the antibiotics 3 times a day as directed for a total of 10 days. Extra strength Tylenol every 6 hours for pain. Please call [facility] tomorrow for a follow-up appointment later this week or Saturday of next week. Scripts Cephalexin (Cephalexin) 500 Mg Tablet 500 MG PO TID, #30 TAB Prov: ODILON LAN MD 10/31/21 Copy Copies To 1: STEPHANIE MARCIAL KATHRYN M MD Oct 31, 2021 20:39
[2021-10-31] MEDS ORDERED: HYDROcodone/APAP 5 MG/325 MG (LORTAB) TAB PO ONE (20:45)
[2021-10-31 20:48] LABS: BASOPHILS # (AUTO) 0.1 10^3/uL (0.0-0.1); BASOPHILS % (AUTO) 1 % (0-10); EOSINOPHILS # (AUTO) 0.7 10^3/uL (0.0-0.3); EOSINOPHILS % (AUTO) 6 % (0-10); HEMATOCRIT 42 % (40-54); HEMOGLOBIN 14.4 g/dL (13.3-17.7); LYMPHOCYTES # (AUTO) 2.6 10^3/uL (1.0-4.0); LYMPHOCYTES % (AUTO) 25 % (12-44); MEAN CORPUSCULAR HEMOGLOBIN 29 pg (25-34); MEAN CORPUSCULAR HGB CONC 34 g/dL (32-36); MEAN CORPUSCULAR VOLUME 85 fL (80-99); MEAN PLATELET VOLUME 11.9 fL (9.0-12.2); MONOCYTES # (AUTO) 0.4 10^3/uL (0.0-1.0); MONOCYTES % (AUTO) 4 % (0-12); NEUTROPHILS # (AUTO) 6.7 10^3/uL (1.8-7.8); NEUTROPHILS % (AUTO) 63 % (42-75); PLATELET COUNT 201 10^3/uL (130-400); WHITE BLOOD COUNT 10.5 10^3/uL (4.3-11.0)
[2021-10-31 21:02] LABS: CALCIUM 9.5 MG/DL (8.5-10.1)
[2021-10-31 21:07] LABS: CREATININE SERUM 1.39 MG/DL (0.60-1.30)
[2021-10-31] MEDS ORDERED: CEPHALEXIN 250 MG (KEFLEX) CAP PO STA (21:32)
[2021-10-31 21:35] LABS: ERYTHROCYTE SEDIMENTATION RATE 11 MM/HR (0-15)
[2021-10-31] MEDS ORDERED: inSUlin (REGULAR) HUMAN 1 UNIT/0.01 ML (CHARGE PER UNIT) SC ONE (21:45)
[2021-10-31] MEDS ORDERED: CEPH500T PO (22:01)
[2021-10-31 22:51] VITALS: BP 112/68
== END 2021-10-31 22:51 | disposition home or self-care (01) ==
LOC: EDUNIT# 20:13 → ER 20:15
DX: L03.115 Cellulitis of right lower limb (principal); E11.65 Type 2 diabetes mellitus with hyperglycemia
CPT/HCPCS: 36415; 80048; 82947; 85025; 85652; 86141

== ENCOUNTER 2022-03-28 14:56 | Inpatient (IN) | payer OTHER ==
[~2022-03-28] VITALS: Ht 188 cm; Wt 89.7 kg
[~2022-03-28 14:56] MED LIST changes: +CEPH500T PO
[2022-03-28] MEDS: NS IV 1000 ML 1,000 ML IV SCH ×3 (15:10→23:40)
[2022-03-28] MEDS ORDERED: NS IV 1000 ML 1,000 ML ONE ×2 (15:11→15:17)
--- NOTE | 2022-03-28 15:26 | ED Cardiac General ---
History of Present Illness General Chief Complaint: Cardiac/General Problems Stated Complaint: LOW BLOOD PRESSURE Nursing Triage Note: SENT OVER FROM [facility] WITH HYPOTENSION. HX OF ORTHSTATIC HYPOTENSION. (YENI MARTELL APRN) History of Present Illness Date Seen by Provider: Mar 28, 2022 Time Seen by Provider: 15:20 Initial Comments Patient presents to the emergency department via POV for hypotension from the PCP office. History of orthostatic hypotension. States that he has passed out a few times. Has recently been taken off his blood pressure medication Lisinopril about a month ago. Timing/Duration: getting worse Severity: moderate Modifying Factors: worse with movement; improves with rest Associated Systoms: No Chest Pain; Diaphoresis; No Nausea/Vomiting; Syncope (near), Weakness (generalized) (YENI MARTELL APRN) 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/21) Patient Home Medication List Home Medication List Reviewed: Yes (YENI MARTELL APRN) Aspirin (Aspirin) 81 Mg Tab.chew, 81 MG PO HS, (Reported) Entered as Reported by: ABIDA BRUMFIELD on 10/04/21 1023 Last Action: Reviewed Atorvastatin Calcium (Atorvastatin Calcium) 80 Mg Tablet, 80 MG PO HS, (Reported) Entered as Reported by: ABIDA BRUMFIELD on 10/04/21 102 Last Action: Reviewed Canagliflozin (Invokana) 100 Mg Tablet, 100 MG PO DAILY, (Reported) Entered as Reported by: ABIDA BRUMFIELD on 03/29/22 1108 Last Action: Reviewed Gabapentin (Gabapentin) 600 Mg Tablet, 600 MG PO TID, (Reported) Entered as Reported by: ABIDA BRUMFIELD on 10/04/21 1023 Last Action: Reviewed Metformin HCl (Metformin HCl ER) 500 Mg Tab.er.24, 500 MG PO 1800 W/MEAL, (Reported) Entered as Reported by: ABIDA BRUMFIELD on 10/04/21 102 Last Action: Reviewed Metoclopramide HCl (Metoclopramide HCl) 10 Mg Tablet, 10 MG PO QID, (Reported) Entered as Reported by: ABIDA BRUMFIELD on 03/29/22 1108 Last Action: Reviewed Midodrine HCl (Midodrine HCl) 5 Mg Tablet, 5 MG PO TID, (Reported) Entered as Reported by: ABIDA BRUMFIELD on 03/29/22 1206 Last Action: Reviewed Sucralfate (Carafate) 1 Gram Tablet, 1 GM PO ACHS, (Reported) Entered as Reported by: ABIDA BRUMFIELD on 03/29/221107 Last Action: Reviewed Tirzepatide (Mounjaro) 5 Mg/0.5 Ml Pen.injctr, 5 MG IJ TUE, (Reported) Entered as Reported by: ABIAD BRUMFIELD on 03/29/221107 Last Action: Reviewed Discontinued Medications Canagliflozin (Invokana) 300 Mg Tablet, 300 MG PO DAILY, (Reported) Discontinued Reason: Duplicate Order Entered as Reported by: ABIDA BRUMFIELD on 10/04/21 102 Last Action: Discontinued Cephalexin (Cephalexin) 500 Mg Tablet, 500 MG PO TID Discontinued Reason: No Longer Taking Prescribed by: ODILON LAN on 10/31/212200 Last Action: Discontinued Famotidine (Famotidine) 20 Mg Tablet, 20 MG PO BID Discontinued Reason: No Longer Taking Prescribed by: LOC AUGUST on 10/07/21552 Last Action: Discontinued Liraglutide (Victoza 3-Yan) 0.6 Mg/0.1 Ml (18 Mg/3 Ml) Pen.injctr, 3 MG SQ HS, (Reported) Discontinued Reason: No Longer Taking Entered as Reported by: ABIDA BRUMFIELD on 10/04/211022 Last Action: Discontinued Lisinopril (Lisinopril) 10 Mg Tablet, 10 MG PO DAILY Discontinued Reason: No Longer Taking Prescribed by: LOC AUGUST on 10/07/21552 Last Action: Discontinued Pantoprazole Sodium (Pantoprazole Sodium) 40 Mg Tablet.dr, 40 MG PO BID Discontinued Reason: No Longer Taking Prescribed by: LOC AUGUST on 10/07/21552 Last Action: Discontinued Polyethylene Glycol 3350 (Miralax) 17 Gram Powd.pack, 17 GM PO BID PRN for CONSTIPATION-2ND LINE, (Reported) Discontinued Reason: No Longer Taking Entered as Reported by: ABIDA BRUMFIELD on 10/04/211022 Last Action: Discontinued Sennosides (Senna) 8.6 Mg Tablet, 8.6-17.2 MG PO BID PRN for CONSTIPATION-5TH LINE, (Reported) Discontinued Reason: No Longer Taking Entered as Reported by: ABIDA BRUMFIELD on 10/04/21 1023 Last Action: Discontinued Simethicone (Simethicone) 80 Mg Tab.chew, 80 MG PO PCHS PRN for GAS, (Reported) Discontinued Reason: No Longer Taking Entered as Reported by: ABIDA BRUMFIELD on 10/04/21 1027 Last Action: Discontinued Sucralfate (Sucralfate) 1 Gram Tablet, 1 GM PO ACHS Discontinued Reason: No Longer Taking Prescribed by: LOC AUGUST on 10/07/21 0553 Last Action: Discontinued Review of Systems Review of Systems Constitutional: No chills; diaphoresis, dizziness; No fever, No malaise; weakness (generalized) EENTM: No Symptoms Reported Respiratory: Denies Cough, Denies Shortness of Air Cardiovascular: Denies Chest Pain, Denies Palpitations; Syncope (near) Gastrointestinal: Denies Abdominal Pain, Denies Nausea, Denies Vomiting Genitourinary: Denies Frequency, Denies Urgency Musculoskeletal: no symptoms reported Skin: no symptoms reported (YENI MARTELL APRN) All Other Systems Reviewed Negative Unless Noted: Yes (YENI MARTELL APRN) Past Clakflm-Rwdqqn-Xcbrqs Hx Patient Social History Tobacco Use?: No Substance use?: No Alcohol Use?: Yes Alcohol Frequency: Once in a while (YENI MARTELL APRN) Immunizations Up To Date First/Initial COVID19 Vaccinat: 08/17/20 Second COVID19 Vaccination Solomon: 09/15/20 Third COVID19 Vaccination Date: 05/12/21 COVID19 Vaccine 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 SURGERY;GALLBLADDER REMOVAL 09/22/21. ANGIOPLASTY BEHIND RT KNEE 02/2021. Surgeries: Yes (wisdom teeth removal, urethral surgery) Gallbladder Respiratory: No Cardiac: No Neurological: No Genitourinary: Yes Epi/Hypospadias Gastrointestinal: No Musculoskeletal: No Endocrine: Yes Diabetes, Non-Insulin dep HEENT: No Loss of Vision: Bilateral Hearing Impairment: Denies Cancer: No Psychosocial: Yes Anxiety Integumentary: No (YENI MARTELL APRN) Family Medical History Reviewed Nursing Family Hx (YENI MARTELL APRN) Cancer (YENI MARTELL APRN) Physical Exam Vital Signs Vital Signs - First Documented 03/28/22 15:00 Temp 36.3 Pulse 142 Resp 16 B/P (MAP) 81/55 (64) Pulse Ox 98 O2 Delivery Room Air (UCHE ALVARES MD) Vital Signs Capillary Refill : Less Than 3 Seconds (YNEI MARTELL APRN) Height, Weight, BMI Height: '" Weight: 208lbs. oz. 94.067767lp; 23.00 BMI Method: General Appearance: Other (Pale) Neck: Full Range of Motion, Normal Inspection, Non Tender, Supple Respiratory: Chest Non Tender, Lungs Clear, Normal Breath Sounds, No Accessory Muscle Use, No Respiratory Distress Cardiovascular: Tachycardia Gastrointestinal: Normal Bowel Sounds, No Organomegaly, No Pulsatile Mass, Non Tender, Soft Neurologic/Psychiatric: Alert, Oriented x3 Skin: Warm/Dry, Other (pale) (YENI MARTELL APRN) Focused Exam Lactate Level 03/28/22 16:05: Lactic Acid Level 2.47*H 03/28/22 18:50: Lactic Acid Level 1.41 (UCHE ALVARES MD) Lactic Acid Level Laboratory Tests Test 03/28/22 16:05 03/28/22 18:50 Lactic Acid Level 2.47 MMOL/L (0.50-2.00) *H 1.41 MMOL/L (0.50-2.00) (UCHE ALVARES MD) Progress/Results/Core Measures Results/Orders Lab Results Laboratory Tests Test 03/28/22 15:12 03/28/22 16:05 03/28/22 17:28 03/28/22 18:50 Range/Units White Blood Count 19.5 H 4.3-11.0 10^3/uL Red Blood Count 5.16 4.30-5.52 10^6/uL Hemoglobin 14.6 13.3-17.7 g/dL Hematocrit 44 40-54 % Mean Corpuscular Volume 85 80-99 fL Mean Corpuscular Hemoglobin 28 25-34 pg Mean Corpuscular Hemoglobin Concent 33 32-36 g/dL Red Cell Distribution Width 11.9 10.0-14.5 % Platelet Count 235 130-400 10^3/uL Mean Platelet Volume 12.0 9.0-12.2 fL Immature Granulocyte % (Auto) 1 % Neutrophils (%) (Auto) 93 H 42-75 % Lymphocytes (%) (Auto) 4 L 12-44 % Monocytes (%) (Auto) 2 0-12 % Eosinophils (%) (Auto) 0 0-10 % Basophils (%) (Auto) 0 0-10 % Neutrophils # (Auto) 18.1 H 1.8-7.8 10^3/uL Lymphocytes # (Auto) 0.8 L 1.0-4.0 10^3/uL Monocytes # (Auto) 0.4 0.0-1.0 10^3/uL Eosinophils # (Auto) 0.1 0.0-0.3 10^3/uL Basophils # (Auto) 0.1 0.0-0.1 10^3/uL Immature Granulocyte # (Auto) 0.1 0.0-0.1 10^3/uL Neutrophils % (Manual) 82 % Lymphocytes % (Manual) 9 % Monocytes % (Manual) 3 % Eosinophils % (Manual) 0 % Basophils % (Manual) 0 % Band Neutrophils 6 % Blood Morphology Comment NORMAL Prothrombin Time 13.7 12.2-14.7 SEC INR Comment 1.0 0.8-1.4 Activated Partial Thromboplast Time 26 24-35 SEC Sodium Level 139 136 135-145 MMOL/L Potassium Level 4.1 3.7 3.6-5.0 MMOL/L Chloride Level 102 104 98-107 MMOL/L Carbon Dioxide Level 25 21 21-32 MMOL/L Anion Gap 12 11 5-14 MMOL/L Blood Urea Nitrogen 24 H 23 H 7-18 MG/DL Creatinine 1.74 H 1.60 H 0.60-1.30 MG/DL Estimat Glomerular Filtration Rate 50 55 BUN/Creatinine Ratio 14 14 Glucose Level 194 H 189 H 70-105 MG/DL Calcium Level 10.5 H 8.5 8.5-10.1 MG/DL Corrected Calcium 10.3 H 8.5-10.1 MG/DL Magnesium Level 1.4 L 1.6-2.4 MG/DL Total Bilirubin 2.0 H 0.1-1.0 MG/DL Aspartate Amino Transf (AST/SGOT) 20 5-34 U/L Alanine Aminotransferase (ALT/SGPT) 29 0-55 U/L Alkaline Phosphatase 125 40-136 U/L Total Creatine Kinase 137 30-200 U/L Myoglobin 693.8 H 10.0-92.0 NG/ML Troponin I < 0.028 < 0.028 <0.028 NG/ML B-Type Natriuretic Peptide < 10.0 <100.0 PG/ML Total Protein 7.7 6.4-8.2 GM/DL Albumin 4.3 3.2-4.5 GM/DL Lipase 41 8-78 U/L Lactic Acid Level 2.47 *H 1.41 0.50-2.00 MMOL/L Urine Color YELLOW Urine Clarity CLEAR Urine pH 5.5 5-9 Urine Specific [place] 1.025 H 1.016-1.022 Urine Protein 1+ H NEGATIVE Urine Glucose (UA) 3+ H NEGATIVE Urine Ketones TRACE H NEGATIVE Urine Nitrite NEGATIVE NEGATIVE Urine Bilirubin NEGATIVE NEGATIVE Urine Urobilinogen 1.0 < = 1.0 MG/DL Urine Leukocyte Esterase NEGATIVE NEGATIVE Urine RBC (Auto) NEGATIVE NEGATIVE Urine RBC NONE /HPF Urine WBC NONE /HPF Urine Squamous Epithelial Cells NONE /HPF Urine Crystals NONE /LPF Urine Bacteria NEGATIVE /HPF Urine Casts PRESENT /LPF Urine Hyaline Casts 2-5 H /LPF Urine Mucus SMALL H /LPF Urine Culture Indicated NO Urine Opiates Screen NEGATIVE NEGATIVE Urine Oxycodone Screen NEGATIVE NEGATIVE Urine Methadone Screen NEGATIVE NEGATIVE Urine Propoxyphene Screen NEGATIVE NEGATIVE Urine Barbiturates Screen NEGATIVE NEGATIVE Ur Tricyclic Antidepressants Screen NEGATIVE NEGATIVE Urine Phencyclidine Screen NEGATIVE NEGATIVE Urine Amphetamines Screen NEGATIVE NEGATIVE Urine Methamphetamines Screen NEGATIVE NEGATIVE Urine Benzodiazepines Screen NEGATIVE NEGATIVE Urine Cocaine Screen NEGATIVE NEGATIVE Urine Cannabinoids Screen NEGATIVE NEGATIVE (UCHE ALVARES MD) My Orders Orders - UCHE ALVARES MD Ekg Tracing (03/28/22 15:10) Ns Iv 1000 Ml (Sodium Chloride 0.9%) (03/28/22 15:11) Ns Iv 1000 Ml (Sodium Chloride 0.9%) (03/28/22 15:17) (UCHE ALVARES MD) Vital Signs/I&O 03/28/22 15:00 Temp 36.3 Pulse 142 Resp 16 B/P (MAP) 81/55 (64) Pulse Ox 98 O2 Delivery Room Air (UCHE ALVARES MD) Blood Pressure Mean: 64 Progress Progress Note : Progress Note Patient presents to the emergency department for low blood pressure and syncope. Was sent from his PCP office for low blood pressure. Patient drove her from the office with pressure in the 70s. Denies chest pain or shortness of breath. Will obtain labs and give fluids. 1535: Patient reports that he is feeling a little better at this time. His blood pressure is currently 138/77. One liter is complete and he has had about half of a second liter. HR remains in the 130s. Awaiting labs. Does report that he had a wound on his foot but states that it is scabbed over at this time. 193: Patient continues to have low blood pressure despite bolus of 3 liters of fluids and maintenance running at 200ml/hour. Repeat lactic acid has come down. Consulted with Dr. August and she agrees to accept patient for admission. Will admit to ICU for hypovolemic shock (YENI MARTELL APRN) Initial ECG Impression Date: Mar 28, 2022 Initial ECG Impression Time: 15:15 Comment tachycardia noted on EKG (YENI MARTELL APRN) Diagnostic Imaging Diagonstic Imaging: Xray Plain Films/CT/US/NM/MRI: chest Comments NAME: KELLIE MG MED REC#: [id number] PT STATUS: REG ER : 1980 PHYSICIAN: YENI MARTELL APRN ADMIT DATE: 03/28/22/ER Signed Date of Exam:03/28/22 CHEST 1 VIEW, AP/PA ONLY EXAMINATION: Chest 1 view HISTORY: Chest pain. Hypotension. COMPARISON: 10/03/2021. FINDINGS: The lung volumes are normal. No focal consolidation is seen. No large pleural effusion or pneumothorax is seen. The cardiomediastinal silhouette is normal in size and contour. No acute osseous abnormality is seen. IMPRESSION: 1. No acute pleuroparenchymal process. Dictated by: Dictated on workstation # [id number] Dict: 03/28/22 1607 Trans: 03/28/22 1620 CV [id number] Interpreted by: GLADYS SEAMAN DO Electronically signed by: GLADYS SEAMAN DO 03/28/22 1620 (YENI MARETLL APRN) Departure Communication (Admissions) Time/Spoke to Admitting Phy: 19:37 Spoke to in regards to patient and she accepted to ICU for hypovolemic shock. (YENI MARTELL APRN) Impression Primary Impression: Hypovolemic shock Disposition: ADMITTED INPATIENT Condition: Critical Admissions Decision to Admit Reason: Admit from ER (General) Decision to Admit/Date: Mar 28, 2022 Time/Decision to Admit Time: 19:37 (YENI MARTELL APRN) Departure-Patient Inst. Ref[place]: [facility] [place] Primary Care Physician ATTENDING PHYSICIAN NOTE: I was physically present as attending physician in the emergency department during the care of this patient. I did discuss approach to lab evaluation with Claudine Martell APRN, but did not personally interview or examine the patient. I was otherwise not directly involved in the decision making or delivery of care for this patient. (UCHE ALVARES MD) YENI MARTELL APRN Mar 28, 2022 15:26 UCHE ALVARES MD Mar 28, 2022 19:58
[2022-03-28 15:37] LABS: BASOPHILS # (AUTO) 0.1 10^3/uL (0.0-0.1); BASOPHILS % (AUTO) 0 % (0-10); EOSINOPHILS # (AUTO) 0.1 10^3/uL (0.0-0.3); EOSINOPHILS % (AUTO) 0 % (0-10); HEMATOCRIT 44 % (40-54); HEMOGLOBIN 14.6 g/dL (13.3-17.7); LYMPHOCYTES # (AUTO) 0.8 10^3/uL (1.0-4.0); LYMPHOCYTES % (AUTO) 4 % (12-44); MEAN CORPUSCULAR HEMOGLOBIN 28 pg (25-34); MEAN CORPUSCULAR HGB CONC 33 g/dL (32-36); MEAN CORPUSCULAR VOLUME 85 fL (80-99); MONOCYTES # (AUTO) 0.4 10^3/uL (0.0-1.0); MONOCYTES % (AUTO) 2 % (0-12); NEUTROPHILS # (AUTO) 18.1 10^3/uL (1.8-7.8); NEUTROPHILS % (AUTO) 93 % (42-75); PLATELET COUNT 235 10^3/uL (130-400); WHITE BLOOD COUNT 19.5 10^3/uL (4.3-11.0)
[2022-03-28 15:42] LABS: PROTHROMBIN TIME PATIENT 13.7 SEC (12.2-14.7)
[2022-03-28 15:49] LABS: ALBUMIN 4.3 GM/DL (3.2-4.5); CALCIUM 10.5 MG/DL (8.5-10.1); CREATININE SERUM 1.74 MG/DL (0.60-1.30); MAGNESIUM 1.4 MG/DL (1.6-2.4); POTASSIUM 4.1 MMOL/L (3.6-5.0); TOTAL PROTEIN 7.7 GM/DL (6.4-8.2)
--- NOTE | 2022-03-28 16:07 | Diagnostic Imaging Report ---
EXAMINATION: Chest 1 view HISTORY: Chest pain. Hypotension. COMPARISON: 10/03/2021. FINDINGS: The lung volumes are normal. No focal consolidation is seen. No large pleural effusion or pneumothorax is seen. The cardiomediastinal silhouette is normal in size and contour. No acute osseous abnormality is seen. IMPRESSION: 1. No acute pleuroparenchymal process. Dictated by: Dictated on workstation # [id number]
[2022-03-28] MEDS ORDERED: NS IV 1000 ML 1,000 ML IV SCH ×3 (16:30→23:00)
[2022-03-28] MEDS: MAGNESIUM 1 GM/100 ML IVPB 100 ML IV SCH ×2 (16:36→16:37)
[2022-03-28 16:44] LABS: BAND NEUTROPHILS 6 %; LYMPHOCYTES % (MANUAL) 9 %; NEUTROPHILS % (MANUAL) 82 %
[2022-03-28 16:45] LABS: BASOPHILS % (MANUAL) 0 %; EOSINOPHILS % (MANUAL) 0 %; MONOCYTES % (MANUAL) 3 %; RBC MORPH NORMAL
[2022-03-28 17:35] LABS: BILIRUBIN,URINE NEGATIVE (NEGATIVE); CLARITY,URINE CLEAR; COLOR,URINE YELLOW; GLUCOSE, URINE (UA) 3+ (NEGATIVE); KETONES,URINE TRACE (NEGATIVE); LEUKOCYTE ESTERASE ,URINE NEGATIVE (NEGATIVE); NITRITE,URINE NEGATIVE (NEGATIVE); PH,URINE 5.5 (5-9); PROTEIN,URINE 1+ (NEGATIVE)
[2022-03-28 17:43] LABS: BACTERIA,URINE NEGATIVE /HPF
[2022-03-28 17:49] LABS: AMPHETAMINE SCREEN, URINE NEGATIVE (NEGATIVE); BARBITURATE SCREEN URINE NEGATIVE (NEGATIVE); BENZODIAZEPINES SCREEN URINE NEGATIVE (NEGATIVE); CANNABINOID SCREEN, URINE NEGATIVE (NEGATIVE); COCAINE SCREEN URINE NEGATIVE (NEGATIVE); METHADONE STAT NEGATIVE (NEGATIVE); OPIATE SCREEN URINE NEGATIVE (NEGATIVE); OXYCODONE STAT NEGATIVE (NEGATIVE); PROPOXYPHENE STAT NEGATIVE (NEGATIVE); TRICYCLIC ANTIDEPRESSANTS SCRE NEGATIVE (NEGATIVE)
[2022-03-28 19:20] LABS: CALCIUM 8.5 MG/DL (8.5-10.1)
[2022-03-28 19:24] LABS: POTASSIUM 3.7 MMOL/L (3.6-5.0)
[2022-03-28 19:25] LABS: CREATININE SERUM 1.6 MG/DL (0.60-1.30)
[2022-03-28] MEDS ORDERED: HYDROmorphone 2 MG/ML VIAL (DILAUDID) IV PRN (21:45)
[2022-03-28] MEDS ORDERED: polyethylene glycoL POWDER 17 GM (MIRALAX) PACK PO PRN (21:45)
[2022-03-28] MEDS ORDERED: LORazepam INJ 2 MG/ML (ATIVAN) VIAL IVP PRN (21:45)
[2022-03-28] MEDS ORDERED: diphenhydrAMINE 50 MG/ML INJ (BENADRYL) IVP PRN (21:45)
[2022-03-28] MEDS ORDERED: BISACODYL 10 MG SUPP (DULCOLAX) PR PRN (21:45)
[2022-03-28] MEDS ORDERED: ANTACID SUSP 30 ML UDC (MYLANTA) PO PRN (21:45)
[2022-03-28] MEDS ORDERED: LACTULOSE SYRUP 10GM/15ML (ENULOSE) 30ML UDC PO PRN (21:45)
[2022-03-28] MEDS ORDERED: CALCIUM CARBONATE 500 MG (TUMS) TAB.CHEW PO PRN (21:45)
[2022-03-28] MEDS ORDERED: morphine IMMEDIATE RELEASE 15 MG TABLET PO PRN (21:45)
[2022-03-28] MEDS ORDERED: diphenhydrAMINE 25 MG TAB (BENADRYL) PO PRN (21:45)
[2022-03-28] MEDS ORDERED: NS IV 500 ML 500 ML IV PRN (21:45)
[2022-03-28] MEDS ORDERED: ONDANSETRON 4 MG (ZOFRAN) ORAL DISSOLVE TAB PO PRN (21:45)
[2022-03-28] MEDS ORDERED: MILK OF MAGNESIA 400 MG/5 ML 30 ML UDC PO PRN (21:45)
[2022-03-28] MEDS ORDERED: MELATONIN 3 MG TABLET PO PRN (21:45)
[2022-03-28] MEDS ORDERED: NOREPINEPHRINE 8 MG/250 ML 250 ML IV SCH (21:45)
[2022-03-28 22:02] VITALS: BP 81/55
[2022-03-28] MEDS: ENOXAPARIN 40 MG/0.4 ML (LOVENOX) SYR SC SCH (22:57)
[2022-03-29] MEDS ORDERED: METOCLOPRAMIDE 5 MG (REGLAN) TAB PO ONE
[2022-03-29] MEDS ORDERED: GABAPENTIN 600 MG (NEURONTIN) TAB PO ONE
[2022-03-29] MEDS ORDERED: SIMETHICONE 80 MG (MYLICON) CHEW PO ONE
[2022-03-29] MEDS ORDERED: SUCRALFATE 1 GM (CARAFATE) TAB PO ONE
[2022-03-29] MEDS: SUCRALFATE 1 GM (CARAFATE) TAB PO SCH ×4 (05:07→20:42)
[2022-03-29] MEDS: METOCLOPRAMIDE 5 MG (REGLAN) TAB PO SCH ×4 (05:07→20:42)
[2022-03-29] MEDS: NS IV 1000 ML 1,000 ML IV SCH ×4 (05:08→16:11)
[2022-03-29 05:17] LABS: BASOPHILS # (AUTO) 0.1 10^3/uL (0.0-0.1); BASOPHILS % (AUTO) 0 % (0-10); EOSINOPHILS % (AUTO) 0 % (0-10); HEMATOCRIT 35 % (40-54); HEMOGLOBIN 11.4 g/dL (13.3-17.7); LYMPHOCYTES % (AUTO) 6 % (12-44); MEAN CORPUSCULAR HEMOGLOBIN 28 pg (25-34); MEAN CORPUSCULAR HGB CONC 33 g/dL (32-36); MEAN CORPUSCULAR VOLUME 86 fL (80-99); MEAN PLATELET VOLUME 11.9 fL (9.0-12.2); MONOCYTES # (AUTO) 0.6 10^3/uL (0.0-1.0); MONOCYTES % (AUTO) 4 % (0-12); NEUTROPHILS # (AUTO) 15.8 10^3/uL (1.8-7.8); NEUTROPHILS % (AUTO) 90 % (42-75); PLATELET COUNT 179 10^3/uL (130-400); WHITE BLOOD COUNT 17.6 10^3/uL (4.3-11.0)
[2022-03-29 05:55] LABS: ALBUMIN 3.2 GM/DL (3.2-4.5); BILIRUBIN,TOTAL 1.9 MG/DL (0.1-1.0); CALCIUM 8.4 MG/DL (8.5-10.1); CREATININE SERUM 1.23 MG/DL (0.60-1.30); MAGNESIUM 1.5 MG/DL (1.6-2.4); PHOSPHORUS 1.6 MG/DL (2.3-4.7); TOTAL PROTEIN 5.8 GM/DL (6.4-8.2)
[2022-03-29 06:00] LABS: CHOLESTEROL 83 MG/DL (< 200); HDL CHOLESTEROL 23 MG/DL (40-60); TRIGLYCERIDES 193 MG/DL (<150); VLDL CHOLESTEROL 39 MG/DL (5-40)
[2022-03-29] MEDS ORDERED: POTASSIUM CL 10MEQ/50ML IVPB 50 ML IV SCH (06:00)
[2022-03-29] MEDS ORDERED: MAGNESIUM 1 GM/100 ML IVPB 100 ML IV SCH (06:00)
[2022-03-29] MEDS ORDERED: KCL 20 MEQ TAB (K-DUR) PO SCH (06:00)
[2022-03-29] MEDS ORDERED: MAGNESIUM 1 GM/100 ML IVPB 200 ML IV ONE (06:03)
[2022-03-29] MEDS: inSUlin ASPART (NovoLOG) 1 UNIT/0.01 ML (CHARGE PER UNIT) SC SCH ×4 (06:06→20:43)
[2022-03-29] MEDS: MAGNESIUM 1 GM/100 ML IVPB 100 ML IV SCH (06:07)
[2022-03-29] MEDS: SIMETHICONE 80 MG (MYLICON) CHEW PO SCH ×4 (07:49→20:42)
[2022-03-29] MEDS: GABAPENTIN 600 MG (NEURONTIN) TAB PO SCH ×3 (07:49→20:42)
[2022-03-29] MEDS: DOCUSATE SODIUM 100 MG (COLACE) CAP PO SCH ×2 (08:25→20:47)
[2022-03-29] MEDS: SENNOSIDES 8.6 MG (SENOKOT) TAB PO SCH ×2 (08:25→20:47)
--- NOTE | 2022-03-29 08:54 | Diagnostic Imaging Report ---
INDICATION: Hypertension. COMPARISON: 03/28/2022. TECHNIQUE: Single radiograph of the chest dated 03/29/2022. FINDINGS: The cardiac silhouette is within normal limits in size. No significant pulmonary vascular congestion. Low lung volumes with minimal left basilar atelectasis. Lungs are otherwise clear. No pleural effusion. No pneumothorax. No acute osseous abnormality. IMPRESSION: Low lung volumes with minimal left basilar atelectasis. Dictated by: Dictated on workstation # [id number]
[2022-03-29] MEDS ORDERED: cefTRIAXone 2,000 MG in NS (IVPB) 50 ML IV ONE (09:15)
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
[2022-03-29] MEDS: AZITHROMYCIN INJECTION 500 MG in NS (IVPB) 250 ML IV SCH (10:26)
[2022-03-29] MEDS ORDERED: TIRZ5PEN IJ (11:08)
[2022-03-29] MEDS ORDERED: CANA100T PO (11:08)
[2022-03-29] MEDS ORDERED: SUCR1TAB36 PO (11:08)
[2022-03-29] MEDS ORDERED: MTC10T PO (11:08)
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
[2022-03-29 11:50] VITALS: BP 131/78
[2022-03-29] MEDS ORDERED: MIDO5TAB3 PO (12:06)
[2022-03-29] MEDS: ONDANSETRON 4 MG/2 ML (SDV) Z0FRAN IV PRN (13:30)
[2022-03-29] MEDS: ACETAMINOPHEN 325 MG TABLET PO PRN (13:37)
[2022-03-29 13:57] VITALS: BP 130/62
[2022-03-29] MEDS ORDERED: ACETAMINOPHEN 650 MG SUPP (TYLENOL) PR PRN (14:30)
[2022-03-29 15:31] VITALS: BP 144/79
[2022-03-29 16:40] VITALS: BP 149/79
[2022-03-29] MEDS ORDERED: VANCOMYCIN INJECTION 1,000 MG in NS (IVPB) 250 ML IV SCH (17:00)
[2022-03-29] MEDS ORDERED: IBUPROFEN TABLET 200 MG TAB PO PRN (17:00)
[2022-03-29] MEDS ORDERED: NS IV 500 ML 500 ML IV PRN (17:00)
[2022-03-29] MEDS: KETOROLAC 30 MG/ML VIAL IVP PRN (17:09)
[2022-03-29 17:27] LABS: BASOPHILS % (AUTO) 0 % (0-10); EOSINOPHILS % (AUTO) 0 % (0-10); HEMATOCRIT 36 % (40-54); HEMOGLOBIN 11.7 g/dL (13.3-17.7); LYMPHOCYTES # (AUTO) 0.6 10^3/uL (1.0-4.0); LYMPHOCYTES % (AUTO) 7 % (12-44); MEAN CORPUSCULAR HEMOGLOBIN 28 pg (25-34); MEAN CORPUSCULAR HGB CONC 33 g/dL (32-36); MEAN CORPUSCULAR VOLUME 85 fL (80-99); MEAN PLATELET VOLUME 11.4 fL (9.0-12.2); MONOCYTES # (AUTO) 0.1 10^3/uL (0.0-1.0); MONOCYTES % (AUTO) 2 % (0-12); NEUTROPHILS # (AUTO) 7.6 10^3/uL (1.8-7.8); NEUTROPHILS % (AUTO) 90 % (42-75); PLATELET COUNT 151 10^3/uL (130-400); WHITE BLOOD COUNT 8.4 10^3/uL (4.3-11.0)
[2022-03-29 17:32] LABS: ALBUMIN 3.3 GM/DL (3.2-4.5); POTASSIUM 4.5 MMOL/L (3.6-5.0)
[2022-03-29 17:33] LABS: CALCIUM 8.1 MG/DL (8.5-10.1)
[2022-03-29 17:34] LABS: TOTAL PROTEIN 6.1 GM/DL (6.4-8.2)
[2022-03-29 17:36] LABS: BILIRUBIN,TOTAL 2.2 MG/DL (0.1-1.0)
[2022-03-29 17:38] LABS: CREATININE SERUM 1.32 MG/DL (0.60-1.30)
[2022-03-29] MEDS: CEFEPIME INJECTION 1,000 MG in NS (IVPB) 50 ML IV SCH (17:44)
[2022-03-29] MEDS ORDERED: VANCOMYCIN 1,750 MG/NS 500 ML IVPB IV NR ×2 (17:45)
--- NOTE | 2022-03-29 17:53 | Diagnostic Imaging Report ---
INDICATION: Dyspnea. COMPARISON: 03/29/2022. FINDINGS: Single frontal view of the chest demonstrates normal heart size and pulmonary vascularity. The lungs show low inspiratory volumes, but are otherwise clear. No large pleural effusion or pneumothorax is seen. The visualized osseous structures show no acute abnormalities. IMPRESSION: 1. Low lung volumes, but no evidence of failure or focal infiltrate. Dictated by: Dictated on workstation # [id number]
[2022-03-29 17:57] LABS: ABG BASE EXCESS -2.6 MMOL/L (-2.5-2.5); ABG OXYGEN SATURATION 89 % (94-100); ABG PCO2 43 MMHG (35-45); ABG PO2 73 MMHG (79-93); ABG TCO2 22.7 MMOL/L (21.0-31.0)
[2022-03-29 17:58] LABS: ABG PH 7.34 (7.37-7.43); ALLENS TEST POSITIVE; INSPIRED O2 2 L; PATIENT TEMP 40.2; VENTILATOR NO
[2022-03-29] MEDS ORDERED: ACETAMINOPHEN 500 MG TAB (TYLENOL) PO NR (18:00)
[2022-03-29] MEDS ORDERED: LACTATED RINGERS 1,000 ML IV ONE (18:00)
--- NOTE | 2022-03-29 18:36 | Tele-ICU Progress Note ---
Progress Note Patient is back to ICU, with fever and tachycardia 9 SBP 140 ) aao no complains vitals reviewed Video assessment done discussed with RN ID - very elevated PCT on admission febrile --> abx to continue - cont IVF, give 1 L bolus , follow - recheck bmp and lactate ( if rising will need CT abd -UA clear , neg flu , neg covid - as per RN - no skin infection ( h/o I&D with debridement of Abscess/Cellulitis Right foot with Osteomyelitis - as per RN abd non tender Bedside physicians on case to be updated by bedside RN RN to reach out if any questions or concerns=- discussed with RN crit care time 20 min ) Focused Exam Lactate Level 03/28/22 16:05: Lactic Acid Level 2.47*H 03/28/22 18:50: Lactic Acid Level 1.41 03/29/22 17:13: Lactic Acid Level 2.19*H Height, Weight, BMI Height: '" Weight: 208lbs. oz. 94.814934ym; 25.66 BMI Method: Lactic Acid Level Laboratory Tests Test 03/29/22 17:13 Lactic Acid Level 2.19 MMOL/L (0.50-2.00) *H FRANCISCO MERCADO MD Mar 29, 2022 18:36
[2022-03-29] MEDS: ENOXAPARIN 40 MG/0.4 ML (LOVENOX) SYR SC SCH (20:46)
[2022-03-29 22:23] LABS: CALCIUM 7.5 MG/DL (8.5-10.1); CREATININE SERUM 1.31 MG/DL (0.60-1.30); POTASSIUM 4.3 MMOL/L (3.6-5.0)
[2022-03-30] MEDS: CEFEPIME INJECTION 1,000 MG in NS (IVPB) 50 ML IV SCH ×4 (00:07→18:15)
[2022-03-30] MEDS: NS IV 1000 ML 1,000 ML IV SCH ×2 (00:24→06:07)
[2022-03-30] MEDS: SUCRALFATE 1 GM (CARAFATE) TAB PO SCH ×4 (05:46→20:51)
[2022-03-30] MEDS: ACETAMINOPHEN 325 MG TABLET PO PRN ×2 (05:47→21:05)
[2022-03-30] MEDS: METOCLOPRAMIDE 5 MG (REGLAN) TAB PO SCH ×4 (05:47→21:10)
[2022-03-30 06:14] LABS: BASOPHILS # (AUTO) 0.1 10^3/uL (0.0-0.1); BASOPHILS % (AUTO) 1 % (0-10); EOSINOPHILS # (AUTO) 0.1 10^3/uL (0.0-0.3); EOSINOPHILS % (AUTO) 1 % (0-10); HEMATOCRIT 37 % (40-54); HEMOGLOBIN 11.9 g/dL (13.3-17.7); LYMPHOCYTES # (AUTO) 1.1 10^3/uL (1.0-4.0); LYMPHOCYTES % (AUTO) 9 % (12-44); MEAN CORPUSCULAR HEMOGLOBIN 28 pg (25-34); MEAN CORPUSCULAR HGB CONC 32 g/dL (32-36); MEAN CORPUSCULAR VOLUME 87 fL (80-99); MEAN PLATELET VOLUME 11.7 fL (9.0-12.2); MONOCYTES # (AUTO) 0.7 10^3/uL (0.0-1.0); MONOCYTES % (AUTO) 5 % (0-12); NEUTROPHILS # (AUTO) 10.9 10^3/uL (1.8-7.8); NEUTROPHILS % (AUTO) 84 % (42-75); PLATELET COUNT 148 10^3/uL (130-400); WHITE BLOOD COUNT 12.9 10^3/uL (4.3-11.0)
[2022-03-30 06:41] VITALS: BP 153/92
[2022-03-30] MEDS: KETOROLAC 30 MG/ML VIAL IVP PRN (06:50)
[2022-03-30 06:52] LABS: POTASSIUM 4.4 MMOL/L (3.6-5.0)
[2022-03-30 06:53] LABS: CALCIUM 7.9 MG/DL (8.5-10.1)
[2022-03-30 06:54] LABS: TOTAL PROTEIN 5.5 GM/DL (6.4-8.2)
[2022-03-30] MEDS: VANCOMYCIN 1250 MG/NS 250 ML IVPB IV SCH ×4 (06:54→18:16)
[2022-03-30 06:56] LABS: BILIRUBIN,TOTAL 2.1 MG/DL (0.1-1.0)
[2022-03-30 06:57] LABS: PHOSPHORUS 2.5 MG/DL (2.3-4.7)
[2022-03-30 06:58] LABS: CREATININE SERUM 1.22 MG/DL (0.60-1.30)
[2022-03-30] MEDS: inSUlin ASPART (NovoLOG) 1 UNIT/0.01 ML (CHARGE PER UNIT) SC SCH ×4 (06:58→20:51)
[2022-03-30] MEDS ORDERED: RT-ALBUTEROL/IPRATROPIUM 3 ML (DUONEB) VIAL INH PRN (07:00)
[2022-03-30 07:01] LABS: MAGNESIUM 1.8 MG/DL (1.6-2.4)
[2022-03-30] MEDS: MAGNESIUM 1 GM/100 ML IVPB 100 ML IV SCH (07:20)
[2022-03-30] MEDS: POTASSIUM CL 10MEQ/50ML IVPB 50 ML IV SCH (07:20)
[2022-03-30] MEDS: KCL 20 MEQ TAB (K-DUR) PO SCH (07:21)
[2022-03-30] MEDS: GABAPENTIN 600 MG (NEURONTIN) TAB PO SCH ×3 (07:52→20:51)
[2022-03-30] MEDS: AZITHROMYCIN INJECTION 500 MG in NS (IVPB) 250 ML IV SCH (07:52)
[2022-03-30] MEDS: DOCUSATE SODIUM 100 MG (COLACE) CAP PO SCH ×2 (07:53→21:05)
[2022-03-30] MEDS: PANTOPRAZOLE 40 MG (PROTONIX) TAB PO SCH (07:53)
[2022-03-30] MEDS: SIMETHICONE 80 MG (MYLICON) CHEW PO SCH ×4 (07:53→20:51)
[2022-03-30] MEDS: SENNOSIDES 8.6 MG (SENOKOT) TAB PO SCH ×2 (07:53→21:05)
[2022-03-30] MEDS ORDERED: cefTRIAXone 1 GM PRE-MIX 50 ML IV SCH (09:00)
--- NOTE | 2022-03-30 09:43 | Diagnostic Imaging Report ---
Indication: Respiratory distress. Study compared 03/29/2022 Findings: The heart size is stable and within normal limits. There is however new streaky interstitial opacities bilaterally favored to reflect pulmonary edema, correlate with hypervolemia. No pleural fluid. No pneumothorax. Impression: Likely new interstitial pulmonary edema with stable normal heart size and no pleural fluid evident. Dictated by: Dictated on workstation # [id number]
--- NOTE | 2022-03-30 10:32 | Tele-ICU Progress Note ---
Subjective Date Seen by a Provider: Mar 30, 2022 Time Seen by a Provider: 10:29 Subjective/Events-last exam (Tele-ICU Physician , Progress Note ) Service provided via interactive audio and video telecommunications E-CARE system to a patient admitted to ICU bed in [facility]. Available chart/ vitals / labs / Images reviewed Video assessment done using teleICU camera, rest of exam as per RN Discussed with RN Events overnight : febrile hemodynamically stable Respiratory - I/O = Drips: Pressors- no FEBRILE AAO Respiratory - 2L I/O = Drips: Pressors- no Consultants: Hospital course: (03/28) 41yr old male admitted with hypovolemic shock/hypotension, multiple syncopal episodes. 03/29- to med floor , and then Patient is back to ICU, with fever and tachycardia SBP 140 cutrte resp failure - most likely VO - 6 L o2 A/P Hypotension - due to hypovolemia , ? possible sepsis - improved with 4L NS IV , lactate normalized - then needed additional 5 l for fever , tachycardia - nor BP stable , HR still 120s - will stop IVF now Acute resp failure 03/30 --03/29 mils 2 l - ? atelectasis - start IS 03/30 - need 6 l o2 - will stop IVF and follow closely Fio2 and check BNP Syncope vs pre -syncope on admission with hypotension - ( -no fall reported ) given persistent tachycardia - will check DDIMER - if elevated - ECHO / or CTA chest will be warranted ID - very elevated PCT , FEBRILE - persistent -UA clear , neg flu , neg covid -cxr - possible PNA , but looks more like atelectasis to my eye - as per RN - no skin infection ( h/o I&D with debridement of A bscess/Cellulitis Right foot with Osteomyelitis - as per RN abd nontender -will cont abx and follow closely cultures and clinical signs Diarrhea - as per report - chronic Vomitind - ? gastroparesis vs ID - IMPROVED JAYE - improving with hydration DM II - ISS , as per PCP GERD with esophagitis -PPI Anemia - delutional reported PEE - on CPAP ? Mood disorder, Anxiety Lines : perip , (Central Line Necessity Reviewed) [place]: void OG: Nutrition: Analgesia: Anxiety/ delirium VTE Prophylaxis: angie 40 Stress Ulcer Prophylaxis: ppi Plans in collaboration with bedside consultants and IM MDs - discussed with Dr Gates Discussed with RN to reach out if any questions or concerns A total of 40 minutes of critical care time was devoted to this patient today, required to treat and/or prevent further deterioration of critical care condition ( as above ) . Sepsis Event Evaluation Height, Weight, BMI Height: '" Weight: 208lbs. oz. 94.020315lz; 26.65 BMI Method: Focused Exam Lactate Level 03/28/22 18:50: Lactic Acid Level 1.41 03/29/22 17:13: Lactic Acid Level 2.19*H 03/29/22 21:50: Lactic Acid Level 0.92 Exam Exam Patient acknowledged, consented, and participated in this virtual visit which was conducted using real time audio/video Vital Signs Date Time Temp Pulse Resp B/P (MAP) Pulse Ox O2 Delivery O2 Flow Rate FiO2 03/30/22 09:00 118 99/47 (64) 92 High Flow N/C 6.00 03/30/22 08:00 131 93/58 (70) 92 High Flow N/C 6.00 03/30/22 08:00 92 High Flow N/C 4.00 03/30/22 08:00 37.9 03/30/22 07:44 37.9 03/30/22 07:16 90 High Flow N/C 4.00 03/30/22 07:03 High Flow N/C 4.00 03/30/22 07:00 125 03/30/22 07:00 126 26 135/74 (94) 94 High Flow N/C 6.00 03/30/22 06:52 95 High Flow N/C 4.00 03/30/22 06:50 39.4 03/30/22 06:41 38.6 128 95 03/30/22 06:26 High Flow N/C 6.00 03/30/22 06:26 95 High Flow N/C 6.00 03/30/22 06:20 97 High Flow N/C 8.00 03/30/22 06:17 38.6 03/30/22 06:14 89 Nasal Cannula 8.00 03/30/22 06:00 122 32 136/85 (102) 91 Nasal Cannula 4.00 03/30/22 05:47 38.6 03/30/22 05:40 38.6 03/30/22 05:00 114 22 146/89 (108) 92 Nasal Cannula 4.00 03/30/22 04:16 90 Nasal Cannula 2.00 03/30/22 04:00 37.0 03/30/22 04:00 105 17 137/86 (103) 95 Nasal Cannula 4.00 03/30/22 03:00 92 16 122/84 (97) 91 Nasal Cannula 4.00 03/30/22 02:00 80 18 148/92 (110) 92 Nasal Cannula 4.00 03/30/22 01:00 80 18 94/70 (78) 95 Nasal Cannula 4.00 03/30/22 01:00 84 03/30/22 00:36 95 Nasal Cannula 2.00 03/30/22 00:00 36.4 03/30/22 00:00 85 26 99/66 (77) 95 Nasal Cannula 4.00 03/29/22 23:00 90 23 98/66 (77) 95 Nasal Cannula 4.00 03/29/22 22:00 98 20 100/64 (76) 92 Nasal Cannula 4.00 03/29/22 21:00 98 14 109/71 (84) 92 Nasal Cannula 4.00 03/29/22 20:00 103 18 104/61 (75) 96 Nasal Cannula 4.00 03/29/22 20:00 37.7 03/29/22 19:38 96 Nasal Cannula 2.00 03/29/22 19:23 97 Nasal Cannula 2.00 03/29/22 19:00 115 24 138/70 (92) 95 Nasal Cannula 4.00 03/29/22 19:00 115 03/29/22 18:45 38.1 03/29/22 18:44 38.1 03/29/22 18:10 40.0 03/29/22 18:09 128 29 114/64 (81) 92 Nasal Cannula 03/29/22 17:49 39.6 03/29/22 17:39 40.2 03/29/22 17:32 92 Nasal Cannula 2.00 03/29/22 17:30 40.2 138 20 134/69 (90) 93 Nasal Cannula 03/29/22 16:40 39.6 142 22 149/79 (102) 93 Nasal Cannula 2.00 03/29/22 15:31 39.3 130 18 144/79 (100) 92 Nasal Cannula 2.00 03/29/22 15:30 39.3 03/29/22 14:26 40.2 03/29/22 13:57 40.3 129 20 130/62 (84) 90 Room Air 03/29/22 13:37 38.6 03/29/22 11:50 37.6 110 18 131/78 (95) 92 Room Air 03/29/22 11:12 Nasal Cannula 2.00 I & O 03/30/22 07:00 Intake Total 5617.5 ml Output Total 3525 ml Balance 2092.5 ml Height & Weight Height: '" Weight: 208lbs. oz. 94.202103pm; 26.65 BMI Method: General Appearance: Other (Pale) HEENT: PERRL/EOMI Neck: Full Range of Motion, Normal Inspection, Non Tender, Supple Respiratory: Chest Non Tender, Lungs Clear, Normal Breath Sounds, No Accessory Muscle Use, No Respiratory Distress Cardiovascular: Tachycardia Capillary Refill: Less Than 3 Seconds Extremity: Non Tender, Pedal Edema (B/l) Neurologic/Psychiatric: Alert, Oriented x3 Skin: Warm/Dry, Other (pale) Lymphatic: No Adenopathy Results Lab Laboratory Tests 03/28/22 15:12 03/28/22 18:50 03/29/22 04:40 03/29/22 17:13 03/29/22 21:50 03/30/22 05:17 Assessment/Plan Assessment/Plan 1 FRANCISCO MERCADO MD Mar 30, 2022 10:32
[2022-03-30] MEDS: RT-ALBUTEROL/IPRATROPIUM 3 ML (DUONEB) VIAL INH SCH ×4 (10:59→21:08)
--- NOTE | 2022-03-30 12:01 | Diagnostic Imaging Report ---
INDICATION: Suspected osteomyelitis. EXAMINATION: Right foot 03/30/2022. COMPARISON: 04/09/2021. FINDINGS: 3 views of the foot Since the previous examination, there has been interval development of destructive change along the 4th metatarsal head and at the base of the proximal 4th phalanx. Findings suggestive of osteomyelitis. There is diffuse soft tissue swelling about the 4th digit. Remaining osseous structures intact with degenerative findings noted. IMPRESSION: 1. Interval destructive change along the 4th metatarsal head and adjacent 4th proximal phalanx. Osteomyelitis is suspected but could be better characterized with MRI with and without contrast. 2. Not mentioned above soft tissue irregularity with hyperdensities possibly radiopaque foreign bodies versus nonspecific calcifications in the plantar surface of the forefoot on the lateral view. Subcutaneous air in the region not excluded. Correlate clinically. Dictated by: Dictated on workstation # [id number]
--- NOTE | 2022-03-30 13:18 | Progress Note - Hospitalist ---
RAQUEL ESPINOZA 03/30/22 1318: Subjective HPI/CC On Admission Date Seen by Provider: Mar 30, 2022 Time Seen by Provider: 09:30 Admitted for hypotension without source of sepsis.CXR repeat revealed evidence of PNA and abx started promptly. Patient required transfer back to ICU later afternoon due to fever 104 and tachy 140 but no hypotension and I assessed the patient at 1800 and lungs remained clear. Subjective/Events-last exam Patient is a 41 year old man admitted for hypotension with multiple syncopal episodes. He states that he is feeling about the same as yesterday. Says he felt feverish last night. Notes chills and SOB. Denies N/V, headache, chest pain, or cough. He states that his pain is well controlled this morning. Review of Systems General: Chills HEENT: No Head Aches, No Visual Changes Pulmonary: Dyspnea; No Cough Cardiovascular: Lt Headedness (Minor); No: Chest Pain, Palpitations Gastrointestinal: No: Nausea, Vomiting, Abdominal Pain, Diarrhea, Constipation Genitourinary: Frequency Neurological: No: Numbness, Change in speech, Confusion Focused Exam Sepsis Stage: Sepsis (HR: 108, RR: 28, positive blood cultures, and elevated lactic acid on arrival) Lactate Level 03/28/22 18:50: Lactic Acid Level 1.41 03/29/22 17:13: Lactic Acid Level 2.19*H 03/29/22 21:50: Lactic Acid Level 0.92 Objective Exam Vital Signs Vital Signs Date Time Temp Pulse Resp B/P (MAP) Pulse Ox O2 Delivery O2 Flow Rate FiO2 03/30/22 12:00 94 High Flow N/C 2.00 03/30/22 11:51 36.8 03/30/22 10:00 108 28 109/74 (86) 03/28/22 22:02 21 Capillary Refill : Less Than 3 Seconds General Appearance: Anxious, Chronically ill, Mild Distress HEENT: PERRL/EOMI Neck: Full Range of Motion, Normal Inspection, Non Tender, Supple; No Carotid Bruit, No JVD Respiratory: Chest Non Tender, Lungs Clear, Normal Breath Sounds, No Accessory Muscle Use, No Respiratory Distress Cardiovascular: No Edema, No Gallop, No JVD, No Murmur, Normal Peripheral Pulses, Tachycardia Gastrointestinal: Normal Bowel Sounds, No Organomegaly, No Pulsatile Mass, Non Tender, Soft Back: Normal Inspection Extremity: Normal Capillary Refill, Normal Inspection, Non Tender, No Calf Tenderness Neurologic/Psychiatric: Alert, Oriented x3, No Motor/Sensory Deficits, Normal Mood/Affect Skin: Normal Color, Diaphoresis Lymphatic: No Adenopathy Results/Procedures Lab Laboratory Tests 03/29/22 17:13 03/29/22 21:50 03/30/22 05:17 Patient resulted labs reviewed. Radiology Date of Exam:03/30/22 FOOT, RIGHT, 3 VIEW INDICATION: Suspected osteomyelitis. EXAMINATION: Right foot 03/30/2022. COMPARISON: 04/09/2021. FINDINGS: 3 views of the foot Since the previous examination, there has been interval development of destructive change along the 4th metatarsal head and at the base of the proximal 4th phalanx. Findings suggestive of osteomyelitis. There is diffuse soft tissue swelling about the 4th digit. Remaining osseous structures intact with degenerative findings noted. IMPRESSION: 1. Interval destructive change along the 4th metatarsal head and adjacent 4th proximal phalanx. Osteomyelitis is suspected but could be better characterized with MRI with and without contrast. 2. Not mentioned above soft tissue irregularity with hyperdensities possibly radiopaque foreign bodies versus nonspecific calcifications in the plantar surface of the forefoot on the lateral view. Subcutaneous air in the region not excluded. Correlate clinically. Dictated by: Dictated on workstation # [id number] Dict: 03/30/22 1155 Trans: 03/30/22 1232 SA [id number] Interpreted by: GABI CINTRON MD Electronically signed by: GABI CINTRON MD 03/30/22 1232 Date of Exam:03/30/22 CHEST 1 VIEW, AP/PA ONLY Indication: Respiratory distress. Study compared 03/29/2022 Findings: The heart size is stable and within normal limits. There is however new streaky interstitial opacities bilaterally favored to reflect pulmonary edema, correlate with hypervolemia. No pleural fluid. No pneumothorax. Impression: Likely new interstitial pulmonary edema with stable normal heart size and no pleural fluid evident. Dictated by: Dictated on workstation # [id number] Dict: 03/30/22 0828 Trans: 03/30/22 1026 CVB [id number] Interpreted by: BOLA PATHAK Electronically signed by: BOLA PATHAK 03/30/22 1026 Meds Patient administered albuterol/ipratropium, protonix, KCl, magnesium sulfate, ketorolac, acetaminophen, gabapentin, simethicone, senna, docusate sodium, sucralfate, metoclopramide, insulin aspart. Enoxaparin for DVT prophylaxis. Oxycodone for pain control. Cefepime, vancomycin for infection control. Assessment/Plan Assessment and Plan Assess & Plan/Chief Complaint Hypovolemic shock - continue fluid management and blood pressure monitoring Sepsis - Continue IV antibiotics and monitor infectious course Osteomyelitis of right foot - continue IV antibiotics, consult with ortho or infectious disease for appropriate management if infection does not improve N/V - mostly resolved, continue ondansetron as needed Left lower lobe pneumonia - continue IV antibiotics T2DM - Insulin aspart as needed, careful monitoring of glucose JAYE: likely due to hypovolemic shock Clinical Quality Measures DVT/VTE Risk/Contraindication: VTE Addressed: Yes VTE Present on Admission: No JAZZY AUGUST DO 03/30/222100: Subjective Subjective/Events-last exam Pt is doing a little better IV fluids continue White count is 12,000 Coag negative staph on blood culture Right foot diabetic ulcer at the bottom of his foot doesn't look inflamed Will continue aggressive care in the ICU Supervisory-Addendum Brief Verification & Attestation Participated in pt care: history, MDM, physical Personally performed: exam, history, MDM, supervision of care Care discussed with: Medical Student Procedures: n/a Results interpretation: Verified all documentation Verification and Attestation of Medical Student E/M Service A medical student performed and documented this service in my presence. I reviewed and verified all information documented by the medical student and made modifications to such information, when appropriate. I personally performed the physical exam and medical decision making. Jazzy August, Mar 30, 2022,21:01 RAQUEL ESPINOZA Mar 30, 2022 13:18 JAZZY AUGUST DO Mar 30, 2022 21:01
--- NOTE | 2022-03-30 14:30 | Consultation - Surgery ---
MOISÉS XAVIER 03/30/22 1430: History of Present Illness History of Present Illness Patient Consulted On(edwin/time) 03/30/22 14:17 Date Seen by Provider: Mar 30, 2022 Time Seen by Provider: 14:17 History of Present Illness Consult requested per Dr. Ashley for possible osteomyelitis. Patient is a 41 year old that presented to the ER on 03-28-2022 from [facility] for hypotension and syncopal episodes. He said he was was feeling confused and lightheaded so he decided to come to the ER. He was found in the ER to be hypotensive with a BP of 81/55. He was given saline in the ER. He met SIRS criteria and found the have pneumonia and bacteremia. He has begun to complain of pain in his toe where he had a pervious infection. He has a lesion on the plantar aspect of his right foot where his pervious infection was. He has sensation and mobility of all toes of right foot. With recent imaging suggestive of osteomyelitis. As of today (03-30-2022) he is sitting comfortably in his bed, eating. He had no complaints of pain at this time. He does have a new onset of a tremor of his left arm and hand that started this morning, no other focal deficits noted. 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/21) Patient Home Medication List Aspirin (Aspirin) 81 Mg Tab.chew, 81 MG PO HS, (Reported) Entered as Reported by: ABIDA BRUMFIELD on 10/04/21 1023 Last Action: Reviewed Atorvastatin Calcium (Atorvastatin Calcium) 80 Mg Tablet, 80 MG PO HS, (Reported) Entered as Reported by: ABIDA BRUMFIELD on 10/04/21 1023 Last Action: Reviewed Canagliflozin (Invokana) 100 Mg Tablet, 100 MG PO DAILY, (Reported) Entered as Reported by: ABIDA BRUMFIELD on 03/29/22 1108 Last Action: Reviewed Gabapentin (Gabapentin) 600 Mg Tablet, 600 MG PO TID, (Reported) Entered as Reported by: ABIDA BRUMFIELD on 10/04/21 1023 Last Action: Reviewed Metformin HCl (Metformin HCl ER) 500 Mg Tab.er.24, 500 MG PO 1800 W/MEAL, (Reported) Entered as Reported by: ABIDA BRUMFIELD on 10/04/21 102 Last Action: Reviewed Metoclopramide HCl (Metoclopramide HCl) 10 Mg Tablet, 10 MG PO QID, (Reported) Entered as Reported by: ABIDA BRUMFIELD on 03/29/221107 Last Action: Reviewed Midodrine HCl (Midodrine HCl) 5 Mg Tablet, 5 MG PO TID, (Reported) Entered as Reported by: ABIDA BRUMFIELD on 03/29/22 1206 Last Action: Reviewed Sucralfate (Carafate) 1 Gram Tablet, 1 GM PO ACHS, (Reported) Entered as Reported by: ABIDA BRUMFIELD on 03/29/221107 Last Action: Reviewed Tirzepatide (Mounjaro) 5 Mg/0.5 Ml Pen.injctr, 5 MG IJ TUE, (Reported) Entered as Reported by: ABIDA BRUMFIELD on 03/29/221107 Last Action: Reviewed Discontinued Medications Canagliflozin (Invokana) 300 Mg Tablet, 300 MG PO DAILY, (Reported) Discontinued Reason: Duplicate Order Entered as Reported by: ABIDA BRUMFIELD on 10/04/211022 Last Action: Discontinued Cephalexin (Cephalexin) 500 Mg Tablet, 500 MG PO TID Discontinued Reason: No Longer Taking Prescribed by: ODILON LAN on 10/31/212200 Last Action: Discontinued Famotidine (Famotidine) 20 Mg Tablet, 20 MG PO BID Discontinued Reason: No Longer Taking Prescribed by: LOC AUGUST on 10/07/21552 Last Action: Discontinued Liraglutide (Victoza 3-Yan) 0.6 Mg/0.1 Ml (18 Mg/3 Ml) Pen.injctr, 3 MG SQ HS, (Reported) Discontinued Reason: No Longer Taking Entered as Reported by: ABIDA BRUMFIELD on 10/04/211022 Last Action: Discontinued Lisinopril (Lisinopril) 10 Mg Tablet, 10 MG PO DAILY Discontinued Reason: No Longer Taking Prescribed by: LOC AUGUST on 10/07/21552 Last Action: Discontinued Pantoprazole Sodium (Pantoprazole Sodium) 40 Mg Tablet.dr, 40 MG PO BID Discontinued Reason: No Longer Taking Prescribed by: LOC AUGUST on 10/07/21552 Last Action: Discontinued Polyethylene Glycol 3350 (Miralax) 17 Gram Powd.pack, 17 GM PO BID PRN for CONSTIPATION-2ND LINE, (Reported) Discontinued Reason: No Longer Taking Entered as Reported by: ABIDA BRUMFIELD on 10/04/21 1023 Last Action: Discontinued Sennosides (Senna) 8.6 Mg Tablet, 8.6-17.2 MG PO BID PRN for CONSTIPATION-5TH LINE, (Reported) Discontinued Reason: No Longer Taking Entered as Reported by: ABIDA BRUMFIELD on 10/04/21 1023 Last Action: Discontinued Simethicone (Simethicone) 80 Mg Tab.chew, 80 MG PO PCHS PRN for GAS, (Reported) Discontinued Reason: No Longer Taking Entered as Reported by: ABIDA BRUMFIELD on 10/04/21 1027 Last Action: Discontinued Sucralfate (Sucralfate) 1 Gram Tablet, 1 GM PO ACHS Discontinued Reason: No Longer Taking Prescribed by: LOC AUGUST on 10/07/21 0553 Last Action: Discontinued Past Ojikmiz-Pnbqys-Ankizq Hx Patient Social History Smoking Status: Former Smoker Type Used: Cigarettes Alcohol Use?: Yes Have you traveled recently?: No Immunizations Up To Date Date of Influenza Vaccine: Mar 13, 2022 Seasonal Allergies Seasonal Allergies: No Surgeries History of Surgeries: Yes (wisdom teeth removal, urethral surgery) Surgeries: Angioplasty (Of right popliteal artery), Gallbladder Respiratory History of Respiratory Disorde: No Cardiovascular History of Cardiac Disorders: No Neurological History of Neurological Disord: No Genitourinary History of Genitourinary Disor: Yes Genitourinary Disorders: Epi/Hypospadias Gastrointestinal History of Gastrointestinal Di: No Musculoskeletal History of Musculoskeletal Dis: No Endocrine History of Endocrine Disorders: Yes Endocrine Disorders: Diabetes, Non-Insulin dep HEENT History of HEENT Disorders: No Loss of Vision: Bilateral Hearing Impairment: Denies Cancer History of Cancer: No Psychosocial History of Psychiatric Problem: Yes Behavioral Health Disorders: Anxiety, Depression Integumentary History of Skin or Integumenta: No Family Medical History Significant Family History: Cancer (Mother of ovarian cancer) Review of Systems-General Constitutional: chills, weakness EENTM: No ear discharge, No hearing loss Respiratory: No short of breath, No wheezing Cardiovascular: No chest pain, No edema Gastrointestinal: No abdominal pain, No diarrhea Genitourinary: No decreased output, No discharge Musculoskeletal: No back pain, No joint pain Skin: No change in color, No change in hair/nails Psychiatric/Neurological: Anxiety, Depressed All Other Systems Reviewed Negative Unless Noted: Yes Physical Exam-General Problems Physical Exam Vital Signs Vital Signs - First Documented 03/28/22 03/28/22 03/29/22 15:00 22:02 04:14 Temp 36.3 Pulse 142 Resp 16 B/P (MAP) 81/55 (64) Pulse Ox 98 O2 Delivery Room Air O2 Flow Rate 2.00 FiO2 21 Capillary Refill : Less Than 3 Seconds General Appearance: WD/WN, no apparent distress Eyes: Bilateral Eye Normal Inspection, Bilateral Eye Scleral Icterus (None) HEENT: pharynx normal; No scleral icterus (R), No scleral icterus (L) Neck: non-tender, full range of motion, supple Respiratory: chest non-tender, lungs clear, normal breath sounds Cardiovascular: regular rate, rhythm, no edema, no gallop Peripheral Pulses: 2+ Radial Pulses (R), 2+ Radial Pulses (L) Gastrointestinal: normal bowel sounds, non tender, soft Rectal: deferred Back: no CVA tenderness Extremities: normal range of motion, normal inspection Neurologic/Psychiatric: alert, oriented x 3 Skin: normal color, warm/dry, other (1 cm x 3 cm lesion on plantar surface of right foot, no signs of bleeding or purulence at this time.) Lymphatic: no adenopathy Data Review Labs Laboratory Tests 03/29/22 15:38: Glucometer 175H 03/29/22 17:13: White Blood Count 8.4, Red Blood Count 4.19L, Hemoglobin 11.7L, Hematocrit 36L, Mean Corpuscular Volume 85, Mean Corpuscular Hemoglobin 28, Mean Corpuscular Hemoglobin Concent 33, Red Cell Distribution Width 12.0, Platelet Count 151, Mean Platelet Volume 11.4, Immature Granulocyte % (Auto) 0, Neutrophils (%) (Auto) 90H, Lymphocytes (%) (Auto) 7L, Monocytes (%) (Auto) 2, Eosinophils (%) (Auto) 0, Basophils (%) (Auto) 0, Neutrophils # (Auto) 7.6, Lymphocytes # (Auto) 0.6L, Monocytes # (Auto) 0.1, Eosinophils # (Auto) 0.0, Basophils # (Auto) 0.0, Immature Granulocyte # (Auto) 0.0, Sodium Level 131L, Potassium Level 4.5, Chloride Level 102, Carbon Dioxide Level 20L, Anion Gap 9, Blood Urea Nitrogen 17, Creatinine 1.32H, Estimat Glomerular Filtration Rate 69, BUN/Creatinine Ratio 13, Glucose Level 184H, Lactic Acid Level 2.19*H, Calcium Level 8.1L, Corrected Calcium 8.7, Total Bilirubin 2.2H, Aspartate Amino Transf (AST/SGOT) 21, Alanine Aminotransferase (ALT/SGPT) 20, Alkaline Phosphatase 96, Total Protein 6.1L, Albumin 3.3, Procalcitonin 22.57H 03/29/22 17:50: Blood Gas Puncture Site RIGHT RADIAL, Blood Gas Patient Temperature 40.2, Arterial Blood pH 7.34*L, Arterial Blood Partial Pressure CO2 43, Arterial Blood Partial Pressure O2 73L, Arterial Blood HCO3 22L, Arterial Blood Total CO2 22.7, Arterial Blood Oxygen Saturation 89L, Arterial Blood Base Excess -2.6L, Tao Test POSITIVE, Blood Gas Ventilator Setting NO, Blood Gas Inspired Oxygen 2 L 03/29/22 20:34: Glucometer 298H 03/29/22 21:50: Sodium Level 130L, Potassium Level 4.3, Chloride Level 103, Carbon Dioxide Level 19L, Anion Gap 8, Blood Urea Nitrogen 18, Creatinine 1.31H, Estimat Glomerular Filtration Rate 70, BUN/Creatinine Ratio 14, Glucose Level 297H, Lactic Acid Level 0.92, Calcium Level 7.5L 03/30/22 05:17: Sodium Level 137, Potassium Level 4.4, Chloride Level 109H, Carbon Dioxide Level 20L, Anion Gap 8, Blood Urea Nitrogen 17, Creatinine 1.22, Estimat Glomerular Filtration Rate 76, BUN/Creatinine Ratio 14, Glucose Level 116H, Calcium Level 7.9L, White Blood Count 12.9H, Red Blood Count 4.25L, Hemoglobin 11.9L, Hematocrit 37L, Mean Corpuscular Volume 87, Mean Corpuscular Hemoglobin 28, Mean Corpuscular Hemoglobin Concent 32, Red Cell Distribution Width 12.2, Platelet Count 148, Mean Platelet Volume 11.7, Immature Granulocyte % (Auto) 0, Neutr ophils (%) (Auto) 84H, Lymphocytes (%) (Auto) 9L, Monocytes (%) (Auto) 5, Eosinophils (%) (Auto) 1, Basophils (%) (Auto) 1, Neutrophils # (Auto) 10.9H, Lymphocytes # (Auto) 1.1, Monocytes # (Auto) 0.7, Eosinophils # (Auto) 0.1, Basophils # (Auto) 0.1, Immature Granulocyte # (Auto) 0.1, Corrected Calcium 8.7, Phosphorus Level 2.5, Magnesium Level 1.8, Total Bilirubin 2.1H, Aspartate Amino Transf (AST/SGOT) 27, Alanine Aminotransferase (ALT/SGPT) 20, Alkaline Phosphatase 90, Total Protein 5.5L, Albumin 3.0L 03/30/22 06:43: Glucometer 107 03/30/22 09:49: D-Dimer 0.84H, B-Type Natriuretic Peptide 188.8H 03/30/22 10:50: Glucometer 196H Microbiology 03/28/22 MRSA Screen - Final, Complete MRSA not isolated 03/28/22 Blood Culture - Preliminary, Resulted No growth Radiology FOOT, RIGHT, 3 VIEW INDICATION: Suspected osteomyelitis. EXAMINATION: Right foot 03/30/2022. COMPARISON: 04/09/2021. FINDINGS: 3 views of the foot Since the previous examination, there has been interval development of destructive change along the 4th metatarsal head and at the base of the proximal 4th phalanx. Findings suggestive of osteomyelitis. There is diffuse soft tissue swelling about the 4th digit. Remaining osseous structures intact with degenerative findings noted. IMPRESSION: 1. Interval destructive change along the 4th metatarsal head and adjacent 4th proximal phalanx. Osteomyelitis is suspected but could be better characterized with MRI with and without contrast. 2. Not mentioned above soft tissue irregularity with hyperdensities possibly radiopaque foreign bodies versus nonspecific calcifications in the plantar surface of the forefoot on the lateral view. Subcutaneous air in the region not excluded. Correlate clinically. Assessment/Plan Assessment/Plan Assessment/Plan Osteomyelitis of right 4th toe- based on x-ray Ulcer of right foot Sepsis/Bacteremia- Coag negative staph Left lower lobe pneumonia T2DM JAYE GERD Consider MRI without contrast for better view of foot Continue cefepime and vancomycin Continue Abx and supportive care Possible surgery, to be discussed with patient Clinical Quality Measures DVT/VTE Risk/Contraindication: VTE Addressed: Yes VTE Present on Admission: No THONY CLAYTON DO 03/31/22 0819: History of Present Illness History of Present Illness History of Present Illness 41 year old male with long standing osteomyelitis or right foot. 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 In the ICU due to hypotensive and found to have bacteremia. Having pain in the right foot again and ulcer has come back again. Unsure how long it has been there. X ray has erosive changes to 4th metatarsal head and possible gas in plantar part of foot where ulcer is. 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/21) Patient Home Medication List Home Medication List Reviewed: Yes Aspirin (Aspirin) 81 Mg Tab.chew, 81 MG PO HS, (Reported) Entered as Reported by: ABIDA BRUMFIELD on 10/04/21 1023 Last Action: Reviewed Atorvastatin Calcium (Atorvastatin Calcium) 80 Mg Tablet, 80 MG PO HS, (Reported) Entered as Reported by: ABIDA BRUMFIELD on 10/04/21 1023 Last Action: Reviewed Canagliflozin (Invokana) 100 Mg Tablet, 100 MG PO DAILY, (Reported) Entered as Reported by: ABIDA BRUMFIELD on 03/29/22 1108 Last Action: Reviewed Gabapentin (Gabapentin) 600 Mg Tablet, 600 MG PO TID, (Reported) Entered as Reported by: ABIDA BRUMFIELD on 10/04/21 1023 Last Action: Reviewed Metformin HCl (Metformin HCl ER) 500 Mg Tab.er.24, 500 MG PO 1800 W/MEAL, (Reported) Entered as Reported by: ABIDA BRUMFIELD on 10/04/21 1023 Last Action: Reviewed Metoclopramide HCl (Metoclopramide HCl) 10 Mg Tablet, 10 MG PO QID, (Reported) Entered as Reported by: ABIDA BRUMFIELD on 03/29/22 1108 Last Action: Reviewed Midodrine HCl (Midodrine HCl) 5 Mg Tablet, 5 MG PO TID, (Reported) Entered as Reported by: ABIDA BRUMFIELD on 03/29/22 1206 Last Action: Reviewed Sucralfate (Carafate) 1 Gram Tablet, 1 GM PO ACHS, (Reported) Entered as Reported by: ABIDA BRUMFIELD on 03/29/22 1108 Last Action: Reviewed Tirzepatide (Mounjaro) 5 Mg/0.5 Ml Pen.injctr, 5 MG IJ TUE, (Reported) Entered as Reported by: ABIDA BRUMFIELD on 03/29/22 1108 Last Action: Reviewed Discontinued Medications Canagliflozin (Invokana) 300 Mg Tablet, 300 MG PO DAILY, (Reported) Discontinued Reason: Duplicate Order Entered as Reported by: ABIDA BRUMFIELD on 10/04/211022 Last Action: Discontinued Cephalexin (Cephalexin) 500 Mg Tablet, 500 MG PO TID Discontinued Reason: No Longer Taking Prescribed by: ODILON LAN on 10/31/212200 Last Action: Discontinued Famotidine (Famotidine) 20 Mg Tablet, 20 MG PO BID Discontinued Reason: No Longer Taking Prescribed by: LOC AUGUST on 10/07/21552 Last Action: Discontinued Liraglutide (Victoza 3-Yan) 0.6 Mg/0.1 Ml (18 Mg/3 Ml) Pen.injctr, 3 MG SQ HS, (Reported) Discontinued Reason: No Longer Taking Entered as Reported by: ABIDA BRUMFIELD on 10/04/211022 Last Action: Discontinued Lisinopril (Lisinopril) 10 Mg Tablet, 10 MG PO DAILY Discontinued Reason: No Longer Taking Prescribed by: LOC AUGUST on 10/07/21552 Last Action: Discontinued Pantoprazole Sodium (Pantoprazole Sodium) 40 Mg Tablet.dr, 40 MG PO BID Discontinued Reason: No Longer Taking Prescribed by: LOC AUGUST on 10/07/21552 Last Action: Discontinued Polyethylene Glycol 3350 (Miralax) 17 Gram Powd.pack, 17 GM PO BID PRN for CONSTIPATION-2ND LINE, (Reported) Discontinued Reason: No Longer Taking Entered as Reported by: ABIDA BRUMFIELD on 10/04/211022 Last Action: Discontinued Sennosides (Senna) 8.6 Mg Tablet, 8.6-17.2 MG PO BID PRN for CONSTIPATION-5TH LINE, (Reported) Discontinued Reason: No Longer Taking Entered as Reported by: ABIDA BRUMFIELD on 10/04/211022 Last Action: Discontinued Simethicone (Simethicone) 80 Mg Tab.chew, 80 MG PO PCHS PRN for GAS, (Reported) Discontinued Reason: No Longer Taking Entered as Reported by: ABIDA BRUMFIELD on 10/04/21 1027 Last Action: Discontinued Sucralfate (Sucralfate) 1 Gram Tablet, 1 GM PO ACHS Discontinued Reason: No Longer Taking Prescribed by: LOC AUGUST on 10/07/21 0061 Last Action: Discontinued Past Pzjcrzp-Qpzbxb-Sazwzy Hx Reviewed Nursing Assessment Reviewed/Agree w Nursing PMH: Yes Family Medical History Significant Family History: Cancer (Mother of ovarian cancer) Review of Systems-General Constitutional: chills, weakness EENTM: No ear discharge, No hearing loss, No blurred vision, No double vision Respiratory: No cough, No dyspnea on exertion, No short of breath, No wheezing Cardiovascular: No chest pain, No edema Gastrointestinal: No abdominal pain, No diarrhea Genitourinary: No decreased output, No discharge Musculoskeletal: No back pain, No joint pain Skin: No change in color, No change in hair/nails Psychiatric/Neurological: Anxiety, Depressed All Other Systems Reviewed Negative Unless Noted: Yes (Negative excepted noted.) Physical Exam-General Problems Physical Exam General Appearance: WD/WN, no apparent distress HEENT: PERRL/EOMI, normal ENT inspection Neck: non-tender, supple Respiratory: chest non-tender, normal breath sounds Cardiovascular: regular rate, rhythm, no edema Gastrointestinal: non tender, soft Rectal: deferred Back: normal inspection, no CVA tenderness Extremities: normal range of motion Neurologic/Psychiatric: alert, oriented x 3 Skin: normal color, warm/dry, other (1 cm x 3 cm lesion on plantar surface of right foot, no signs of bleeding or purulence at this time, slight erythema right 4th toe) Lymphatic: no adenopathy Assessment/Plan Assessment/Plan Assessment/Plan Osteomyelitis of right 4th toe/metatarsal head Ulcer of right foot Sepsis/Bacteremia- Coag negative staph Left lower lobe pneumonia T2DM JAYE GERD Patient has tried conservative management of right food. Recurrent ulcer. Osteomyelitis treatment was discussed, different options. He wishes to proceed with right 4th toe amputation and metatarsal head all other indicated procedures. He understands risks and benefits and postoperative treatment plan with wound care. To [facility] tomorrow NPO after midnight continue abx. Supervisory-Addendum Brief Verification & Attestation Participated in pt care: history, MDM, physical Personally performed: exam, history, MDM, supervision of care Care discussed with: Medical Student Procedures: n/a Results interpretation: Verified all documentation Verification and Attestation of Medical Student E/M Service A medical student performed and documented this service in my presence. I reviewed and verified all information documented by the medical student and made modifications to such information, when appropriate. I personally performed the physical exam and medical decision making. Thony Clayton, Mar 30, 2022,23:23 MOISÉS XAVIER Mar 30, 2022 14:30 THONY CLAYTON DO Mar 31, 2022 08:19
[2022-03-31] VITALS (8 sets, daily range): BP systolic 104–143; BP diastolic 48–82
[2022-03-31] MEDS: CEFEPIME INJECTION 1,000 MG in NS (IVPB) 50 ML IV SCH ×5 (00:13→23:30)
[2022-03-31] MEDS: RT-ALBUTEROL/IPRATROPIUM 3 ML (DUONEB) VIAL INH SCH ×5 (02:46→19:00)
[2022-03-31] MEDS ORDERED: TROUGH ORDER-PHARMACY XX NR (06:00)
[2022-03-31 06:01] LABS: BASOPHILS % (AUTO) 0 % (0-10); EOSINOPHILS # (AUTO) 0.1 10^3/uL (0.0-0.3); EOSINOPHILS % (AUTO) 1 % (0-10); HEMATOCRIT 32 % (40-54); HEMOGLOBIN 10.4 g/dL (13.3-17.7); LYMPHOCYTES # (AUTO) 1.4 10^3/uL (1.0-4.0); LYMPHOCYTES % (AUTO) 15 % (12-44); MEAN CORPUSCULAR HEMOGLOBIN 28 pg (25-34); MEAN CORPUSCULAR HGB CONC 33 g/dL (32-36); MEAN CORPUSCULAR VOLUME 85 fL (80-99); MEAN PLATELET VOLUME 11.4 fL (9.0-12.2); MONOCYTES # (AUTO) 0.7 10^3/uL (0.0-1.0); MONOCYTES % (AUTO) 8 % (0-12); NEUTROPHILS # (AUTO) 6.6 10^3/uL (1.8-7.8); NEUTROPHILS % (AUTO) 74 % (42-75); PLATELET COUNT 153 10^3/uL (130-400); WHITE BLOOD COUNT 8.9 10^3/uL (4.3-11.0)
[2022-03-31] MEDS: METOCLOPRAMIDE 5 MG (REGLAN) TAB PO SCH ×4 (06:09→19:58)
[2022-03-31] MEDS: SUCRALFATE 1 GM (CARAFATE) TAB PO SCH ×4 (06:09→19:58)
[2022-03-31 06:16] LABS: VANCOMYCIN,TROUGH 17.2 UG/ML (10.0-20.0)
[2022-03-31 06:23] LABS: ALBUMIN 2.9 GM/DL (3.2-4.5); BILIRUBIN,TOTAL 1.2 MG/DL (0.1-1.0); CALCIUM 8.4 MG/DL (8.5-10.1); CREATININE SERUM 0.94 MG/DL (0.60-1.30); MAGNESIUM 1.7 MG/DL (1.6-2.4); PHOSPHORUS 1.9 MG/DL (2.3-4.7); POTASSIUM 3.7 MMOL/L (3.6-5.0); TOTAL PROTEIN 5.6 GM/DL (6.4-8.2)
[2022-03-31] MEDS: POTASSIUM CL 10MEQ/50ML IVPB 50 ML IV SCH (06:24)
[2022-03-31] MEDS: inSUlin ASPART (NovoLOG) 1 UNIT/0.01 ML (CHARGE PER UNIT) SC SCH ×4 (06:25→21:11)
[2022-03-31] MEDS: MAGNESIUM 1 GM/100 ML IVPB 100 ML IV SCH (06:25)
[2022-03-31] MEDS: KCL 20 MEQ TAB (K-DUR) PO SCH (06:25)
[2022-03-31] MEDS: VANCOMYCIN 1250 MG/NS 250 ML IVPB IV SCH ×4 (06:29→19:57)
--- NOTE | 2022-03-31 06:33 | Progress Note - Surgery ---
MOISÉS XAVIER 03/31/22 0633: Subjective Date Seen by a Provider: Mar 31, 2022 Time Seen by a Provider: 06:33 Subjective/Events-last exam Patient is sitting up in bed this morning, in good spirits. No acute distress Is no longer shaking today, stopped his reglan No complaints of pain at this time Denies any SOB, fever chills, nausea, vomiting Labs reviewed Focused Exam Lactate Level 03/28/22 18:50: Lactic Acid Level 1.41 03/29/22 17:13: Lactic Acid Level 2.19*H 03/29/22 21:50: Lactic Acid Level 0.92 Objective Exam Vital Signs Date Time Temp Pulse Resp B/P (MAP) Pulse Ox O2 Delivery O2 Flow Rate FiO2 03/31/22 06:00 103 26 165/97 (119) 95 Nasal Cannula 2.00 03/31/22 05:00 113 12 138/84 (102) 96 Nasal Cannula 2.00 03/31/22 04:00 95 High Flow N/C 2.00 03/31/22 04:00 109 17 143/67 (92) 92 Nasal Cannula 2.00 03/31/22 03:00 110 39 142/87 (105) 95 Nasal Cannula 2.00 03/31/22 02:46 96 High Flow N/C 2.00 03/31/22 02:00 105 28 148/88 (108) 95 Nasal Cannula 2.00 03/31/22 01:04 36.3 03/31/22 01:00 116 03/31/22 01:00 116 28 163/90 (114) 95 Nasal Cannula 2.00 03/31/22 00:00 115 20 124/79 (94) 96 Nasal Cannula 2.00 03/30/22 23:59 95 High Flow N/C 2.00 03/30/22 23:00 122 25 151/84 (106) 94 Nasal Cannula 2.00 03/30/22 22:28 Nasal Cannula 2.00 03/30/22 22:00 131 22 150/79 (102) 93 Room Air 03/30/22 21:08 91 Room Air 03/30/22 21:00 116 15 159/95 (116) 93 Room Air 03/30/22 20:00 95 Room Air 03/30/22 20:00 112 22 144/90 (108) 93 Room Air 03/30/22 19:00 110 38 138/86 (103) 98 Room Air 03/30/22 19:00 110 03/30/22 19:00 37.2 03/30/22 18:00 112 19 116/69 (85) 95 Room Air 03/30/22 17:00 116 21 131/71 (91) 93 Room Air 03/30/22 16:18 Room Air 03/30/22 16:00 95 Room Air 03/30/22 16:00 120 24 111/68 (82) 96 High Flow N/C 2.00 03/30/22 15:59 36.2 03/30/22 15:50 36.8 03/30/22 15:00 126 16 107/66 (80) 96 High Flow N/C 2.00 03/30/22 14:26 95 High Flow N/C 2.00 03/30/22 14:00 113 20 124/78 (93) 94 High Flow N/C 2.00 03/30/22 13:00 110 20 99/55 (70) 93 High Flow N/C 6.00 03/30/22 13:00 113 03/30/22 12:00 94 High Flow N/C 2.00 03/30/22 12:00 121 18 85/51 (62) 93 High Flow N/C 6.00 03/30/22 11:51 36.8 03/30/22 11:04 High Flow N/C 2.00 03/30/22 11:00 98 17 96/63 (74) 95 High Flow N/C 6.00 03/30/22 11:00 95 High Flow N/C 4.00 03/30/22 10:00 108 28 109/74 (86) 94 High Flow N/C 6.00 03/30/22 09:00 118 99/47 (64) 92 High Flow N/C 6.00 03/30/22 08:00 131 93/58 (70) 92 High Flow N/C 6.00 03/30/22 08:00 92 High Flow N/C 4.00 03/30/22 08:00 37.9 03/30/22 07:44 37.9 03/30/22 07:16 90 High Flow N/C 4.00 03/30/22 07:03 High Flow N/C 4.00 03/30/22 07:00 125 03/30/22 07:00 126 26 135/74 (94) 94 High Flow N/C 6.00 03/30/22 06:52 95 High Flow N/C 4.00 03/30/22 06:50 39.4 03/30/22 06:41 38.6 128 95 03/30/22 06:26 High Flow N/C 6.00 03/30/22 06:26 95 High Flow N/C 6.00 I & O 03/31/22 07:00 Intake Total 3125.0 ml Output Total 3250 ml Balance -125.0 ml Capillary Refill : Less Than 3 Seconds General Appearance: Anxious, Chronically ill HEENT: PERRL/EOMI; No Scleral Icterus (L), No Scleral Icterus (R) Neck: Full Range of Motion, Normal Inspection, Non Tender, Supple Respiratory: Chest Non Tender, Lungs Clear, Normal Breath Sounds, No Accessory Muscle Use, No Respiratory Distress Cardiovascular: No Edema, No Gallop, No JVD, No Murmur, Normal Peripheral Pulses, Tachycardia Peripheral Pulses: 2+ Radial Pulses (R), 2+ Radial Pulses (L) Gastrointestinal: normal bowel sounds, non tender, soft Extremity: Normal Capillary Refill, Normal Inspection, Non Tender Neurologic/Psychiatric: Alert, Oriented x3, No Motor/Sensory Deficits, Normal Mood/Affect Skin: Normal Color, Other (Non healing ulcer on plantar surface of right foot, approixmently 1 cm x 1 cm in size. ) Lymphatic: No Adenopathy Results Lab Laboratory Tests 03/30/22 06:43: Glucometer 107 03/30/22 09:49: D-Dimer 0.84H, B-Type Natriuretic Peptide 188.8H 03/30/22 10:50: Glucometer 196H 03/30/22 16:02: Glucometer 283H 03/30/22 20:46: Glucometer 181H 03/31/22 05:30: Sodium Level 140, Potassium Level 3.7, Chloride Level 108H, Carbon Dioxide Level 21, Anion Gap 11, Blood Urea Nitrogen 13, Creatinine 0.94, Estimat Glomerular Filtration Rate 104, BUN/Creatinine Ratio 14, Glucose Level 156H, Calcium Level 8.4L, Corrected Calcium 9.3, Phosphorus Level 1.9L, Magnesium Level 1.7, Total Bilirubin 1.2H, Aspartate Amino Transf (AST/SGOT) 25, Alanine Aminotransferase (ALT/SGPT) 23, Alkaline Phosphatase 86, Total Protein 5.6L, Albumin 2.9L, Vancomycin Level Trough 17.2 Microbiology 03/28/22 MRSA Screen - Final, Complete MRSA not isolated 03/28/22 Blood Culture - Preliminary, Resulted No growth Radiology Date of Exam:03/30/22 FOOT, RIGHT, 3 VIEW INDICATION: Suspected osteomyelitis. EXAMINATION: Right foot 03/30/2022. COMPARISON: 04/09/2021. FINDINGS: 3 views of the foot Since the previous examination, there has been interval development of destructive change along the 4th metatarsal head and at the base of the proximal 4th phalanx. Findings suggestive of osteomyelitis. There is diffuse soft tissue swelling about the 4th digit. Remaining osseous structures intact with degenerative findings noted. IMPRESSION: 1. Interval destructive change along the 4th metatarsal head and adjacent 4th proximal phalanx. Osteomyelitis is suspected but could be better characterized with MRI with and without contrast. 2. Not mentioned above soft tissue irregularity with hyperdensities possibly radiopaque foreign bodies versus nonspecific calcifications in the plantar surface of the forefoot on the lateral view. Subcutaneous air in the region not excluded. Correlate clinically. Assessment/Plan Assessment/Plan Assessment/Plan Osteomyelitis of right 4th toe- based on x-ray History of osteomyelitis-in right 4th toe, treated with 14 week course of Abx. Non healing ulceration of right foot Sepsis/Bacteremia- Coag negative staph Left lower lobe pneumonia T2DM JAYE GERD Monitor labs Continue cefepime and vancomycin Continue supportive care NPO Hold Lovenox Surgery scheduled for today (03-31-2022), patient has agreed to surgery. Clinical Quality Measures DVT/VTE Risk/Contraindication: VTE Addressed: Yes VTE Present on Admission: No TREVA SIMS DO 03/31/22 0850: Subjective Subjective/Events-last exam Feeling better today. Fever gone he states. Pain not much at right foot now. NPO Awaiting surgery today. Denies n/v fever sweats chills shortness of breath or chest pain at this time. Objective Exam General Appearance: Anxious, Chronically ill HEENT: PERRL/EOMI, Normal ENT Inspection Neck: Full Range of Motion, Non Tender Respiratory: Chest Non Tender, No Accessory Muscle Use, No Respiratory Distress Cardiovascular: No JVD, Tachycardia Gastrointestinal: non tender, soft Extremity: Non Tender Neurologic/Psychiatric: Alert, Oriented x3, Normal Mood/Affect, Other (decreased senstion right foot) Skin: Normal Color, Warm/Dry, Other (Non healing ulcer on plantar surface of right foot, approixmently 1 cm x 1 cm in size. right 4th toe slight erythema) Lymphatic: No Adenopathy Assessment/Plan Assessment/Plan Assessment/Plan Osteomyelitis of right 4th toe/metatarsal head Ulcer of right foot Sepsis/Bacteremia- Coag negative staph Left lower lobe pneumonia T2DM JAYE GERD plan for right 4th toe/metatarsal head amputation today all other indicated procedures, he understands will likely clean up ulcer that is associate with area or cut it out with toe. need for wound care continue abx NPO Supervisory-Addendum Brief Verification & Attestation Participated in pt care: history, MDM, physical Personally performed: exam, history, MDM, supervision of care Care discussed with: Medical Student Procedures: n/a Results interpretation: Verified all documentation Verification and Attestation of Medical Student E/M Service A medical student performed and documented this service in my presence. I reviewed and verified all information documented by the medical student and made modifications to such information, when appropriate. I personally performed the physical exam and medical decision making. Treva Sims, Mar 31, 2022,08:43 MOISÉS XAVIER Mar 31, 2022 06:33 TREVA SIMS DO Mar 31, 2022 08:50
[2022-03-31] MEDS ORDERED: BUPIVACAINE 0.5% 30 ML (SENSORCAINE) VIAL ONE (07:39)
[2022-03-31] MEDS ORDERED: LIDOCAINE 1% INJ 10 ML VIAL ONE (07:39)
[2022-03-31] MEDS ORDERED: proPOfol 200 MG/20 ML (DIPRIVAN) VIAL IV ONE ×2 (08:32→08:47)
[2022-03-31] MEDS ORDERED: fentaNYL INJ 100 MCG/2 ML AMP ONE (08:32)
[2022-03-31] MEDS ORDERED: ONDANSETRON 4 MG/2 ML (SDV) Z0FRAN ONE (08:32)
[2022-03-31] MEDS ORDERED: LIDOCAINE PF 2% 5 ML (XYLOCAINE) VIAL ONE (08:32)
[2022-03-31] MEDS ORDERED: SEVOFLURANE (ULTANE) 15 ML INHAL SOLN ONE ×2 (08:32→09:30)
[2022-03-31] MEDS ORDERED: MIDAZOLAM 2 MG/2 ML (VERSED) VIAL ONE (08:32)
--- NOTE | 2022-03-31 08:56 | Tele-ICU Progress Note ---
Subjective Date Seen by a Provider: Mar 31, 2022 Subjective/Events-last exam This virtual visit was conducted using real time audio/video. Thank you for asking us to see this patient for hypovolemic shock due to naus., vomit. and diarrhea. Low BP and syncope. Recent events: Going for R toe amp due to osteomyelitis. PE: Comfortable. VSS. O2 sat 94% on RA. HEENT: No obvious masses, adenopathy or JVD. Chest: clear to auscultation. CV: RRR S1 S2 No murmur or added sounds. Abd: Non-tender. Bowel sounds Y. : Unremarkable. [place] N. [employer]/psychiatric: Grossly intact. No obvious focal findings. Extremities: i+ edema. Capillary refill < 3 seconds. Skin: unremarkable. Results: Elevated BG 156. Decreased Nb 10.4. CXR: Probable atelectasis Vs. pna.. Available chart/ vitals / labs / images reviewed. Video assessment done using teleICU camera, rest of exam as per RN. A/P: Critical Care: critically ill patient. Cont. Duonebs, abx, reglan, carafate, PPI, SSI. Lovenox held. Discussed with JUANPABLO Adam. Asked RN to reach out to eICU if any questions or concerns later. Time spent with patient/coordination of care with other health professionals (mins): 20. Sepsis Event Evaluation Height, Weight, BMI Height: '" Weight: 208lbs. oz. 94.786065gl; 26.65 BMI Method: Focused Exam Lactate Level 03/28/22 18:50: Lactic Acid Level 1.41 03/29/22 17:13: Lactic Acid Level 2.19*H 03/29/22 21:50: Lactic Acid Level 0.92 Exam Exam Patient acknowledged, consented, and participated in this virtual visit which was conducted using real time audio/video Vital Signs Date Time Temp Pulse Resp B/P (MAP) Pulse Ox O2 Delivery O2 Flow Rate FiO2 03/31/22 07:34 97 High Flow N/C 2.00 03/31/22 07:00 112 03/31/22 07:00 103 166/104 (124) 96 Nasal Cannula 2.00 03/31/22 06:00 103 26 165/97 (119) 95 Nasal Cannula 2.00 03/31/22 05:00 113 12 138/84 (102) 96 Nasal Cannula 2.00 03/31/22 04:00 95 High Flow N/C 2.00 03/31/22 04:00 109 17 143/67 (92) 92 Nasal Cannula 2.00 03/31/22 03:00 110 39 142/87 (105) 95 Nasal Cannula 2.00 03/31/22 02:46 96 High Flow N/C 2.00 03/31/22 02:00 105 28 148/88 (108) 95 Nasal Cannula 2.00 03/31/22 01:04 36.3 03/31/22 01:00 116 03/31/22 01:00 116 28 163/90 (114) 95 Nasal Cannula 2.00 03/31/22 00:00 115 20 124/79 (94) 96 Nasal Cannula 2.00 03/30/22 23:59 95 High Flow N/C 2.00 03/30/22 23:00 122 25 151/84 (106) 94 Nasal Cannula 2.00 03/30/22 22:28 Nasal Cannula 2.00 03/30/22 22:00 131 22 150/79 (102) 93 Room Air 03/30/22 21:08 91 Room Air 03/30/22 21:00 116 15 159/95 (116) 93 Room Air 03/30/22 20:00 95 Room Air 03/30/22 20:00 112 22 144/90 (108) 93 Room Air 03/30/22 19:00 110 38 138/86 (103) 98 Room Air 03/30/22 19:00 110 03/30/22 19:00 37.2 03/30/22 18:00 112 19 116/69 (85) 95 Room Air 03/30/22 17:00 116 21 131/71 (91) 93 Room Air 03/30/22 16:18 Room Air 03/30/22 16:00 95 Room Air 03/30/22 16:00 120 24 111/68 (82) 96 High Flow N/C 2.00 03/30/22 15:59 36.2 03/30/22 15:50 36.8 03/30/22 15:00 126 16 107/66 (80) 96 High Flow N/C 2.00 03/30/22 14:26 95 High Flow N/C 2.00 03/30/22 14:00 113 20 124/78 (93) 94 High Flow N/C 2.00 03/30/22 13:00 110 20 99/55 (70) 93 High Flow N/C 6.00 03/30/22 13:00 113 03/30/22 12:00 94 High Flow N/C 2.00 03/30/22 12:00 121 18 85/51 (62) 93 High Flow N/C 6.00 03/30/22 11:51 36.8 03/30/22 11:04 High Flow N/C 2.00 03/30/22 11:00 98 17 96/63 (74) 95 High Flow N/C 6.00 03/30/22 11:00 95 High Flow N/C 4.00 03/30/22 10:00 108 28 109/74 (86) 94 High Flow N/C 6.00 03/30/22 09:00 118 99/47 (64) 92 High Flow N/C 6.00 I & O 03/31/22 07:00 Intake Total 3125.0 ml Output Total 3250 ml Balance -125.0 ml Height & Weight Height: '" Weight: 208lbs. oz. 94.943275xw; 26.65 BMI Method: General Appearance: Anxious, Chronically ill HEENT: PERRL/EOMI, Normal ENT Inspection Neck: Full Range of Motion, Non Tender Respiratory: Chest Non Tender, No Accessory Muscle Use, No Respiratory Distress Cardiovascular: No JVD, Tachycardia Capillary Refill: Less Than 3 Seconds Peripheral Pulses: 2+ Radial Pulses (R), 2+ Radial Pulses (L) Gastrointestinal: non tender, soft Extremity: Non Tender Neurologic/Psychiatric: Alert, Oriented x3, Normal Mood/Affect, Other (decreased senstion right foot) Skin: Normal Color, Warm/Dry, Other (Non healing ulcer on plantar surface of right foot, approixmently 1 cm x 1 cm in size. right 4th toe slight erythema) Lymphatic: No Adenopathy Results Lab Laboratory Tests 03/29/22 17:13 03/29/22 21:50 03/30/22 05:17 03/31/22 05:30 Assessment/Plan Assessment/Plan See free text. Critical Care: Critically Ill Patient ROMEL GARCIA MD Mar 31, 2022 08:56
[2022-03-31] MEDS ORDERED: BUPIVACAINE 0.5% 30 ML (SENSORCAINE) VIAL INJ ONE (09:01)
[2022-03-31] MEDS ORDERED: PHENYLEPHRINE 100 MCG/ML 10 ML (ANESTHESIA) SYR ONE (09:04)
[2022-03-31] MEDS ORDERED: LACTATED RINGERS 1,000 ML IV PRN (09:15)
--- NOTE | 2022-03-31 09:24 | Diagnostic Imaging Report ---
EXAMINATION: Chest 1 view HISTORY: Shock COMPARISON: 03/30/2022 FINDINGS: There is slightly improved [id number] pulmonary edema. No pleural effusion or pneumothorax. Heart size is normal. IMPRESSION: 1. Slightly improved [id number] pulmonary edema. Dictated by: Dictated on workstation # [id number]
[2022-03-31] MEDS: GABAPENTIN 600 MG (NEURONTIN) TAB PO SCH ×3 (09:38→19:58)
[2022-03-31] MEDS: PANTOPRAZOLE 40 MG (PROTONIX) TAB PO SCH (09:38)
[2022-03-31] MEDS: DOCUSATE SODIUM 100 MG (COLACE) CAP PO SCH ×2 (09:38→19:59)
[2022-03-31] MEDS: SENNOSIDES 8.6 MG (SENOKOT) TAB PO SCH ×2 (09:38→19:59)
[2022-03-31] MEDS: SIMETHICONE 80 MG (MYLICON) CHEW PO SCH ×4 (09:38→19:59)
[2022-03-31] MEDS ORDERED: ONDANSETRON 4 MG/2 ML (SDV) Z0FRAN IVP PRN (10:00)
[2022-03-31] MEDS ORDERED: HYDROmorphone 2 MG/ML VIAL (DILAUDID) IV ONE (10:00)
--- NOTE | 2022-03-31 10:01 | Anesthesia-General Post-Op ---
General Patient Condition Mental Status/LOC: Same as Preop Cardiovascular: Satisfactory Nausea/Vomiting: Absent Respiratory: Satisfactory Pain: Controlled Complications: Absent Post Op Complications Complications None Follow Up Care/Instructions Patient Instructions None needed. Anesthesia/Patient Condition Patient Condition Patient is doing well, no complaints, stable vital signs, no apparent adverse anesthesia problems. No complications reported per nursing. D/C home per [facility] [place] Criteria: Yes MICHAEL ZAPATA CRNA Mar 31, 2022 10:01
[2022-03-31] MEDS: AZITHROMYCIN INJECTION 500 MG in NS (IVPB) 250 ML IV SCH (10:34)
[2022-03-31] MEDS: ONDANSETRON 4 MG/2 ML (SDV) Z0FRAN IV PRN ×2 (10:40→15:02)
--- NOTE | 2022-03-31 11:38 | Progress Note - Hospitalist ---
Subjective HPI/CC On Admission Date Seen by Provider: Mar 31, 2022 Time Seen by Provider: 11:32 Admitted for hypotension without source of sepsis.CXR repeat revealed evidence of PNA and abx started promptly. Patient required transfer back to ICU later afternoon due to fever 104 and tachy 140 but no hypotension and I assessed the patient at 1800 and lungs remained clear. Subjective/Events-last exam Patient recently returned from surgery right fourth toe amputation for osteomyelitis. Known significant diabetic peripheral neuropathy reporting no pain currently appears to be in no acute distress generally feeling better. Denies shortness of breath or chest discomfort. Focused Exam Lactate Level 03/28/22 18:50: Lactic Acid Level 1.41 03/29/22 17:13: Lactic Acid Level 2.19*H 03/29/22 21:50: Lactic Acid Level 0.92 Objective Exam Vital Signs Vital Signs Date Time Temp Pulse Resp B/P (MAP) Pulse Ox O2 Delivery O2 Flow Rate FiO2 03/31/22 10:15 High Flow N/C 4.00 03/31/22 10:10 36.8 22 138/76 (96) 95 03/31/22 10:00 118 03/28/22 22:02 21 Capillary Refill : Less Than 3 SecondsLess Than 3 Seconds General Appearance: No Apparent Distress, Chronically ill Respiratory: Chest Non Tender, Lungs Clear, Normal Breath Sounds, No Accessory Muscle Use, No Respiratory Distress Cardiovascular: Regular Rate, Rhythm, No Edema, No Gallop, No JVD, No Murmur, Normal Peripheral Pulses Gastrointestinal: Normal Bowel Sounds, No Organomegaly, No Pulsatile Mass, Non Tender, Soft Extremity: Other (Right foot bandage no evidence for blood on dressing. No edema on the left. No erythema or ulceration.) Results/Procedures Lab Laboratory Tests 03/31/22 05:30 Patient resulted labs reviewed. Assessment/Plan Assessment and Plan Assess & Plan/Chief Complaint 1. Osteomyelitis possibly due to coag negative staph with severe sepsis the latter resolved postop day 1 right fourth toe amputation significant clinical improvement. Continue IV antibiotics. 2. Type 2 diabetes with significant peripheral neuropathy the likely cause of #1 continue to monitor. Critical Care Critically Ill Patient Clinical Quality Measures DVT/VTE Risk/Contraindication: VTE Addressed: Yes VTE Present on Admission: No JOY PINEDA MD Mar 31, 2022 11:38
--- NOTE | 2022-04-01 00:02 | OPERATIVE REPORT ---
DATE OF SERVICE: 03/31/2022 PREOPERATIVE DIAGNOSIS: Osteomyelitis of the right fourth toe and metatarsal head and plantar ulceration. POSTOPERATIVE DIAGNOSIS: Osteomyelitis of the right fourth toe and metatarsal head and plantar ulceration. PROCEDURE: Right ankle block, right fourth toe amputation and partial fourth metatarsal amputation with debridement of plantar ulcer of the skin and subcutaneous tissue, measuring 1.8 x 1.6 cm. SURGEON: Thony Sims DO ANESTHESIA: General. ESTIMATED BLOOD LOSS: Minimal. COMPLICATIONS: None. INDICATIONS: The patient is a 41-year-old male who has osteomyelitis of the right fourth toe and metatarsal head. He has had chronic ulcer and had, had previous surgeries as well. He has also had long-term antibiotic therapy, which continued to have persistent issues. We discussed conservative and operative management at this time. He understands and wishes to proceed with operative management. Consent was signed and on chart. DESCRIPTION OF PROCEDURE: The patient was taken to the operating suite. He was prepped and draped in sterile fashion. Timeout was performed. Right ankle block was first performed. Local anesthetic was infiltrated on the medial and lateral aspects of the ankle then across the top of the foot for a complete block. The 15 blade scalpel was used to make an incision around the fourth toe and carrying it on the dorsal aspect, opening up the area, amount of scar and fibrotic tissue, erosive changes of the bony structures present. The fourth toe was then amputated at the joint of the metatarsal head and phalanges. Erosive change was still present on the bone, which as I said was taken proximal to the bone to more healthy appearing bone, which then the area was dissected around and a saw was then used to amputate proximal to the erosive changes. Bone was then grasped and all the connective tissues were dissected off of it and hemostasis was achieved. Attention was then placed to the ulceration on the plantar portion of the foot, 15 blade scalpel was used to sharply excise skin and subcutaneous tissue measuring 1.8 x 1.6 cm to healthy appearing tissue. Hemostasis was achieved with cautery. All the wounds were then irrigated with copious amounts of irrigation. The wound was then packed with iodoform and sterile bandages were applied. The patient tolerated the procedure well without any complications and sent to recovery in stable condition. Job ID: [id number] DocumentID: [id number] Dictated Date: 03/31/2022 14:58:27 [employer] Nutrition Services Assistant Date: 04/01/2022 00:00:00 Dictated By: DO MIKALA QUISPE
[2022-04-01 03:30] VITALS: BP 141/88
[2022-04-01] MEDS: CEFEPIME INJECTION 1,000 MG in NS (IVPB) 50 ML IV SCH ×2 (05:28→12:01)
[2022-04-01] MEDS: METOCLOPRAMIDE 5 MG (REGLAN) TAB PO SCH ×4 (05:28→19:33)
[2022-04-01] MEDS: inSUlin ASPART (NovoLOG) 1 UNIT/0.01 ML (CHARGE PER UNIT) SC SCH ×4 (05:28→21:00)
[2022-04-01] MEDS: SUCRALFATE 1 GM (CARAFATE) TAB PO SCH ×4 (05:28→19:33)
[2022-04-01] MEDS: VANCOMYCIN 1250 MG/NS 250 ML IVPB IV SCH ×4 (06:18→19:33)
[2022-04-01 06:37] LABS: BASOPHILS % (AUTO) 0 % (0-10); EOSINOPHILS # (AUTO) 0.2 10^3/uL (0.0-0.3); EOSINOPHILS % (AUTO) 2 % (0-10); HEMATOCRIT 32 % (40-54); HEMOGLOBIN 10.5 g/dL (13.3-17.7); LYMPHOCYTES # (AUTO) 1.7 10^3/uL (1.0-4.0); LYMPHOCYTES % (AUTO) 18 % (12-44); MEAN CORPUSCULAR HEMOGLOBIN 28 pg (25-34); MEAN CORPUSCULAR HGB CONC 33 g/dL (32-36); MEAN CORPUSCULAR VOLUME 86 fL (80-99); MEAN PLATELET VOLUME 11.1 fL (9.0-12.2); MONOCYTES # (AUTO) 0.7 10^3/uL (0.0-1.0); MONOCYTES % (AUTO) 7 % (0-12); NEUTROPHILS # (AUTO) 7.1 10^3/uL (1.8-7.8); NEUTROPHILS % (AUTO) 73 % (42-75); PLATELET COUNT 164 10^3/uL (130-400); WHITE BLOOD COUNT 9.7 10^3/uL (4.3-11.0)
[2022-04-01 06:57] LABS: ALBUMIN 2.9 GM/DL (3.2-4.5); CALCIUM 8.2 MG/DL (8.5-10.1); CREATININE SERUM 0.85 MG/DL (0.60-1.30); POTASSIUM 3.9 MMOL/L (3.6-5.0); TOTAL PROTEIN 5.7 GM/DL (6.4-8.2)
--- NOTE | 2022-04-01 07:15 | Progress Note - Surgery ---
MOISÉS XAVIER 04/01/22 0715: Subjective Date Seen by a Provider: Apr 01, 2022 Time Seen by a Provider: 10:00 Subjective/Events-last exam Patient is laying bed comfortably this morning Has no new pain at this time His right foot is still in some minor pain from surgery but well controlled Is eating well No other complaints, denies N/V/D, fever, and chills Overall status improving Labs reviewed Focused Exam Lactate Level 03/29/22 17:13: Lactic Acid Level 2.19*H 03/29/22 21:50: Lactic Acid Level 0.92 Objective Exam Vital Signs Date Time Temp Pulse Resp B/P (MAP) Pulse Ox O2 Delivery O2 Flow Rate FiO2 04/01/22 03:30 36.2 105 18 141/88 (105) 92 Nasal Cannula 2.00 03/31/22 23:28 36.9 105 18 138/82 (100) 98 Nasal Cannula 2.00 03/31/22 21:40 37.2 110 18 143/76 (98) 92 Nasal Cannula 2.00 03/31/22 20:25 37.1 117 18 137/70 (92) 95 Nasal Cannula 2.00 2.00 03/31/22 20:25 37.1 117 18 137/70 (92) 95 Nasal Cannula 2.00 03/31/22 20:00 Nasal Cannula 2.00 03/31/22 19:37 98 91 21 03/31/22 19:03 91 Room Air 03/31/22 16:04 36.3 96 16 158/97 (117) 99 Room Air 03/31/22 15:36 95 Room Air 03/31/22 12:56 37.0 115 18 135/81 (99) 93 Room Air 03/31/22 12:10 Nasal Cannula 03/31/22 12:07 37.0 115 135/81 (99) Room Air 93.00 03/31/22 10:15 High Flow N/C 4.00 03/31/22 10:15 Nasal Cannula 4.00 03/31/22 10:10 36.8 22 138/76 (96) 95 Nasal Cannula 4.00 03/31/22 10:05 Nasal Cannula 4.00 03/31/22 10:00 118 28 127/77 (94) 92 Room Air 03/31/22 10:00 22 127/77 (94) 92 Nasal Cannula 4.00 03/31/22 09:50 27 118/70 (86) 92 OxyMask 10.00 03/31/22 09:50 OxyMask 10.00 03/31/22 09:40 26 109/55 (73) 94 OxyMask 10.00 03/31/22 09:36 36.8 20 104/48 (66) 92 OxyMask 10.00 03/31/22 09:36 OxyMask 10.00 03/31/22 08:00 Room Air 03/31/22 08:00 95 High Flow N/C 2.00 03/31/22 07:34 97 High Flow N/C 2.00 I & O 04/01/22 07:00 Intake Total 2905.0 ml Output Total 1525 ml Balance 1380.0 ml Capillary Refill : Less Than 3 SecondsLess Than 3 Seconds General Appearance: No Apparent Distress, Chronically ill HEENT: PERRL/EOMI, Normal ENT Inspection Neck: Full Range of Motion, Non Tender Respiratory: Chest Non Tender, Lungs Clear, Normal Breath Sounds, No Accessory Muscle Use, No Respiratory Distress Cardiovascular: Regular Rate, Rhythm, No Edema, No Gallop, No JVD, No Murmur, Normal Peripheral Pulses Peripheral Pulses: 2+ Radial Pulses (R), 2+ Radial Pulses (L) Gastrointestinal: non tender, soft Extremity: Other (Right foot bandage no evidence for blood on dressing. No edema on the left. No erythema or ulceration.) Neurologic/Psychiatric: Alert, Oriented x3, Normal Mood/Affect, Other (decreased senstion right foot) Skin: Normal Color, Warm/Dry Lymphatic: No Adenopathy Results Lab Laboratory Tests 03/31/22 10:42: Glucometer 175H 03/31/22 15:39: Glucometer 128H 03/31/22 20:48: Glucometer 200H 04/01/22 05:25: Glucometer 99 04/01/22 06:25: White Blood Count 9.7, Red Blood Count 3.74L, Hemoglobin 10.5L, Hematocrit 32L, Mean Corpuscular Volume 86, Mean Corpuscular Hemoglobin 28, Mean Corpuscular Hemoglobin Concent 33, Red Cell Distribution Width 12.3, Platelet Count 164, Mean Platelet Volume 11.1, Immature Granulocyte % (Auto) 1, Neutrophils (%) (Auto) 73, Lymphocytes (%) (Auto) 18, Monocytes (%) (Auto) 7, Eosinophils (%) (Auto) 2, Basophils (%) (Auto) 0, Neutrophils # (Auto) 7.1, Lymphocytes # (Auto) 1.7, Monocytes # (Auto) 0.7, Eosinophils # (Auto) 0.2, Basophils # (Auto) 0.0, Immature Granulocyte # (Auto) 0.1, Sodium Level 136, Potassium Level 3.9, Chloride Level 106, Carbon Dioxide Level 20L, Anion Gap 10, Blood Urea Nitrogen 8, Creatinine 0.85, Estimat Glomerular Filtration Rate 111, BUN/Creatinine Ratio 9, Glucose Level 98, Calcium Level 8.2L, Corrected Calcium 9.1, Total Bilirubin 1.0, Aspartate Amino Transf (AST/SGOT) 32, Alanine Aminotransferase (ALT/SGPT) 27, Alkaline Phosphatase 84, Total Protein 5.7L, Albumin 2.9L Microbiology 03/28/22 MRSA Screen - Final, Complete MRSA not isolated 03/28/22 Blood Culture - Preliminary, Resulted No growth Assessment/Plan Assessment/Plan Assessment/Plan S/P Right 4th toe 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 No new complaints. Denies n/v fever sweats chills shortness of breath or chest pain. Objective Exam General Appearance: No Apparent Distress, Chronically ill HEENT: PERRL/EOMI, Normal ENT Inspection Neck: Full Range of Motion, Non Tender Respiratory: Chest Non Tender, No Accessory Muscle Use, No Respiratory Distress Cardiovascular: Regular Rate, Rhythm, No JVD Gastrointestinal: non tender, soft Extremity: Other (Right foot No edema on the left. No erythema or ulceration. Open wound clean) Neurologic/Psychiatric: Alert, Oriented x3, Normal Mood/Affect, Other (decreased senstion right foot) Skin: Normal Color, Warm/Dry Lymphatic: No Adenopathy Assessment/Plan Assessment/Plan Assessment/Plan S/P Right 4th toe amputation and partial 4th metatarsal amputation with debridement of plantar ulcer of skin and subcutaneous skin-POD 1 Osteomyelitis of right 4th toe/metatarsal head Ulcer of right foot Sepsis/Bacteremia- Coag negative staph Left lower lobe pneumonia T2DM JAYE-Resolved GERD Daily wound care Continue abx Monitor labs Supervisory-Addendum Brief Verification & Attestation Participated in pt care: history, MDM, physical Personally performed: exam, history, MDM, supervision of care Care discussed with: Medical Student Procedures: n/a Results interpretation: Verified all documentation Verification and Attestation of Medical Student E/M Service A medical student performed and documented this service in my presence. I reviewed and verified all information documented by the medical student and made modifications to such information, when appropriate. I personally performed the physical exam and medical decision making. Treva Sims, Apr 01, 2022,13:18 MOISÉS XAVIER Apr 01, 2022 07:15 TREVA SIMS DO Apr 01, 2022 13:18
[2022-04-01 07:32] VITALS: BP 135/63
[2022-04-01] MEDS: RT-ALBUTEROL/IPRATROPIUM 3 ML (DUONEB) VIAL INH SCH ×2 (07:50→15:02)
[2022-04-01] MEDS: GABAPENTIN 600 MG (NEURONTIN) TAB PO SCH ×3 (08:35→19:33)
[2022-04-01] MEDS: AZITHROMYCIN INJECTION 500 MG in NS (IVPB) 250 ML IV SCH (08:35)
[2022-04-01] MEDS: PANTOPRAZOLE 40 MG (PROTONIX) TAB PO SCH (08:35)
[2022-04-01] MEDS: SIMETHICONE 80 MG (MYLICON) CHEW PO SCH ×4 (08:35→21:00)
[2022-04-01] MEDS: DOCUSATE SODIUM 100 MG (COLACE) CAP PO SCH ×2 (08:54→21:00)
[2022-04-01] MEDS: SENNOSIDES 8.6 MG (SENOKOT) TAB PO SCH ×2 (08:55→21:00)
[2022-04-01 11:11] VITALS: BP 128/73
[2022-04-01] MEDS ORDERED: HYPOCHLOROUS ACID/NaCl (VASHE) 250 ML IR PRN (12:00)
--- NOTE | 2022-04-01 12:05 | Progress Note - Hospitalist ---
Subjective HPI/CC On Admission Date Seen by Provider: Apr 01, 2022 Time Seen by Provider: 12:01 Admitted for hypotension without source of sepsis.CXR repeat revealed evidence of PNA and abx started promptly. Patient required transfer back to ICU later afternoon due to fever 104 and tachy 140 but no hypotension and I assessed the patient at 1800 and lungs remained clear. Subjective/Events-last exam Patient reports feeling well minimal foot pain denies cough sputum production chest pain or shortness of breath. Focused Exam Lactate Level 03/29/22 17:13: Lactic Acid Level 2.19*H 03/29/22 21:50: Lactic Acid Level 0.92 Objective Exam Vital Signs Vital Signs Date Time Temp Pulse Resp B/P (MAP) Pulse Ox O2 Delivery O2 Flow Rate FiO2 04/01/22 11:11 38.0 109 18 128/73 (91) 90 Room Air 04/01/22 08:00 2.00 03/31/22 19:37 21 Capillary Refill : Less Than 3 SecondsLess Than 3 Seconds General Appearance: No Apparent Distress HEENT: Pale Conjunctivae (L), Pale Conjunctivae (R) Respiratory: Chest Non Tender, Lungs Clear, Normal Breath Sounds, No Accessory Muscle Use, No Respiratory Distress Cardiovascular: Regular Rate, Rhythm, No Edema, No Gallop, No JVD, No Murmur, Normal Peripheral Pulses Extremity: Other (Right fourth toe amputation wound healing by secondary intention no surrounding erythema no evidence for a sending lymphangitis. Trace edema right lower extremity none on the left) Results/Procedures Lab Laboratory Tests 04/01/22 06:25 Patient resulted labs reviewed. Assessment/Plan Assessment and Plan Assess & Plan/Chief Complaint 1. Osteomyelitis possibly due to coag negative staph with severe sepsis the latter resolved postop day 2right fourth toe amputation significant clinical improvement. Continue IV Vancomycin considering coag negative staph blood culture. The patient really has not had any physical findings or chest x-ray findings definitive in for pneumonia we will DC cefepime and azithromycin as I suspect he has been from his infection. While chest x-ray revealed pulmonary edema type appearance he remains asymptomatic chest x-ray reportedly improved and on physical examination his chest is clear with no heart failure symptoms. The patient presented to the emergency room originally because he stated his blood pressure was all over the place high to low. 2. Type 2 diabetes with significant peripheral neuropathy the likely cause of #1 continue to monitor. Blood sugars under reasonable control. Critical Care Critically Ill Patient Clinical Quality Measures DVT/VTE Risk/Contraindication: VTE Addressed: Yes VTE Present on Admission: No JOY PINEDA MD Apr 01, 2022 12:05
[2022-04-01 16:20] VITALS: BP 140/89
[2022-04-01 20:00] VITALS: BP 138/72
[2022-04-01 23:13] VITALS: BP 140/75
[2022-04-02 03:20] VITALS: BP 133/65
[2022-04-02 05:29] LABS: BASOPHILS # (AUTO) 0.1 10^3/uL (0.0-0.1); BASOPHILS % (AUTO) 1 % (0-10); EOSINOPHILS # (AUTO) 0.2 10^3/uL (0.0-0.3); EOSINOPHILS % (AUTO) 3 % (0-10); HEMATOCRIT 32 % (40-54); HEMOGLOBIN 10.6 g/dL (13.3-17.7); LYMPHOCYTES # (AUTO) 2.1 10^3/uL (1.0-4.0); LYMPHOCYTES % (AUTO) 24 % (12-44); MEAN CORPUSCULAR HEMOGLOBIN 28 pg (25-34); MEAN CORPUSCULAR HGB CONC 33 g/dL (32-36); MEAN CORPUSCULAR VOLUME 85 fL (80-99); MEAN PLATELET VOLUME 10.8 fL (9.0-12.2); MONOCYTES # (AUTO) 0.6 10^3/uL (0.0-1.0); MONOCYTES % (AUTO) 7 % (0-12); NEUTROPHILS # (AUTO) 5.6 10^3/uL (1.8-7.8); NEUTROPHILS % (AUTO) 65 % (42-75); PLATELET COUNT 190 10^3/uL (130-400); WHITE BLOOD COUNT 8.6 10^3/uL (4.3-11.0)
[2022-04-02 05:48] LABS: ALBUMIN 3.1 GM/DL (3.2-4.5); BILIRUBIN,TOTAL 0.9 MG/DL (0.1-1.0); CALCIUM 8.8 MG/DL (8.5-10.1); CREATININE SERUM 0.86 MG/DL (0.60-1.30); POTASSIUM 3.8 MMOL/L (3.6-5.0); TOTAL PROTEIN 5.9 GM/DL (6.4-8.2)
[2022-04-02] MEDS: inSUlin ASPART (NovoLOG) 1 UNIT/0.01 ML (CHARGE PER UNIT) SC SCH ×3 (05:54→15:36)
[2022-04-02] MEDS: SUCRALFATE 1 GM (CARAFATE) TAB PO SCH ×3 (06:10→16:06)
[2022-04-02] MEDS: METOCLOPRAMIDE 5 MG (REGLAN) TAB PO SCH ×3 (06:10→16:06)
[2022-04-02] MEDS: VANCOMYCIN 1250 MG/NS 250 ML IVPB IV SCH ×2 (06:10)
--- NOTE | 2022-04-02 06:51 | Progress Note - Surgery ---
MOISÉS XAVIER 04/02/22 0651: Subjective Date Seen by a Provider: Apr 02, 2022 Time Seen by a Provider: 08:20 Subjective/Events-last exam Patient is laying bed comfortably this morning, in good spirits Has no new pain at this time Denies any pain in right foot at this time Is eating well Denies any SOB No other complaints, denies N/V/D, fever, and chills Overall status improving Labs reviewed Operation site healing well Objective Exam Vital Signs Date Time Temp Pulse Resp B/P (MAP) Pulse Ox O2 Delivery O2 Flow Rate FiO2 04/02/22 03:20 36.8 89 16 133/65 (87) 94 Nasal Cannula 2.00 04/01/22 23:13 37.4 98 16 140/75 (96) 95 Nasal Cannula 2.00 04/01/22 20:00 37.5 100 18 138/72 (94) 91 Room Air 04/01/22 19:50 Nasal Cannula 2.00 04/01/22 17:57 107 91 21 04/01/22 16:20 37.5 107 20 140/89 (106) 91 Room Air 04/01/22 15:02 91 Room Air 04/01/22 11:11 38.0 109 18 128/73 (91) 90 Room Air 04/01/22 08:00 Nasal Cannula 2.00 04/01/22 07:50 92 Nasal Cannula 2.00 04/01/22 07:32 37.8 108 18 135/63 (87) 90 Nasal Cannula 2.00 I & O 04/02/22 07:00 Intake Total 2435.0 ml Output Total 1500 ml Balance 935.0 ml Capillary Refill : Less Than 3 SecondsLess Than 3 Seconds General Appearance: No Apparent Distress, Chronically ill HEENT: PERRL/EOMI, Normal ENT Inspection Neck: Full Range of Motion, Non Tender Respiratory: Chest Non Tender, Lungs Clear, No Accessory Muscle Use, No Respiratory Distress Cardiovascular: Regular Rate, Rhythm, No Gallop, No JVD Peripheral Pulses: 2+ Radial Pulses (R), 2+ Radial Pulses (L) Gastrointestinal: non tender, soft Extremity: Non Tender, No Calf Tenderness, Other (Right foot, No edema on the l eft. No erythema or ulceration. Wound healing well) Neurologic/Psychiatric: Alert, Oriented x3, Normal Mood/Affect, Other (decreased senstion right foot) Skin: Normal Color, Warm/Dry Lymphatic: No Adenopathy Results Lab Laboratory Tests 04/01/22 11:08: Glucometer 128H 04/01/22 15:57: Glucometer 130H 04/01/22 20:34: Glucometer 165H 04/02/22 05:14: White Blood Count 8.6, Red Blood Count 3.80L, Hemoglobin 10.6L, Hematocrit 32L, Mean Corpuscular Volume 85, Mean Corpuscular Hemoglobin 28, Mean Corpuscular Hemoglobin Concent 33, Red Cell Distribution Width 12.3, Platelet Count 190, Mean Platelet Volume 10.8, Immature Granulocyte % (Auto) 1, Neutrophils (%) (Auto) 65, Lymphocytes (%) (Auto) 24, Monocytes (%) (Auto) 7, Eosinophils (%) (Auto) 3, Basophils (%) (Auto) 1, Neutrophils # (Auto) 5.6, Lymphocytes # (Auto) 2.1, Monocytes # (Auto) 0.6, Eosinophils # (Auto) 0.2, Basophils # (Auto) 0.1, Immature Granulocyte # (Auto) 0.1, Sodium Level 141, Potassium Level 3.8, Chloride Level 107, Carbon Dioxide Level 23, Anion Gap 11, Blood Urea Nitrogen 8, Creatinine 0.86, Estimat Glomerular Filtration Rate 111, BUN/Creatinine Ratio 9, Glucose Level 108H, Calcium Level 8.8, Corrected Calcium 9.5, Total Bilirubin 0.9, Aspartate Amino Transf (AST/SGOT) 36H, Alanine Aminotransferase (ALT/SGPT) 39, Alkaline Phosphatase 85, Total Protein 5.9L, Albumin 3.1L Microbiology 03/28/22 MRSA Screen - Final, Complete MRSA not isolated 03/28/22 Blood Culture - Preliminary, Resulted No growth Assessment/Plan Assessment/Plan Assessment/Plan S/P- Right 4th toe amputation and partial 4th metatarsal amputation with debridement of plantar ulcer of skin and subcutaneous skin-POD #2 Osteomyelitis of right 4th toe/metatarsal head Ulcer of right foot Sepsis/Bacteremia- Coag negative staph Left lower lobe pneumonia-Improving T2DM JAYE-Resolved GERD Daily wound care Monitor pain Continue abx Monitor labs Clinical Quality Measures DVT/VTE Risk/Contraindication: VTE Addressed: Yes VTE Present on Admission: No TREVA SIMS DO 04/02/22 1429: Subjective Subjective/Events-last exam Doing well. Pain controlled. No complaints. Denies n/v fever sweats chills shortness of breath or chest pain. Objective Exam General Appearance: No Apparent Distress, Chronically ill HEENT: PERRL/EOMI, Normal ENT Inspection Neck: Full Range of Motion, Non Tender Respiratory: Chest Non Tender, No Accessory Muscle Use, No Respiratory Distress Cardiovascular: Regular Rate, Rhythm, No JVD Gastrointestinal: non tender, soft Extremity: Non Tender, No Calf Tenderness, Other (Right foot, No edema on the left. No erythema or ulceration. Wound healing well) Neurologic/Psychiatric: Alert, Oriented x3, Normal Mood/Affect, Other (decreased senstion right foot) Skin: Normal Color, Warm/Dry Lymphatic: No Adenopathy Assessment/Plan Assessment/Plan Assessment/Plan S/P- Right 4th toe amputation and partial 4th metatarsal amputation with debridement of plantar ulcer of skin and subcutaneous skin-POD #2 Osteomyelitis of right 4th toe/metatarsal head Ulcer of right foot Sepsis/Bacteremia- Coag negative staph Left lower lobe pneumonia-Improving T2DM JAYE-Resolved GERD Daily wound care Monitor pain Continue abx Monitor labs Home soon Supervisory-Addendum Brief Verification & Attestation Participated in pt care: history, MDM, physical Personally performed: exam, history, MDM, supervision of care Care discussed with: Medical Student Procedures: n/a Results interpretation: Verified all documentation Verification and Attestation of Medical Student E/M Service A medical student performed and documented this service in my presence. I reviewed and verified all information documented by the medical student and made modifications to such information, when appropriate. I personally performed the physical exam and medical decision making. Treva Sims, Apr 02, 2022,14:29 MOISÉS XAVIER Apr 02, 2022 06:51 TREVA SIMS DO Apr 02, 2022 14:29
[2022-04-02 07:09] VITALS: BP 166/79
[2022-04-02] MEDS: SIMETHICONE 80 MG (MYLICON) CHEW PO SCH ×2 (09:03→14:44)
[2022-04-02] MEDS: GABAPENTIN 600 MG (NEURONTIN) TAB PO SCH ×2 (09:04→12:18)
[2022-04-02] MEDS: PANTOPRAZOLE 40 MG (PROTONIX) TAB PO SCH (09:04)
[2022-04-02] MEDS: DOCUSATE SODIUM 100 MG (COLACE) CAP PO SCH (11:06)
[2022-04-02] MEDS: SENNOSIDES 8.6 MG (SENOKOT) TAB PO SCH (11:06)
[2022-04-02 11:23] VITALS: BP 156/82
[2022-04-02 14:10] VITALS: BP 156/82
--- NOTE | 2022-04-02 15:26 | Discharge Summary ---
Discharge Summary Hospital Course Hospital Course Date of Admission: Mar 28, 2022 at 19:45 Admission Diagnosis : Hypovolemic shock DM JAEY Family Physician/Provider: Alix/Cory [facility] Date of Discharge: 04/02/22 Discharge Diagnosis: Osteomyelitis Septic shock Diabetes Hospital Course: Pt was admitted initially thought to have hypovolemic shock, after admit repeat CXR was thought to be suspicious for pneumonia and he was started on antibiotics for sepsis treatment. He did improve, but continued to have fevers and was found to have osteomyelitis of right fourth metatarsal head and proximal phalanx and underent amputation on 03/31. Postoperatively patient felt well and was anxious for discharge. He was fever free for 24 hours and per Surgery report they were able to get to healthy tissue, no suspicion for persistent infection. Pt reported he could do daily dressing changes without assistance and that he had done so in the past and declined home health. He was ambulating without difficulty. Labs and Pending Lab Test: Laboratory Tests 04/01/22 15:57: Glucometer 130H 04/01/22 20:34: Glucometer 165H 04/02/22 05:14: White Blood Count 8.6, Red Blood Count 3.80L, Hemoglobin 10.6L, Hematocrit 32L, Mean Corpuscular Volume 85, Mean Corpuscular Hemoglobin 28, Mean Corpuscular Hemoglobin Concent 33, Red Cell Distribution Width 12.3, Platelet Count 190, Mean Platelet Volume 10.8, Immature Granulocyte % (Auto) 1, Neutrophils (%) (Auto) 65, Lymphocytes (%) (Auto) 24, Monocytes (%) (Auto) 7, Eosinophils (%) (Auto) 3, Basophils (%) (Auto) 1, Neutrophils # (Auto) 5.6, Lymphocytes # (Auto) 2.1, Monocytes # (Auto) 0.6, Eosinophils # (Auto) 0.2, Basophils # (Auto) 0.1, Immature Granulocyte # (Auto) 0.1, Sodium Level 141, Potassium Level 3.8, Chloride Level 107, Carbon Dioxide Level 23, Anion Gap 11, Blood Urea Nitrogen 8, Creatinine 0.86, Estimat Glomerular Filtration Rate 111, BUN/Creatinine Ratio 9, Glucose Level 108H, Calcium Level 8.8, Corrected Calcium 9.5, Total Bilirubin 0.9, Aspartate Amino Transf (AST/SGOT) 36H, Alanine Aminotransferase (ALT/SGPT) 39, Alkaline Phosphatase 85, Total Protein 5.9L, Albumin 3.1L 04/02/22 11:04: Glucometer 120H Microbiology 03/28/22 MRSA Screen - Final, Complete MRSA not isolated 03/28/22 Blood Culture - Preliminary, Resulted No growth Home Meds Active Reported Midodrine HCl 5 Mg Tablet 5 Mg PO TID THIS WAS NOT PICKED UP OR STARTED PRIOR TO ADMISSION Metoclopramide HCl 10 Mg Tablet 10 Mg PO QID Carafate (Sucralfate) 1 Gram Tablet 1 Gm PO ACHS Invokana (Canagliflozin) 100 Mg Tablet 100 Mg PO DAILY Mounjaro (Tirzepatide) 5 Mg/0.5 Ml Pen.injctr 5 Mg IJ TUE Atorvastatin Calcium 80 Mg Tablet 80 Mg PO HS Gabapentin 600 Mg Tablet 600 Mg PO TID Aspirin 81 Mg Tab.chew 81 Mg PO HS Assessment/Pt DC Instructions Follow up with Surgery as directed. Follow up with primary provider within a week of discharge. Discharge Diet: ADA Diet Discharge Physical Examination Allergies: Coded Allergies: venlafaxine (Verified Adverse Reaction, Unknown, aggrevated gastroparesis, 10/04/21) General Appearance: No Apparent Distress Respiratory: Lungs Clear, Normal Breath Sounds Cardiovascular: Regular Rate, Rhythm, No Murmur Extremity: Other (dressing in place to right foot with no drainage) Neurologic/Psychiatric: Alert, Normal Mood/Affect Clinical Quality Measures DVT/VTE Risk/Contraindication: VTE Addressed: Yes VTE Present on Admission: No CALVIN ACOSTA MD Apr 02, 2022 15:26
[2022-04-02 16:10] VITALS: BP 156/82
== END 2022-04-02 16:10 | disposition home or self-care (01) | DRG 853 ==
LOC: EDUNIT# 14:56 → ER 14:58 → ICU 19:45 → 4TH 03-29 12:15 → ICU 03-29 17:45 → 4TH 03-31 12:10
PROVIDERS: ADMIT Internal Medicine; ATTEND Family Medicine
PROC: 5A0935A Assistance with Respiratory Ventilation, Less than 24 Consecutive Hours, High Flow/Velocity Cannula (ICD-10-PCS; 2022-03-30)
PROC: 0JBQ0ZZ Excision of Right Foot Subcutaneous Tissue and Fascia, Open Approach (ICD-10-PCS; 2022-03-31)
PROC: 3E0T3BZ Introduction of Anesthetic Agent into Peripheral Nerves and Plexi, Percutaneous Approach (ICD-10-PCS; 2022-03-31)
PROC: 0Y6M0ZD Detachment at Right Foot, Partial 4th Ray, Open Approach (ICD-10-PCS; principal; 2022-03-31 08:39)
DX: A41.9 Sepsis, unspecified organism (principal); J18.9 Pneumonia, unspecified organism; R65.21 Severe sepsis with septic shock; J96.01 Acute respiratory failure with hypoxia; N17.9 Acute kidney failure, unspecified; M86.8X7 Other osteomyelitis, ankle and foot; E11.69 Type 2 diabetes mellitus with other specified complication; E11.42 Type 2 diabetes mellitus with diabetic polyneuropathy; K21.00 Gastro-esophageal reflux disease with esophagitis, without bleeding; D64.9 Anemia, unspecified; R19.7 Diarrhea, unspecified; Z20.822 Contact with and (suspected) exposure to COVID-19; E11.65 Type 2 diabetes mellitus with hyperglycemia; F17.210 Nicotine dependence, cigarettes, uncomplicated; F41.9 Anxiety disorder, unspecified; M54.50 Low back pain, unspecified; Z79.82 Long term (current) use of aspirin; Z79.899 Other long term (current) drug therapy; E11.621 Type 2 diabetes mellitus with foot ulcer; F32.A Depression, unspecified; L97.519 Non-pressure chronic ulcer of other part of right foot with unspecified severity; K21.9 Gastro-esophageal reflux disease without esophagitis
CPT/HCPCS: 36415; 71045; 73630; 80048; 80053; 80061; 80202; 80306; 81000; 82550; 82805; 82947; 83605; 83690; 83735; 83874; 83880; 84100; 84145; 84484; 85007; 85025; 85027; 85379; 85610; 85730; 87040; 87077; 87081; 87636; 93005; 93041; 94640; 94664; 94760; 96361; 96374

== ENCOUNTER → 2022-10-24 | Outpatient (CLI) | payer OTHER ==
[~2022-10-24] MED LIST changes: +CANA100T PO; +MIDO5TAB3 PO; +MTC10T PO; +SENN-271 PO; -SENN1TAB76 PO; +SUCR1TAB36 PO; +TIRZ5PEN IJ
== END ==
LOC: CARD 11:50
PROVIDERS: ATTEND Internal Medicine Cardiovascular Disease
DX: I10 Essential (primary) hypertension (principal); I25.10 Atherosclerotic heart disease of native coronary artery without angina pectoris
CPT/HCPCS: 93306

== ENCOUNTER → 2022-12-19 | Outpatient (CLI) | payer OTHER ==
[~2022-12-19] MED LIST changes: +CATHETER FLUSH 10 ML SYR IVP PRN; +REGADENOSON 0.4 MG/5 ML SYR (LEXISCAN) IV ONE
[2022-12-19 13:19] VITALS: BP 108/77
[2022-12-19 13:29] VITALS: BP 122/73
--- NOTE | 2022-12-19 16:11 | Cardiology Stress Test Report ---
Stress Test Report Date of Procedure/Referring: Date of Procedure: Dec 19, 2022 PCP Abida Hernandez DO Admitting Physician Admitting Physician: Attending Physician: Fercho Bolaños MD Baseline Heart Rate: 90 Baseline Blood Pressure: Blood Pressure Systolic: 122 Blood Pressure Diastolic: 73 Baseline Vitals Vital Signs Date Time Temp Pulse Resp B/P (MAP) Pulse Ox O2 Delivery O2 Flow Rate FiO2 12/19/22 13:19 90 108/77 (87) 12/19/22 13:31 98 Room Air Baseline EKG: Baseline EKG: NSR Summary After explaining the procedure to the patient, he signed a consent and then brought to the stress nuclear laboratory. Patient received 0.4 mg Lexiscan for stress test, ECG, heart rate and blood pressure were monitored continuously. Resting and stress dose of radio tracer were injected, imaging was acquired and reviewed in short axis, horizontal long axis and vertical long axis views. TID: 1.09 SSS: 0 SDS: 0 EF: 53 Good exercise tolerance for 5 minutes on standard Luis Carlos protocol, patient could not achieve his target heart rate, test was converted to Lexiscan Myoview stress test Patient tolerated Lexiscan well No significant ischemia or infarction on SPECT images Normal left ventricular size, ejection fraction 53% Copy Copies To 1: ABIDA HERNANDEZ BASHAR J MD Dec 19, 2022 16:11
== END ==
LOC: CARD 11:41
PROVIDERS: ATTEND Internal Medicine Cardiovascular Disease
DX: I10 Essential (primary) hypertension (principal); I25.10 Atherosclerotic heart disease of native coronary artery without angina pectoris
CPT/HCPCS: 78452; 93017; A9502